=== PATIENT | female | born 2000 | race Caucasian/White ===

== ENCOUNTER 2020-04-03 15:10 | Emergency (ER) | payer OTHER, SELFPAY ==
--- NOTE | 2020-04-03 15:11 | ECG_ITS ---
Measurements Intervals [place] Rate: 99 P: 53 NM: 152 QRS: 27 QRSD: 108 T: 8 QT: 361 QTc: 464 Interpretive Statements SINUS RHYTHM INCOMPLETE RIGHT BUNDLE BRANCH BLOCK BORDERLINE ST-T WAVE ABNORMALITY- INFERIOR LEADS BORDERLINE ECG Electronically Signed On 04-03-2020 16:03:32 CDT by Yan Dent D.O.
[2020-04-03 15:16] VITALS: BP 143/94; PULSE 105; RESP 30; TEMP 36.4; O2SAT 99
[2020-04-03 15:22] LABS: Basophils Absolute Auto 0.1 K/mm3 (0.0-0.1); Basophils Percent Auto 0.6 % (0.2-1.2); Eosinophils Absolute Auto 0.2 K/mm3 (0-0.3); Eosinophils Percent Auto 1.3 % (0-4.4); Hematocrit 40.9 % (37.0-47.0); Hemoglobin 14.2 g/dL (12.0-15.0); Immature Granulocyte Absolute 0.06 K/mm3 (0.00-0.031); Immature Granulocyte Percent A 0.5 % (0-0.5); Lymphocytes Absolute Auto 3.32 K/mm3 (0.9-3.2); Lymphocytes Percent Auto 28.5 % (18.3-44.2); Mean Corpuscular HGB Conc 34.7 g/dl (32-36); Mean Corpuscular Hemoglobin 29.5 pg (26-34); Mean Platelet Volume 9.5 fl (7.4-10.4); Monocytes Absolute Auto 0.7 K/mm3 (0.1-0.6); Monocytes Percent Auto 6.4 % (2.6-8.5); Neutrophils Absolute Auto 7.3 K/mm3 (1.3-6.7); Neutrophils Percent Auto 62.7 % (45.5-73.1); Platelet Count Result 306 k/mm3 (150-375); Red Blood Count 4.81 M/mm3 (4.2-5.4); Red Cell Distribution Width 12.4 % (11.5-14.5); White Blood Count 11.6 K/mm3 (4.5-10.0)
[2020-04-03 15:42] LABS: Blood Urea Nitrogen 19 mg/dL (7-17); Calcium 9.7 mg/dL (8.4-10.2); Carbon Dioxide 24 mmol/L (22-30); Chloride 103 mmol/L (98-107); Estimated Glomerular Filt Rate > 60; Glucose 117 mg/dL (65-105); Potassium 3.5 mmol/L (3.4-5.0); Sodium 136 mmol/L (137-145)
--- NOTE | 2020-04-03 16:06 | ED.GENADULT ---
HPI - General Adult General Chief complaint: Syncope Stated complaint: Syncope, cp, sob Time Seen by Provider: 04/03/20 15:10 Source: patient Mode of arrival: ambulatory Limitations: no limitations History of Present Illness HPI narrative: Patient is a 19-year-old female who presents to emergency department for evaluation of anxiety and possible panic attack patient was having stress related altercation with a coworker. Patient became anxious when out to her car felt near syncopal. Patient was very anxious notes that she has had some aching pain to the left chest with tingling in the extremities. Patient notes history of anxiety and depression Related Data Home Medications Medication Instructions Recorded Confirmed norgestimate-ethinyl estradiol 1 tablet PO DAILY 10/06/19 04/03/20 [Sprintec (28)] cetirizine 10 mg tablet 10 mg PO DAILY 10/25/19 04/03/20 Allergies Allergy/AdvReac Type Severity Reaction Status Date / Time codeine Allergy Mild Hives Verified 04/03/20 15:27 prednisolone Allergy Mild Hives Verified 04/03/20 15:27 Review of Systems Review of Systems: All systems reviewed & are unremarkable except as noted in HPI and below PMFSH Past Medical History Medical History ADD (attention deficit disorder) ADHD Anxiety Depression Hx of lymphangioma with surgery Social History Social History Smoking status: Never smoker Second hand tobacco smoke exposure: Yes Alcohol intake: never Substance use: never Substance use type: does not use Gender identity (if verbalized by the patient): Female Spiritual care concerns: No Agree to blood products: No Exam Narrative: Exam Narrative: GENERAL: Well-appearing, well-nourished, and in no acute distress. HEAD: Normocephalic, atraumatic. EYES: PERRLA and EOMI. ENT: Nares clear, no rhinorrhea or epistaxis. Mucous membranes moist. Oropharynx without tonsillar hypertrophy exudate or other lesions. NECK: Supple. No adenopathy or masses. CHEST: Clear to auscultation. No respiratory distress. No wheezes rales or rhonchi HEART: Regular rate and rhythm. No murmur heard. Normal peripheral pulses. ABDOMEN: Soft, nontender, nondistended EXTREMITIES: Normal range of motion. No edema. SKIN: Warm, dry, no rash. NEURO: No focal deficits. Alert and oriented x3. Cranial nerves II through XII grossly intact patient PSYCH: Normal mood and affect. Course Course Emergency Course: Patient in the room at this time in no distress aware of case findings treatment plan and diagnosis agreeing to follow-up as directed or to return if symptoms worsen or concerns Vital Signs Vital signs: Vital Signs Temperature 97.5 F L 04/03/20 15:16 Pulse Rate 105 H 04/03/20 15:16 Respiratory Rate 30 H 04/03/20 15:16 Blood Pressure 143/94 H 04/03/20 15:16 Pulse Oximetry 99 04/03/20 15:16 Temperature 97.5 F L 04/03/20 15:16 Pulse Rate 105 H 04/03/20 15:16 Respiratory Rate 30 H 04/03/20 15:16 Blood Pressure 143/94 H 04/03/20 15:16 Pulse Oximetry 99 04/03/20 15:16 Medical Decision Making MDM Narrative Medical decision making narrative: Patients EKGs and labs are without significant high risk changes. Cardiac risk factors were reviewed. Patient is felt likely to be low risk for ACS and reasonable for further risk stratification testing as an outpatient. Patient with history of anxiety given the interaction with her coworker that led to anxiety as the likely etiology. A low-risk Wells criteria is noted. PE is felt to be unlikely. No pneumonia or URI symptoms were seen on evaluation today. Patient is felt to be resonable for continued evaluation as an outpatient. Vital Signs Vital Signs: Vital Signs Temperature 97.5 F L 04/03/20 15:16 Pulse Rate 105 H 04/03/20 15:16 Respiratory Rate 30 H 04/03/20 15:16 Blood Pressure 143/94 H 04/03/20
[2020-04-03 16:07] LABS: D Dimer 0.39 ug/mL (<0.48)
[2020-04-03 16:42] LABS: Troponin I < 0.012 ng/mL (0.000-0.034)
--- NOTE | 2020-04-03 16:49 | PC.NURSE ---
0.5 ml of ativan wasted with pyxsis documentation. Pt. refused medication. EDP aware.
[2020-04-03 17:20] VITALS: BP 135/65; PULSE 82; RESP 12; O2SAT 99
[2020-04-04 16:06] VITALS: PULSE 110; RESP 26; TEMP 36.6
== END 2020-04-03 17:26 | disposition home or self-care (01) ==
PROVIDERS: Emergency Medicine Emergency Medical Services; Emergency Provider Emergency Medicine; PCP Internal Medicine
DX: F41.9 Anxiety disorder, unspecified (principal); I45.10 Unspecified right bundle-branch block; R94.31 Abnormal electrocardiogram [ECG] [EKG]
CPT/HCPCS: 36415; 80048; 81025; 84484; 85025; 85380; 93005; 99284

== ENCOUNTER 2020-08-15 11:09 | Outpatient (CLI) | payer OTHER, SELFPAY ==
[2020-08-15 11:27] LABS: Hematocrit 39.3 % (37.0-47.0); Hemoglobin 13.6 g/dL (12.0-15.0); Mean Corpuscular HGB Conc 34.6 g/dl (32-36); Mean Corpuscular Hemoglobin 29.8 pg (26-34); Mean Platelet Volume 9.4 fl (7.4-10.4); Platelet Count Result 271 k/mm3 (150-375); Red Blood Count 4.57 M/mm3 (4.2-5.4); Red Cell Distribution Width 12.2 % (11.5-14.5); White Blood Count 8.6 K/mm3 (4.5-10.0)
[2020-08-15 11:40] LABS: Alanine Aminotransferase 19 U/L (4-35); Alkaline Phosphatase 40 U/L (38-126); Anion Gap 4 mmol/L (8-16); Aspartate Amino Transferase 22 U/L (14-36); Bilirubin,Total 0.6 mg/dL (0.2-1.3); Blood Urea Nitrogen 15 mg/dL (7-17); Calcium 9.4 mg/dL (8.4-10.2); Carbon Dioxide 28 mmol/L (22-30); Chloride 104 mmol/L (98-107); Cholesterol 149 mg/dL (0-200); Estimated Glomerular Filt Rate > 60; Glucose 101 mg/dL (65-105); HDL Direct 38 mg/dL; Potassium 4.3 mmol/L (3.4-5.0); Sodium 136 mmol/L (137-145); Triglycerides 116 mg/dL (<150)
[2020-08-15 11:41] LABS: Hemoglobin A1C 5.4 % (<5.7)
[2020-08-15 11:51] LABS: LDL Cholesterol Direct 94 mg/dL
[2020-08-15 12:48] LABS: Folic Acid > 20.0 ng/mL (2.76->20)
== END 2020-08-15 11:10 | disposition home or self-care (01) ==
LOC: ANHLAB 11:13
PROVIDERS: PCP Internal Medicine; Visit Provider Physician Assistant
DX: R73.9 Hyperglycemia, unspecified (principal); R53.83 Other fatigue
CPT/HCPCS: 36415; 80053; 80061; 82607; 82746; 83036; 84443; 85027

== ENCOUNTER 2020-10-06 11:25 | Emergency (ER) | payer OTHER, SELFPAY ==
--- NOTE | ~2020-10-06 | XR_ITS ---
EXAMINATION: XR chest 2V DATE: 10/06/2020 12:10 INDICATION: Cough and chest pain TECHNIQUE: PA and lateral views of the chest are obtained. COMPARISON: 06/01/2018 FINDINGS: The lungs are free of acute opacities. There is no pleural effusion or pneumothorax. The ca rdiomediastinal silhouette is normal. The visualized bones and soft tissues are unremarkable. IMPRESSION: 1. No acute cardiopulmonary abnormality. Reviewed, dictated and finalized at location A. OR PUBLICATIONS
[2020-10-06 11:37] VITALS: BP 135/78; PULSE 86; RESP 22; TEMP 37.3; O2SAT 97
--- NOTE | 2020-10-06 12:05 | ED.URI ---
HPI - URI/Sore Throat General Chief Complaint: Upper Respiratory Infection Stated Complaint: aches chills and chest pain Time Seen by Provider: 10/06/20 11:55 Source: patient and RN notes reviewed Mode of arrival: ambulatory Limitations: no limitations History of Present Illness HPI Narrative: Patient presents today with a 2-day history of sore throat, and symptoms since last night to include headache, dry cough, body aches, chills and sweats, shortness of breath, left-sided chest discomfort. Chest discomfort worsens with deep breaths and movement. She also reports temperature up to 99.9. She has been taking Tylenol with relief. No history of asthma or COPD. She is a non-smoker. She did receive her flu vaccine in August. Patient works at [employer] and get swabbed for COVID-19 every week. Her last test that was done on Thursday and came back negative yesterday. Related Data Home Medications Medication Instructions Recorded Confirmed cetirizine 10 mg tablet 10 mg PO DAILY 10/25/19 10/06/20 escitalopram oxalate 10 mg tablet 10 mg PO DAILY 08/14/20 10/06/20 Allergies Allergy/AdvReac Type Severity Reaction Status Date / Time codeine Allergy Mild Hives Verified 10/06/20 12:51 prednisolone Allergy Mild Hives Verified 10/06/20 12:51 Review of Systems Review of Systems: Narrative: CONSTITUTIONAL: Denies fever. + Chills, sweats, body aches EYES: Denies visual changes, redness, or discharge. ENT: Denies rhinorrhea, congestion, or otalgia. + Sore throat CARDIOVASCULAR: Denies chest pain, palpitations, or edema. RESPIRATORY: + Dry cough, shortness of breath, chest wall pain GASTROINTESTINAL: Denies abdominal pain, nausea, vomiting, or diarrhea. GENITOURINARY: Denies dysuria or hematuria. SKIN: Denies rash, itching, or wounds. MUSCULOSKELETAL: Denies back pain, joint pain, or myalgia. NEUROLOGIC: Denies headache, numbness, tingling, or weakness. PSYCH: Denies depression or anxiety. [facility] Past Medical History Medical History (Updated 10/06/20 @ 12:46 by Pili Menezes, MANAGER COUNCIL, ) ADD (attention deficit disorder) ADHD Anxiety Depression Surgical History Surgical History Hx of lymphangioma with surgery Social History Social History Smoking status: Never smoker Second hand tobacco smoke exposure: Yes Alcohol intake: never Substance use: never Substance use type: does not use Gender identity (if verbalized by the patient): Female Spiritual care concerns: No Agree to blood products: No Comments At time of signature, I have reviewed and agree with nursing past medical, surgical, social and family history unless otherwise noted. Please see nursing chart for further information. There is no relevant family history pertinent to the presenting complaint Exam Narrative: Exam Narrative: GENERAL: Well-appearing, well-nourished, and in no acute distress. HEAD: Normocephalic, atraumatic. EYES: EOMI. No redness or drainage. Conjunctivae normal. ENT: Mucous membranes pink and moist. Nares clear. No rhinorrhea. TMs normal bilaterally. Throat normal. Uvula midline. NECK: Normal AROM. Supple. No lymphadenopathy. CHEST: No respiratory distress. Diminished in the bilateral bases. Tenderness to the left sternal border HEART: Regular rate and rhythm. No murmur appreciated. Normal peripheral pulses. ABDOMEN: Soft, nontender, nondistended, normal active bowel sounds. MUSCULOSKELETAL: No bony tenderness. EXTREMITIES: Normal range of motion. No edema. SKIN: Warm, dry, no rash. Capillary refill normal. Normal skin turgor. NEURO: No focal deficits. Alert and oriented x3. Gait steady. PSYCH: Normal affect. No signs of depression or anxiety. Course Course Emergency Course: Recommend that patient get another COVID test, since symptoms began. She declines order for one today, as she states
== END 2020-10-06 13:05 | disposition home or self-care (01) ==
PROVIDERS: Emergency Provider Nurse Practitioner; PCP Internal Medicine
DX: B34.9 Viral infection, unspecified (principal); M94.0 Chondrocostal junction syndrome [Tietze]; F41.9 Anxiety disorder, unspecified; F32.9 Major depressive disorder, single episode, unspecified
CPT/HCPCS: 71046; 87081; 87804; 87880; 99213; G0463

== ENCOUNTER 2022-04-16 09:58 | Emergency (ER) | payer OTHER, SELFPAY ==
--- NOTE | 2022-04-16 10:06 | ECG_ITS ---
Measurements Intervals [place] Rate: 74 P: 19 MO: 172 QRS: 40 QRSD: 109 T: 16 QT: 404 QTc: 450 Interpretive Statements SINUS RHYTHM INCOMPLETE RIGHT BUNDLE BRANCH BLOCK BORDERLINE ECG Electronically Signed On 04-16-2022 12:07:05 CDT by Yan Dent D.O.
--- NOTE | 2022-04-16 10:08 | ED.PSYCH ---
HPI - Psych General Chief Complaint: Psychiatric Symptoms <Cristo Miranda APPRENTICESHIP REPRESENTATIVE - Last Filed: 04/17/22 16:21> Stated Complaint: SI <Cristo Miranda APPRENTICESHIP REPRESENTATIVE - Last Filed: 04/17/22 16:21> Time Seen by Provider: 04/16/22 10:02 <Cristo Miranda APPRENTICESHIP REPRESENTATIVE - Last Filed: 04/17/22 16:21> History of Present Illness HPI Narrative: 21-year-old female presents to the emergency room via EMS for evaluation of a suicidal ideation. Patient states that she was seen at her psychiatrist office this morning, and verbalized a plan to commit suicide which included sitting in her car while he was in the garage. Patient also verbalized the desire to overdose on pills. Patient states that she has overdosed on pills 1 time before. <Cristo Miranda APPRENTICESHIP REPRESENTATIVE - Last Filed: 04/17/22 16:21> Related Data Home Medications: Home Medications Medication Instructions Recorded Confirmed cetirizine 10 mg tablet 10 mg PO DAILY 10/25/19 10/06/20 escitalopram oxalate 10 mg tablet 10 mg PO DAILY 08/14/20 10/06/20 levothyroxine 25 mcg PO DAILY 04/16/22 montelukast mg 04/16/22 norgestimate-ethinyl estradiol tablet 04/16/22 [Sprintec (28)] <Cristo Miranda, APPRENTICESHIP REPRESENTATIVE - Last Filed: 04/17/22 16:21> Allergies/Adverse Reactions: Allergies Allergy/AdvReac Type Severity Reaction Status Date / Time codeine Allergy Mild Hives Verified 04/16/22 10:17 prednisolone Allergy Mild Hives Verified 04/16/22 10:17 <Cristo Miranda APPRENTICESHIP REPRESENTATIVE - Last Filed: 04/17/22 16:21> Review of Systems Review of Systems: CONSTITUTIONAL: Denies fever, chills, or sweats. EYES: Denies visual changes, redness, or discharge. ENT: Denies rhinorrhea, congestion, sore throat, or otalgia. CARDIOVASCULAR: Denies chest pain, palpitations, or edema. RESPIRATORY: Denies cough or dyspnea. GASTROINTESTINAL: Denies abdominal pain, nausea, vomiting, or diarrhea. GENITOURINARY: Denies dysuria or hematuria. SKIN: Denies rash or itching. MUSCULOSKELETAL: Denies back pain, joint pain, or myalgia. NEUROLOGIC: Denies headache, numbness, dizziness, or weakness. PSYCHIATRIC: Reports anxiety or depression. <Cristo Miranda APRN - Last Filed: 04/17/22 16:21> PMFSH Past Medical History Medical History: Medical History (Updated 04/17/22 @ 16:21 by Cristo Miranda APRN) ADD (attention deficit disorder) ADHD Anxiety Depression <Cristo Miranda APRN - Last Filed: 04/17/22 16:21> Surgical History Surgical History: Surgical History Hx of lymphangioma with surgery <Cristo Miranda APRN - Last Filed: 04/17/22 16:21> Social History Social History: Social History Smoking status: Never smoker Second hand tobacco smoke exposure: Yes Alcohol intake: never Substance use: never Substance use type: other Gender identity (if verbalized by the patient): Female Spiritual care concerns: No Agree to blood products: No <Cristo Miranda APRN - Last Filed: 04/17/22 16:21> Exam Narrative: GENERAL: Well-appearing, well-nourished, and in mild psychiatric distress. HEAD: Normocephalic, atraumatic. EYES: PERRLA and EOMI. ENT: Nares clear, no rhinorrhea or epistaxis. Mucous membranes moist. Oropharynx without tonsillar hypertrophy exudate or other lesions. Bilateral TMs pearly jacobs nonbulging NECK: Supple. No adenopathy or masses. No carotid bruits or JVD CHEST: Clear to auscultation. No respiratory distress. No wheezes rales or rhonchi HEART: Regular rate and rhythm. No murmur heard. Normal peripheral pulses. ABDOMEN: Soft, nontender, obese, normal active bowel sounds. EXTREMITIES: Normal range of motion. No edema. SKIN: Warm, dry, no rash. NEURO: No focal deficits. Alert and oriented x3. PSYCH: Anxious. <Cristo Miranda APRN - Last Filed: 04/17/22 16:21> Course Course Emergency Course: 1100: Patient is medically cleared. Crisis has
[2022-04-16 10:10] VITALS: BP 149/64; PULSE 72; RESP 18; TEMP 36.8; O2SAT 98
[2022-04-16 10:36] LABS: Basophils Absolute Auto 0.1 K/mm3 (0.0-0.1); Basophils Percent Auto 0.6 % (0.2-1.2); Eosinophils Absolute Auto 0.2 K/mm3 (0-0.3); Hematocrit 42.6 % (37.0-47.0); Immature Granulocyte Absolute 0.06 K/mm3 (0.00-0.031); Immature Granulocyte Percent A 0.7 % (0-0.5); Lymphocytes Absolute Auto 1.72 K/mm3 (0.9-3.2); Lymphocytes Percent Auto 20.7 % (18.3-44.2); Mean Corpuscular HGB Conc 32.9 g/dl (32-36); Mean Corpuscular Hemoglobin 29.2 pg (26-34); Mean Corpuscular Volume 88.8 fl (80-100); Mean Platelet Volume 9.2 fl (7.4-10.4); Monocytes Absolute Auto 0.6 K/mm3 (0.1-0.6); Monocytes Percent Auto 6.6 % (2.6-8.5); Neutrophils Absolute Auto 5.8 K/mm3 (1.3-6.7); Neutrophils Percent Auto 69.4 % (45.5-73.1); Platelet Count Result 269 k/mm3 (150-375); Red Cell Distribution Width 12.5 % (11.5-14.5); White Blood Count 8.3 K/mm3 (4.5-10.0)
[2022-04-16 10:49] LABS: Alanine Aminotransferase 18 U/L (6-35); Albumin Level 4.2 g/dL (3.5-5.1); Alkaline Phosphatase 47 U/L (38-126); Anion Gap 10 mmol/L (8-16); Aspartate Amino Transferase 23 U/L (14-36); Bilirubin,Total 0.4 mg/dL (0.2-1.3); Blood Urea Nitrogen 14 mg/dL (7-17); Calcium 8.9 mg/dL (8.4-10.2); Carbon Dioxide 26 mmol/L (22-30); Chloride 105 mmol/L (98-107); Estimated Glomerular Filt Rate > 60; Glucose 97 mg/dL (65-110); Potassium 3.7 mmol/L (3.4-5.0); Sodium 141 mmol/L (137-145)
[2022-04-16 10:50] LABS: Acetaminophen < 10 ug/mL (10-30); Ethanol < 10 mg/dL (<10); Salicylate < 1.0 mg/dL (2-20)
[2022-04-16 10:51] LABS: Amphetamine Screen Urine Negative (Negative); Barbiturate Screen Urine Negative (Negative); Benzodiazepines Screen Urine Negative (Negative); Cannabinoid Screen Urine Negative (Negative); Cocaine Screen Urine Negative (Negative); Methadone Screen Urine Negative (Negative); Opiate Screen Urine Negative (Negative); Phencyclidine Screen Urine Negative (Negative)
[2022-04-16 11:00] LABS: Appearance Urine Clear (Clear); Bilirubin Urine Negative (Negative); Blood Urine 1+ (Negative); Color Urine Yellow (Yellow); Glucose Urine UA Negative (Negative); Ketones Urine Negative (Negative); Leukocyte Esterase Ur Negative LEU/UL (Negative); Nitrate Urine Negative (Negative); Protein Urine Negative (Negative); Urobilinogen Urine 0.2 mg/dL (<2.0)
[2022-04-16 11:03] LABS: Add Urine Microscopic? YES; Mucus Urine Rare /lpf; Squamous Epithelial Cell Urine Occasional /hpf (Few); WBC Urine 0-3 /hpf
--- NOTE | 2022-04-16 11:10 | PC.NURSE ---
Care assumed of pt at this time. Pt is lying on stretcher with family at bedside. pt has been medically cleared per provider and call will be placed to CRISIS. Pt denies any needs at this time.
--- NOTE | 2022-04-16 11:47 | PC.NURSE ---
meal tray ordered.
--- NOTE | 2022-04-16 11:50 | PC.NURSE ---
Crisis here to evaluate pt.
--- NOTE | 2022-04-16 13:24 | PC.NURSE ---
pt to be placed per crisis. States they sent information to Declan and supa. Pt is agreeable to admission and understands that this is a lengthy process. Mother and s/o at bedside. pt has eaten a meal and has no requests at this time.
--- NOTE | 2022-04-16 14:41 | PC.NURSE ---
Faxed [facility] in [place], [place] - . Entire packet
--- NOTE | 2022-04-16 14:58 | PC.NURSE ---
Refaxed to [facility] [phone] - no response on the first time faxed
[2022-04-16 15:38] LABS: SARS-CoV-2 RNA PCR Negative
--- NOTE | 2022-04-16 20:11 | PC.NURSE ---
Paperwork refaxed to [facility].
--- NOTE | 2022-04-16 20:23 | PC.NURSE ---
Chart faxed to [facility] at [phone].
--- NOTE | 2022-04-16 20:26 | PC.NURSE ---
Pt is doing an over the phone assessment with intake at [facility] at this time.
[2022-04-16] MEDS: MONTELUKAST SODIUM 10 MG TABLET PO (20:55)
--- NOTE | 2022-04-16 21:32 | PC.NURSE ---
Pt accepted to [facility] in [place] by Dr. Carson.
[2022-04-16 21:35] VITALS: BP 140/85; PULSE 52; RESP 18; O2SAT 96
--- NOTE | 2022-04-16 21:37 | PC.NURSE ---
Report given to Adela at [facility] in [place].
--- NOTE | 2022-04-16 21:58 | PC.NURSE ---
[facility] will be here to tile picker pt for transport at 0030. Pt and mother updated.
--- NOTE | 2022-04-17 00:05 | PC.NURSE ---
belongings given to mother at this time.
== END 2022-04-17 00:11 ==
PROVIDERS: Emergency Provider Nurse Practitioner Family; PCP Nurse Practitioner Family
DX: F32.9 Major depressive disorder, single episode, unspecified (principal); Z20.822 Contact with and (suspected) exposure to COVID-19; Z79.899 Other long term (current) drug therapy
CPT/HCPCS: 36415; 80053; 80307; 81001; 81025; 84443; 85025; 93005; 99284; A9270; C9803; U0003; U0005

== ENCOUNTER 2023-06-14 14:07 | Inpatient (IN) | payer OTHER, SELFPAY ==
[2023-06-14] VITALS (22 sets, daily range): BP systolic 124–173; BP diastolic 58–102; PULSE 102–139; RESP 26–56; TEMP 37.3–39.7; O2SAT 51–97; BMI 44.6
--- NOTE | ~2023-06-14 | XR_ITS ---
EXAMINATION: XR lumbar puncture diagnostic DATE: 06/15/2023 13:28 INDICATION: Meningitis. TECHNIQUE: The skin overlying the L2-L3 level was prepped and draped in usual sterile fashion. Subcu taneous 1% lidocaine was used for local anesthesia. A 20 gauge spinal needle was advanced under fluo roscopic guidance. The needle was removed and the entry site was cleaned and dressed. There were no immediate complications. Fluoroscopy exposure time was 0.1 minutes. The total number of images was 1. FINDINGS: Real-time fluoroscopy demonstrates the needle at the L2-L3 level. The opening pressure was 31 cm water (Normal range is variably defined as 6-20 cm water and up to 25 cm water in obese patient s. Pressure >25 cm water is one of the modified Dandy criteria for idiopathic intracranial hypertensi on). 14 mL of clear, colorless fluid was collected in 4 tubes. IMPRESSION: 1. Successful fluoro-guided lumbar puncture. 2. Elevated opening pressure. Reviewed, dictated and finalized at location A.
--- NOTE | ~2023-06-14 | XR_ITS ---
Portable chest x-ray Comparison: 06/16/2023 Clinical History: Respiratory failure Findings: Endotracheal tube and NG tube are in satisfactory positions. There is hazy bibasilar airsp john disease, most confluent at the left lower lobe. Cardiomediastinal silhouette is stable. Bones an d soft tissues are unremarkable. Impression: Bilateral lower lobe airspace disease, left worse than right. Correlate for pulmonary edema/atelectas es versus infection. Support tubes, as above. Reviewed, dictated and finalized at location . Impression: Bilateral lower lobe airspace disease, left worse than right. Correlate for pul monary edema/atelectases versus infection. Support tubes, as above.
--- NOTE | ~2023-06-14 | CT_ITS ---
EXAMINATION: CT brain wo con DATE: 06/14/2023 16:04 INDICATION: Fever. Altered mental status. TECHNIQUE: Computed tomography (CT) of the head was performed without intravenous contrast. The mA wa s adjusted according to patient size. Iterative reconstruction technique was employed. The dose-lengt h product was 529.67 mGy-cm. COMPARISON: None FINDINGS: There is no intracranial hemorrhage, acute infarction, or abnormal intracranial mass lesion . The ventricles are normal in size. There is mild mucosal thickening in the paranasal sinuses. The m astoid air cells are normal. The orbits are normal. IMPRESSION: 1. Normal brain. Reviewed, dictated and finalized at location E. IMPRESSION: 1. Normal brain.
--- NOTE | ~2023-06-14 | XR_ITS ---
EXAMINATION: XR chest 1V portable DATE: 06/14/2023 15:18 INDICATION: Shortness of breath. Fever. TECHNIQUE: A single frontal view of the chest was obtained. COMPARISON: Chest 2 views 10/06/2020, CT abdomen and pelvis 08/14/2019 FINDINGS: There are airspace opacities in the mid and lower lung zones with a lower lung predominance . No pleural effusion or pneumothorax. The heart size is normal. IMPRESSION: 1. Airspace opacities in the mid and lower lung zones, consistent with pulmonary edema versus pneumon ia. Reviewed, dictated and finalized at location E. IMPRESSION: 1. Airspace opacities in the mid and lower lung zones, consistent with pulmonar y edema versus pneumonia.
--- NOTE | ~2023-06-14 | XR_ITS ---
Supine portable view of the abdomen Clinical history: NG tube placement Findings: NG tube is in satisfactory position. Bowel gas pattern is nonspecific. No evidence for obst ruction or free air. No abnormal mass lesion or calcification is seen. Osseous structures are intact. Impression: NG tube in satisfactory position. Reviewed, dictated and finalized at location . Impression: NG tube in satisfactory position.
--- NOTE | ~2023-06-14 | US_ITS ---
EXAMINATION: US venous doppler UE RT DATE: 06/19/2023 09:01 INDICATION: Right upper limb swelling. TECHNIQUE: Grayscale ultrasound images without and with compression and Doppler ultrasound images of the right upper extremity veins were obtained. COMPARISON: None. FINDINGS: The visualized portions of the right internal jugular vein, subclavian vein, axillary vein, brachial veins, basilic vein, cephalic vein, radial vein, and ulnar vein are patent. IMPRESSION: 1. No deep venous thrombosis. Reviewed, dictated and finalized at location A.
--- NOTE | ~2023-06-14 | CT_ITS ---
EXAMINATION: CTA chest PE abdomen pel DATE: 06/14/2023 16:04 INDICATION: Shortness of breath. Fever. TECHNIQUE: Computed tomography angiography (CTA) of the chest was performed with 100 mL Omnipaque-350 intravenous contrast timed to evaluate the pulmonary arteries. Coronal maximum intensity projection 3D-reconstructions were created by the technologist. Computed tomography (CT) of the abdomen and pelv is was performed with intravenous contrast. Automated exposure control and iterative reconstruction t echnique were employed. The dose-length product was 529.67 mGy-cm. COMPARISON: CT abdomen and pelvis 08/14/2019 FINDINGS: CTA chest: There are patchy airspace and groundglass opacities involving all lobes. There is smooth s eptal thickening in the lungs. There are trace pleural effusions. The heart size is normal. No perica rdial effusion. There is no pulmonary embolus. CT abdomen and pelvis: The liver, spleen, gallbladder, pancreas, adrenal glands, and kidneys are norm al. The bladder is decompressed by a Watkins catheter. There are no dilated loops of bowel. The appendi x is not visualized. There are no pathologically enlarged lymph nodes. There is physiologic fluid in the pelvis. The bones are unremarkable. IMPRESSION: 1. Diffuse lung disease, consistent with pulmonary edema versus pneumonia. 2. No pulmonary embolus. Sensitivity is mildly decreased by motion artifact. Reviewed, dictated and finalized at location E.
--- NOTE | ~2023-06-14 | XR_ITS ---
Portable chest x-ray Comparison: 06/17/2023 Clinical History: Respiratory failure Findings: Endotracheal tube and NG tube are in satisfactory positions. Patchy bilateral airspace dis ease, with lower lobe predominance, is unchanged. Cardiomediastinal silhouette is stable. Bones and soft tissues are unremarkable. Impression: Stable bilateral airspace disease. Correlate for pulmonary edema/atelectasis versus pneumonia. Support tubes, as above. Reviewed, dictated and finalized at location . Impression: Stable bilateral airspace disease. Correlate for pulmonary edema/atelectasis ve rsus pneumonia. Support tubes, as above.
--- NOTE | ~2023-06-14 | MR_ITS ---
EXAMINATION: MR brain/brain stem wo/w con DATE: 06/20/2023 15:01 INDICATION: headache, inc ICP TECHNIQUE: Magnetic resonance imaging (MRI) of the brain and brainstem was performed without intraven ous contrast. Sequences included sagittal and axial T1-weighted SE, axial diffusion-weighted FS EPI A SSET, axial T2*-weighted GRE, axial T2-weighted FLAIR Propeller, and axial T2-weighted Propeller. Pos tcontrast axial and coronal T1-weighted SE was obtained. Apparent diffusion coefficient (ADC) maps we re created. COMPARISON: CT brain 06/14/2023. FINDINGS: No abnormal restricted diffusion to suggest acute ischemic infarct. No MRI evidence of hemorrhage or extra-axial collection. No suspicious foci of susceptibility to suggest prior intraparenchymal hemorr ramon. Normal white matter signal. No evidence of advanced or lobar predominant parenchymal volume los s. The basilar cisterns are patent. Flow voids are preserved. Mucosal thickening in the bilateral max illary and posterior ethmoid and sphenoid sinuses. Globes and orbital contents are within normal limi ts. IMPRESSION: Normal MR brain findings. Reviewed, dictated and finalized at location K. IMPRESSION: Normal MR brain findings.
--- NOTE | ~2023-06-14 | XR_ITS ---
Portable chest x-ray Comparison: 06/14/2023 at 3:10 PM Clinical History: Tube placement Findings: Endotracheal tube is present, tip probably just in the right mainstem bronchus. NG tube in satisfactory position. There is extensive pulmonary consolidation, left lung worse than right. Card iomediastinal silhouette is stable. Bones and soft tissues are unremarkable. Impression: Endotracheal tube tip in the right mainstem bronchus. Retraction by 3-4 cm advised. Extensive bilateral pulmonary consolidation, left worse than right. This probably represents a combin ation of pulmonary edema and left lung atelectatic changes given ET tube position. Reviewed, dictated and finalized at location . Impression: Endotracheal tube tip in the right mainstem bronchus. Retraction by 3-4 cm advi sed. Extensive bilateral pulmonary consolidation, left worse than right. This probab ly represents a combination of pulmonary edema and left lung atelectatic change s given ET tube position.
--- NOTE | ~2023-06-14 | XR_ITS ---
Portable chest x-ray Comparison: 06/18/2023 Clinical History: Respiratory failure Findings: There is minimal residual bibasilar hazy airspace disease. Cardiomediastinal silhouette i s stable. Bones and soft tissues are unremarkable. Impression: Minimal residual bibasilar hazy airspace disease. Reviewed, dictated and finalized at [facility]. Impression: Minimal residual bibasilar hazy airspace disease.
--- NOTE | ~2023-06-14 | XR_ITS ---
XR chest 1V portable 06/20/2023 06:13 Indication: Respiratory failure Procedure: AP portable chest Comparison: Comparison to multiple prior studies sequentially, with oldest reviewed study dated 06/16. Findings: Borderline heart size. Bilateral perihilar infiltrates may represent resolving edema or pne umonia. No significant effusion or pneumothorax. No acute osseous abnormality. Impression: 1: Improving bilateral perihilar infiltrates may represent resolving edema or pneumonia. Reviewed, dictated and finalized at location A. Impression: 1: Improving bilateral perihilar infiltrates may represent resolving edema or p neumonia.
--- NOTE | ~2023-06-14 | XR_ITS ---
Portable chest x-ray Comparison: 06/15/2023 Clinical History: Respiratory failure Findings: Endotracheal tube and NG tube are in satisfactory position. There is hazy left basilar air space consolidation. Questionable minimal right perihilar haziness.. Cardiomediastinal silhouette is stable. Bones and soft tissues are unremarkable. Impression: Significant improvement in bilateral airspace disease, with residual airspace disease in the left low er lobe and mild haziness the right perihilar region. Correlate for improving pulmonary edema/infecti on. Support tubes, as above. Reviewed, dictated and finalized at location M. Impression: Significant improvement in bilateral airspace disease, with residual airspace d isease in the left lower lobe and mild haziness the right perihilar region. Cor relate for improving pulmonary edema/infection. Support tubes, as above.
--- NOTE | ~2023-06-14 | XR_ITS ---
Portable chest x-ray Comparison: 06/14/2023 Clinical History: ET tube placement Findings: Endotracheal tube and NG tube are in satisfactory positions. There is moderate patchy bila teral airspace disease. No pleural effusion or pneumothorax. Cardiomediastinal silhouette is stable. Bones and soft tissues are unremarkable. Impression: Support tubes in satisfactory positions, as above. Patchy moderate bilateral airspace disease. Correlate for moderate pulmonary edema versus infection. Reviewed, dictated and finalized at location . Impression: Support tubes in satisfactory positions, as above. Patchy moderate bilateral airspace disease. Correlate for moderate pulmonary ed veena versus infection.
[2023-06-14] MEDS: SODIUM CHLORIDE 0.9% IV 1,000 ML 999 ML IV CONT ×2 (14:32→14:43)
[2023-06-14] MEDS: ACETAMINOPHEN 650 MG SUPPOSITORY RECTAL (14:32)
[2023-06-14 14:37] LABS: Alveolar/Arterial O2 Gradient 203.4 mmHg; Base Excess ABG 0.3 mEq/l (+/-2.0); Fractional Inspired Oxygen 40 %; HCO3 ABG 21.9 mEq/l (22.0-26.0); Oxygen Content ABG 17.3 %vol (16.0-22.0); Oxygen Saturation ABG 89.5 % (90.0-100.0); PCO2 ABG 27.8 mmHg (33.0-35.0); PO2 FiO2 Ratio Arterial Blood 1.25 %
[2023-06-14 14:37] LABS: Glucose Point of Care 179 mg/dl (65-105)
[2023-06-14 14:38] LABS: PO2 ABG 49.8 mmHg (72.0-75.0); pH ABG 7.515 (7.350-7.400)
[2023-06-14 14:39] LABS: Device NASAL CANNULA; Modified Allen's Test Pass; Site Drawn LEFT RADIAL
--- NOTE | 2023-06-14 14:43 | ED.FEVER ---
HPI - Fever General Chief Complaint: Fever Stated Complaint: Unresponsive Time Seen by Provider: 06/14/23 14:16 History of Present Illness HPI Narrative: 18-year-old female presented to the emergency department for evaluation of altered mental status. Mother states that the child has been running a fever over the last few days. Patient did have follow-up at an outside hospital and and was discharged home. Patient states she has had worsening headache neck pain chest pain and shortness of breath. Upon arrival to the emergency department patient was 57% on on room air. Patient did improve with oxygenation. Related Data Home Medications Medication Instructions Recorded Confirmed fluoxetine 40 mg capsule 40 mg PO DAILY 06/14/23 06/14/23 levothyroxine 25 mcg tablet 25 mcg PO DAILY 06/14/23 06/14/23 norgestimate 0.25 mg-ethinyl 1 tablet PO DAILY 06/14/23 06/14/23 estradiol 35 mcg tablet (Sprintec (28)) quetiapine 25 mg tablet 25 mg PO HS 06/14/23 06/14/23 Allergies Allergy/AdvReac Type Severity Reaction Status Date / Time amoxicillin Allergy Diarrhea Verified 06/14/23 14:30 codeine Allergy Hives Verified 06/14/23 14:30 prednisolone [From Orapred] Allergy Swelling Verified 06/14/23 14:30 vancomycin Allergy Hives Verified 06/14/23 16:26 Review of Systems Review of Systems: All systems reviewed & are unremarkable except as noted in HPI and below PMFSH Social History Social History Smoking status: Never smoker Alcohol intake: never Substance use: never Lack of Transportation: No Lack of Food: Never True Current Housing: I Have Housing Concerned About Future Housing: No Difficulty Paying Gas/Electric Bills: No Difficulty Paying for Meds: No Currently Unemployed: No Education: Trade/Vocational Certificate Difficulty w/ Childcare or Family Care: No Spiritual care concerns: No Exam Narrative: APPEARANCE: Cyanotic and ill-appearing upon arrival HEAD: normocephalic, atraumatic. EYES: PERRLA/EOMI, conjunctivae clear. NOSE: Normal no drainage EARS:TMS clear with good light reflex. THROAT: Pharynx clear, no exudate. NECK: Supple. No adenopathy, no masses. RESPIRATORY: Airway patent, respirations nonlabored. Clear to auscultation bilaterally, no rales, rhonchi, wheezing. CARDIOVASCULAR: Regular rate and rhythm without murmurs rubs or gallops. ABDOMINAL: Soft, nontender, nondistended, normal bowel sounds MUSCULOSKELETAL: Moves all extremities. Strength/ROM intact, No edema, No calf tenderness. NEURO: Alert and responsive. Grossly intact SKIN: Warm, dry. Normal Color Course COLOR LABORATORY TECHNICIAN/PA Physician Supervision Female presented the emergency department for evaluation of fever and altered mental status. Patient was hypoxic upon arrival to the ED was placed on 10 L by simple mask and this helped with her oxygenation. Patient ABG showed a pH of 7.5, PCO2 of 27.8 and PO2 of 49.8 with a oxygen sat of 89.5. Patient was treated with rectal Tylenol, IV fluids, Xopenex, blood cultures were ordered and patient was started on 2 g of IV Rocephin and vancomycin. CTA PE abdomen pelvis was ordered to evaluate for pulmonary etiology. Patient had been complaining of headache with this so CT brain was also ordered. Patient was placed on BiPAP due to increased respiratory distress. Patient was transferred to the IMU. Vital Signs Vital signs: Vital Signs Temperature 102.4 F H 06/14/23 14:16 Pulse Rate 139 06/14/23 14:16 Respiratory Rate 56 06/14/23 14:16 Blood Pressure 173/69 H 06/14/23 14:16 Pulse Oximetry 51 L 06/14/23 14:16 Oxygen Delivery Room Air 06/14/23 14:16 Temperature 100.9 F H 06/14/23 20:00 Pulse Rate 104 H 06/14/23 20:50 Respiratory Rate 51 H 06/14/23 20:50 Blood Pressure 138/66 06/14/23 20:00 Pulse Oximetry 95 06/14/23 20:50 Oxygen Delivery BiPAP 06/14/23 20:50 Oxygen Flow Rate 10 06/14/23 14:37 Fraction of Inspired Oxygen 45 06/14/23 19:35
[2023-06-14] MEDS: cefTRIAXone 2 GM/NS 100 ML 2 GM/100 ML BAG IVPB (14:44)
[2023-06-14] MEDS: LEVALBUTEROL NEB 1.25 MG/3 ML 2.5 MG INHALATION (14:49)
[2023-06-14 14:53] LABS: Basophils Absolute Auto 0.1 K/mm3 (0.0-0.1); Basophils Percent Auto 0.3 % (0.2-1.2); Hematocrit 40.9 % (37.0-47.0); Hemoglobin 13.5 g/dL (12.0-15.0); Immature Granulocyte Percent A 0.9 % (0-0.5); Lymphocytes Absolute Auto 1.45 K/mm3 (0.9-3.2); Lymphocytes Percent Auto 6.2 % (18.3-44.2); Mean Corpuscular Hemoglobin 29.3 pg (26-34); Mean Corpuscular Volume 88.9 fl (80-100); Mean Platelet Volume 9.7 fl (7.4-10.4); Monocytes Absolute Auto 1.2 K/mm3 (0.1-0.6); Monocytes Percent Auto 5.3 % (2.6-8.5); Neutrophils Absolute Auto 20.3 K/mm3 (1.3-6.7); Neutrophils Percent Auto 87.3 % (45.5-73.1); Platelet Count Result 242 k/mm3 (150-375); Red Cell Distribution Width 13.2 % (11.5-14.5); White Blood Count 23.3 K/mm3 (4.5-10.0)
[2023-06-14 14:59] LABS: Appearance Urine Clear (Clear); Bacteria Urine Rare /hpf; Bilirubin Urine Negative (Negative); Blood Urine 2+ (Negative); Color Urine Dark Yellow (Yellow); Glucose Urine UA 2+ mg/dL (Negative); Ketones Urine Negative (Negative); Leukocyte Esterase Ur Negative LEU/UL (Negative); Nitrate Urine Negative (Negative); Non Pathogenic Casts 0-2; Protein Urine 3+ mg/dL (Negative); RBC Urine 21-50 /hpf (0-2); Specific Grav Ur 1.022 (1.001-1.035); Squamous Epithelial Cell Urine Few /hpf (Few); WBC Urine 0-5 /hpf; pH Urine 7.5 (5.0-9.0)
[2023-06-14 15:01] LABS: Add Urine Microscopic? YES
[2023-06-14 15:04] LABS: Alanine Aminotransferase 21 U/L (6-35); Albumin Level 4.2 g/dL (3.5-5.1); Alkaline Phosphatase 58 U/L (38-126); Anion Gap 9 mmol/L (8-16); Aspartate Amino Transferase 21 U/L (14-36); Bilirubin,Total 0.5 mg/dL (0.2-1.3); Blood Urea Nitrogen 6 mg/dL (7-17); Calcium 8.8 mg/dL (8.4-10.2); Carbon Dioxide 25 mmol/L (22-30); Chloride 102 mmol/L (98-107); Estimated Glomerular Filt Rate > 60; Glucose 179 mg/dL (65-110); Potassium 3.6 mmol/L (3.4-5.0); Sodium 136 mmol/L (137-145)
[2023-06-14 15:10] LABS: INR 1.2; Prothrombin Time 15.7 Seconds (11.1-14.7)
[2023-06-14] MEDS: VANCOMYCIN 1,250 MG/NS 250 ML 1,250 MG/250 ML BAG 166.67 MG IVPB (15:30)
--- NOTE | 2023-06-14 15:50 | PC.NURSE ---
Pt to CT scan via stretcher, resp in assist w/ BIPAP.
--- NOTE | 2023-06-14 16:25 | PC.NURSE ---
Pt has a rash/hives to left arm (vancomycin infusing, 141 MLS infused w/ 109 stopped/wasted left in bag.) Pt denies feeling itchy, SOB, or symptomatic. EDP Dr Castellon made aware.
--- NOTE | 2023-06-14 16:28 | PC.NURSE ---
Pt has fan in room and ice packs under arms per EDP Dr Ravinder MIN.
[2023-06-14 17:11] LABS: NT Pro B Type Natriuretic Pept 1430 pg/mL (19.9-100)
--- NOTE | 2023-06-14 17:22 | PM.IMHP ---
H&P: HPI History of Present Illness Date/Time: 06/14/23 17:45 Chief Complaint: Fever. Narrative: This is a 22-year-old female with bipolar disorder, borderline personality disorder, anxiety, depression, history of suicide attempt, polycystic ovarian syndrome, and Louie who presented to the ED via private vehicle from home accompanied by her mother for evaluation of fever and weakness. The patient provides the following history; her mother provides additional information with the patients permission. 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 She phoned her mother to pick her up and when mom arrived the patient did not answer her phone. She was found on the floor in a bathroom at work where she had apparently lost consciousness. The patient reports that she had multiple episodes of emesis and she apparently blacked out. She was evaluated in the emergency department at her place of employment and she was found to be febrile with an elevated white blood cell count however her labs and CT of the chest, abdomen, and pelvis were reportedly unremarkable. She was discharged home and seemed to be doing okay the following day however last night mother reports that she seemed to be ?panting? while asleep and this morning she had no appetite and ate only a few bites. Thereafter she has started to complain of a headache and shortness of breath and mother reports that she ?lost all energy? and she was not very interactive. She denied close sick contacts. She has not cared for any individuals with COVID recently and she has not had a recent COVID infection. She does not believe that she aspirated when vomiting on Thursday. She is a nonsmoker but she tried vaping for 2 weeks recently however she has not done that for approximately 5 days. According to mom, the patient is lives appeared white in route to the hospital and on arrival to triage her SpO2 was 57% on room air. She was placed on 10 L by simple mask with improvement in oxygenation and she was later started on BiPAP due to work of breathing with improvement.. She received rectal Tylenol for a temperature of 102.4? F and she was also given a dose of ceftriaxone and vancomycin. CTA of the chest, abdomen, and pelvis showed diffuse lung disease consistent with pulmonary edema versus pneumonia. Head CT ordered due to fever, altered mental status, and headache showed a normal brain. She was admitted to the IMU however within several hours she seemed to be increasingly short of breath and she was transferred to the ICU where she was ultimately intubated due to impending respiratory failure (increased work of breathing, tachypneic, reports of feeling not being able to take in a deep breath, and increasing oxygen requirements). Of note she had a reaction to vancomycin in the ED (immediate pruritus and erythema at the infusion site) and a pretty significant reaction to accommodate (marked erythema, edema, and warmth at the injection site extending all the way up the arm). Blood pressures were stable during that time however. Review of Systems Review of Systems: Twelve systems were reviewed and are negative except for as per HPI. [facility] Past Medical History Medical History (Updated 06/15/23 @ 15:30 by Melissa Culver PA-C) Anxiety Bipolar disorder Borderline personality disorder Louie's thyroiditis Lymphangioma, any site Multiple surgeries for resection of lymph angiomas from the neck. Polycystic ovarian syndrome Suicide attempt Surgical History Surgical History (Updated 06/15/23 @ 15:30 by Melissa Culver PA-C) History of colonoscopy History of excision of mass Multiple surgeries for resection of lymphangiomas from the neck. Family History Family History (Updated 06/15/23 @ 15:30 by Melissa Culver PA-C) Other Family history non-contributory Social History Social History (Updated 06/15/23 @ 15:
[2023-06-14 17:41] LABS: Influenza A QL RT-PCR Negative (Negative); Influenza B QL RT-PCR Negative (Negative); RSV RNA, RT-PCR Negative (Negative); SARS-CoV-2 RNA PCR Negative (Negative)
[2023-06-14] MEDS: KETOROLAC 15 MG/ML VIAL (*BKC) IV PUSH (17:41)
[2023-06-14 17:50] LABS: Reflex Lactic Acid Yes or No Add Lactic
--- NOTE | 2023-06-14 18:05 | ADMGEN ---
This patient, Ramya Ambrose, was admitted to IMU Room 203-01 at 1803. Patient/family oriented to hospital policies and general routines including ID bracelet, bed and alarms, visiting hours, pain management, procedures, bathroom and other care routines, personal items, smoking policy, room service/diet, and visiting hours. Information on how to activate the Rapid Response Team has been discussed. Patient/Family are encouraged to report perceived risks to care and to ask questions if they do not understand what they are told or what they should do.
[2023-06-14 18:39] LABS: Lactic Acid 1.2 mmol/L (0.7-2.0)
[2023-06-14 20:59] LABS: Hemoglobin A1C 5.7 % (<5.7)
--- NOTE | 2023-06-14 21:06 | PC.NURSE ---
Patient transferred to ICU 8. Report given to Gissell CASTRO. All belongings transferred.
[2023-06-14] MEDS: PROPOFOL IV EMULSION 100 ML 20 MG (21:31)
[2023-06-14] MEDS: MIDAZOLAM HCL (*CRX) 2 MG/2 ML VIAL IV PUSH (22:05)
[2023-06-14] MEDS: ROCURONIUM BROMIDE 50 MG/5 ML VIAL IV PUSH (22:18)
[2023-06-14 22:24] LABS: Basophils Absolute Auto 0.1 K/mm3 (0.0-0.1); Basophils Percent Auto 0.4 % (0.2-1.2); Eosinophils Percent Auto 0.1 % (0-4.4); Hematocrit 37.1 % (37.0-47.0); Hemoglobin 12.4 g/dL (12.0-15.0); Immature Granulocyte Absolute 0.18 K/mm3 (0.00-0.031); Immature Granulocyte Percent A 0.8 % (0-0.5); Lymphocytes Percent Auto 8.6 % (18.3-44.2); Mean Corpuscular HGB Conc 33.4 g/dl (32-36); Mean Corpuscular Hemoglobin 29.5 pg (26-34); Mean Corpuscular Volume 88.1 fl (80-100); Mean Platelet Volume 9.3 fl (7.4-10.4); Monocytes Percent Auto 4.4 % (2.6-8.5); Neutrophils Percent Auto 85.7 % (45.5-73.1); Platelet Count Result 221 k/mm3 (150-375); Red Blood Count 4.21 M/mm3 (4.2-5.4); Red Cell Distribution Width 13.3 % (11.5-14.5); White Blood Count 23.3 K/mm3 (4.5-10.0)
[2023-06-14 22:29] LABS: Procalcitonin 1.8 ng/mL
[2023-06-14] MEDS: methylPREDNISolone SOD SUCC 125 MG VIAL IV PUSH (22:32)
[2023-06-14] MEDS: FAMOTIDINE 20 MG/2 ML VIAL IV PUSH (22:34)
[2023-06-14 22:37] LABS: Alanine Aminotransferase 17 U/L (6-35); Albumin Level 3.7 g/dL (3.5-5.1); Alkaline Phosphatase 59 U/L (38-126); Anion Gap 6 mmol/L (8-16); Aspartate Amino Transferase 28 U/L (14-36); Bilirubin,Total 0.8 mg/dL (0.2-1.3); Blood Urea Nitrogen 7 mg/dL (7-17); Calcium 7.4 mg/dL (8.4-10.2); Carbon Dioxide 26 mmol/L (22-30); Chloride 106 mmol/L (98-107); Creatine Kinase 98 U/L (30-135); Estimated Glomerular Filt Rate > 60; Glucose 159 mg/dL (65-110); Lactic Acid Reflex 0.9 mmol/L (0.7-2.0); Magnesium 1.7 mg/dL (1.6-2.3); Potassium 3.7 mmol/L (3.4-5.0); Sodium 138 mmol/L (137-145)
[2023-06-14] MEDS: ACETAMINOPHEN ELIXIR 325 MG/10.15 ML UDC 1504 MG PO (22:47)
[2023-06-14 22:48] LABS: Alveolar/Arterial O2 Gradient 521.9 mmHg; Base Excess ABG -6.1 mEq/l (+/-2.0); Carboxyhemoglobin 0.2 % THb (0-2.0); Fractional Inspired Oxygen 100 %; HCO3 ABG 22.8 mEq/l (22.0-26.0); Methemoglobin ABG 0.6 %THb (0-1.5); Oxygen Content ABG 19.9 %vol (16.0-22.0); Oxygen Saturation ABG 97.9 % (95.0-100.0); Oxyhemoglobin 96.8 % THb (90.0-100.0); PCO2 ABG 59.7 mmHg (35.0-45.0); PO2 ABG 131.4 mmHg (80.0-100.0); PO2 FiO2 Ratio Arterial Blood 1.31 %; Reduced Hemoglobin 2.4 %THb (0-5.0); Total Hemoglobin 14.5 g/dL (12.0-18.0)
[2023-06-14 22:50] LABS: Modified Allen's Test Pass; Site Drawn LEFT RADIAL
[2023-06-14 22:51] LABS: Device VENTILATOR
[2023-06-14 22:52] LABS: Arterial Blood Gas PEEP 10 cmH2O; Arterial Blood Gas Tidal Volume 300 ml; Arterial Blood Gas Vent Mode CMV; Arterial Blood Gas Ventilator rate 22 /MIN
[2023-06-14] MEDS: metroNIDAZOLE 500 MG/ISO 100ML 500 MG/100 ML BAG 100 MG IVPB (23:57)
[2023-06-14] MEDS: CEFEPIME 2 GM/NS 50 ML 2 GM/50 ML BAG IVPB (23:57)
[2023-06-15] VITALS (59 sets, daily range): BP systolic 87–127; BP diastolic 36–74; PULSE 70–123; RESP 20–32; TEMP 36.1–39.7; O2SAT 89–100; BMI 43.9
--- NOTE | 2023-06-15 | ECHO_ITS ---
Patient Info Name: Ramya Ambrose Age: 22 years : 2000 Gender: Female Ht: 59 in Wt: 220 lbs BSA: 2.10 m2 HR: 73 bpm BP: 112 / 74 mmHg Technical Quality: Fair Exam Date: 06/15/2023 10:16 AM Exam Location: [facility] Room: ICU8 Patient Status: Inpatient Admit Date: 06/14/2023 Staff Ordering Physician: Melissa Culver PA-C Film Reproducer: Debra Cordova RDCS Attending Provider: Kiersten Jeter DO Referring Physician: Palomo HERRERA; Exam Type: CA echo dop bubble study w con Study Info Indications - HYPOXIA ELEVATED PROBNP Complete two-dimentional, color flow and Doppler transthoracic echocardiogram is performed with agitated saline and with contrast to opacify the left ventricle and to improve the delineation of the left ventricle endocardial borders. Contrast/Agitated Saline Contrast/Ag. Saline: Definity Amount: 1.00 ml Administered By: Debra Cordova [facility] Existing IV Access: Yes IV Access Condition: patent with no signs of infiltration Summary 1. Normal LV size and wall thickness, normal LV systolic and diastolic function, ejection fraction about 70%. Prominent RV trabeculations. No significant valvular abnormality. Left Ventricle Left ventricular chamber dimension is normal. Left ventricular systolic function is normal, estimated at >70%. There is no increased left ventricular wall thickness. Left ventricular septal wall motion is normal. The left ventricular diastolic function is normal. Right Ventricle Right ventricular chamber dimension is normal. Right ventricular systolic function is normal. Left Atria Left atrial chamber dimension is normal. Right Atria Right atrial chamber dimension is normal. Atrial Septum Intact interatrial septum visualized by agitated saline imaging. Aortic Valve The aortic valve is trileaflet. There is no aortic valve sclerosis. There is no aortic valve stenosis. There is no aortic valve regurgitation. Pulmonic Valve The pulmonic valve is normal. There is trace pulmonic regurgitation. Mitral Valve The mitral valve has normal leaflets. There is no mitral valve stenosis. There is no mitral valve regurgitation. Tricuspid Valve The tricuspid valve leaflets are normal. There is trace tricuspid valve regurgitation. No pulmonary hypertension, estimated pulmonary arterial systolic pressure is 32 mmHg. Pericardium/Pleural The pericardium appears normal. There is no pericardial effusion. Inferior Vena Cava Normal inferior vena cava with >50% collapse upon inspiration consistent with normal right atrial pressure, 10 mmHg. Aorta The aortic root size at the sinus of Valsalva is normal. The prox ascending aorta size is normal. Left Ventricular Outflow Tract Name Value Normal LVOT 2D LVOT Diameter 2.0 cm LVOT Doppler LVOT Peak Gradient 5 mmHg LVOT Mean Gradient 3 mmHg LVOT VTI 25 cm LVOT VTI/AV VTI Ratio 0.9 LVOT Stroke Volume 77 ml LVOT CO 15.3 l/min LVOT CI
[2023-06-15] MEDS: FENTANYL 2,500MCG/NS250ML(*CRX 2,500 MCG/250 ML BAG IV CONT (00:07)
[2023-06-15] MEDS: AZITHROMYCIN 500 MG/NS 250 ML 500 MG/250 ML BAG 250 MG IVPB (00:23)
[2023-06-15] MEDS: PROPOFOL IV EMULSION 100 ML 24.05 MG IV CONT ×2 (00:40→04:33)
[2023-06-15 00:59] LABS: Triglycerides 129 mg/dL (<150)
[2023-06-15] MEDS: LACTATED RINGERS 1,000 ML 75 ML IV CONT (01:00)
--- NOTE | 2023-06-15 01:45 | WPDPROCEDUR ---
Procedures Intubation Intubation Date: 06/14/23 Intubation Time: 21:30 Consent: Patient and mother gave consent. Sedative: etomidate Mg given: 20 Paralytic: rocuronium Mg given: 50 Laryngoscope: fiber optic video scope Assist device used: fiber optic device ET tube size: 7.5 Tube secured depth (cm): 21 Tube secured location: lips Tube placement confirmation: visualized tube passing through cords, equal breath sounds bilaterally, no breath sounds over epigastrium and confirmation by capnometry Patient tolerated procedure: well Intubation complications: none Additional comments: Patient was preoxygenated on BiPAP at 100% FiO2. Etomidate 20 mg and rocuronium 50 mg were given for RSI. As soon as the etomidate was pushed the patient yelled out in pain and jerked her arm and shortly thereafter she developed significant erythema, edema, and warmth at the injection site and up the arm which improved with Solu-Medrol. Following RSI she was intubated easily, quickly, and atraumatically on 1st attempt using the glide scope. A 7.5 ET tube was seen passing through the vocal cords. Misting of the tube was noted, lung sounds were auscultated bilaterally, and there was positive capnography change. She was not hypoxic during the intubation. Post intubation her SpO2 dropped to 87% and PEEP was increased to 10 with improvement.
--- NOTE | 2023-06-15 01:46 | WPDPROCEDUR ---
Procedures Central Line Placement Right Femoral: Central Line Date: 06/14/23 Central Line Time: 23:30 The patient/family/POA understand(s) and acknowledge(s) the need to proceed with central venous catheter insertion as an important element of the patient's clinical management.: Yes Consent: I have discussed with the patient and/or surrogate, the non-emergent placement of a central venous catheter, including its clinical necessity/indication and associated potential risks and complications. The patient and/or surrogate understand(s) and acknowledge(s) the need to proceed with central venous catheter insertion as an important element of the patient's clinical management. Time Out Performed: Yes Patient Position: supine Patient placed on monitor/pulse ox: Yes Provider Prep: mask, sterile gown, sterile gloves, Max. sterile barrier precautions, cap and hand hygiene with conventional soap/water or alcohol based hand rub Central line prep: 2% Chlorhexidine scrub Local anesthesia used: lidocaine 1% Amount of anesthesia used (ml): 3 Sterile US Technique with sterile gel/sterile probe covers: Yes Central line lumen inserted: triple Panamanian: 7 Length (cm): 20 Post Procedure: sutured in place, good blood return, all ports aspirated, flushed, capped, transparent dressing, antimicrobial product and aseptic technique maintained throughout procedure Post procedure x-ray: other ( n/a with femoral placement) Complications: none
[2023-06-15] MEDS: metroNIDAZOLE 500 MG/ISO 100ML 500 MG/100 ML BAG 100 MG IVPB ×3 (05:20→21:40)
[2023-06-15] MEDS: CEFEPIME 2 GM/NS 50 ML 2 GM/50 ML BAG IVPB ×3 (05:20→21:40)
[2023-06-15] MEDS: CENTRAL LINE FLUSH 10 ML IV PUSH ×4 (05:21→21:40)
[2023-06-15 05:37] LABS: Basophils Absolute Auto 0.1 K/mm3 (0.0-0.1); Basophils Percent Auto 0.2 % (0.2-1.2); Eosinophils Absolute Auto 0.1 K/mm3 (0-0.3); Eosinophils Percent Auto 0.5 % (0-4.4); Hematocrit 33.1 % (37.0-47.0); Immature Granulocyte Absolute 0.29 K/mm3 (0.00-0.031); Immature Granulocyte Percent A 1.4 % (0-0.5); Lymphocytes Absolute Auto 0.55 K/mm3 (0.9-3.2); Lymphocytes Percent Auto 2.6 % (18.3-44.2); Mean Corpuscular HGB Conc 33.2 g/dl (32-36); Mean Corpuscular Hemoglobin 29.7 pg (26-34); Mean Corpuscular Volume 89.5 fl (80-100); Mean Platelet Volume 9.6 fl (7.4-10.4); Monocytes Absolute Auto 0.6 K/mm3 (0.1-0.6); Monocytes Percent Auto 3.1 % (2.6-8.5); Neutrophils Absolute Auto 19.3 K/mm3 (1.3-6.7); Neutrophils Percent Auto 92.2 % (45.5-73.1); Platelet Count Result 219 k/mm3 (150-375); Red Cell Distribution Width 13.3 % (11.5-14.5); White Blood Count 20.9 K/mm3 (4.5-10.0)
[2023-06-15 06:06] LABS: Anion Gap 7 mmol/L (8-16); Blood Urea Nitrogen 11 mg/dL (7-17); Calcium 7.4 mg/dL (8.4-10.2); Carbon Dioxide 24 mmol/L (22-30); Chloride 106 mmol/L (98-107); Estimated Glomerular Filt Rate > 60; Glucose 237 mg/dL (65-110); Magnesium 1.9 mg/dL (1.6-2.3); Potassium 4.1 mmol/L (3.4-5.0); Sodium 137 mmol/L (137-145)
[2023-06-15 06:09] LABS: Lactic Acid Reflex 1.4 mmol/L (0.7-2.0)
[2023-06-15 06:10] LABS: Alveolar/Arterial O2 Gradient 577.6 mmHg; Base Excess ABG -3.4 mEq/l (+/-2.0); Fractional Inspired Oxygen 100 %; HCO3 ABG 22.8 mEq/l (22.0-26.0); Oxygen Saturation ABG 96.2 % (95.0-100.0); Oxyhemoglobin 95.3 % THb (90.0-100.0); PCO2 ABG 45.5 mmHg (35.0-45.0); PO2 ABG 89.9 mmHg (80.0-100.0); Total Hemoglobin 12.6 g/dL (12.0-18.0); pH ABG 7.318 (7.350-7.450)
[2023-06-15 06:12] LABS: Arterial Blood Gas Ventilator rate 26 /MIN; Device VENTILATOR; Modified Allen's Test Pass; Site Drawn RIGHT RADIAL
[2023-06-15 06:13] LABS: Arterial Blood Gas PEEP 10 cmH2O; Arterial Blood Gas Tidal Volume 320 ml; Arterial Blood Gas Vent Mode CMV
[2023-06-15] MEDS: ENOXAPARIN 40 MG/0.4 ML SYRINGE SUB-Q (08:19)
[2023-06-15] MEDS: FAMOTIDINE 20 MG/2 ML VIAL IV PUSH ×2 (08:19→21:28)
[2023-06-15] MEDS: PROPOFOL IV EMULSION 100 ML 27.05 MG IV CONT ×5 (08:19→22:28)
[2023-06-15] MEDS: MINERAL OIL/WHITE PETROLATUM OINTMENT 1 APPLIC EACH EYE ×2 (08:21→21:28)
[2023-06-15 08:52] LABS: Hemoglobin A1C 5.6 % (<5.7)
[2023-06-15] MEDS: PERFLUTREN LIPID MICROSPHERES 1.5 ML VIAL DILUTED TO 10 ML TOTAL VOLUME IV PUSH (10:00)
[2023-06-15 10:08] LABS: HIV 1/2 Ab P24 Ag Result Negative (Negative)
--- NOTE | 2023-06-15 10:09 | PM.IMPN ---
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 Urine Legionella, urine pneumococcal and mycoplasma IgM pending Blood culture sputum culture and MRSA screen has been sent and are pending Patient at this time will be empirically covered for meningitis encephalitis and pneumonia She has been empirically started on linezolid, cefepime and acyclovir. Flagyl was added for anaerobic coverage for possible aspiration pneumonia IV fluids, Consult IR for LP, HIV screen (3) Pneumonia: Code(s): J18.9 - Pneumonia, unspecified organism Status: Acute Assessment and Plan: See above (4) Headache: Code(s): R51.9 - Headache, unspecified Status: Acute Assessment and Plan: Head CT was negative See above Plan DVT prophylaxis -Lovenox Stress ulcer prophylaxis -Pepcid Nutrition -start Tube Feeds Code Status - Full Code Subjective Date/time seen: 06/15/23 10:09 Interval history: 22-year-old female with bipolar disorder, borderline personality disorder, anxiety, depression, history of suicide attempt, polycystic ovarian syndrome, and Louie who with fever and weakness as currently being treated for sepsis likely from multifocal pneumonia. Intubated and sedated. No overnight events. T-max 103.5? last night. Review of Systems Review of Systems: 12 point review of systems was assessed and was negative except as noted in the HPI Exam Narrative: General: Intubated/sedated Lungs/Chest: Trachea central Coarse BS B/L, No crackles or wheezing. Cardiac: RRR. Normal S1 S2. No murmurs Circulation: Pedal pulses are intact and symmetrical. Abdomen: Decreased bowel sounds. Obese. Soft. NT. ND. Extremities: No clubbing, cyanosis or edema. Warm : Watkins in place Neurologic: Unable to assess due to sedation Objective Data Vital Signs Vital Signs: Vital Signs - 24 hr 06/14/23 14:16 06/14/23 14:37 06/14/23 14:39 Temperature 102.4 F H 103.5 F H Pulse Rate 139 129 Respiratory Rate 56 51 Blood Pressure 173/69 H Pulse Oximetry 51 L 92 94 Oxygen Delivery Room Air Simple Face Mask Oxygen Flow Rate 10 Fraction of Inspired Oxygen 06/14/23 14:45 06/14/23 15:14 06/14/23 15:14 Temperature 103.1 F H Pulse Rate 134 H 134 H 137 H Respiratory Rate 48 H 32 H 42 H Blood Pressure 124/83 Pulse Oximetry 94 95 Oxygen Delivery BiPAP Oxygen Flow Rate Fraction of Inspired Oxygen 06/14/23 15:15 06/14/23 15:33 06/14/23 16:27 Temperature 103 F H 103 F H 102.3 F H Pulse Rate 135 H 121 H Respiratory Rate 31 H 37 H Blood Pressure 127/83 158/86 H Pulse Oximetry 95 94 Oxygen Delivery Oxygen Flow Rate Fraction of Inspired Oxygen 06/14/23 16:28 06/14/23 17:43 06/14/23 18:20 Temperature 102.2 F H Pulse Rate 115 H 109 H Respiratory Rate 36 H 48 H 41 H Blood Pressure 134/69 Pulse Oximetry 94 97 95 Oxygen Delivery BiPAP BiPAP Oxygen Flow Rate Fraction of Inspired Oxygen 06/14/23 18:21 06/14/23 18:05 06/14/23 19:21 Temperature 99.1 F Pulse Rate 109 H 102 H Respiratory Rate 38 H 40 H Blood Pressure 127/58 L Pulse Oximetry 95 95 Oxygen Delivery BiPAP BiPAP Oxygen Flow Rate Fraction of Inspired Oxygen 45
--- NOTE | 2023-06-15 10:20 | PM.CNPUL ---
Assessment and Plan Assessment and plan (1) Acute respiratory failure with hypoxia: Code(s): J96.01 - Acute respiratory failure with hypoxia Status: Acute Assessment and Plan: At baseline patient has no respiratory limitations in her activities of daily living with no history of asthma no tobacco use. Patient began vaping tobacco substances 3 weeks ago and quit 1 week ago. She was in her usual state of health with no respiratory limitations in her activity of daily living on 06/11/2023. The patient developed cough with phlegm production on 06/12, she was weak and collapsed in the bathroom with a questionable episode of vomiting and aspiration. Evaluation at an outside hospital per the family stated that her CT scan was normal but she did have persistent shortness of breath. On 06/13 she had continued cough and clear phlegm production but no shortness of breath with activity. On 06/14 the patient had altered mental status with headaches, panting and hypoxemic respiratory failure. In the emergency room she had hypoxia, fever, leukocytosis, procalcitonin 1.8, BNP 1430, COVID, influenza and RSV negative, CT angiogram demonstrated no pulmonary embolism, diffuse multifocal patchy interstitial and ground-glass infiltrates with no pleural effusions, masses or structural lung disease. She developed worsening hypoxemic respiratory failure requiring intubation. HIV negative, urine test negative. Started on cefepime, Flagyl and azithromycin and had a skin rash to vancomycin Etiology of hypoxemic respiratory failure includes pneumonia (bacterial and viral), aspiration pneumonitis, ARDS from and other infectious source such as meningitis and vaping induced lung injury. As spoken with the field sales specialist and the Infectious Disease pharmacist and at this time will continue linezolid, cefepime, Levaquin, Flagyl and acyclovir. Urine Legionella, urine pneumococcal and mycoplasma IgM pending. I will repeat a COVID, influenza and RSV RT PCR study on 06/16. I will send an nasal swab for an extended respiratory viral pathogen to [facility] today. Patient is now intubated and if she asks aspiration pneumonitis will provide supportive measures. Patient will have an LP to assess for meningitis. Patient may have vaping induced lung injury although the CT scan is not a classical presentation and at this time I will not add systemic steroids until the above-mentioned infectious workup has been completed. Vent management per field sales specialist. I discussed with the mother at the bedside. Discussed with the field sales specialist Dr. Hernández and Infectious Disease pharmacist. We will follow with you History of Present Illness History of Present Illness Consult date: 06/15/23 Chief complaint: Hypoxia, altered mental status, pneumonia Narrative: 06/15/2023: This is a new pulmonary consult for hypoxemic respiratory failure. 22-year-old with a history of bipolar disorder, anxiety, depression, polycystic ovarian syndrome and Louie's presented to the emergency department on 06/14/2023 with hypoxemic respiratory failure. History is obtained through the patient's mother who lives across the street and sees her multiple times a day. 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 Three weeks ago the patient started vaping tobacco and stopped 1 week ago. On 06/11/2023 the patient was in her usual state of health with no complaints. On 06/12 2023 the patient had a coughing paroxysm in the morning and coughed up phlegm and then went to work for 12 hours. She called her mother at the end of the shift and was concerned she could not drive home and her mother proceeded to go pick her up. When the mother arrived the patient apparently had collapsed in the bathroom and there is report of vomiting. Patient was taken to the emergency room and had a CT scan of the lungs which reporte
[2023-06-15] MEDS: LEVOTHYROXINE SODIUM 25 MCG TABLET FEED TUBE (10:21)
[2023-06-15] MEDS: LACTATED RINGERS 1,000 ML 999 ML IV CONT (10:26)
[2023-06-15] MEDS: MIDAZOLAM 100MG/NS 100ML(*CRX) 100 MG/100 ML BAG IV CONT (10:27)
[2023-06-15] MEDS: LINEZOLID 600 MG/300 ML 600 MG/300 ML SOLN 300 MG IVPB ×2 (10:33→21:29)
--- NOTE | 2023-06-15 11:18 | WPDCNINT ---
Assessment and Plan Assessment and plan (1) Acute respiratory failure with hypoxia: Code(s): J96.01 - Acute respiratory failure with hypoxia Status: Acute Assessment and Plan: Acute Respiratory failure secondary to community-acquired pneumonia versus ARDS ABG CT scan chest x-ray ventilator settings reviewed Continue full mechanical ventilation support to prevent hypoxemia/hypercarbia and end organ damage. Low tidal volume ventilation strategy to prevent volutrauma Increase PEEP to 12 Conservative IV fluids Antibiotics as below Bronchodilators Her BNP was elevated but clinical picture does not suggest congestive heart failure. Will check echocardiogram (2) Sepsis: Code(s): A41.9 - Sepsis, unspecified organism Status: Acute Assessment and Plan: Patient appears to have presentation consistent with pneumonia which is most likely community-acquired but patient did had some nausea vomiting and may have aspirated. She also had symptoms headache and neck pain as per her mother which raises the possibility of meningitis or encephalitis which may have been the initial etiology. Patient was started on vancomycin but had a adverse reaction which I suspect was a red man syndrome type reaction but could have been an allergic. 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 I will repeat COVID PCR in 48 hours Urine Legionella, urine pneumococcal and mycoplasma IgM pending Blood culture sputum culture and MRSA screen has been sent and are pending Patient at this time will be empirically covered for meningitis encephalitis and pneumonia She has been empirically started on linezolid, cefepime and acyclovir. Flagyl was added for anaerobic coverage for possible aspiration pneumonia IV fluids. Patient has not required any vasopressors at this time Consult IR for LP Spoke to patient's mother and she is agreeable to check HIV screen (3) Pneumonia: Code(s): J18.9 - Pneumonia, unspecified organism Status: Acute Assessment and Plan: See above (4) Headache: Code(s): R51.9 - Headache, unspecified Status: Acute Assessment and Plan: Head CT was negative See above Plan DVT prophylaxis -Lovenox Stress ulcer prophylaxis -Pepcid Nutrition -start Tube Feeds Code Status - Full Code Case discussed with Dr. Polk from Pulmonary and Infectious Disease pharmacist I spoke to in detail with patient's mother at bedside and updated her with patient's current status of severe acute respiratory failure and guarded prognosis. I explained her the plan of checking echocardiogram, LP and current antibiotic therapy. I answered all her questions Total Critical Care Time - 50 minutes Due to a high probability of clinically significant, life threatening deterioration, the patient required my highest level of preparedness to intervene emergently and I personally spent this critical care time directly and personally managing the patient. This critical care time included obtaining a history; examining the patient; pulse oximetry; ordering and review of studies; arranging urgent treatment with development of a management plan; evaluation of patient's response to treatment; frequent reassessment; and discussions with other providers. It was exclusive of separately billable procedures and treating other patients and teaching time. Please see Assessment and Plan section and the rest of the note for further information on patient assessment and treatment Supplier Quality Engineer Consult Note Consult date: 06/15/23 Reason for consult: Acute respiratory HPI: Ramya mAbrose is a 22 year old female with past medical history of P
[2023-06-15 11:50] LABS: Glucose Point of Care 283 mg/dl (65-105)
[2023-06-15] MEDS: INSULIN ASPART (*BKC) 100 UNITS/ML SUB-Q (11:50)
[2023-06-15] MEDS: LACTATED RINGERS 1,000 ML 125 ML IV CONT ×2 (11:52→20:20)
[2023-06-15] MEDS: levoFLOXacin 750 MG/D5W 150 ML 750 MG/150 ML BAG 100 MG IVPB (11:55)
[2023-06-15] MEDS: ALBUTEROL SULFATE NEB 2.5 MG/3 ML INH INHALATION ×2 (13:33→19:17)
[2023-06-15 13:56] LABS: Glucose CSF 136 mg/dL (40-70); Total Protein CSF 43 mg/dL (12-60)
[2023-06-15 14:40] LABS: Appearance CSF Clear (Clear); CSF source CSF; Color CSF Colorless (Colorless); Nucleated Cell CSF 4 /uL (0-5)
[2023-06-15 14:41] LABS: Lymphocytes CSF 70 % (40-80); Monocytes CSF 30 % (15-45); Neutrophils CSF 0 % (0-6)
[2023-06-15 14:42] LABS: Red Blood Cell CSF 2 (0-2)
[2023-06-15 17:59] LABS: Glucose Point of Care 188 mg/dl (65-105)
[2023-06-16] VITALS (36 sets, daily range): BP systolic 92–106; BP diastolic 29–60; PULSE 63–109; RESP 20–26; TEMP 36.6–37.9; O2SAT 96–100
[2023-06-16 00:18] LABS: Glucose Point of Care 180 mg/dl (65-105)
[2023-06-16] MEDS: PROPOFOL IV EMULSION 100 ML 27.05 MG IV CONT (01:31)
[2023-06-16] MEDS: ALBUTEROL SULFATE NEB 2.5 MG/3 ML INH INHALATION ×4 (02:18→20:15)
[2023-06-16] MEDS: LACTATED RINGERS 1,000 ML 125 ML IV CONT (04:18)
[2023-06-16 04:59] LABS: Alveolar/Arterial O2 Gradient 213.6 mmHg; Base Excess ABG 1.3 mEq/l (+/-2.0); Carboxyhemoglobin 0.1 % THb (0-2.0); Fractional Inspired Oxygen 50 %; HCO3 ABG 24.5 mEq/l (22.0-26.0); Methemoglobin ABG 0.4 %THb (0-1.5); Oxygen Content ABG 14.7 %vol (16.0-22.0); Oxygen Saturation ABG 98.2 % (95.0-100.0); Oxyhemoglobin 96.5 % THb (90.0-100.0); PCO2 ABG 33.7 mmHg (35.0-45.0); Total Hemoglobin 10.7 g/dL (12.0-18.0)
[2023-06-16 05:02] LABS: Device VENTILATOR; Modified Allen's Test Pass; Site Drawn LEFT RADIAL
[2023-06-16 05:03] LABS: Arterial Blood Gas PEEP 12 cmH2O; Arterial Blood Gas Tidal Volume 320 ml; Arterial Blood Gas Vent Mode CMV; Arterial Blood Gas Ventilator rate 26 /MIN
[2023-06-16] MEDS: PROPOFOL IV EMULSION 100 ML 24.05 MG IV CONT ×5 (05:26→21:16)
[2023-06-16] MEDS: CEFEPIME 2 GM/NS 50 ML 2 GM/50 ML BAG IVPB ×3 (05:27→21:17)
[2023-06-16] MEDS: metroNIDAZOLE 500 MG/ISO 100ML 500 MG/100 ML BAG 100 MG IVPB (05:27)
[2023-06-16] MEDS: CENTRAL LINE FLUSH 10 ML IV PUSH ×4 (05:28→21:18)
[2023-06-16 05:30] LABS: Hematocrit 27.6 % (37.0-47.0); Hemoglobin 9.4 g/dL (12.0-15.0); Mean Corpuscular HGB Conc 34.1 g/dl (32-36); Mean Corpuscular Hemoglobin 29.9 pg (26-34); Mean Corpuscular Volume 87.9 fl (80-100); Mean Platelet Volume 9.1 fl (7.4-10.4); Platelet Count Result 241 k/mm3 (150-375); Red Blood Count 3.14 M/mm3 (4.2-5.4); Red Cell Distribution Width 13.4 % (11.5-14.5); White Blood Count 15.6 K/mm3 (4.5-10.0)
[2023-06-16 05:44] LABS: Alanine Aminotransferase 17 U/L (6-35); Albumin Level 2.7 g/dL (3.5-5.1); Alkaline Phosphatase 45 U/L (38-126); Anion Gap 4 mmol/L (8-16); Aspartate Amino Transferase 20 U/L (14-36); Bilirubin,Total 0.2 mg/dL (0.2-1.3); Blood Urea Nitrogen 10 mg/dL (7-17); Calcium 7.8 mg/dL (8.4-10.2); Carbon Dioxide 26 mmol/L (22-30); Chloride 106 mmol/L (98-107); Estimated Glomerular Filt Rate > 60; Glucose 149 mg/dL (65-110); Magnesium 1.9 mg/dL (1.6-2.3); Potassium 3.7 mmol/L (3.4-5.0); Sodium 136 mmol/L (137-145)
[2023-06-16] MEDS: LEVOTHYROXINE SODIUM 25 MCG TABLET FEED TUBE (06:17)
--- NOTE | 2023-06-16 08:11 | WPDINTPN ---
Progress Note: A&P Assessment and Plan (1) Acute respiratory failure with hypoxia: Code(s): J96.01 - Acute respiratory failure with hypoxia Status: Acute Assessment and Plan: Acute Respiratory failure secondary to community-acquired pneumonia Sputum is growing group a Streptococcus which would confirm the diagnosis of pneumococcal pneumonia ABG and chest x-ray ventilator settings reviewed Continue full mechanical ventilation support to prevent hypoxemia/hypercarbia and end organ damage. Low tidal volume ventilation strategy to prevent volutrauma Change rate to 22 and decrease PEEP to 10. FiO2 is down to 40% Hold further IV fluids Antibiotics as below Bronchodilators Her BNP was elevated but clinical picture does not suggest congestive heart failure. Pending echocardiogram (2) Sepsis: Code(s): A41.9 - Sepsis, unspecified organism Status: Acute Assessment and Plan: 06/15 Patient appears to have presentation consistent with pneumonia which is most likely community-acquired but patient did had some nausea vomiting and may have aspirated. She also had symptoms headache and neck pain as per her mother which raises the possibility of meningitis or encephalitis which may have been the initial etiology. Patient was started on vancomycin but had a adverse reaction which I suspect was a red man syndrome type reaction but could have been an allergic. 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 repeat COVID PCR is ordered s Urine Legionella, urine pneumococcal and mycoplasma IgM pending Blood culture and MRSA screen has been sent and are pending Sputum cultures growing group a strep confirm the diagnosis of pneumococcal pneumonia She had lumbar puncture done on06/15 and her CSF is clear except elevated glucose but patient also had this elevated blood glucose which would be consistent. Continue empiric cefepime and Levaquin but I will discontinue linezolid Flagyl and acyclovir at this time Will discontinue IV fluids. Patient has not required any vasopressors at this time Discussed with Dr. Polk from Pulmonary HIV screen was negative (3) Pneumonia: Code(s): J18.9 - Pneumonia, unspecified organism Status: Acute Assessment and Plan: See above (4) Headache: Code(s): R51.9 - Headache, unspecified Status: Acute Assessment and Plan: Head CT was negative Patient had elevated opening intracranial pressure of 31 cm water. Normal pressure is up to 25 cm in obese patients but patient is also on mechanical ventilation and sedation can artificially increased intracranial pressure. Once patient is extubated, repeat LP with measurement can be performed along with an MRI Will consult neurology for further guidance (5) Intracranial hypertension: Code(s): G93.2 - Benign intracranial hypertension Status: Acute Assessment and Plan: See above Plan DVT prophylaxis -Lovenox Stress ulcer prophylaxis -Pepcid Nutrition -continue Tube Feeds Code Status - Full Code Case discussed with Dr. Polk from Pulmonary and Infectious Disease pharmacist I spoke to in detail with patient's mother at bedside and updated her with patient's current status of severe acute respiratory failure and guarded prognosis. I explained her the LP results and current antibiotic therapy. I answered all her questions Total Critical Care Time - 35 minutes Due to a high probability of clinically significant, life threatening deterioration, the patient required my highest level of preparedness to intervene emergently and I personally spent this critical care time directly and personally managing the pa
[2023-06-16 08:30] LABS: SARS-CoV-2 RNA PCR Negative (Negative)
--- NOTE | 2023-06-16 08:46 | PM.PNPUL ---
Progress Note: A&P Assessment and Plan (1) Acute respiratory failure with hypoxia: Code(s): J96.01 - Acute respiratory failure with hypoxia Status: Acute Assessment and Plan: At baseline patient has no respiratory limitations in her activities of daily living with no history of asthma no tobacco use. Patient began vaping tobacco substances 3 weeks ago and quit 1 week ago. She was in her usual state of health with no respiratory limitations in her activity of daily living on 06/11/2023. The patient developed cough with phlegm production on 06/12, she was weak and collapsed in the bathroom with a questionable episode of vomiting and aspiration. Evaluation at an outside hospital per the family stated that her CT scan was normal but she did have persistent shortness of breath. On 06/13 she had continued cough and clear phlegm production but no shortness of breath with activity. On 06/14 the patient had altered mental status with headaches, panting and hypoxemic respiratory failure. In the emergency room she had hypoxia, fever, leukocytosis, procalcitonin 1.8, BNP 1430, COVID, influenza and RSV negative, CT angiogram demonstrated no pulmonary embolism, diffuse multifocal patchy interstitial and ground-glass infiltrates with no pleural effusions, masses or structural lung disease. She developed worsening hypoxemic respiratory failure requiring intubation. HIV negative, urine test negative. Started on cefepime, Flagyl and azithromycin and had a skin rash to vancomycin Etiology of hypoxemic respiratory failure includes pneumonia (bacterial and viral), aspiration pneumonitis, ARDS from and other infectious source such as meningitis and vaping induced lung injury. As spoken with the associate director of development and the Infectious Disease pharmacist and at this time will continue linezolid, cefepime, Levaquin, Flagyl and acyclovir. Urine Legionella, urine pneumococcal and mycoplasma IgM pending. I will repeat a COVID, influenza and RSV RT PCR study on 06/16. I will send an nasal swab for an extended respiratory viral pathogen to [facility] today. Patient is now intubated and if she asks aspiration pneumonitis will provide supportive measures. Patient will have an LP to assess for meningitis. Patient may have vaping induced lung injury although the CT scan is not a classical presentation and at this time I will not add systemic steroids until the above-mentioned infectious workup has been completed. Vent management per associate director of development. 06/16/23 patient is intubated sedated with propofol and Versed. She is afebrile. White blood cell count is 15.6. She is on the ventilator with a rate of 22, tidal volume 320, 40% FiO2, peep of 10 with a peak pressure of 24. Chest x-ray shows improved diffuse interstitial alveolar infiltrates. Sputum has grown out group A strep. Blood cultures and LP demonstrates 4 white blood cells, lymphocytes 70%, monocytes 30%, glucose 136, protein 43 in g stain with no organisms seen and rare white blood cells. Plan: Clinical Course consistent with group A streptococcal pneumonia and patient's fever curve has improved, leukocytosis has improved, gas exchange has improved and chest x-ray have improved. Agree with repeat COVID test today. Agree with discontinuation of meningitis medications. Continue cefepime, day 3 and Levaquin, day 2. If continues to improve can deescalate on 06/17/2023. I discussed with the mother at the bedside. Discussed with the associate director of development Dr. Hernández, will sign off, call with questions. Subjective Date/time seen: 06/16/23 08:46 Interval history: 06/15/2023:? This is a new pulmonary consult for hypoxemic respiratory failure.? 22-year-old with a history of bipolar disorder, anxiety, depression, polycystic ovarian syndrome and Louie's presented to the emergency department on 06/14/2023 with hypoxemic respiratory failure.? History is obtained through the patient's mother who lives across the street
--- NOTE | 2023-06-16 08:54 | PM.IMPN ---
Progress Note: A&P Assessment and Plan (1) Acute respiratory failure with hypoxia: Code(s): J96.01 - Acute respiratory failure with hypoxia Status: Acute Assessment and Plan: Acute Respiratory failure secondary to community-acquired pneumonia versus ARDS, most likely group a strep pneumonia due to sputum culture ABG, CT scan, chest x-ray, ventilator settings reviewed Appreciate ornamental metal worker apprentice management of ventilator and care Echo ordered and pending (2) Sepsis: Code(s): A41.9 - Sepsis, unspecified organism Status: Acute Assessment and Plan: She also has a brief history of vaping clinical presentation does not suggest vaping induced lung injury 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 Urine Legionella, urine pneumococcal and mycoplasma IgM pending Blood culture sputum culture and MRSA screen has been sent and are pending Patient at this time will be empirically covered for meningitis encephalitis and pneumonia She has been empirically started on linezolid, cefepime and acyclovir. Flagyl was added for anaerobic coverage for possible aspiration pneumonia, IV fluids, HIV screen, due to [place], LP performed 06/15, noted elevated opening pressure with 14 ml colorless fluid obtained, showed 4 white blood cells, lymphocytes 70%, monocytes 30%, glucose 136, protein 43 in g stain with no organisms seen and rare white blood cells 06/16: group A strep isolated from sputum, suspect GAS pna most likely etiology for patient's symptoms, continue treatment per ornamental metal worker apprentice, leuk improving on abx (3) Pneumonia: Code(s): J18.9 - Pneumonia, unspecified organism Status: Acute Assessment and Plan: See above CXR 06/16 improved (4) Headache: Code(s): R51.9 - Headache, unspecified Status: Acute Assessment and Plan: Head CT was negative, LP performed as above See above Plan DVT prophylaxis -Lovenox Stress ulcer prophylaxis -Pepcid Nutrition -start Tube Feeds Code Status - Full Code Subjective Date/time seen: 06/16/23 08:54 Interval history: 22-year-old female with bipolar disorder, borderline personality disorder, anxiety, depression, history of suicide attempt, polycystic ovarian syndrome, and Louie's who is presenting with fever and weakness as currently being treated for sepsis likely from group a strep pneumonia. Intubated and sedated. No overnight events. No fevers. Review of Systems Review of Systems: ROS unobtainable: Yes unobtainable due to endotracheal tube Exam Narrative: General: Intubated/sedated HEENT: Atraumatic, normocephalic, mucous membranes moist CV: Regular rate and rhythm, S1, S2 Lungs: Coarse breath sounds throughout, no wheeze Abdomen: Soft, nontender, nondistended, decreased bowel sounds Extremities: Normal to inspection, no edema Skin: No rashes noted, no lesions or wounds seen Psych: Unable to assess Objective Data Vital Signs Vital Signs: Vital Signs - 24 hr 06/15/23 10:27 06/15/23 10:45 06/15/23 11:51 Temperature Pulse Rate 74 72 71 Respiratory Rate 20 26 H 26 H Blood Pressure Pulse Oximetry Oxygen Delivery Fraction of Inspired Oxygen 06/15/23 12:02 06/15/23 13:25 06/15/23 13:27 Temperature Pulse Rate 72 72 78 Respiratory Rate 24 H 22 H Blood Pressure 110/46 L 110/56 L Pulse Oximetry 97 89 L 100 Oxygen Delivery Mechanical Ventilation Fraction of Inspired Oxygen 70 06/15/23 13:34 06/15/23 13:35 06/15/23 13:43 Temperature Pulse Rate 71 73 80 Respiratory Rate 26 H 26 H Blood Pressure Pulse Oximetry 99 Oxygen Delivery Mechanical Ventilation Fraction of Inspired Oxygen 70 06/15/23 14:00 06/15/23 10:00 06/15/23 12:00 Temperature 97.6 F 97.8 F 97.2 F L Pulse Rate 79 71 73 Respiratory Rate 26 H 26 H 26 H Blood Pressure 93/38 L 100/52 L
[2023-06-16] MEDS: ENOXAPARIN 40 MG/0.4 ML SYRINGE SUB-Q (09:04)
[2023-06-16] MEDS: POTASSIUM CHLORIDE 20 MEQ PACKET (FOR LIQUID) 40 MEQ FEED TUBE (09:04)
[2023-06-16] MEDS: MINERAL OIL/WHITE PETROLATUM OINTMENT 1 APPLIC EACH EYE ×2 (09:04→20:10)
[2023-06-16] MEDS: FAMOTIDINE 20 MG/2 ML VIAL IV PUSH ×2 (09:04→20:14)
--- NOTE | 2023-06-16 11:03 | PCNFU ---
Nutrition Follow-Up Complete: Increased protein needs related to mechanical ventilation, as evidenced by need for full tube feeding Goal: Meet estimated protein energy needs Patient is progressing towards goal. We will continue current goal. Pt current nutrition is Glucerna 1.2 at 30 ml/hr. Nutrition recommendation: 40 ml/hr at this time Last recorded weight is 102.5 kg. Bowel Motility: last BM reported 06/12 Labs Reviewed:Glu 149,Cr 0.6,Na 136, Hct 27.6,Hgb 9.4 Meds Noted:Propofol 40 enog=861 kcals, Flagyl, Lovenox, Versed, Synthroid Skin: WNL Additional Notes: Patient remains on mechanical vent. Tube feedings currently at 30 ml/hr of Glucerna 1.2 and tolerating. Spoke with Steam Cleaner today regarding protein requirements. Recommending Prosource BID at this time to meet protein needs. Would not recommending increasing tube feedings past 40 ml/hr at this time due to Propofol infusion at 40 mcgs providing 635 kcals. Total Nutrition: 1851 kcals/93 gms protein/708 ml water. Meeting 83% caloric needs and 79% protein needs. Agree with diet orders at this time. Monitor daily in ICU rounds Reassess Thursday and Thursday
[2023-06-16] MEDS: levoFLOXacin 750 MG/D5W 150 ML 750 MG/150 ML BAG 100 MG IVPB (11:47)
[2023-06-16 11:57] LABS: Glucose Point of Care 128 mg/dl (65-105)
[2023-06-16] MEDS: ACETAMINOPHEN ELIXIR 325 MG/10.15 ML UDC 650 MG PO ×2 (17:22→22:34)
[2023-06-16 17:34] LABS: Glucose Point of Care 130 mg/dl (65-105)
[2023-06-16 23:52] LABS: Glucose Point of Care 121 mg/dl (65-105)
[2023-06-17] VITALS (40 sets, daily range): BP systolic 95–116; BP diastolic 42–68; PULSE 74–95; RESP 22–31; TEMP 37.3–37.8; O2SAT 94–100
[2023-06-17] MEDS: ALBUTEROL SULFATE NEB 2.5 MG/3 ML INH INHALATION ×4 (02:02→20:07)
[2023-06-17] MEDS: PROPOFOL IV EMULSION 100 ML 21.04 MG IV CONT (02:06)
[2023-06-17 03:46] LABS: Hematocrit 29.1 % (37.0-47.0); Hemoglobin 9.6 g/dL (12.0-15.0); Mean Corpuscular Hemoglobin 29.6 pg (26-34); Mean Corpuscular Volume 89.8 fl (80-100); Platelet Count Result 285 k/mm3 (150-375); Red Blood Count 3.24 M/mm3 (4.2-5.4); White Blood Count 13.2 K/mm3 (4.5-10.0)
[2023-06-17 04:01] LABS: Alanine Aminotransferase 22 U/L (6-35); Alkaline Phosphatase 56 U/L (38-126); Anion Gap 4 mmol/L (8-16); Aspartate Amino Transferase 26 U/L (14-36); Bilirubin,Total 0.3 mg/dL (0.2-1.3); Blood Urea Nitrogen 19 mg/dL (7-17); Calcium 7.9 mg/dL (8.4-10.2); Carbon Dioxide 26 mmol/L (22-30); Chloride 108 mmol/L (98-107); Estimated Glomerular Filt Rate > 60; Glucose 106 mg/dL (65-110); Magnesium 1.9 mg/dL (1.6-2.3); Potassium 3.6 mmol/L (3.4-5.0); Sodium 138 mmol/L (137-145)
[2023-06-17 04:11] LABS: Triglycerides 132 mg/dL (<150)
[2023-06-17] MEDS: PROPOFOL IV EMULSION 100 ML 24.05 MG IV CONT (05:20)
[2023-06-17] MEDS: CEFEPIME 2 GM/NS 50 ML 2 GM/50 ML BAG IVPB ×3 (05:21→21:43)
[2023-06-17] MEDS: LEVOTHYROXINE SODIUM 25 MCG TABLET FEED TUBE (05:22)
[2023-06-17 05:23] LABS: Base Excess ABG 1.4 mEq/l (+/-2.0); Carboxyhemoglobin 0.2 % THb (0-2.0); Fractional Inspired Oxygen 40 %; HCO3 ABG 25.3 mEq/l (22.0-26.0); Methemoglobin ABG 0.4 %THb (0-1.5); Oxygen Content ABG 14.6 %vol (16.0-22.0); Oxygen Saturation ABG 96.5 % (95.0-100.0); Oxyhemoglobin 94.6 % THb (90.0-100.0); PCO2 ABG 37.3 mmHg (35.0-45.0); PO2 ABG 81.3 mmHg (80.0-100.0); PO2 FiO2 Ratio Arterial Blood 2.03 %; Reduced Hemoglobin 4.8 %THb (0-5.0); Total Hemoglobin 10.9 g/dL (12.0-18.0); pH ABG 7.449 (7.350-7.450)
[2023-06-17] MEDS: CENTRAL LINE FLUSH 10 ML IV PUSH ×4 (05:23→21:45)
[2023-06-17 05:24] LABS: Device VENTILATOR; Modified Allen's Test Pass; Site Drawn RIGHT RADIAL
[2023-06-17 05:25] LABS: Arterial Blood Gas PEEP 8 cmH2O; Arterial Blood Gas Tidal Volume 320 ml; Arterial Blood Gas Vent Mode CMV; Arterial Blood Gas Ventilator rate 22 /MIN
--- NOTE | 2023-06-17 08:05 | WPDINTPN ---
Progress Note: A&P Assessment and Plan (1) Acute respiratory failure with hypoxia: Code(s): J96.01 - Acute respiratory failure with hypoxia Status: Acute Assessment and Plan: Acute Respiratory failure secondary to community-acquired pneumonia Sputum is growing group a Streptococcus which would suggest the diagnosis of streptococcal pneumonia ABG and chest x-ray ventilator settings reviewed Continue full mechanical ventilation support to prevent hypoxemia/hypercarbia and end organ damage. Low tidal volume ventilation strategy to prevent volutrauma Decrease PEEP to 5. FiO2 is down to 40% Hold further IV fluids Antibiotics as below Bronchodilators Her BNP was elevated but clinical picture does not suggest congestive heart failure. Echocardiogram was normal Sedation holiday (2) Sepsis: Code(s): A41.9 - Sepsis, unspecified organism Status: Acute Assessment and Plan: 06/15 Patient appears to have presentation consistent with pneumonia which is most likely community-acquired but patient did had some nausea vomiting and may have aspirated. She also had symptoms headache and neck pain as per her mother which raises the possibility of meningitis or encephalitis which may have been the initial etiology. Patient was started on vancomycin but had a adverse reaction which I suspect was a red man syndrome type reaction but could have been an allergic. 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 repeat COVID PCR is ordered s Urine Legionella, urine pneumococcal and mycoplasma IgM pending Blood culture and MRSA screen has been sent and are pending Sputum cultures growing group a strep confirm the diagnosis of streptococcal pneumonia She had lumbar puncture done on06/15 and her CSF is clear except elevated glucose but patient also had this elevated blood glucose which would be consistent. Continue empiric cefepime and Levaquin. Discontinued linezolid Flagyl and acyclovir 06/16 Off IV fluids Patient has not required any vasopressors at this time HIV screen was negative (3) Pneumonia: Code(s): J18.9 - Pneumonia, unspecified organism Status: Acute Assessment and Plan: See above (4) Headache: Code(s): R51.9 - Headache, unspecified Status: Acute Assessment and Plan: Head CT was negative Patient had elevated opening intracranial pressure of 31 cm water. Normal pressure is up to 25 cm in obese patients but patient is also on mechanical ventilation and sedation can artificially increased intracranial pressure. Once patient is extubated, repeat LP with measurement can be performed along with an MRI Neurology consulted for further guidance (5) Intracranial hypertension: Code(s): G93.2 - Benign intracranial hypertension Status: Acute Assessment and Plan: See above (6) Electrolyte abnormality: Code(s): E87.8 - Other disorders of electrolyte and fluid balance, not elsewhere classified Status: Acute Assessment and Plan: Replace low potassium Plan DVT prophylaxis -Lovenox Stress ulcer prophylaxis -Pepcid Nutrition -continue Tube Feeds Code Status - Full Code I spoke to in detail with patient's mother at bedside and updated her with patient's current status of severe acute respiratory failure and pneumonia. I also discussed results of LP Total Critical Care Time - 35 minutes Due to a high probability of clinically significant, life threatening deterioration, the patient required my highest level of preparedness to intervene emergently and I personally spent this critical care time directly and personally managing the patient. This critical ca
[2023-06-17] MEDS: MINERAL OIL/WHITE PETROLATUM OINTMENT 1 APPLIC EACH EYE ×2 (08:13→20:25)
[2023-06-17] MEDS: FAMOTIDINE 20 MG/2 ML VIAL IV PUSH ×2 (08:13→20:25)
[2023-06-17] MEDS: ENOXAPARIN 40 MG/0.4 ML SYRINGE SUB-Q (08:15)
[2023-06-17] MEDS: POTASSIUM CHLORIDE 20 MEQ PACKET (FOR LIQUID) 40 MEQ FEED TUBE (08:15)
--- NOTE | 2023-06-17 10:47 | PCFNICU ---
ICU Rounding Note: Pt current nutrition is Glucerna 1.2 at 40 ml/hr Nutrition recommendation:No new recommendations at this time. Last recorded weight is 103.5 kg. Bowel Motility:+BM reported 06/17 Labs Reviewed:Cr 0.6,BUN 19, Hct 29.1,Hgb 9.6 Meds Noted:Propofol 30 dybo=665 kcals, Flagyl, Lovenox Skin: WNL Additional Notes: Patient remains on mechanical vent. Tube feedings are being tolerated per nursing. Current tube feeding rate at 40 ml/hr providing 1056 kcals/53 gms protein. Protein Modular of Prosource BID providing an additional 160 kcals/40 gms protein and Propofol at 476 kcals. Total Nutrition: 1692 kcals/93 gms protein/708 ml water. Meeting 100% of kcal needs at 16 kcal/kg of ABW and 79% protein needs at 1.2 gm/kg. Flush 30 ml q 4 hours. Agree with diet orders at this time. Following daily in ICU rounds. Monitor daily in ICU rounds Reassess Thursday and Thursday.
[2023-06-17] MEDS: PROPOFOL IV EMULSION 100 ML 18.04 MG IV CONT ×3 (10:58→21:48)
--- NOTE | 2023-06-17 11:46 | WPDNEURCNPN ---
Assessment and Plan Assessment and plan (1) Pseudotumor cerebri: Code(s): G93.2 - Benign intracranial hypertension Status: Acute Plan Considering that her spinal fluid pressure has been documented to be elevated though without any evidence of infection and she is being treated in the intensive and also with the history of chronic recurrent headache she will benefit from the repeat the spinal tap subsequently in about 4 to 6 weeks. For the documentation of the possible pseudotumor cerebri and further treatment accordingly I explained to her family they understood and once she gets discharged from the intensive care after being taken care of acute problem she will return to the office for the follow-up. Consult date: 06/17/23 HPI: Ramya Ambrose is a 22 year old female Admitted to the hospital for the complaints of change in the mental status and with the information that she complained of worsening headaches and neck pain along with the difficulties in breathing. Time of visit to the ER patient was on room air but only 57% though she improved on oxygen. Patient has been taking fluoxetine 40 mg daily with levothyroxine 25 micro g daily and Seroquel 25 mg at night. She is a never smoker by history, never alcohol intake her, and never substance user, initial examination in the emergency room was documented as fairly normal and initial CT scan of the head was negative her vital signs were with blood pressure 173/69 and a temp of 102.4? he was admitted to the hospital for the possibility of likely community acquired pneumonia. CBC revealed leukocytosis with WBC 23.3 and basic metabolic panel documented blood sugar of 179. She was negative for influenza A, B, and RSV. Patient does have a history of anxiety with bipolar disorder in addition to Louie thyroiditis and polycystic ovarian syndrome. Her echocardiogram has been documented to be normal. She also underwent lumbar puncture under fluoro to rule out the possibility of meningitis and at that time her pressure was documented at 31cm of water. His spinal fluid studies were negative for meningitis. And neuro consultation was obtained because of the increased pressure. [facility] Past Medical History Medical History (Updated 06/17/23 @ 11:57 by Cong Vernon MD) Anxiety Bipolar disorder Borderline personality disorder Luoie's thyroiditis Lymphangioma, any site Multiple surgeries for resection of lymph angiomas from the neck. Polycystic ovarian syndrome Suicide attempt Surgical History Surgical History (Updated 06/15/23 @ 15:30 by Melissa Culver PA-C) History of colonoscopy History of excision of mass Multiple surgeries for resection of lymphangiomas from the neck. Family History Family History (Updated 06/15/23 @ 15:30 by Melissa Culver PA-C) Other Family history non-contributory Social History Social History (Updated 06/15/23 @ 15:31 by Melissa Culver PA-C) Social History: Patient's mother states the patient started vaping 3 weeks ago (April 2023) and did for 2 weeks before quitting 4-5 days prior to getting sick. She denies drug abuse, marijuana and alcohol use, and smoking. Smoking status: Never smoker Alcohol intake: never Substance use: never Lack of Transportation: No Lack of Food: Never True Current Housing: I Have Housing Concerned About Future Housing: No Difficulty Paying Gas/Electric Bills: No Difficulty Paying for Meds: No Currently Unemployed: No Education: Trade/Vocational Certificate Difficulty w/ Childcare or Family Care: No Additional living arrangements comments: Lives in own home on the same property as her family. 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 Spiritual care concerns: No Meds Home Medications and Allergies Home Medications Medication Instructions Recorded Confirmed Type fluoxetine 40 mg capsule 40 mg PO DAILY 06/14/23 06/14/23 H
[2023-06-17 11:50] LABS: Glucose Point of Care 100 mg/dl (65-105)
[2023-06-17] MEDS: ACETAMINOPHEN ELIXIR 325 MG/10.15 ML UDC 650 MG PO ×2 (11:50→20:25)
[2023-06-17] MEDS: levoFLOXacin 750 MG/D5W 150 ML 750 MG/150 ML BAG 100 MG IVPB (11:53)
--- NOTE | 2023-06-17 12:43 | PM.IMPN ---
Progress Note: A&P Assessment and Plan (1) Acute respiratory failure with hypoxia: Code(s): J96.01 - Acute respiratory failure with hypoxia Status: Acute Assessment and Plan: Acute Respiratory failure secondary to community-acquired streptococcal pneumonia Sputum is growing group A Streptococcus Continue full mechanical ventilation support to prevent hypoxemia/hypercarbia and end organ damage. Low tidal volume ventilation strategy to prevent volutrauma PEEP down to 5. FiO2 is down to 40% Continue IV abx. Continue Bronchodilators Her BNP was elevated but clinical picture does not suggest congestive heart failure. Echocardiogram was normal Sedation holiday (2) Sepsis: Code(s): A41.9 - Sepsis, unspecified organism Status: Acute Assessment and Plan: Patient's presentation consistent with pneumonia. Most likely community-acquired but she did had some nausea vomiting and may have aspirated. She also had symptoms headache and neck pain as per her mother which raises the possibility of meningitis or encephalitis which may have been the initial etiology. Patient was started on vancomycin but had a adverse reaction which I suspect was a red man syndrome type reaction but could have been an allergic. 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 Repeat COVID PCR is negative Urine Legionella, urine pneumococcal, mycoplasma IgM pending BCx NGTD. MRSA nasal swab negative. SpCx growing Group A Strept HIV negative. UPT negative. LP: 2R/4W with 70% lymphocytes, glucose 136 (elevated) and protein 43. -- VDRL, Lyme, Crypto, EBV, HSV and WNV pending Off IV fluids and not required any vasopressors at this time Still having fevers. WBC continues to trend down Continue empiric cefepime and Levaquin. Linezolid, Flagyl and acyclovir stopped 06/16 (3) Pneumonia: Code(s): J18.9 - Pneumonia, unspecified organism Status: Acute Assessment and Plan: See above (4) Headache: Code(s): R51.9 - Headache, unspecified Status: Acute Assessment and Plan: Head CT was negative Patient had elevated opening intracranial pressure of 31 cm water. Nml is up to 25 cm in obese patients but patient is also on mechanical ventilation and sedation which can artificially increased intracranial pressure. Once patient is extubated, repeat LP with measurement can be performed along with an MRI Neurology consulted for further guidance and appreciate tenzin input (5) Intracranial hypertension: Code(s): G93.2 - Benign intracranial hypertension Status: Acute Assessment and Plan: See above (6) Electrolyte abnormality: Code(s): E87.8 - Other disorders of electrolyte and fluid balance, not elsewhere classified Status: Acute Assessment and Plan: Potassium 3.6. Na normal. Mag 1.9. Follow Plan DVT prophylaxis -Lovenox Stress ulcer prophylaxis -Pepcid Nutrition -continue Tube Feeds Code Status - Full Code Subjective Date/time seen: 06/17/23 12:43 Interval history: 22yo female with bipolar disorder, borderline personality disorder, anxiety, depression, history of suicide attempt, polycystic ovarian syndrome, and Louie here with fever and weakness and is currently being treated for sepsis likely from multifocal pneumonia. Assuming care. Chart reviewed. Patient is intubated and sedated. She arouses and does follow commands. Weaning trial today but unsuccessful. PEEP down to 5. Discussed with father at bedside. Review of Systems Review of Systems: ROS unobtainable: Yes unobtainable due to endotracheal tube Exam Narrative: Tm 100.2 100.0 101
[2023-06-17 15:25] LABS: Epstein Barr Virus DNA PCR Not Detected (Not Detected); Source Epstein Barr Virus CSF
[2023-06-17 17:26] LABS: Cryptococcus Antigen Not Detected (Not Detected); Cryptococcus Specimen Source CSF
[2023-06-17 18:20] LABS: Glucose Point of Care 112 mg/dl (65-105)
[2023-06-17] MEDS: MIDAZOLAM 100MG/NS 100ML(*CRX) 100 MG/100 ML BAG IV CONT (21:43)
[2023-06-18] VITALS (30 sets, daily range): BP systolic 97–122; BP diastolic 44–99; PULSE 71–94; RESP 18–32; TEMP 37.2–37.5; O2SAT 92–98
[2023-06-18 00:15] LABS: Glucose Point of Care 111 mg/dl (65-105)
[2023-06-18] MEDS: ALBUTEROL SULFATE NEB 2.5 MG/3 ML INH INHALATION ×4 (02:02→20:09)
[2023-06-18 02:56] LABS: Herpes Simplex Type 1 DNA PCR Not Detected (Not Detected); Herpes Simplex Type 2 DNA PCR Not Detected (Not Detected)
[2023-06-18] MEDS: PROPOFOL IV EMULSION 100 ML 21.04 MG IV CONT ×2 (03:40→07:11)
[2023-06-18] MEDS: CEFEPIME 2 GM/NS 50 ML 2 GM/50 ML BAG IVPB (05:10)
[2023-06-18] MEDS: CENTRAL LINE FLUSH 10 ML IV PUSH ×4 (05:11→22:12)
[2023-06-18 05:15] LABS: Hematocrit 29.4 % (37.0-47.0); Hemoglobin 9.7 g/dL (12.0-15.0); Mean Corpuscular Hemoglobin 29.5 pg (26-34); Mean Corpuscular Volume 89.4 fl (80-100); Mean Platelet Volume 8.6 fl (7.4-10.4); Platelet Count Result 300 k/mm3 (150-375); Red Blood Count 3.29 M/mm3 (4.2-5.4); Red Cell Distribution Width 13.9 % (11.5-14.5); White Blood Count 10.7 K/mm3 (4.5-10.0)
[2023-06-18 05:33] LABS: Alanine Aminotransferase 23 U/L (6-35); Albumin Level 3.1 g/dL (3.5-5.1); Alkaline Phosphatase 57 U/L (38-126); Anion Gap 3 mmol/L (8-16); Aspartate Amino Transferase 26 U/L (14-36); Bilirubin,Total 0.3 mg/dL (0.2-1.3); Blood Urea Nitrogen 16 mg/dL (7-17); Calcium 8.3 mg/dL (8.4-10.2); Carbon Dioxide 30 mmol/L (22-30); Chloride 102 mmol/L (98-107); Estimated Glomerular Filt Rate > 60; Glucose 108 mg/dL (65-110); Magnesium 1.8 mg/dL (1.6-2.3); Potassium 3.8 mmol/L (3.4-5.0); Sodium 135 mmol/L (137-145)
[2023-06-18 05:43] LABS: Alveolar/Arterial O2 Gradient 139.9 mmHg; Arterial Blood Gas PEEP 5 cmH2O; Arterial Blood Gas Vent Mode CMV; Arterial Blood Gas Ventilator rate 22 /MIN; Base Excess ABG 4.1 mEq/l (+/-2.0); Carboxyhemoglobin 0.3 % THb (0-2.0); Device VENTILATOR; Fractional Inspired Oxygen 35 %; HCO3 ABG 27.9 mEq/l (22.0-26.0); Methemoglobin ABG 0.3 %THb (0-1.5); Modified Allen's Test Pass; Oxygen Content ABG 14.1 %vol (16.0-22.0); Oxygen Saturation ABG 93.8 % (95.0-100.0); Oxyhemoglobin 91.5 % THb (90.0-100.0); PO2 ABG 64.3 mmHg (80.0-100.0); PO2 FiO2 Ratio Arterial Blood 1.84 %; Reduced Hemoglobin 7.9 %THb (0-5.0); Site Drawn RIGHT RADIAL; Total Hemoglobin 10.9 g/dL (12.0-18.0); pH ABG 7.473 (7.350-7.450)
[2023-06-18 05:44] LABS: Arterial Blood Gas Tidal Volume 320 ml
[2023-06-18] MEDS: LEVOTHYROXINE SODIUM 25 MCG TABLET FEED TUBE (06:40)
[2023-06-18] MEDS: FUROSEMIDE INJ 40 MG/4 ML VIAL 20 MG IV PUSH (07:55)
[2023-06-18] MEDS: POTASSIUM CHLORIDE 20 MEQ PACKET (FOR LIQUID) FEED TUBE (08:48)
[2023-06-18] MEDS: ENOXAPARIN 40 MG/0.4 ML SYRINGE SUB-Q (08:49)
[2023-06-18] MEDS: FAMOTIDINE 20 MG/2 ML VIAL IV PUSH ×2 (08:49→19:52)
[2023-06-18] MEDS: cefTRIAXone 2 GM/NS 100 ML 2 GM/100 ML BAG IVPB (08:49)
--- NOTE | 2023-06-18 09:05 | WPDINTPN ---
Progress Note: A&P Assessment and Plan (1) Acute respiratory failure with hypoxia: Code(s): J96.01 - Acute respiratory failure with hypoxia Status: Acute Assessment and Plan: Acute Respiratory failure secondary to community-acquired pneumonia Sputum is growing group A Streptococcus which would suggest the diagnosis of streptococcal pneumonia ABG and chest x-ray ventilator settings reviewed Continue full mechanical ventilation support to prevent hypoxemia/hypercarbia and end organ damage. Low tidal volume ventilation strategy to prevent volutrauma Continue pEEP to 5. FiO2 is down to 40% Will perform sedation holiday and weaning trial today Hold further IV fluids. Lasix 20 mg IV today Antibiotics as below Bronchodilators Her BNP was elevated but clinical picture does not suggest congestive heart failure. Echocardiogram was normal (2) Sepsis: Code(s): A41.9 - Sepsis, unspecified organism Status: Acute Assessment and Plan: 06/15 Patient appears to have presentation consistent with pneumonia which is most likely community-acquired but patient did had some nausea vomiting and may have aspirated. She also had symptoms headache and neck pain as per her mother which raises the possibility of meningitis or encephalitis which may have been the initial etiology. Patient was started on vancomycin but had a adverse reaction which I suspect was a red man syndrome type reaction but could have been an allergic. 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 repeat COVID PCR is ordered s Urine Legionella, urine pneumococcal and mycoplasma IgM pending Blood culture and MRSA screen has been sent and are pending Sputum cultures growing group A strep suggest the diagnosis of streptococcal pneumonia She had lumbar puncture done on 06/15 and her CSF is clear except elevated glucose but patient also had this elevated blood glucose which would be consistent. Continue empiric Levaquin. 06/18 switch cefepime to daily Rocephin. Discontinued linezolid Flagyl and acyclovir 06/16 Off IV fluids Patient has not required any vasopressors at this time HIV screen was negative (3) Pneumonia: Code(s): J18.9 - Pneumonia, unspecified organism Status: Acute Assessment and Plan: See above (4) Headache: Code(s): R51.9 - Headache, unspecified Status: Acute Assessment and Plan: Head CT was negative Patient had elevated opening intracranial pressure of 31 cm water. Normal pressure is up to 25 cm in obese patients but patient is also on mechanical ventilation and sedation can artificially increased intracranial pressure. Neurology consulted and recommend repeat spinal tap in 4-6 weeks and outpatient follow-up for evaluation of pseudotumor cerebri (5) Intracranial hypertension: Code(s): G93.2 - Benign intracranial hypertension Status: Acute Assessment and Plan: See above (6) Electrolyte abnormality: Code(s): E87.8 - Other disorders of electrolyte and fluid balance, not elsewhere classified Status: Acute Assessment and Plan: Replace low potassium Plan DVT prophylaxis -Lovenox Stress ulcer prophylaxis -Pepcid Nutrition -continue Tube Feeds Code Status - Full Code I spoke to in detail with patient's mother at bedside and updated her with patient's current status of severe acute respiratory failure and pneumonia and plan for SBT. I also discussed results of LP Total Critical Care Time - 35 minutes Due to a high probability of clinically significant, life threatening deterioration, the patient required my highest level of preparedness to intervene emergently and I p
[2023-06-18 09:48] LABS: Alveolar/Arterial O2 Gradient 176.1 mmHg; Base Excess ABG 4.6 mEq/l (+/-2.0); Carboxyhemoglobin 0.3 % THb (0-2.0); Fractional Inspired Oxygen 40 %; HCO3 ABG 27.6 mEq/l (22.0-26.0); Methemoglobin ABG 0.3 %THb (0-1.5); Oxygen Saturation ABG 95.3 % (95.0-100.0); Oxyhemoglobin 93.1 % THb (90.0-100.0); PCO2 ABG 35.4 mmHg (35.0-45.0); PO2 ABG 68.4 mmHg (80.0-100.0); PO2 FiO2 Ratio Arterial Blood 1.71 %; Reduced Hemoglobin 6.3 %THb (0-5.0); Total Hemoglobin 12.2 g/dL (12.0-18.0)
[2023-06-18 09:49] LABS: Arterial Blood Gas PEEP 5 cmH2O; Arterial Blood Gas Pressure Support 5 cmH2O; Arterial Blood Gas Vent Mode SPONTANEOUS; Device VENTILATOR; Modified Allen's Test Pass; Site Drawn LEFT RADIAL
--- NOTE | 2023-06-18 10:44 | PCFNICU ---
ICU Rounding Note: Pt current nutrition is Clear liquids. Nutrition recommendation: advance as tolerated per MD orders. Last recorded weight is 102.4 kg. Bowel Motility:+Bm reported 06/18 Labs Reviewed:Cr 0.6,Na 135, Hct 29.4,Hgb 9.7 Meds Noted:Levaquin, Lovenox, Synthroid Skin: WNL Additional Notes: Patient has been extubated. diet has advanced to clear liquids with Ensure Clear on trays. Recommend advancing as tolerated per MD orders. Agree with diet orders. Following daily in ICU rounds and reassess every 3 days.
[2023-06-18] MEDS: ACETAMINOPHEN ELIXIR 325 MG/10.15 ML UDC 650 MG PO (11:00)
[2023-06-18 12:19] LABS: VDRL Quantitative CSF Nonreactive (Nonreactive)
[2023-06-18] MEDS: levoFLOXacin 750 MG/D5W 150 ML 750 MG/150 ML BAG 100 MG IVPB (13:45)
[2023-06-18 15:22] LABS: Mycoplasma IgM Antibody Titer 13 U/mL (<770)
[2023-06-18 15:33] LABS: Anion Gap 5 mmol/L (8-16); Blood Urea Nitrogen 15 mg/dL (7-17); Calcium 8.9 mg/dL (8.4-10.2); Carbon Dioxide 33 mmol/L (22-30); Chloride 99 mmol/L (98-107); Estimated Glomerular Filt Rate > 60; Glucose 131 mg/dL (65-110); Magnesium 1.9 mg/dL (1.6-2.3); Potassium 3.7 mmol/L (3.4-5.0); Sodium 137 mmol/L (137-145)
[2023-06-18] MEDS: POTASSIUM CHLORIDE 20 MEQ ER TABLET 40 MEQ PO (16:55)
[2023-06-18 18:32] LABS: Glucose Point of Care 136 mg/dl (65-105)
--- NOTE | 2023-06-18 19:00 | PM.IMPN ---
Progress Note: A&P Assessment and Plan (1) Acute respiratory failure with hypoxia: Code(s): J96.01 - Acute respiratory failure with hypoxia Status: Acute Assessment and Plan: Acute Respiratory failure secondary to community-acquired streptococcal pneumonia requiring intubation 06/14 after failing BiPAP. Sputum is growing group A Streptococcus. Her BNP was elevated but clinical picture does not suggest congestive heart failure. Echo was normal Extubated today Continue IV abx and Bronchodilators (2) Sepsis: Code(s): A41.9 - Sepsis, unspecified organism Status: Acute Assessment and Plan: Patient's presentation consistent with pneumonia. Most likely community-acquired but she did had some nausea vomiting and may have aspirated. She also had symptoms headache and neck pain as per her mother which raises the possibility of meningitis or encephalitis which may have been the initial etiology. Patient was started on vancomycin but had a adverse reaction which suspected as a red man syndrome type reaction but could have been an allergic. 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 Repeat COVID PCR is negative Urine Legionella and urine pneumococcal pending. Mycoplasma IgM negative BCx NGTD. MRSA nasal swab negative. SpCx growing Group A Strept HIV negative. UPT negative. LP: 2R/4W with 70% lymphocytes, glucose 136 (elevated) and protein 43. -- Lyme and WNV pending -- HSV, EBV, Cryptococcus negative. VDRL nonreactive. -- cerbral spinal fluid culture pending Off IV fluids and not required any vasopressors at this time Fevers have waned. . WBC continues to trend down Continue abx with Rocephin and Levaquin. Linezolid, Flagyl and acyclovir stopped 06/16 (3) Pneumonia: Code(s): J18.9 - Pneumonia, unspecified organism Status: Acute Assessment and Plan: See above (4) Headache: Code(s): R51.9 - Headache, unspecified Status: Acute Assessment and Plan: Head CT was negative Patient had elevated opening intracranial pressure of 31 cm water. Nml is up to 25 cm in obese patients but patient is also on mechanical ventilation and sedation which can artificially increased intracranial pressure. Once patient is extubated, repeat LP with measurement can be performed along with an MRI Neurology consulted for further guidance and appreciate tenzin input (5) Intracranial hypertension: Code(s): G93.2 - Benign intracranial hypertension Status: Acute Assessment and Plan: See above (6) Electrolyte abnormality: Code(s): E87.8 - Other disorders of electrolyte and fluid balance, not elsewhere classified Status: Acute Assessment and Plan: Potassium 3.7. Na normal. Mag 1.9. Follow Plan DVT prophylaxis -Lovenox Stress ulcer prophylaxis -Pepcid Code Status - Full Code Subjective Date/time seen: 06/18/23 19:00 Interval history: 22yo female with bipolar disorder, borderline personality disorder, anxiety, depression, history of suicide attempt, polycystic ovarian syndrome, and Louie here with fever and weakness and is currently being treated for sepsis likely from multifocal pneumonia. Patient extubated today. She feels better. Has productive cough and feels slightly SOB. No CP. Tolerating oral intake. Exam Narrative: AF 99.1 105/64 78 24 96% 2L Gen - NARD Chest - bibasilar inspiratory crackles. nml RR CV - RRR S1/S2. Tele showing no significant dysrhythmias Abd - Soft, NT/ND, Positive BS - Watkins secured draining clear yellow urine Ext - No pedal edema Psych - nml mood Skin - Warm and dry. no rash Obje
[2023-06-19] VITALS (97 sets, daily range): BP systolic 76–137; BP diastolic 30–82; PULSE 64–124; RESP 13–28; TEMP 36.8–37.6; O2SAT 83–100
[2023-06-19] MEDS: ACETAMINOPHEN ELIXIR 325 MG/10.15 ML UDC 650 MG PO (00:16)
[2023-06-19 00:22] LABS: Glucose Point of Care 89 mg/dl (65-105)
[2023-06-19 07:29] LABS: Alanine Aminotransferase 48 U/L (6-35); Albumin Level 3.6 g/dL (3.5-5.1); Alkaline Phosphatase 58 U/L (38-126); Anion Gap 5 mmol/L (8-16); Aspartate Amino Transferase 59 U/L (14-36); Bilirubin,Total 0.5 mg/dL (0.2-1.3); Blood Urea Nitrogen 14 mg/dL (7-17); Carbon Dioxide 31 mmol/L (22-30); Chloride 101 mmol/L (98-107); Estimated Glomerular Filt Rate > 60; Glucose 103 mg/dL (65-110); Magnesium 1.8 mg/dL (1.6-2.3); Potassium 3.5 mmol/L (3.4-5.0); Sodium 137 mmol/L (137-145)
[2023-06-19] MEDS: ENOXAPARIN 40 MG/0.4 ML SYRINGE SUB-Q (08:19)
[2023-06-19] MEDS: cefTRIAXone 2 GM/NS 100 ML 2 GM/100 ML BAG IVPB (08:19)
[2023-06-19] MEDS: POTASSIUM CHLORIDE 20 MEQ ER TABLET 40 MEQ PO (08:19)
--- NOTE | 2023-06-19 08:19 | WPDINTPN ---
Progress Note: A&P Assessment and Plan (1) Acute respiratory failure with hypoxia: Code(s): J96.01 - Acute respiratory failure with hypoxia Status: Acute Assessment and Plan: Acute Respiratory failure secondary to community-acquired pneumonia Sputum is growing group A Streptococcus which would suggest the diagnosis of streptococcal pneumonia Extubated 06/18 Incentive spirometer Currently on nasal cannula Antibiotics as below Bronchodilators Her BNP was elevated but clinical picture does not suggest congestive heart failure. Echocardiogram was normal (2) Sepsis: Code(s): A41.9 - Sepsis, unspecified organism Status: Acute Assessment and Plan: 06/15 Patient appears to have presentation consistent with pneumonia which is most likely community-acquired but patient did had some nausea vomiting and may have aspirated. She also had symptoms headache and neck pain as per her mother which raises the possibility of meningitis or encephalitis which may have been the initial etiology. Patient was started on vancomycin but had a adverse reaction which I suspect was a red man syndrome type reaction but could have been an allergic. Vancomycin was discontinued and patient was given 1 dose of Solu-Medrol last night and started on Pepcid She also has a brief history of vaping clinical presentation does not suggest vaping induced lung injury COVID PCR RSV and influenza were negative. repeat COVID PCR was negative Urine Legionella, urine pneumococcal pending. mycoplasma IgM was low Blood culture and MRSA screen has been sent and are pending Sputum cultures growing group A strep suggest the diagnosis of streptococcal pneumonia She had lumbar puncture done on 06/15 and her CSF is clear except elevated glucose but patient also had this elevated blood glucose which would be consistent. Continue empiric Rocephin 06/16 Discontinued linezolid Flagyl and acyclovir 06/18 switched cefepime to daily Rocephin. 06/19 will discontinue Levaquin Off IV fluids Patient has not required any vasopressors at this time HIV screen was negative (3) Pneumonia: Code(s): J18.9 - Pneumonia, unspecified organism Status: Acute Assessment and Plan: See above (4) Headache: Code(s): R51.9 - Headache, unspecified Status: Acute Assessment and Plan: Head CT was negative Patient had elevated opening intracranial pressure of 31 cm water. Normal pressure is up to 25 cm in obese patients but patient is also on mechanical ventilation and sedation can artificially increased intracranial pressure. Neurology consulted and recommend repeat spinal tap in 4-6 weeks and outpatient follow-up for evaluation of pseudotumor cerebri (5) Intracranial hypertension: Code(s): G93.2 - Benign intracranial hypertension Status: Acute Assessment and Plan: See above (6) Electrolyte abnormality: Code(s): E87.8 - Other disorders of electrolyte and fluid balance, not elsewhere classified Status: Acute Assessment and Plan: Replace low potassium (7) Swelling of right upper extremity: Code(s): M79.89 - Other specified soft tissue disorders Status: Acute Assessment and Plan: Likely secondary to infiltration of peripheral IV Check venous ultrasound to rule out DVT Pain control Plan DVT prophylaxis -Lovenox Stress ulcer prophylaxis -Pepcid Nutrition -regular diet Code Status - Full Code Incentive spirometry and up in chair Remove Watkins and central venous catheter Transfer out of ICU Subjective Date/time seen: 06/19/23 Overnight events reviewed. Patient was extubated yesterday after a successful weaning trial she has done well and remain on 1 L nasal cannula. Afebrile Good urine output Tolerating p.o. diet Patient states that she has cough but it is associated with clear sputum. No chest pain or shortness of breath. She complains of pain in right arm where she had a reaction w
[2023-06-19] MEDS: FAMOTIDINE 20 MG/2 ML VIAL IV PUSH ×2 (08:22→20:55)
[2023-06-19] MEDS: CENTRAL LINE FLUSH 10 ML IV PUSH (08:24)
[2023-06-19] MEDS: ALBUTEROL SULFATE NEB 2.5 MG/3 ML INH INHALATION ×3 (08:52→19:37)
[2023-06-19 09:32] LABS: Hematocrit 33.3 % (37.0-47.0); Hemoglobin 10.6 g/dL (12.0-15.0); Mean Corpuscular HGB Conc 31.8 g/dl (32-36); Mean Corpuscular Hemoglobin 28.4 pg (26-34); Mean Corpuscular Volume 89.3 fl (80-100); Mean Platelet Volume 8.9 fl (7.4-10.4); Platelet Count Result 373 k/mm3 (150-375); Red Blood Count 3.73 M/mm3 (4.2-5.4); Red Cell Distribution Width 13.2 % (11.5-14.5); White Blood Count 11.6 K/mm3 (4.5-10.0)
--- NOTE | 2023-06-19 11:26 | PCFNICU ---
ICU Rounding Note: Pt current nutrition is Regular Last recorded weight is 102.4 kg. Bowel Motility:+Bm reported 06/19 Labs Reviewed:Cr 0.6 Meds Noted:Lovenox Skin: WNL Additional Notes: Patient tolerating clear liquids. Diet order has been advanced to a regular diet. No further nutritional interventions needs. Will monitor for LOS every 7 days.
[2023-06-19 14:19] LABS: West Nile Virus, IgM <0.90 index (<0.90)
[2023-06-19] MEDS: ACETAMINOPHEN 325 MG TABLET 650 MG PO (15:24)
[2023-06-19] MEDS: ONDANSETRON INJ 4 MG/2 ML VIAL IV PUSH (17:58)
--- NOTE | 2023-06-19 18:08 | PM.IMPN ---
Progress Note: A&P Assessment and Plan (1) Acute respiratory failure with hypoxia: Code(s): J96.01 - Acute respiratory failure with hypoxia Status: Acute Assessment and Plan: Acute Respiratory failure secondary to community-acquired streptococcal pneumonia requiring intubation 06/14 after failing BiPAP. Sputum is growing group A Streptococcus. Her BNP was elevated but clinical picture does not suggest congestive heart failure. Echo was normal Extubated yesterday Continue IV abx and Bronchodilators (2) Sepsis: Code(s): A41.9 - Sepsis, unspecified organism Status: Acute Assessment and Plan: Patient's presentation consistent with pneumonia. Most likely community-acquired but she did had some nausea vomiting and may have aspirated. She also had symptoms headache and neck pain as per her mother which raises the possibility of meningitis or encephalitis which may have been the initial etiology. Patient was started on vancomycin but had a adverse reaction which suspected as a red man syndrome type reaction but could have been an allergic. 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 Repeat COVID PCR is negative Urine Legionella and urine pneumococcal pending. Mycoplasma IgM negative BCx NGTD. MRSA nasal swab negative. SpCx growing Group A Strept HIV negative. UPT negative. LP: 2R/4W with 70% lymphocytes, glucose 136 (elevated) and protein 43. -- Lyme pending -- WNV, HSV, EBV, Cryptococcus negative. VDRL nonreactive. -- cerebral spinal fluid culture pending Off IV fluids and not required any vasopressors at this time Fevers have waned. WBC up slightly Continue abx with Rocephin. Levaquin, Linezolid, Flagyl and acyclovir stopped (3) Pneumonia: Code(s): J18.9 - Pneumonia, unspecified organism Status: Acute Assessment and Plan: See above (4) Headache: Code(s): R51.9 - Headache, unspecified Status: Acute Assessment and Plan: Head CT was negative Patient had elevated opening intracranial pressure of 31 cm water. Nml is up to 25 cm in obese patients but patient is also on mechanical ventilation and sedation which can artificially increased intracranial pressure. Once patient is extubated, repeat LP with measurement can be performed along with an MRI Neurology consulted for further guidance and appreciate mituler input. Also has hx of migraines. Home meds resumed which may be contributing to her headaches (5) Intracranial hypertension: Code(s): G93.2 - Benign intracranial hypertension Status: Acute Assessment and Plan: See above (6) Electrolyte abnormality: Code(s): E87.8 - Other disorders of electrolyte and fluid balance, not elsewhere classified Status: Acute Assessment and Plan: Potassium 3.5. Na normal. Mag 1.8. Follow Plan DVT prophylaxis -Lovenox Stress ulcer prophylaxis -Pepcid Code Status - Full Code Subjective Date/time seen: 06/19/23 18:08 Interval history: 22yo female with bipolar disorder, borderline personality disorder, anxiety, depression, history of suicide attempt, polycystic ovarian syndrome, and Louie here with fever and weakness and is currently being treated for sepsis likely from multifocal pneumonia. Patient with headache today. She has a hx of migraines. She is also off of her home medications. She was noted to be hypoxic when sleeping. Family denies patient snores or has apneic spells Exam Narrative: AF 98.8 106/71 81 27 91% ra Gen - NARD sitting up in chair Chest - L>R bibasilar inspiratory crackles. nml RR CV - RRR S1/S2. Tele showing no significant dysrhythmias
[2023-06-19] MEDS: PROMETHAZINE HCL 25 MG/ML AMPUL IM (18:14)
[2023-06-19] MEDS: QUEtiapine FUMARATE 25 MG TABLET PO (20:55)
[2023-06-19] MEDS: hydrOXYzine HCL 10 MG TABLET PO (20:55)
[2023-06-20] VITALS (13 sets, daily range): BP systolic 101–108; BP diastolic 44–58; PULSE 69–103; RESP 15–23; TEMP 36.5–36.8; O2SAT 90–97
[2023-06-20] MEDS: LEVOTHYROXINE SODIUM 25 MCG TABLET FEED TUBE (05:09)
[2023-06-20] MEDS: ACETAMINOPHEN 325 MG TABLET 650 MG PO ×3 (05:09→18:54)
[2023-06-20] MEDS: ONDANSETRON INJ 4 MG/2 ML VIAL IV PUSH ×3 (05:09→18:56)
[2023-06-20 07:38] LABS: Hematocrit 36.6 % (37.0-47.0); Hemoglobin 12.2 g/dL (12.0-15.0); Mean Corpuscular HGB Conc 33.3 g/dl (32-36); Mean Corpuscular Hemoglobin 29.8 pg (26-34); Mean Corpuscular Volume 89.5 fl (80-100); Mean Platelet Volume 8.2 fl (7.4-10.4); Platelet Count Result 382 k/mm3 (150-375); Red Blood Count 4.09 M/mm3 (4.2-5.4); Red Cell Distribution Width 13.3 % (11.5-14.5); White Blood Count 11.6 K/mm3 (4.5-10.0)
[2023-06-20] MEDS: ALBUTEROL SULFATE NEB 2.5 MG/3 ML INH INHALATION ×3 (07:44→19:52)
[2023-06-20 07:48] LABS: Alanine Aminotransferase 52 U/L (6-35); Albumin Level 3.8 g/dL (3.5-5.1); Alkaline Phosphatase 52 U/L (38-126); Anion Gap 6 mmol/L (8-16); Aspartate Amino Transferase 43 U/L (14-36); Bilirubin,Total 0.5 mg/dL (0.2-1.3); Blood Urea Nitrogen 19 mg/dL (7-17); Calcium 9.4 mg/dL (8.4-10.2); Carbon Dioxide 29 mmol/L (22-30); Chloride 102 mmol/L (98-107); Estimated Glomerular Filt Rate > 60; Glucose 97 mg/dL (65-110); Potassium 4.3 mmol/L (3.4-5.0); Sodium 137 mmol/L (137-145)
[2023-06-20] MEDS: cefTRIAXone 2 GM/NS 100 ML 2 GM/100 ML BAG IVPB (08:24)
[2023-06-20] MEDS: ENOXAPARIN 40 MG/0.4 ML SYRINGE SUB-Q (08:24)
[2023-06-20] MEDS: FLUoxetine HCL 10 MG CAPSULE 40 MG PO (08:25)
[2023-06-20] MEDS: FAMOTIDINE 20 MG/2 ML VIAL IV PUSH ×2 (08:25→20:12)
--- NOTE | 2023-06-20 12:57 | PM.IMPN ---
Progress Note: A&P Assessment and Plan (1) Acute respiratory failure with hypoxia: Code(s): J96.01 - Acute respiratory failure with hypoxia Status: Acute Assessment and Plan: Acute Respiratory failure secondary to community-acquired streptococcal pneumonia requiring intubation 06/14 after failing BiPAP. Sputum is growing group A Streptococcus. Her BNP was elevated but clinical picture does not suggest congestive heart failure. Echo was normal Extubated 06/18 Apnea link showing AHI 4.5 and RI 7. She did have prolonged time period (390min) with SpO2<88% with O2 desaturation index at 10.6. Add 2L and repeat ApneaLink Continue IV abx and Bronchodilators (2) Sepsis: Code(s): A41.9 - Sepsis, unspecified organism Status: Acute Assessment and Plan: Patient's presentation consistent with pneumonia. Most likely community-acquired but she did had some nausea vomiting and may have aspirated. She also had symptoms headache and neck pain as per her mother which raises the possibility of meningitis or encephalitis which may have been the initial etiology. Patient was started on vancomycin but had a adverse reaction which suspected as a red man syndrome type reaction but could have been an allergic. 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 Repeat COVID PCR is negative Urine Legionella and urine pneumococcal pending. Mycoplasma IgM negative BCx NGTD. MRSA nasal swab negative. SpCx growing Group A Strept HIV negative. UPT negative. LP: 2R/4W with 70% lymphocytes, glucose 136 (elevated) and protein 43. -- Lyme pending -- WNV, HSV, EBV, Cryptococcus negative. VDRL nonreactive. -- cerebral spinal fluid culture pending Off IV fluids and not required any vasopressors at this time Fevers have waned. WBC stable Continue abx with Rocephin. Levaquin, Linezolid, Flagyl and acyclovir stopped (3) Pneumonia: Code(s): J18.9 - Pneumonia, unspecified organism Status: Acute Assessment and Plan: See above (4) Headache: Code(s): R51.9 - Headache, unspecified Status: Acute Assessment and Plan: Head CT was negative Patient had elevated opening intracranial pressure of 31 cm water. Nml is up to 25 cm in obese patients but patient is also on mechanical ventilation and sedation which can artificially increased intracranial pressure. Repeat LP with measurement can be performed along with an MRI Neurology consulted for further guidance and appreciate tenzin input. Also has hx of migraines. Home meds resumed which may be contributing to her headaches Check MRI brain today. LP possibly on Thursday (5) Intracranial hypertension: Code(s): G93.2 - Benign intracranial hypertension Status: Acute Assessment and Plan: See above (6) Electrolyte abnormality: Code(s): E87.8 - Other disorders of electrolyte and fluid balance, not elsewhere classified Status: Acute Assessment and Plan: Potassium 4.3. Na normal. Mag 2.0. Follow Plan DVT prophylaxis -Lovenox Stress ulcer prophylaxis -Pepcid Code Status - Full Code Subjective Date/time seen: 06/20/23 12:57 Interval history: 22yo female with bipolar disorder, borderline personality disorder, anxiety, depression, history of suicide attempt, polycystic ovarian syndrome, and Louie here with fever and weakness and is currently being treated for sepsis likely from multifocal pneumonia. Headache better today. Slept okay. No SOb or CP. Cough productive of whitish sputum. She was noted to be hypoxic at night. Walked in halls. Exam Narrative: AF 97.7 108/58 103 16 91% ra Gen - NARD sitting up
--- NOTE | 2023-06-20 14:46 | PC.NURSE ---
This patient, Ramya Ambrose, was transferred to [facility] on 06/20/23 at 1430. Personal belongings sent with patient. Report given to Sasha. Appropriate documentation sent with patient.
[2023-06-20] MEDS: QUEtiapine FUMARATE 25 MG TABLET PO (20:12)
[2023-06-20] MEDS: hydrOXYzine HCL 10 MG TABLET PO (20:12)
[2023-06-21] MEDS: LEVOTHYROXINE SODIUM 25 MCG TABLET FEED TUBE (05:32)
[2023-06-21 05:58] LABS: Hematocrit 37.4 % (37.0-47.0); Hemoglobin 12.1 g/dL (12.0-15.0); Mean Corpuscular HGB Conc 32.4 g/dl (32-36); Mean Corpuscular Hemoglobin 29.2 pg (26-34); Mean Corpuscular Volume 90.1 fl (80-100); Mean Platelet Volume 8.5 fl (7.4-10.4); Platelet Count Result 395 k/mm3 (150-375); Red Blood Count 4.15 M/mm3 (4.2-5.4); Red Cell Distribution Width 13.2 % (11.5-14.5); White Blood Count 10.1 K/mm3 (4.5-10.0)
[2023-06-21 06:00] VITALS: BP 97/57; PULSE 68; RESP 20; TEMP 36.5; O2SAT 93
[2023-06-21 06:12] LABS: Alanine Aminotransferase 47 U/L (6-35); Albumin Level 3.7 g/dL (3.5-5.1); Alkaline Phosphatase 51 U/L (38-126); Anion Gap 9 mmol/L (8-16); Aspartate Amino Transferase 34 U/L (14-36); Bilirubin,Total 0.4 mg/dL (0.2-1.3); Blood Urea Nitrogen 24 mg/dL (7-17); Calcium 9.2 mg/dL (8.4-10.2); Carbon Dioxide 28 mmol/L (22-30); Chloride 103 mmol/L (98-107); Estimated Glomerular Filt Rate > 60; Glucose 90 mg/dL (65-110); Potassium 4.2 mmol/L (3.4-5.0); Sodium 140 mmol/L (137-145)
[2023-06-21 06:13] LABS: Legionella pneumophila Ag Ur Not Detected (Not Detected)
[2023-06-21] MEDS: ALBUTEROL SULFATE NEB 2.5 MG/3 ML INH INHALATION ×2 (07:31→13:50)
[2023-06-21 07:32] VITALS: PULSE 102; RESP 18; O2SAT 98
[2023-06-21 07:39] VITALS: PULSE 97; RESP 18
[2023-06-21] MEDS: FLUoxetine HCL 10 MG CAPSULE 40 MG PO (08:58)
[2023-06-21] MEDS: FAMOTIDINE 20 MG/2 ML VIAL IV PUSH (08:59)
[2023-06-21] MEDS: cefTRIAXone 2 GM/NS 100 ML 2 GM/100 ML BAG IVPB (09:00)
[2023-06-21] MEDS: ENOXAPARIN 40 MG/0.4 ML SYRINGE SUB-Q (09:00)
--- NOTE | 2023-06-21 11:18 | PM.DS ---
DS: Admitting Diagnosis Discharge Date 06/21/23 Admitting Diagnosis Fever and weakness. DS: Discharge Diagnosis Discharge Diagnosis (1) Acute respiratory failure with hypoxia: Code(s): J96.01 - Acute respiratory failure with hypoxia Status: Acute (2) Sepsis: Code(s): A41.9 - Sepsis, unspecified organism Status: Acute (3) Pneumonia: Code(s): J18.9 - Pneumonia, unspecified organism Status: Acute (4) Headache: Code(s): R51.9 - Headache, unspecified Status: Acute (5) Intracranial hypertension: Code(s): G93.2 - Benign intracranial hypertension Status: Acute (6) Electrolyte abnormality: Code(s): E87.8 - Other disorders of electrolyte and fluid balance, not elsewhere classified Status: Acute DS: Summary Hospital Course Reason for hospitalization: 22yo female with bipolar disorder, borderline personality disorder, anxiety, depression, history of suicide attempt, polycystic ovarian syndrome, and Louie here with fever and weakness and is currently being treated for sepsis likely from multifocal pneumonia. Please see H&P for details. Hospital Course: Patient presented with fever and weakness and found to have pneumonia. CXR showing mid and lower lung zone infiltrates. Most likely community-acquired but she did had some nausea vomiting and she may have aspirated.? She was started on broad spectrum abx. She had acute respiratory failure secondary to pneumonia requiring intubation 06/14 after failing BiPAP. Patient was on vancomycin but had a adverse reaction which suspected as a red man syndrome type reaction but could have been an allergic.? Vancomycin was discontinued and patient was given 1 dose of Solu-Medrol and started on Pepcid. COVID, RSV and influenza were negative.? Repeat COVID PCR was negative. Urine Legionella negative. Urine pneumococcal pending. Mycoplasma IgM negative. BCx negative. MRSA nasal swab negative. Sputum Cx growing Group A Strept felt to be the etiology of her PNA. HIV negative.? UPT negative. CT Ch/A/P showing diffuse lung disease but no PE and no other acute findings. Her BNP was elevated but clinical picture does not suggest congestive heart failure.? Echo was normal. She had clinical improvement. She tolerated vent weaning and was able to be extubated 06/18. She also had symptoms headache and neck pain as per her mother which raises the possibility of meningitis or encephalitis which may have been the initial etiology. Head CT was negative. Lumbar puncture:? 2RBC/4WBC with 70% lymphocytes, glucose 136 (elevated) and protein 43. Lyme pending. WNV, HSV, EBV, Cryptococcus negative. VDRL nonreactive. Cerebral spinal fluid culture negative to date. Fevers resolved. Patient had elevated opening intracranial pressure of 31 cm water. Nml is up to 25 cm in obese patients but patient was also on mechanical ventilation and sedation which can artificially increased intracranial pressure. MRI brain was normal. Neurology consulted. They would like to see the patient in the clinic in 4-6weeks to plan to repeat the LP. Patient has a hx of migraines which could be related to the increased intracranial pressure. She was noted to be hypoxic when sleeping. Apnea link showing AHI 4.5 and RI 7. She did have prolonged time period (390min) with SpO2<88% with O2 desaturation index at 10.6. We added 2L at night and repeat ApneaLink showing resolution of the hypoxia. If this is chronic, this could explain her headaches as well. She did not qualify for O2 with a home O2 evaluation. Discussed with Pulmonary. She had clinical improvement and was able to be discharged home on 06/21/23. Status at Discharge Cognitive/behavioral status at discharge: Stable Time Spent with Patient Time attestation: Total time spent providing and/or coordinating discharge services: 38 minutes Time spent: Greater than 30 minutes Exam Narrative: AF 97.7 97/57 97 18 98% ra Jamison
[2023-06-21 12:28] VITALS: PULSE 86; O2SAT 94
[2023-06-21 12:38] VITALS: PULSE 98; O2SAT 91
[2023-06-21 13:50] VITALS: PULSE 75; RESP 20
[2023-06-22 13:01] LABS: Pneumococcal Antigen Urine Not Detected (Not Detected)
--- NOTE | 2023-06-23 10:06 | PC.NURSE ---
Urine pneumococcal is negative. Dr. Maldonado barone.
--- NOTE | 2023-06-26 11:43 | PC.NURSE ---
Lyme CSF- no bands detected. Dr. Maldonado barone.
--- NOTE | 2023-07-29 10:02 | PC.NURSE ---
Fungal cx is negative. Dr. Maldonado barone.
--- NOTE | 2023-08-21 06:45 | PC.NURSE ---
Sputum AFB and CSF cultures are both negative. Dr. Maldonado barone.
== END 2023-06-21 15:40 | disposition home or self-care (01) | DRG 871 ==
LOC: ANHED 14:46 → ANHIMU 17:21 → ANHICU 20:42 → ANH2MED 06-20 14:52
PROVIDERS: Internal Medicine; Physician Assistant; Admitting Provider Student in an Organized Health Care Education/Training Program; Emergency Provider Emergency Medicine; Visit Provider Internal Medicine
DX: A41.9 Sepsis, unspecified organism (principal); J15.4 Pneumonia due to other streptococci; J18.8 Other pneumonia, unspecified organism; J96.01 Acute respiratory failure with hypoxia; Z68.41 Body mass index [BMI] 40.0-44.9, adult; T36.8X5A Adverse effect of other systemic antibiotics, initial encounter; E66.9 Obesity, unspecified; E28.2 Polycystic ovarian syndrome; E87.8 Other disorders of electrolyte and fluid balance, not elsewhere classified; E06.3 Autoimmune thyroiditis; F31.9 Bipolar disorder, unspecified; F41.9 Anxiety disorder, unspecified; F60.3 Borderline personality disorder; G93.2 Benign intracranial hypertension; L29.9 Pruritus, unspecified; L27.0 Generalized skin eruption due to drugs and medicaments taken internally; M79.89 Other specified soft tissue disorders; R51.9 Headache, unspecified; Z87.891 Personal history of nicotine dependence; Z91.51 Personal history of suicidal behavior; Z20.822 Contact with and (suspected) exposure to COVID-19
CPT/HCPCS: 31500; 36415; 36600; 62328; 70450; 70553; 71045; 71275; 74177; 80048; 80053; 81001; 81025; 82375; 82550; 82805; 82945; 82948; 83036; 83050; 83605; 83735; 83880; 84145; 84157; 84443; 84478; 85025; 85027; 85610; 85730; 86403; 86592; 86617; 86703; 86738; 86788; 87015; 87040; 87070; 87081; 87102; 87116; 87147; 87205; 87206; 87449; 87529; 87635; 87637; 87798; 87899; 89051; 93971; 94002; 94003; 94618; 94640; 94762; 96365; 96367; 96375; 97161; 97165; 99291; A9270; A9577; C1751; C8929; G0432; J0133; J0456; J0692; J0696; J1650; J1815; J1836; J1885; J1940; J1956; J2020; J2060; J2250; J2405; J2550; J2704; J2930; J3010; J3370; J7030; J7120; Q9957; Q9967

== ENCOUNTER 2025-02-15 06:31 | Outpatient (CLI) | payer BC, SELFPAY ==
--- NOTE | ~2025-02-15 | MR_ITS ---
MRI of the brain Clinical History: Altered mental status Technique: Axial and sagittal T1-weighted images were acquired. These were followed by axial T2-weigh estela, diffusion weighted, gradient, and FLAIR images. Following intravenous administration of 20 cc Pr oHance gadolinium, T1-weighted fat-sat imaging was performed in the axial and coronal planes. COMPARISON: 06/20/2023 Findings: No abnormal signal seen in the brain parenchyma. No acute infarct, intracranial hemorrhage or mass lesion. Ventricles and subarachnoid spaces are unremarkable. Orbits are unremarkable. Paranasal sinuses and m astoid air cells are clear. Major intracranial flow voids are intact. Sagittal midline structures are intact. No abnormal postcontrast enhancement identified. IMPRESSION: No significant abnormality seen. Reviewed, dictated and finalized at location .
--- OUTSIDE RECORDS SUMMARY | 2025-02-15 06:34 | XMS_ITS | Encounter Summary ---
Author Organization [facility] Address [facility] [place] [address] Care Team Providers Care Strategic Buyer Name Role Phone Madie Miner NP Primary Care Provider [phone] Encounter Details Date Type Department Care Team (Late st Contact Info) Description 11/18/2022 [place] Message Enc [facility] Family & Internal Medicine [address] [phone] Madie Miner [place] [id number] [place] [address] [place] [address] IBS Social History Tobacco Use Types Packs/Day Years Used Date Smoking Tobacco: Never Smokeless Tobacco: Never Alcohol Use Standard Drinks/Week Comments Not Currently 0 (1 standard drink = 0.6 oz pur e alcohol) socially PHQ-2 Answer Date Recorded PHQ-2 Score - If the patient scores above 3, please move on to questions 3-9 0 08/08/2022 Comments No Sex and Gender Information Value Date Recorded Sex Assigned at Female 12/13/2024 9:13 AM INTERMEDIATE PROJECT MANAGER Legal Sex Female 3:49 PM INTERMEDIATE PROJECT MANAGER Gender Identity Not on file Sexual Orientation Not on file COVID-19 Exposure Response Date Recorded In the last 10 days, have yo u been in contact with someone who was confirmed or suspected to have Coronavirus/COVID-19? Yes 11/19/2022 1:47 PM INTERMEDIATE PROJECT MANAGER documented as of this encounter Progress Notes * Romeo Jackson RN - 11/18/2022 2:49 PM CST Attempted to call patient. No answer. LVM to return call to clinic. RMEDIATE PROJECT MANAGER * Madie Miner NP - 11/18/2022 2:17 PM CST Please help patient make appointment to be addressed, TY. RMEDIATE PROJECT MANAGER * Romeo Jackson RN - 11/18/2022 1:44 PM CST Please advise. Do you want pt to make appt? RMEDIATE PROJECT MANAGER documented in this encounter Plan of Treatment Not on file documented as of this encounter Visit Diagnoses Not on filedocumented in this encounter Additional Health Concerns Infection Onset Date Last Indicated Resolved Time COVID-19 Rule Out 06/12/2023 06/12/2023 06/12/2023 6:44 PM CDT COVID-19 Rule Out 09/29/2023 09/29/2023 09/29/2023 12:11 PM CDT Assessment Noted Time PHQ-9 Depression Total Score: 2 08/08/20 22 8:20 AM CDT documented as of this encounter Care Teams Strategic Buyer Relationship Specialty [place] [phone] [address] PCP - General Nurse Practitioner Family 03/10/22 documented as of this encounter
--- OUTSIDE RECORDS SUMMARY | 2025-02-15 06:34 | XMS_ITS | Clinical Summary ---
Author Organization [facility] Address [address] [place] [address] Care Team Providers Care [employer] Former Name Role Phone Isidra, Madie Reeves VICE PRESIDENT OF BRAND MANAGEMENT Primary Care Provider [phone] Allergies Active Allergy Reactions Criticality Noted Date Comments Amoxicillin Diarrhea Medium 06/23/2023 Amoxicillin-Pot Clavulanate Diarrhea 06/12/20 23 Codeine Hives High 11/03/2016 Orapred Cyclobenzaprine Lab Results 06/30/2022 Intolerance d/t liver and kidney dysfunction from overdose Etomidate Rash High 06/23/2023 Etomidate Rash High 06/23/2023 Prednisolone Sodium Phosphate Swelling High 04/08/2021 Vancomycin Hives Medium 06/23/2023 Medications loratadine (CLARITIN) 10 MG tabletIndication s:Environmental allergies Take 1 tablet (10 mg total) by mouth daily. 90 tablet 2 07/11/2022 Active probiotic (FLORAJEN3) Cap capsule Take 1 capsule by mouth 3 (three) times daily with meals. Active QUEtiapine (SEROQUEL) 25 MG tablet 06/03/2023 Active FLUoxetine (PROZAC) 40 MG capsule Take 1 capsule (40 mg total) by mouth daily. 05/10/2023 Active acetaZOLAMIDE (DIAMOX) 250 MG tablet Take 1 tablet (250 mg total) by mouth 2 (two) times daily. 09/06/2023 Active Multiple Vitamins-Mineral s (MULTIVITAMIN WOMEN OR) Active cyanocobalamin (B-12) 1000 MCG/ML injectionIndicat ions:B12 deficiency Inject 1 mL (1,000 mcg total) into the muscle every 30 (thirty) days. 3 mL 2 11/25/2023 Active TUBERCULIN SYR 1CC/27GX1/2 (B-D TB SYRINGE 1CC/27GX1/2 ) 27G X 1/2 1 ML MiscIndications: B12 deficiency 1 Device by Does not apply route every 30 (thirty) days. 100 each 11/25/2023 Active lurasidone (LATUDA) 60 MG tablet Take 1 tablet (60 mg total) by mouth daily with breakfast. 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 90 tablet 1 12/14/2024 Active Active Problems Problem Noted Date Diagnosed Date History of prolonged Q-T interval on ECG 022 Numbness and tingling of both upper extremities 08/08/2022 Suicide attempt by drug ingestion, subsequent en counter 07/09/2022 MDD (major depressive disord er), recurrent severe, without psychosis ([facility]) 06/30/2022 Chest pain 06/27/2022 Asthma ([facility]) 06/25/2022 Intentional drug overdose, i nitial encounter ([facility]) 06/25/2022 PCOS (polycystic ovarian syndrome) 06/25/2022 Seizures ([facility]) 06/25/2022 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 05/02/2022 Morbid obesity with BMI of 40.0-44.9, adult 06/0 01/2022 Sciatica 04/29/2022 Borderline personality disorder ([facility] ) 04/17/2022 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 Left upper quadrant abdominal pain 06/17/2021 Overview (06/17/2021): Added automatically from request for surgery [id number] Nausea 06/17/2021 Overview (06/17/2021): Added automatically from request for surgery [id number] Blood in stool 06/17/2021 Overview (06/17/2021): Added automatically from request for surgery [id number] Anxiety 10/18/2019 MDD (major depressive disorder) 10/18/2019 Encounters Date Type Department Care Team Description 12/26/[address] [address] Madie Miner NP Lab Results 12/14/2024 5:12 PM BILLET DRILLER - 12/14/2024 11:59 PM BILLET DRILLER Hospital Encounter [facility] [address] [place] [id number] Madie Miner NP Discharge Disposition: Home or Self Care (Routine Discharge) 12/14/2024 2:00 PM BILLET DRILLER - 12/14/2024 5:11 PM BILLET DRILLER Hospital Encounter [facility] Cardiop[facility] [address] [place] [address] Madie Miner NP Discharge Disposition: Home or Self Care (Routine Discharge) 12/14/2024 1:40 PM BILLET DRILLER Laboratory Only [address] [address] Madie Miner NP 12/14/2024 1:00 PM BILLET DRILLER Office Visit [address] [address] Madie Miner NP Follow Up (Annual follow up) 12/14/2024 Travel 12/08/2024 Orders Only [address] [phone] Madie Miner NP from Last 3 Months Immunizations Name Administration Dates Next Due Fluzone (IIV3, Trivalent, 0. 5 ML Prefilled Syringe) 12/14/2024 Influenza Adult (Generic) 09/07/2023,,09/18/2021, 020,10/10/2016 PFIZER COVID-19 (ORIGINAL FORMULATION, PURPLE CAP) mRNA, LNP-S, PF, 30 MCG/0.3 ML DOSE 11/15/2021,01/24/2021,01/03/2021 Family History * Patient is adopted Relation Status Comments Mother Other Social History Tobacco Use Types Packs/Day Years Used Date Smoking Tobacco: Never Smokeless Tobacco: Never Tobacco Cessation:Counseling Given: Not Answered Alcohol Use Standard Drinks/Week Comments Not Currently 0 (1 standard drink = 0.6 oz pur e alcohol) socially PHQ-2 Answer Date Recorded Patient Health Questionnaire-2 Score 2 12/14/2024 Comments No Sex and Gender Information Value Date Recorded Sex Assigned at Female 12/13/2024 9:13 AM BILLET DRILLER Legal Sex Female 3:49 PM BILLET DRILLER Gender Identity Not on file Sexual Orientation Not on file Last Filed Vital Signs Vital Sign Reading Time Taken Comments Blood Pressure 115/83 12/14/2024 1:08 PM BILLET DRILLER Pulse 71 12/14/2024 1:08 PM BILLET DRILLER Temperature 36.8 C (98.3 F) 12/14/2024 1:08 PM BILLET DRILLER Respiratory Rate 20 12/14/2024 1:08 PM BILLET DRILLER Oxygen Saturation 95% 12/14/2024 1:08 PM BILLET DRILLER Inhaled Oxygen Concentration - - Weight 103.5 kg (228 lb 3.2 oz) 12/14/2024 1:08 PM BILLET DRILLER Height 147.3 cm (4' 10 ) 12/14/2024 1:08 PM BILLET DRILLER Body Mass Index 47.69 12/14/2024 1:08 PM BILLET DRILLER Plan of Treatment Health Maintenance Due Date Last Done Comments Annual Physical 2001 Pneumococcal Vaccine: Pediatrics (0 to 5 Years) and At-Risk Patients (6 to 64 Years) (1 of 2 - PCV) 2004 HPV Vaccines (1 - 3-dose series) 2013 DTaP, Tdap and Td Vaccines (1 - Tdap) 2017 Cervical Cancer Screening Pap Smear (Age 21 to 29) Every 3 Years 04/01/2024 04/01/2021, 04/01/2021 Cervical Cancer Screening 04/01/2024 COVID-19 Vaccine ( season) 2025 11/15/2021, 01/24/2021, 01/03/2021 Postponed from 07/31/2024 (Patient Refused) Hepatitis B Vaccines (1 of 3 - 19+ 3-dose series) 12/14/2025 Postponed from 2017 (Patient/Guardian Refusal) Hepatitis C 11/25/2053 Postponed from 2016 (Patient Refused) Influenza Adult Completed 12/14/2024, 07/2023, 09/22/2022, Additional history exists PHQ-2 (Physician [place]) Completed 12/14/2024 Meningococcal B Vaccine Aged Out No l onger eligible based on patient's age to complete this topic Meningococcal Vaccine Aged Out No erma aftab eligible based on patient's age to complete this topic RSV Immunizations Under 20 Months Aged Out No longer eligible based on patient's age to complete this topic Procedures Procedure Name Priority Date/Time Associated Diagnosis Comments ECG 12-LEAD Routine 12/14/2024 2:08 PM BILLET DRILLER History of prolonged Q-T interval on ECG COLLECTION VENOUS BLOOD VENIPUNCTURE Routine 12/14/2024 1:49 PM BILLET DRILLER 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 Prediabetes Numbness and tingling of both upper extremities Hypomagnesemia Sensation of feeling cold COMPREHENSIVE METABOLIC PANEL Routine 12/14/2024 1:43 PM BILLET DRILLER 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 TSH W/REFLEX Routine 12/14/2024 1:43 PM BILLET DRILLER 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 HEMOGLOBIN, GLYCOSYLATED Routine 12/14/2024 1:43 PM BILLET DRILLER Prediabetes CBC W/DIFF AUTOMATED Routine 12/14/2024 1:43 PM BILLET DRILLER 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 VITAMIN B12 / FOLATE Routine 12/14/2024 1:43 PM BILLET DRILLER Numbness and tingling of both upper extremities MAGNESIUM Routine 12/14/2024 1:43 PM BILLET DRILLER Hypomagnesemia IRON SAT PANEL (IRON,IBC,%SAT) Routine 12/14/2024 1:43 PM BILLET DRILLER Sensation of feeling cold CHLAM/GC/TRICHOMONAS PROFILE Routine 04/01/2021 7:30 AM CDT from Last 3 Months or Most Recently Relevant to Health Maintenance Results * ECG 12 lead (Hosp Performed) (12/14/2024 2:08 PM BILLET DRILLER) 12/14/2024 2:08 PM BILLET DRILLER Narrative [facility] ([facility]) RAD - 12/15/2024 6:58 AM BILLET DRILLER [facility] Test Date: 2024-12-14 Pat Name: RAMYA AMBROSE Department: 85 Room: Gender: Female Type Disk Quality Control Supervisor: : 2000 Requested By: MADIE MINER Order Number: [id number] Reading MD: Bong Mehta Measurements Intervals [place] Rate: 65 P: 21 AL: 187 QRS: 26 QRSD: 107 T: 16 QT: 428 QTc: 448 Interpretive Statements SINUS RHYTHM WITH SINUS ARRHYTHMIA INCOMPLETE RIGHT BUNDLE BRANCH BLOCK [90+ ms QRS DURATION, TERMINAL R IN V1/V2, 40+ ms S IN I/aVL/V4/V5/V6] Compared to ECG 06/12/2023 18:05:26 Incomplete right bundle-branch block now present Intraventricular conduction delay no longer present T-wave abnormality no longer present ET DRILLER Procedure Note Bong Mehta MD - 12/15/2024 [facility] Test Date: 2024-12-14 Pat Name: RAMYA [facility] Department: 85 Room: Gender: Female Type Disk Quality Control Supervisor: : 2000 Requested By: MADIE MINER Order Number: [id number] Reading : Bong Mehta Measurements Intervals [place] Rate: 65 P: 21 AL: 187 QRS: 26 QRSD: 107 T: 16 QT: 428 QTc: 448 Interpretive Statements SINUS RHYTHM WITH SINUS ARRHYTHMIA INCOMPLETE RIGHT BUNDLE BRANCH BLOCK [90+ ms QRS DURATION, TERMINAL RIN V1/V2, 40+ ms S IN I/aVL/V4/V5/V6] Compared to ECG 06/12/2023 18:05:26 Incomplete right bundle-branch block now present Intraventricular conduction delay no longer present T-wave abnormality no longer present ET DRILLER us Madie Miner NP ECG ORDERABLES Final Result Performing Organization Address [facility] Co de Phone Number [facility] ([facility]) RAD * VITAMIN B12 / FOLATE (12/14/2024 1:43 PM BILLET DRILLER) VITAMIN B12 S/P/B 428 193 - 986 PG/ML 12/14/2024 6:38 PM BILLET DRILLER [facility] FOLATE >20.0 8.6 - 58.9 NG/ML 12/14/2024 6:38 PM BILLET DRILLER [facility] 12/14/2024 1:43 PM BILLET DRILLER us Madie iMner NP LABORATORY Final Result Performing Organization Address [facility] de Phone Number [facility] [address] [place] [address], [place] [phone] * TSH W/REFLEX (12/14/2024 1:43 PM BILLET DRILLER) TSH 1.235 0.358 - 3.74 uIU/ML 12/14/2024 6:03 PM BILLET DRILLER [facility] Comment: HIGH DOSES OF BIOTIN MAY INTERFERE WITH THIS TEST RESULT. CORRELATION TO CLINICAL HISTORY AND PRESENTATION RECOMMENDED. FREE T4 NOT INDICATED 12/14/2024 1:43 PM BILLET DRILLER us Madie Miner NP LABORATORY Final Result Performing Organization Address [facility]/ZIP Co de Phone Number [facility] [address] [place] [address], [place] [phone] * (ABNORMAL) HEMOGLOBIN, GLYCOSYLATED (12/14/2024 1:43 PM BILLET DRILLER) [facility] HGB A1C 5.9(H) <5.7 % 12/14/2024 6:17 PM BILLET DRILLER [facility] Comment: INCREASED RISK OF DIABETES <5.7% NON-DIABETES 5.7-6.4% INCREASED RISK FOR FUTURE DIABETES > OR = 6.5 CONSISTENT WITH DIABETES STANDARDS OF MEDICAL CARE IN DIABETES-2010 DIABETES CARE, 33(SUPP 1): S1-S61,2010 ESTIMATED AVG GLUCOSE 123 mg/dL 12/14/2024 6:17 PM BILLET DRILLER [facility] 12/14/2024 1:43 PM BILLET DRILLER us Madie Miner NP LABORATORY Final Result Performing Organization Address City/[facility] Hospital/ZIP Co de Phone Number [facility] [address] [place] [address], [place] [phone] * IRON SAT PANEL (IRON,IBC,%SAT) (12/14/2024 1:43 PM BILLET DRILLER) [facility] IRON 95 50 - 170 MCG/DL 12/14/2024 6:39 PM BILLET DRILLER [facility] IRON BINDING CAPACITY 311 250 - 450 MCG/DL 12/14/2024 6:39 PM BILLET DRILLER [facility] IRON SATURATION 31 20 - 55 % 6:39 PM BILLET DRILLER [facility] 12/14/2024 1:43 PM BILLET DRILLER us Madie Miner NP LABORATORY Final Result Performing Organization Address City/[facility] Hospital/ZIP Co de Phone Number [facility] [address] [place] [address], [place] [phone] * (ABNORMAL) COMPREHENSIVE METABOLIC PANEL (12/14/2024 1:43 PM [facility] GLUCOSE 94 70 - 99 MG/DL 12/14/2024 6:03 PM [facility] BUN 9 7 - 18 MG/DL 12/14/2024 6:03 PM [facility] CREATININE S/P/B 0.76 0.55 - 1.02 MG/DL 12/14/2024 6:03 PM [facility] SODIUM S/P/B 143 136 - 145 MMOL/L 12/14/2024 6:03 PM [facility] POTASSIUM S/P/B 4.0 3.5 - 5.1 MMOL/L 12/14/2024 6:03 PM [facility] CHLORIDE S/P/B 104 100 - 108 MMOL/L 12/14/2024 6:03 PM [facility] CO2 31.0 21 - 32 MMOL/L 12/14/2024 6:03 PM [facility] CALCIUM S/P/B 9.2 8.5 - 10.1 MG/DL 12/14/2024 6:03 PM [facility] BILIRUBIN TOTAL S/P/B 0.5 0.2 - 1.2 MG/DL 12/14/2024 6:03 PM [facility] TOTAL PROTEIN S/P/B 6.7 6.4 - 8.2 G/DL 12/14/2024 6:03 PM [facility] ALBUMIN S/P/B 3.7 3.4 - 5.0 G/DL 12/14/2024 6:03 PM [facility] AST 18 15 - 37 U/L 12/14/2024 6:03 PM [facility] ALT 30 14 - 55 U/L 12/14/2024 6:03 PM [facility] ALKALINE PHOSPHATASE S/P/B 32(L) 50 - 136 U/L 12/14/2024 6:03 PM [facility] ANION GAP 8.0 5 - 15 MMOL/L 12/14/2024 6:03 PM [facility] BUN CREATININE RATIO 11.8 6 - 26 12/14/2024 6:03 PM [facility] A/G RATIO 1.2 1.0 - 2.0 RATIO 12/14/2024 6:03 PM [facility] GFR ESTIMATE >90 >90 ML/MIN/1.7 3 M2 12/14/2024 6:03 PM [facility] Comment: NOTE: eGFR is not calculated for patients <18 years of age. This is an estimated GFR calculation using the new CKD EPI creatinine equation without race and so does not require a correction factor for race. This estimated GFR should not be used for calculating drug doses. 12/14/2024 1:43 PM BILLET DRILLER us Madie Miner NP LABORATORY Final Result [facility] [address] [place] [id number], [place] [phone] * (ABNORMAL) CBC W/DIFF AUTOMATED (12/14/2024 1:43 PM BILLET DRILLER) WBC 7.30 4.4 - 11.0 x10'3/uL 12/14/2024 5:37 PM [facility] RBC 4.41(L) 4.50 - 5.10 x10'6/uL 12/14/2024 5:37 PM [facility] HGB 13.3 12.3 - 15.3 G/DL 12/14/2024 5:37 PM [facility] HCT 38.7 35.9 - 44.6 % 12/14/2024 5:37 PM [facility] MCV 87.8 80.0 - 96.0 FL 12/14/2024 5:37 PM [facility] MCH 30.2 25.3 - 30.9 PG 12/14/2024 5:37 PM [facility] MCHC 34.4(H) 31.0 - 34.1 G/DL 12/14/2024 5:37 PM [facility] RDW 13.1 12.4 - 15.1 % 12/14/2024 5:37 PM [facility] PLT 276 151 - 353 x10'3/uL 12/14/2024 5:37 PM [facility] MPV 10.0 9.6 - 12.0 FL 12/14/2024 5:37 PM [facility] RBC MORPHOLOGY NORMAL 12/14/2024 5:37 PM [facility] PLT MORPH. NORMAL 12/14/2024 5:37 PM [facility] WBC MORPHOLOGY NORMAL 12/14/2024 5:37 PM [facility] LYMPHOCYTES % 27.7 15.8 - 45.0 % 12/14/2024 5:37 PM [facility] NEUTROPHILS % 60.7 42.1 - 71.9 % 12/14/2024 5:37 PM [facility] MONOCYTES % 9.2 5.7 - 12.5 % 12/14/2024 5:37 PM [facility] EOSINOPHILS 1.8 0.0 - 5.6 % 12/14/2024 5:37 PM [facility] BASOPHILS 0.5 0.0 - 1.3 % 12/14/2024 5:37 PM BILLET DRILLER [facility] ABS. NEUTROPHILS 4.43 1.40 - 6.00 x10'3/uL 12/14/2024 5:37 PM BILLET DRILLER [facility] IMMATURE GRANS % 0.1 0.0 - 0.5 % 12/14/2024 5:37 PM BILLET DRILLER [facility] ABS. LYMPHOCYTES 2.02 0.80 - 4.70 x10'3/uL 12/14/2024 5:37 PM BILLET DRILLER [facility] 12/14/2024 1:43 PM BILLET DRILLER us Madie Miner NP LABORATORY Final Result Performing Organization Address [facility]/ZIP Co de Phone Number [facility] [address] [place] [address], [place] [phone] * (ABNORMAL) MAGNESIUM (12/14/2024 1:43 PM BILLET DRILLER) [facility] MAGNESIUM 1.7(L) 1.8 - 2.4 MG/DL 12/14/2024 6:03 PM BILLET DRILLER [facility] 12/14/2024 1:43 PM BILLET DRILLER Madie Miner NP LABORATORY Final Result Performing Organization Address City/[facility] Hospital/ZIP Co de Phone Number [facility] [address] [place] [address], [place] [phone] * CHLAM/GC/TRICHOMONAS PROFILE (04/01/2021 7:30 AM CDT) Pathologist [facility] CHLAMYDIA TRACHOMATIS RNA TMA Not Detected Not Detected 04/05/2021 8:48 AM CDT [facility] [place] [facility] N.GONORRHOEAE RNA TMA (QST) Not Detected Not Detected 04/05/2021 8:48 AM CDT [facility] [place] Comment: Methodology: Cripple Chaser Mediated Amplification(TMA) to detect RNA. The analytical performance characteristics of this assay, when used to test [facility] specimens have been determined by [facility]. The modifications have not been cleared or approved by the FDA. This assay has been validated pursuant to the CLIA regulations and is used for clinical purposes. For additional information, please refer to https://[employer].Memeoirs/faq/KJN449 (This link is being provided for information/educational purposes only). TRICHOMONAS Not Detected Not Detected 04/05/2021 8:48 AM CDT [facility] [place] [facility] Comment: Methodology: Cripple Chaser Mediated Amplification(TMA) The analytical performance characteristics of this assay have been determined by [place]. The modifications have not been cleared or approved by the FDA. This assay has been validated pursuant to the CLIA regulations and is used for clinical purposes. For additional information, please refer to http://[employer].Memeoirs/faq/ Trichomonastma (This link is being provided for information/educational purposes only). Test Performed by [facility], [facility], [address] [place] [address] Donavan Prince M.D., Ph.D., Director of Laboratories , CLIA [id number] 04/01/2021 7:30 AM CDT us [facility] - GENERAL ORDER SHRUTI Final Result [facility] [address] [place], [place] , [place] [phone] from Last 3 Months or Most Recently Relevant to Health Maintenance Insurance [facility] Care Teams Ar[employer] Mainspring Former Relationship Specialty [place] [address] [place] [address] PCP - General Nurse Practitioner Family 03/10/22
--- OUTSIDE RECORDS SUMMARY | 2025-02-15 06:34 | XMS_ITS | Encounter Summary ---
Author Organization [facility] Address [facility] [place] [address] Care Team Providers Care Machine Operator Replanter Name Role Phone Madie Miner NP Primary Care Provider [phone] Encounter Details Date Type Department Care Team (Late st Contact Info) Description 06/10/2022 Familink Message Enc [facility] Medical Group Family & Internal Medicine [address] [address] Mad[place] Min[place] [id number] [place] [address] [place] [address] Albuterol nebulizer Social History Tobacco Use Types Packs/Day Years Used Date Smoking Tobacco: Never Smokeless Tobacco: Never Alcohol Use Standard Drinks/Week Comments Not Currently 0 (1 standard drink = 0.6 oz pur e alcohol) socially PHQ-2 Answer Date Recorded PHQ-2 Score - If the patient scores above 3, please move on to questions 3-9 1 05/02/2022 Comments No Sex and Gender Information Value Date Recorded Sex Assigned at Female 12/13/2024 9:13 AM REVENUE OFFICER Legal Sex Female 3:49 PM REVENUE OFFICER Gender Identity Not on file Sexual Orientation Not on file COVID-19 Exposure Response Date Recorded In the last 10 days, have yo u been in contact with someone who was confirmed or suspected to have Coronavirus/COVID-19? No / Unsure 06/11/2022 10:45 AM CDT documented as of this encounter Progress Notes * Jessika Coats MA - 06/10/2022 2:43 PM CDT LMOM- Will need an appointment. documented in this encounter Plan of Treatment Not on file documented as of this encounter Visit Diagnoses Not on filedocumented in this encounter Additional Health Concerns Infection Onset Date Last Indicated Resolved Time COVID-19 Confirmed Comment:Per CDC can be resolved 06/04/2022 06/04/2022 06/25/20 12:40 PM CDT COVID-19 Confirmed 06/25/2022 06/25/2022 12:32 AM CDT COVID-19 Rule Out 06/12/2023 06/12/2023 06/12/2023 6:44 PM CDT COVID-19 Rule Out 09/29/2023 09/29/2023 09/29/2023 12:11 PM CDT Assessment Noted Time PHQ-9 Depression Total Score: 6 05/02/20 10:57 AM CDT documented as of this encounter Care Teams Machine Operator Replanter Relationship Specialty [place] [id number] [address] PCP - General Nurse Practitioner Family 03/10/22 documented as of this encounter
--- OUTSIDE RECORDS SUMMARY | 2025-02-15 06:34 | XMS_ITS | Encounter Summary ---
Author Organization [facility] Address [address] [place] [address] Care Team Providers Care Pre School Manager Name Role Phone IsidraMadie cantu Lala TAYLOR Primary Care Provider + [phone] Encounter Details Date Type Department Care Team (Late st Contact Info) Description 05/27/2023 MyChart Message Enc [facility] Medical [facility] - [facility] [address] [place], [place] [address] [place], [facility] Provider Air Quality Message Social History Tobacco Use Types Packs/Day Years Used Date Smoking Tobacco: Never Smokeless Tobacco: Never Alcohol Use Standard Drinks/Week Comments Not Currently 0 (1 standard drink = 0.6 oz pur e alcohol) socially PHQ-2 Answer Date Recorded Patient Health Questionnaire-2 Score 0 12/05/2022 Comments No Sex and Gender Information Value Date Recorded Sex Assigned at Female 12/13/2024 9:13 AM FREIGHT TEAM ASSOCIATE Legal Sex Female 3:49 PM FREIGHT TEAM ASSOCIATE Gender Identity Not on file Sexual Orientation Not on file documented as of this encounter Plan of Treatment Not on [...] documented as of this encounter Care Teams Pre School Manager Relationship Specialty Start Date End Date Madie Miner, WATER [employer] SUPERINTENDENT [address] [facility] [address] [place] [address] PCP - General Nurse Practitioner Family 03/10/22 documented as of this encounter
--- OUTSIDE RECORDS SUMMARY | 2025-02-15 06:34 | XMS_ITS | Encounter Summary ---
Author Organization [facility] Address [facility] [place] [address] Care Team Providers Care Surgical Clinical Reviewer Name Role Phone Madie Miner NP Primary Care Provider [phone] Encounter Details Date Type Department Care Team (Late st Contact Info) Description 06/23/2022 [employer] Message Enc [facility] Family & Internal Medicine [address] [address] Madie Miner NP [id number] [place] [address] [place] [address] X-ray Social History Tobacco Use Types Packs/Day Years [...] Sex Assigned at Female 12/13/2024 9:13 AM SUPERVISOR PRODUCT INSPECTION Legal Sex Female 3:49 PM SUPERVISOR PRODUCT INSPECTION Gender Identity Not on file Sexual Orientation Not on file COVID-19 Exposure Response Date Recorded In the last 10 days, have yo u been in contact with someone who was confirmed or suspected to have Coronavirus/COVID-19? No / Unsure 06/25/2022 11:24 AM CDT documented as of this encounter Plan of [...] documented as of this encounter Care Teams Surgical Clinical Reviewer Relationship Specialty [place] [address] [address] PCP - General Nurse Practitioner Family 03/10/22 documented as of this encounter
--- OUTSIDE RECORDS SUMMARY | 2025-02-15 06:34 | XMS_ITS | Data Portability ---
Author Organization [facility], [facility] Address [address] [address] Assessment Encounter Date Assessment Date Assessment LastModified by Organization Details LastModified Time 01/24/2025 01/24/2025 Ramya is here today for follow-up for intracranial hypertension and migraines. Those are both relatively stable. Today her biggest concern is of ongoing word finding and zoning out episodes. 1. We will schedule the patient for a 72-hour EEG. 2. We will get an MRI scan of the brain. 3. Continue acetazolamide 500 mg twice a day. 4. We will try rizatriptan as an abortive medication. 5. All patient's question concerns were addressed. The patient and her mother agree with the plan. 6. Further recommendations following testing. A total of 40 minutes with soend with the patient today in person and in chart review. [email or web address] Not available 01/24/2025 15:41:05 Plan of Treatment Reminders Order Date Submit Date Provider Last Modified By Organization Details Last Modified Time Details Appointments EEG 80.PRO 2024 12:00P M Neurology Not available Not available Not available EEG 80.PRO 2024 12:00P M Neurology Not available Not available Not available Lab None recorded . Referral None recorded . Procedures None recorded . Surgeries None recorded . Imaging MRI, brain, w/wo contrast 2024 025 [facility], [facility] [address], [place], [address], 01/25/2025 08:15:25 Medication Orders rizatrip rubalcava 10 mg tablet 2024 025 [id number], [address], [place], [id number], 01/24/2025 14:59:57 acetazol amide ER 500 mg capsule, extended release 2024 025 [facility] #[id number], [address], [place], [id number], 01/24/2025 15:02:36 Patient TargetsNo targets recorded. Patient InstructionsNo instructions recorded. Reason for Referral None Reported. Problems Name Problem SNOMED Code Status Onset Date Resolution Date Notes Provider Name and Address Organization Details Recorded Time Refractory migraine with aura 410016339 Active 2024 Pili Traylor PA-C [address] [place] [address], [phone], [facility] 5 14:59:03 Staring 401832730 Active 2024 Pili Traylor PA-C [address] [place] [address], [phone], [facility] 5 15:39:18 Benign intracranial hypertension 53775859 Active 2023 Kevin Novak [facility] 4 11:18:38 Problem Notes None recorded. Medical Equipment None Reported. Allergies Allergen ID Allergen Name Allergen Category Reaction Reaction Severity Criticality Documentation Date Start Date Code Code System Note Provider Name and Address Organization Details Recorded Time 4356512 codeine medicatio n Not available Not available Not available 12/30/20232022 2670 RxNorm Not Available Not Available Not Available 0029353 vancomyci n medicatio n Not available Not available Not available 12/30/20232022 23895 RxNorm Not Available Not Available Not Available 7070248 etomidate Not available Not available Not available Not available 12/30/20232022 4177 RxNorm Not Available Not Available Not Available 7589891 prednison e medicatio n Not available Not available Not available 12/30/20232022 8640 RxNorm Not Available Not Available Not Available 6159119 cyclobenz aprine hydrochlo ride medicatio n Not available Not available Not available 12/30/20232022 04848 RxNorm Not Available Not Available Not Available Medications Name Sig Start Date Stop Date Status Note LastModified by Organization Details LastModified Time quetiapine 25 mg tablet Take 1 tablet every day by oral route in the evening. active Not Available Not Available No t Available fluoxetine 40 mg capsule Take 1 capsule every day by oral route. active Not Available Not Available No t Available acetazolamid e ER 500 mg capsule,exte nded release TAKE 1 CAPSULE BY MOUTH TWICE DAILY active Not Available Not Available No t Available rizatriptan 10 mg tablet TAKE 1 TABLET BY MOUTH AT ONSET OF MIGRAINE. MAY REPEAT DOSE IN 2 HOURS NEEDED. MAX DOSE 2 IN 24 HOURS active Not Available Not Available No t Available acetazolamid e 250 mg tablet TAKE 1 TABLET BY MOUTH TWICE DAILY active Not Available Not Available No t Available levothyroxin e 50 mcg tablet Take 1 tablet every day by oral route. active Not Available Not Available No t Available cyanocobalam in (vit B-12) 1,000 mcg/mL injection solution ADMINISTER 1 ML IN THE MUSCLE EVERY 30 DAYS active Not Available Not Available No t Available hydroxyzine HCl 10 mg tablet TAKE 1 TABLET BY MOUTH DAILY NEEDED active Not Available Not Available No t Available One A Day tablet Take 1 tablet every day by oral route in the evening. active Not Available Not Available No t Available Vitamin B-12 1,000 mcg/mL injection solution Inject 1 mL every month by subcutaneou s route. active Not Available Not Available No t Available Sprintec (28) 0.25 mg-0.035 mg tablet Take 1 tablet every day by oral route. active Not Available Not Available No t Available BD SafetyGlide Tuberculin Regular Bevel 1 mL 27 x 1/2 syringe USE TO INJECT CYANOCOBALA MIN INJECTION ONCE MONTHLY active Not Available Not Available No t Available Super B Complex Take 1 every am active Not Available Not Available No t Available quetiapine ER 50 mg tablet,exten ded release 24 hr TAKE 1 TABLET BY MOUTH DAILY IN THE EVENING active Not Available Not Available No t Available Probiotic with Prebiotic Take 1 daily active Not Available Not Available No t Available lurasidone 40 mg tablet TAKE 1 TABLET BY MOUTH IN THE EVENING WITH FOOD active Not Available Not Available No t Available Gely Allergy Take 1 every pm active Not Available Not Available No t Available lurasidone 20 mg tablet TAKE 1 TABLET BY MOUTH IN THE EVENING WITH FOOD active Not Available Not Available No t Available magnesium 400 mg (as magnesium oxide) capsule Take 1 capsule twice a day by oral route. active Not Available Not Available No t Available lurasidone 60 mg tablet TAKE 1 TABLET BY MOUTH DAILY IN THE EVENING WITH FOOD active Not Available Not Available No t Available FreeStyle Yvette 3 Sensor device CHANGE SENSOR EVERY 14 DAYS active Not Available Not Available No t Available FiberWell Take 2 daily active Not Available Not Available No t Available Vitals Date Recorded Body height Body mass index (BMI) Body weight Heart rate Oxygen saturation Oxygen saturation in Arterial blood by Pulse oximetry Systolic blood pressure Diastolic blood pressure Provider Name and Address Organization Details Last Updated DateTime 5 147.32 cm 44.5 kg/m2 42879.1 7 g 70 /min 97 % 97 % 102 mm[Hg] 70 mm[Hg] Kevin [facility] 5 14:44:42 Social History None recorded. Functional Status None recorded. Mental Status None recorded. Family History Nothing Reported. Medical History No medical history recorded. Gynecological HistoryNo gynecological history recorded. Obstetrics History GPAL:G 0 P 0 0 0 0 Past Encounters Encounter ID Performer Location Encounter Start Date Encounter Closed Date Diagnosis/Indication Diagnosis SNOMED-CT Code Diagnosis ICD10 Code Diagnosis Note [id number] Pili Tralyor PA-C [address] [facility] ([place]) [address] [place] [address],[address] [place] [phone] 01/24/2025 13:47:19 01/24/2025 15:14:04 Refractory migraine with aura 442854901 G43.111 Benign int racranial hypertension 81780408 G93.2 Staring 740836230 R40.4 Health Concerns Section Related Observation LastModified by Organization Detai ls LastModified Time None Recorded Concern Status LastModified by Organization Details LastModified Time None Recorded Advance Directives Directive None Recorded Payers Encounter Date Sequence Insurance Name Policy Number Policy Friedman Covered Member ID Friedman Member ID Guarantor Name 01/24/2025 1 [place] [id number] Ramya [id number] Ramya Ambrose Notes Date Note Type Note Provider Name and Address Organization Details Recorded Time 01/24/2025 text/html Ramya is here to day for follow-up intracranial hypertension and migraines. She previously was seeing Dr. Moreland. She last saw him in July 2023. She currently is on acetazolamide 500 mg twice a day. Prior to her seeing Dr. Moreland she was hospitalized and intubated due to sepsis. She was apparently very sick during this time. She had a lumbar puncture done during that hospitalization which had an elevated opening pressure. Dr. Moreland then repeated the lumbar puncture once she was feeling better and her pressure was still high which prompted her to start acetazolamide. Her mother reports ever since she was in the hospital in 2022 she has had cognitive changes. She has periods where she will zone out and then she will have word finding difficulty. She did speech therapy after her hospitalization but that did not help with the word finding. Apparently during the hospitalization she had a seizure and prior to that she had had several seizures before. She is not on any seizure medication currently. She does have a history of migraines as well. She will get about 1 migraine a month. She does not currently have any migraine abortive medication. She does get nausea. She will sometimes take Excedrin but she is not supposed to take that with her other medications. She did have an eye exam a couple weeks ago which is reported to be normal. She is working but she is still not driving since all of this happened. Her mother reports she tried to drive 2 miles recently and could not do it because she was zoning out. They deny any other changes to her medical history, surgeries or hospitalizations. There are no other new complaints today. Pili Traylor PA-C [address] [facility], [place], [phone], [facility] 01/24/2025 15:41:14 OBGyn Episode No OBEpisode recorded.
--- OUTSIDE RECORDS SUMMARY | 2025-02-15 06:35 | XMS_ITS | Encounter Summary ---
Author Organization [facility] Address [address] [place] [address] Care Team Providers Care School Cafeteria Cook Name Role Phone Madie Miner NP Primary Care Provider + [phone] Encounter Details Date Type Department Care Team (Late st Contact Info) Description 10/27/2023 [employer] Message Enc [facility] Family & Internal Medicine [facility] [address] [place] [phone] [facility] refill Social History Tobacco Use Types Packs/Day Years Used Date Smoking Tobacco: Never Smokeless Tobacco: Never Alcohol Use Standard Drinks/Week Comments Not Currently 0 (1 standard drink = 0.6 oz pur e alcohol) socially PHQ-2 Answer Date Recorded Patient Health Questionnaire-2 Score 0 06/23/2023 Comments No Sex and Gender Information Value Date Recorded Sex Assigned at Female 12/13/2024 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
--- OUTSIDE RECORDS SUMMARY | 2025-02-15 06:35 | XMS_ITS | Encounter Summary ---
Author Organization [facility] Address [facility] [place] [address] Care Team Providers Care Road Packer Operator Name Role Phone Madie Miner NP Primary Care Provider [phone] Encounter Details Date Type Department Care Team (Late st Contact Info) Description 05/14/2022 [facility] Message Enc [facility] Family & Internal Medicine [address] [address] Madie Miner [place] [phone] [place] [address] [place] [address] Question regarding URINALYSIS Social History Tobacco Use Types Packs/Day Years [...] Sex Assigned at Female 12/13/2024 9:13 AM 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 No / Unsure 05/14/2022 2:41 PM CDT documented as of this encounter Plan of Treatment Not on file documented as of this encounter Visit Diagnoses Not on filedocumented in this encounter Additional Health Concerns Infection Onset Date Last Indicated Resolved Time COVID-19 Rule Out 06/04/2022 06/04/2022 06/04/2022 8:59 PM CDT COVID-19 Confirmed Comment:Per CDC can be resolved 06/04/2022 06/04/2022 06/25/20 12:40 PM CDT COVID-19 Confirmed 06/25/2022 06/25/2022 12:32 AM CDT COVID-19 Rule Out 06/12/2023 06/12/2023 06/12/2023 6:44 PM CDT COVID-19 Rule Out 09/29/2023 09/29/2023 09/29/2023 12:11 PM CDT Assessment Noted Time PHQ-9 Depression Total Score: 6 05/02/20 22 10:57 AM CDT documented as of this encounter Care Teams Road Packer Operator Relationship Specialty [place] [address] [facility] [address] [place] [address] PCP - General Nurse Practitioner Family 03/10/22 documented as of this encounter
--- OUTSIDE RECORDS SUMMARY | 2025-02-15 06:35 | XMS_ITS ---
Author Organization [facility] [place] Address [address] [place] [address] Care Team Providers Care Health Technical Writer Name Role Phone Madie Padilla Primary Care Provider George Gacria Unavailable [phone] Allergies Allergen (clinical drug ingredient) Drug/Non Drug Allergy documented on EMR Reaction Allergy Type Onset Date Status Orapred Unknown Drug Allergy 05/28/2023 Active predniSONE Unknown Drug Allergy 05/28/2023 Activ e bupropion Bupropion Unknown Drug Allergy 05/28/2023 Active codeine Codeine Unknown Drug Allergy 05/28/2023 Active etomidate Etomidate Unknown Drug Allergy Active REASON FOR VISIT follow up visit, medication evaluation Medications Medication SIG (Take, Route, Frequency, Duration) Notes Start Date End Date Status Estarylla 0.25-35 MG-MCG Oral 11/12/2023 Active Tuberculin Syringe 1 mL 27 x 1/2 MISCELLANEOUS 11/12/2023 Active FREESTYLE VIDHYA 3 SENSOR DEVICE *Reorder from [employer] for eRx and Interaction Alerts* 11/12/2023 Active Multivitamin Adults Oral 11/12/2023 Active Lurasidone HCl 60 MG 0.5 tablet with food Orally Once a day for 30 days Active QUEtiapine Fumarate ER 50 MG 1 tablet in the evening Oral Once a day for 30 days 09/14/2024 Not-Taking Lurasidone HCl 60 MG 1 tablet in the evening with food Orally Once a day for 30 days 11/04/2024 Active FLUoxetine HCl 40 MG 1 capsule Oral Once a day for 30 days Active hydrOXYzine HCl 10 MG 1 tablet Oral Once a day for 30 days As needed Active QUEtiapine Fumarate 25 MG 1 tablet at bedtime Oral Once a day for 30 days Active Levothyroxine Sodium 25 MCG Oral 11/12/2023 Active acetaZOLAMIDE ER 500 MG TAKE 1 CAPSULE BY MOUTH TWICE DAILY Oral for 15 Days Active Social History Tobacco Use: Social History Observation Description Date Details (start date - stop date) Never Smoker NA - NA Sex Assigned At : Social History Observation Description Sex Assigned At Female Tobacco Control (Standard) Question Answer Notes Tobacco use: Nonsmoker AUDIT-C (Standard) Question Answer Notes Did you have a drink contain ing alcohol in the past year? Yes How often did you have six o r more drinks on one occasion in the past year? Never (0 point) How many drinks did you have on a typical day when you were drinking in the past year? 3 or 4 drinks (1 point) How often did you have a dri nk containing alcohol in the past year? 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 Bipolar Depression: - Patient reports improvement on 30 mg of Latuda, with increased emotional instability at 40 mg and 60 mg doses. Plan: - Continue Latuda 30 mg (by halving the 60 mg tablet) taken with food at night. - Reassess in one month. 2. Anxiety: - Patient is currently on fluoxetine 40 mg daily and hydroxyzine as needed. Plan: - Continue fluoxetine 40 mg daily. - Use hydroxyzine as needed for anxiety. - Encourage regular counseling sessions. 3. Insomnia: - Patient is taking quetiapine 25 mg at bedtime. Plan: - Continue quetiapine 25 mg at bedtime. - Reevaluate the need for hydroxyzine, as quetiapine may provide sufficient sedative effects. 4. Cannabis use: - Patient reports stopping the use of cannabis edibles. Plan: - Advise the patient to avoid cannabis products, as they can interact with medications and affect mood, depression, and anxiety symptoms. - Encourage working with a therapist to manage mood symptoms and feelings of being overwhelmed. Follow-up: - Schedule a follow-up appointment in one month to assess the effectiveness of the 30 mg Latuda dose and overall mental health status. 12/06/2024 Post-traumatic stress disorder, chronic (ICD-10 - F43.12) cont counseling 1. Bipolar Depression: - Patient reports improvement on 30 mg of Latuda, with increased emotional instability at 40 mg and 60 mg doses. Plan: - Continue Latuda 30 mg (by halving the 60 mg tablet) taken with food at night. - Reassess in one month. 2. Anxiety: - Patient is currently on fluoxetine 40 mg daily and hydroxyzine as needed. Plan: - Continue fluoxetine 40 mg daily. - Use hydroxyzine as needed for anxiety. - Encourage regular counseling sessions. 3. Insomnia: - Patient is taking quetiapine 25 mg at bedtime. Plan: - Continue quetiapine 25 mg at bedtime. - Reevaluate the need for hydroxyzine, as quetiapine may provide sufficient sedative effects. 4. Cannabis use: - Patient reports stopping the use of cannabis edibles. Plan: - Advise the patient to avoid cannabis products, as they can interact with medications and affect mood, depression, and anxiety symptoms. - Encourage working with a therapist to manage mood symptoms and feelings of being overwhelmed. Follow-up: - Schedule a follow-up appointment in one month to assess the effectiveness of the 30 mg Latuda dose and overall mental health status. 12/06/2024 Generalized anxiety disorder (ICD-10 - F41.1) 1. Bipolar Depression: - Patient reports improvement on 30 mg of Latuda, with increased emotional instability at 40 mg and 60 mg doses. Plan: - Continue Latuda 30 mg (by halving the 60 mg tablet) taken with food at night. - Reassess in one month. 2. Anxiety: - Patient is currently on fluoxetine 40 mg daily and hydroxyzine as needed. Plan: - Continue fluoxetine 40 mg daily. - Use hydroxyzine as needed for anxiety. - Encourage regular counseling sessions. 3. Insomnia: - Patient is taking quetiapine 25 mg at bedtime. Plan: - Continue quetiapine 25 mg at bedtime. - Reevaluate the need for hydroxyzine, as quetiapine may provide sufficient sedative effects. 4. Cannabis use: - Patient reports stopping the use of cannabis edibles. Plan: - Advise the patient to avoid cannabis products, as they can interact with medications and affect mood, depression, and anxiety symptoms. - Encourage working with a therapist to manage mood symptoms and feelings of being overwhelmed. Follow-up: - Schedule a follow-up appointment in one month to assess the effectiveness of the 30 mg Latuda dose and overall mental health status. 12/06/2024 Borderline personality disorder (ICD-10 - F60.3) cont counseling 1. Bipolar Depression: - Patient reports improvement on 30 mg of Latuda, with increased emotional instability at 40 mg and 60 mg doses. Plan: - Continue Latuda 30 mg (by halving the 60 mg tablet) taken with food at night. - Reassess in one month. 2. Anxiety: - Patient is currently on fluoxetine 40 mg daily and hydroxyzine as needed. Plan: - Continue fluoxetine 40 mg daily. - Use hydroxyzine as needed for anxiety. - Encourage regular counseling sessions. 3. Insomnia: - Patient is taking quetiapine 25 mg at bedtime. Plan: - Continue quetiapine 25 mg at bedtime. - Reevaluate the need for hydroxyzine, as quetiapine may provide sufficient sedative effects. 4. Cannabis use: - Patient reports stopping the use of cannabis edibles. Plan: - Advise the patient to avoid cannabis products, as they can interact with medications and affect mood, depression, and anxiety symptoms. - Encourage working with a therapist to manage mood symptoms and feelings of being overwhelmed. Follow-up: - Schedule a follow-up appointment in one month to assess the effectiveness of the 30 mg Latuda dose and overall mental health status. 12/06/2024 Bipolar depression (ICD-10 - F31.9) THC/CBD may make Lurasidone stronger weaker 1. Bipolar Depression: - Patient reports improvement on 30 mg of Latuda, with increased emotional instability at 40 mg and 60 mg doses. Plan: - Continue Latuda 30 mg (by halving the 60 mg tablet) taken with food at night. - Reassess in one month. 2. Anxiety: - Patient is currently on fluoxetine 40 mg daily and hydroxyzine as needed. Plan: - Continue fluoxetine 40 mg daily. - Use hydroxyzine as needed for anxiety. - Encourage regular counseling sessions. 3. Insomnia: - Patient is taking quetiapine 25 mg at bedtime. Plan: - Continue quetiapine 25 mg at bedtime. - Reevaluate the need for hydroxyzine, as quetiapine may provide sufficient sedative effects. 4. Cannabis use: - Patient reports stopping the use of cannabis edibles. Plan: - Advise the patient to avoid cannabis products, as they can interact with medications and affect mood, depression, and anxiety symptoms. - Encourage working with a therapist to manage mood symptoms and feelings of being overwhelmed. Follow-up: - Schedule a follow-up appointment in one month to assess the effectiveness of the 30 mg Latuda dose and overall mental health status. 12/06/2024 Marijuana use (ICD-10 - F12.90) Marijuana Use: Care Instructions material was published 1. Bipolar Depression: - Patient reports improvement on 30 mg of Latuda, with increased emotional instability at 40 mg and 60 mg doses. Plan: - Continue Latuda 30 mg (by halving the 60 mg tablet) taken with food at night. - Reassess in one month. 2. Anxiety: - Patient is currently on fluoxetine 40 mg daily and hydroxyzine as needed. Plan: - Continue fluoxetine 40 mg daily. - Use hydroxyzine as needed for anxiety. - Encourage regular counseling sessions. 3. Insomnia: - Patient is taking quetiapine 25 mg at bedtime. Plan: - Continue quetiapine 25 mg at bedtime. - Reevaluate the need for hydroxyzine, as quetiapine may provide sufficient sedative effects. 4. Cannabis use: - Patient reports stopping the use of cannabis edibles. Plan: - Advise the patient to avoid cannabis products, as they can interact with medications and affect mood, depression, and anxiety symptoms. - Encourage working with a therapist to manage mood symptoms and feelings of being overwhelmed. Follow-up: - Schedule a follow-up appointment in one month to assess the effectiveness of the 30 mg Latuda dose and overall mental health status. Plan Of Treatment Medication Medication Name Sig Start Date Stop Date Notes Lurasidone HCl 60 MG 0.5 tablet with colton d Orally Once a day for 30 days FLUoxetine HCl 40 MG 1 capsule Oral Once a day for 30 days hydrOXYzine HCl 10 MG 1 tablet Oral Once a day for 30 days QUEtiapine Fumarate 25 MG 1 tablet at be dtime Oral Once a day for 30 days Treatment Notes Assessment Notes Insomnia due to other mental disorder co nt quetiapine 25mg hs Post-traumatic stress disorder, chronic cont counseling Borderline personality disorder cont cou nseling Bipolar depression THC/CBD may make Lurasidone stronger weaker Marijuana use Marijuana Use: Care Instructions material was published Next Appt Details Follow Up: 4 Weeks, Reason: f/u bipolar d/o Progress Notes * CHRISSIEANKITAREECEDOB:[birth year] (24 yo F)Acc No.[id number]:12/06/2024 Patient: SHELLY GUTIERRESOE Provider: ANTHONY VOGEL :2000 A ge:24 Y S ex:Female Date:12/06/2024 Address:[address] [facility] Pcp:Madie Miner [facility] Subjective: * Chief Complaints: * F ollow up visit, medication evaluation * HPI: D epression Screening: the note is transcribed using speech recognition software. It is a reflection of a visit with the patient. It might have some inaccuracy, including medication names and transcribing errors, though efforts have been made to correct them. Chief complaint- Medication adjustment, emotional symptoms. The patient reports that the 60 mg dose of Latuda caused significant emotional disturbances, including frequent crying episodes. After consulting with a pharmacist, she has been taking 30 mg by cutting the 60 mg tablets in half. She mentions experiencing similar emotional symptoms, particularly irritability at work, when on 40 mg of Latuda. To cope with these feelings, she previously used cannabis edibles but has since discontinued their use. After taking 30 mg of Latuda for six days, the patient reports feeling better and less emotional. She denies experiencing significant depression symptoms, sadness, or hopelessness. The patient notes some irritability at work due to ongoing workplace issues. She has only had one session with her counselor since the last visit due to the counselor's vacation but has an appointment scheduled for later today. The patient confirms she is still taking quetiapine (Seroquel) at 25 mg and hydroxyzine as needed. She admits to not taking Latuda with food as prescribed and experiences hunger after taking it in the morning. RENAN-7 (2018 Edition) F eeling nervous, anxious, or on edge?Not at all, N ot being able to stop or control worrying N ot at all, W orrying too much about different things N ot at all, T rouble relaxing N early every day, B eing so restless that it is hard to sit still N ot at all, B ecoming easily annoyed or irritable?Several days, F eeling afraid as if something awful might happen N ot at all, I f you checked any problems, how difficult have they made it for you to do your work, take care of things at home, or get along with other people? S omewhat difficult, I nterpretation of Total?(5 to 9) Mild. C [place]-Suicide Severity Rating Scale: Suicide Risk (CSRS-screener) i n the past one month Have you wished you were or wished you could go to sleep and not wake up? Y es, i n the past one month Have you actually had any thoughts of killing yourself? N o. D epression screening: PHQ-9 L ittle interest or pleasure in doing things N ot at all, F eeling down, depressed, or hopeless N ot at all, T rouble falling or staying asleep, or sleeping too much S everal days, F eeling tired or having little energy S everal days, P oor appetite or overeating N ot at all, F eeling bad about yourself or that you are a failure, or have let yourself or your family down S everal days, T rouble concentrating on things, such as reading the newspaper or watching television S everal days, M oving or speaking so slowly that other people could have noticed; or the opposite, being so fidgety or restless that you have been moving around a lot more than usual N ot at all, T houghts that you would be better off or of hurting yourself in some way N ot at all. I ntervention Depression Screening Findings P Ld sharma ollow-Up for Depression M ental health treatment assessment, Patient follow-up to return when and if necessary, S uicide Risk Assessment Performed 0 12/06/2024 , A dditional Evaluation for Depression P sychiatric interview and evaluation, N bradley of the standardized tool used for adult depression screening: P [facility] Health Questionnaire (PHQ-9). P ast Psychiatric Hospitalizations: Previous psychiatric hospitalizations P revious Psychiatric Hospitalization Y es, H ow Many Psychiatry Hospitalizations Have You Had in the past? 2 -3, W hen were you last hospitalized? month and year , W hat was the cause of your psychiatric hospitalizations? D epression,,Suicidal thoughts,Suicidal attempt. P ast History of Suicidal attempt H ave you ever attempted suicide in the past Y es, M ethod of suicide attempt O verdose on medication. M anic episode: Manic N o past history of Janee. S chizophrenia/Schizophreniform/Schizoaffective disorder/Brief reactive psychosis: Psychotic symptoms N o past history of psychosis. H istory of Presenting Problem: Anxiety O nset: years ago. D epression O nset: years ago, Associated Symptoms: hallucinations. M ood lability h as had periods of 36 hours of not sleeping, not tired, cleaning, working multiple 12 hour shifts hx self harm. P sychotherapy s ees counselor weekly. Pt was seen today and Urine drug screen was done. P ast Medication history: bupropion- irritability, agitation, m elatonin, prazosin. * Medical History: * Surgical History: * Hospitalization/Major Diagno stic Procedure: * Social History: T obacco Use: T obacco Control (Standard) T obacco use: N onsmoker. M igrated Social History: M igrated Social History: Alcohol Intake: None 10/02/2020,Tobacco Years: Current some days smoker 11/12/2023,Smoking Status: 0 11/12/2023. D rug/Alcohol: D rugs H ave you used drugs other than those for medical reasons in the past 12 months??Yes, M ethamphetamine? N o, C rack? N o, L SD? N o, E cstacy? N o, P rescription opiates? Y es, M arijuana? N o, K etamine? N o, P CP? No, I s there a minor (18 years or younger) at risk at home? N o, A re you still using? N o. D o you smoke marijuana?: Denies. Do you drink alcohol?: Socially. AUDIT-C (Standard) D id you have a drink containing alcohol in the past year? Y es, H ow often did you have six or more drinks on one occasion in the past year? N ever (0 point), H ow many drinks did you have on a typical day when you were drinking in the past year? 3 or 4 drinks (1 point),?How often did you have a drink containing alcohol in the past year? M onthly or less (1 point). M iscellaneous: O ccupation: Jobless right now. Safety issues A re there any firearms in the house? Y es. A dvance Care Planning A re you your own decision-maker Y es, D o you have Power of Pipeline Integrity Engineer for Health or Medical? Y es, D o you have a power of associate attorney for health? N o, D o you have power of associate attorney for Medical ? N o, I f yes, then please bring the POA paperwork so that we can upload it. N o. S ocial History: H ousehold M arital Status: S mia, N umber of Adults in household: 4 , N umber of Children in Household: 0 , L evel of Education: [employer]. * Medications: T akingTuberculin Syringe 1 mL 27 x 1/2 SYRINGE, EMPTY DISPOSABLE MISCELLANEOUS Estarylla 0.25-35 MG-MCG Tablet Oral Multivitamin Adults Tablet Oral FREESTYLE VIDHYA 3 SENSOR DEVICE , Notes to Pharmacist: *[facility] for [facility] and Interaction Alerts*Levothyroxine Sodium 25 MCG Tablet Oral acetaZOLAMIDE ER 500 MG Capsule Extended Release 12 Hour TAKE 1 CAPSULE BY MOUTH TWICE DAILY Oral hydrOXYzine HCl 10 MG Tablet 1 tablet Oral Once a day As neededFLUoxetine HCl 40 MG Capsule 1 capsule Oral Once a day QUEtiapine Fumarate 25 MG Tablet 1 tablet at bedtime Oral Once a day Lurasidone HCl 60 MG Tablet 1 tablet in the evening with food Orally Once a day Taking Tuberculin Syringe 1 mL 27 x 1/2 SYRINGE, EMPTY DISPOSABLE MISCELLANEOUS Taking Estarylla 0.25-35 MG-MCG Tablet Oral Taking Multivitamin Adults Tablet Oral Taking FREESTYLE VIDHYA 3 SENSOR DEVICE , Notes to Pharmacist: *Reorder from [employer] for eRx and Interaction Alerts*Taking Levothyroxine Sodium 25 MCG Tablet Oral Taking acetaZOLAMIDE ER 500 MG Capsule Extended Release 12 Hour TAKE 1 CAPSULE BY MOUTH TWICE DAILY Oral Taking hydrOXYzine HCl 10 MG Tablet 1 tablet Oral Once a day As neededTaking FLUoxetine HCl 40 MG Capsule 1 capsule Oral Once a day Taking QUEtiapine Fumarate 25 MG Tablet 1 tablet at bedtime Oral Once a day Taking Lurasidone HCl 60 MG Tablet 1 tablet in the evening with food Orally Once a day Not-TakingQUEtiapine Fumarate ER 50 MG Tablet Extended Release 24 Hour 1 tablet in the evening Oral Once a day Not-Taking QUEtiapine Fumarate ER 50 MG Tablet Extended Release 24 Hour 1 tablet in the evening Oral Once a day DiscontinuedLurasidone HCl 20 MG Tablet 1 tablet in the evening with food Orally Once a day Lurasidone HCl 40 MG Tablet 1 tablet in the evening with food Orally Once a day Medication List reviewed and reconciled with the patientDiscontinued Lurasidone HCl 20 MG Tablet 1 tablet in the evening with food Orally Once a day Discontinued Lurasidone HCl 40 MG Tablet 1 tablet in the evening with food Orally Once a day Medication List reviewed and reconciled with the patient * Allergies: O rapred: Allergy - Onset Date 05/28/2023redniSONE: Allergy - Onset Date 05/28/2023upropion: Allergy - Onset Date 05/28/2023odeine: Allergy - Onset Date 05/28/2023Etomidateno[Allergies Verified] Objective: * Vitals: B P:108/73mm Hg, HR:64/min, Wt:228.4lbs, Wt-k.6 kg, Ht: 70.00 in, Ht-cm: 177.80 cm, BMI:32.77Index, Body Surface Area: 2.26. * Examination: P sychiatry: Separation from caregiver during interview process: m other is present. Appearance: w ell-groomed, obese. Abnormal body movements: n one. Affect / mood: a ppropriate, full range. Attention: g ood. Attitude: c ooperative. Homicidal ideation: n one. Suicidal ideation: n one. Memory status: d id not assess. Degree of awareness of surroundings: w ithin normal limits.? Delusions: n o. Hallucinations: n o. Impulse control: n ot assessed. Insight: g ood. Intellectual functioning: a verage. Calculation - Intellectual function: n ot tested. Literacy - Intellectual function: n ot tested. Comprehension - Intellectual function: a verage. Abstract / proverb - Intellectual function: n ot tested.? Similarities / opposites - Intellectual function: n ot tested. Judgement: n ot assessed. Orientation: a wake, alert and oriented x 3. Perceptual disorders: n o perceptual disorder noted. Psychomotor activity: w ithin normal range. Speech / language: a ppropriate pitch/modulation. Thought content: a ppropriate. Thought process: i ntact. G eneral Examination: - Mental Status Examination: - Patient reported emotional instability and crying when on 60 mg of Latuda, improved emotional control on 30 mg. - Described feeling extremely happy but zoned out at a social event. - Expressed irritability, particularly in stressful work environments. - Denied experiencing significant depression symptoms, sadness, or hopelessness at the current dosage of 30 mg Latuda. Assessment: * Assessment: 1. I nsomnia due to other mental disorder - F51.05 2 . P ost-traumatic stress disorder, chronic - F43.12 3 . G eneralized anxiety disorder - F41.1 ? 4 . B orderline personality disorder - F60.3 5 . B ipolar depression - F31.9 6 . M arijuana use - F12.90 1. Bipolar Depression: - Patient reports improvement on 30 mg of Latuda, with increased emotional instability at 40 mg and 60 mg doses. Plan: - Continue Latuda 30 mg (by halving the 60 mg tablet) taken with food at night. - Reassess in one month. 2. Anxiety: - Patient is currently on fluoxetine 40 mg daily and hydroxyzine as needed. Plan: - Continue fluoxetine 40 mg daily. - Use hydroxyzine as needed for anxiety. - Encourage regular counseling sessions. 3. Insomnia: - Patient is taking quetiapine 25 mg at bedtime. Plan: - Continue quetiapine 25 mg at bedtime. - Reevaluate the need for hydroxyzine, as quetiapine may provide sufficient sedative effects. 4. Cannabis use: - Patient reports stopping the use of cannabis edibles. Plan: - Advise the patient to avoid cannabis products, as they can interact with medications and affect mood, depression, and anxiety symptoms. - Encourage working with a therapist to manage mood symptoms and feelings of being overwhelmed. Follow-up: - Schedule a follow-up appointment in one month to assess the effectiveness of the 30 mg Latuda dose and overall mental health status. Plan: * Treatment: 2. P ost-traumatic stress disorder, chronic Notes: cont counseling 3. G eneralized anxiety disorder Refill hydrOXYzine HCl Tablet, 10 MG, 1 tablet, Oral, Once a day As needed, 30 days, 30 Tablet, Refills 1; R efill FLUoxetine HCl Capsule, 40 MG, 1 capsule, Oral, Once a day, 30 days, 30 Capsule, Refills 1. 4. B orderline personality disorder Notes: cont counseling 5. B ipolar depression Refill QUEtiapine Fumarate Tablet, 25 MG, 1 tablet at bedtime, Oral, Once a day, 30 days, 30 Tablet, Refills 1; S tart Lurasidone HCl Tablet, 60 MG, 0.5 tablet with food, Orally, Once a day, 30 days, 15 Tablet, Refills 1. Notes: THC/CBD may make Lurasidone stronger weaker 6. M arijuana use Notes: Marijuana Use: Care Instructions material was published * Procedure Codes: 9 6127 BEHAV ASSMT W/SCORE & DOCD/STAND INSTRUMENT * Follow Up: 4 Weeks (Reason: f/u bipolar d/o) * Billing Information: * Visit Code: 72649 OFFICE OUTPATIENT VISIT 25 MINUTES DETAILED HISTORY AND EXAM/MODERATE MEDICAL DECISION MAKING. * Procedure Codes: 96072 BEHAV ASSMT W/SCORE & DOCD/STAND INSTRUMENT. * [place] GROCER Sign off status: Completed true * Provider: ANTHONY VOGEL Date: 12/06/2024 Generated for Paul moore/Faxing/eTransmitting on: 0 02/15/2025 06:35 AM CDT History and Physical Notes * HPI (History of Present Illness) Category Sub-Category Detail Notes Category Not es Manic episode Manic No past history of Janee Schizophrenia/Schiz ophreniform/Schizoa ffective disorder/Brief reactive psychosis Psychotic symptoms No past history of psychosis History of Presenting Problem Anxiety Onset: years ago Pt was seen today and Urine drug screen was done Depression Onset: years ago, As sociated Symptoms: hallucinations Mood lability has had periods of 3 6 hours of not sleeping, not tired, cleaning, working multiple 12 hour shifts hx self harm Psychotherapy sees counselor weekl y Past Psychiatric Hospitalizations Previous psychiatric hospitalizations Previous Psychiatric Hospitalization: Yes How Many Psychiatry Hospitalizations Have You Had in the past?: 2-3 When were you last hospitalized? month a nd year: 05/2022 What was the cause of your p sychiatric hospitalizations?: Depression,,Suicidal thoughts,Suicidal attempt Past History of Suicidal attempt Have yo u ever attempted suicide in the past: Yes Method of suicide attempt: Overdose on medication Depression screening PHQ-9 Little inte rest or pleasure in doing things: Not at all Feeling down, depressed, or hopeless: No t at all Trouble falling or staying asleep, or sl eeping too much: Several days Feeling tired or having little energy: S everal days Poor appetite or overeating: Not at all Feeling bad about yourself o r that you are a failure, or have let yourself or your family down: Several days Trouble concentrating on thi ngs, such as reading the newspaper or watching television: Several days Moving or speaking so slowly that other people could have noticed; or the opposite, being so fidgety or restless that you have been moving around a lot more than usual: Not at all Thoughts that you would be b sheryl off or of hurting yourself in some way: Not at all Intervention Depression Screening Findings: P ositve Follow-Up for Depression: [facility] treatment assessment, Patient follow-up to return when and if necessary Suicide Risk Assessment Performed: 12/06 Additional Evaluation for De pression: Psychiatric interview and evaluation Name of the standardized too l used for adult depression screening:: Patient Health Questionnaire (PHQ-9) Depression Screening RENAN-7 (2018 Edition) Feelin g nervous, anxious, or on edge: Not at all Not being able to stop or control worryi ng: Not at all Worrying too much about different things : Not at all Trouble relaxing: Nearly every day Being so restless that it is hard to sit still: Not at all Becoming easily annoyed or irritable: days Feeling afraid as if something awful john ht happen: Not at all If you checked any problems, how difficult have they made it for you to do your work, take care of things at home, or get along with other people?: Somewhat difficult Interpretation of Total: (5 to 9) Mild Dorado-Suicide Severity Rating Scale Suicide Risk (CSRS-screener) in the past one month Have you wished you were or wished you could go to sleep and not wake up?: Yes in the past one month Have y ou actually had any thoughts of killing yourself?: No Examination Category Sub-Category Detail Notes Category Not es Psychiatry Appearance: well-groomed, obese Attitude: cooperative Psychomotor activity: within normal rang e Abnormal body movements: none Attention: good Degree of awareness of surroundings: wit hin normal limits Orientation: awake, alert and julio césar ented x 3 Affect / mood: appropriate, full ra nge Speech / language: appropriate pitch/mo dulation Insight: good Judgement: not assessed Thought process: intact Thought content: appropriate Perceptual disorders: no perceptual diso rder noted Suicidal ideation: none Homicidal ideation: none Intellectual functioning: average Impulse control: not assessed Separation from caregiver during intervi ew process: mother is present Memory status: did not assess Delusions: no Hallucinations: no Calculation - Intellectual function: not tested Literacy - Intellectual function: not te sted Comprehension - Intellectual function: a verage Abstract / proverb - Intellectual functi on: not tested Similarities / opposites - Intellectual function: not tested General Examination - Mental Status Examination: - Patient reported emotional instability and crying when on 60 mg of Latuda, improved emotional control on 30 mg. - Described feeling extremely happy but zoned out at a social event. - Expressed irritability, particularly in stressful work environments. - Denied experiencing significant depression symptoms, sadness, or hopelessness at the current dosage of 30 mg Latuda.
--- OUTSIDE RECORDS SUMMARY | 2025-02-15 06:35 | XMS_ITS ---
Author Organization [facility] As [facility] Address [facility] [address] Care Team Providers Care Nurse Ortho Name Role Phone Madie Padilla Primary Care Provider George Garcia Unavailable [phone] REASON FOR VISIT Medication and appointment Social History Sex Assigned At : Social History Observation Description Sex Assigned At Female Encounters [facility] [address] [address] 12/01/2024 George Dorsey Plan Of Treatment No Information Progress Notes * REECE CARRDOB:[birth year] (24 yo F)Acc No.[id number]:12/01/2024 Patient: REECE GUTIERRES :2000 A ge:24 Y S ex:Female Address:[address] , [facility] [address] * true * Date: Generated for Printi ng/Faxing/eTransmitting on: 0 02/15/2025 06:35 AM CDT
--- OUTSIDE RECORDS SUMMARY | 2025-02-15 06:35 | XMS_ITS | Encounter Summary ---
Author Organization [facility] Address [address] [place] [address] Care Team Providers Care Radio Officer Name Role Phone IsidraMadie cantu Lala LUNCH COUNTER MANAGER Primary Care Provider + [phone] Encounter Details Date Type Department Care Team (Late st Contact Info) Description 12/08/2022 LatinCoint Message Enc [facility] Medical Group Multispecialty Care - [facility] [address] [facility] [place] [address] Sindy Gustafson NP [address] [facility] [place] [address] Baby wipes Social History Tobacco Use Types Packs/Day Years Used Date Smoking Tobacco: Never Smokeless Tobacco: Never Alcohol Use Standard Drinks/Week Comments Not Currently 0 (1 standard drink = 0.6 oz pur e alcohol) socially PHQ-2 Answer Date Recorded Patient Health Questionnaire-2 Score 0 12/05/2022 Comments No Sex and Gender Information Value Date Recorded Sex Assigned at Female 12/13/2024 9:13 AM AERIAL GUNNER Legal Sex Female 3:49 PM AERIAL GUNNER Gender Identity Not on file Sexual Orientation Not on file COVID-19 Exposure Response Date Recorded In the last 10 days, have yo u been in contact with someone who was confirmed or suspected to have Coronavirus/COVID-19? Yes 12/05/2022 10:20 AM AERIAL GUNNER documented as of this encounter Plan of [...] documented as of this encounter Care Teams Radio Officer Relationship Specialty Start Date End Date Madie Miner, [place] [address] [place] [address] PCP - General Nurse Practitioner Family 03/10/22 documented as of this encounter
--- OUTSIDE RECORDS SUMMARY | 2025-02-15 06:35 | XMS_ITS | Referral Summary ---
Author Organization [facility] Address [address] [place] [address] Care Team Providers Care Accounts Receivable Specialist Name Role Phone Madie Miner NP Primary Care Provide r Allergies Active Allergy Reactions Criticality Noted Date Comments Codeine Hives Medium 11/03/2016 Orapred Cyclobenzaprine Other (See comments) Low 06/30/2022 Intolerance d/t liver and kidney dysfunction from overdose Prednisolone Sodium Phosphate Swelling Medium 06/07/2012 Medications vitamin b complex tablet Take 1 tablet by mouth daily Active norgestimate-et hinyl estradioL (ORTHO-CYCLEN) 0.25-35 mg-mcg per tablet Take 1 tablet by mouth daily Active cetirizine (ZyrTEC) 10 mg tablet Take 10 mg by mouth daily Active melatonin tablet Take by mouth Active prazosin (MINIPRESS) 1 mg capsule Take 1 mg by mouth nightly Active hydrOXYzine (ATARAX) 10 mg tablet Take 10 mg by mouth 3 (three) times a day as needed for itching Active FLUoxetine (PROzac) 20 mg capsule Take 20 mg by mouth daily Active magnesium oxide 400 mg magnesium capsule Take by mouth Active Active Problems No known active problems Social History Tobacco Use Types Packs/Day Years Used Date Smoking Tobacco: Never Smokeless Tobacco: Never Tobacco Cessation:Counseling Given: Not Answered Alcohol Use Standard Drinks/Week Comments Never 0 (1 standard drink = 0.6 oz pur e alcohol) AUDIT-C Answer Date Recorded Q1: How often do you have a drink containing alc ohol? Never 08/01/2020 Average Number of Drinks Not on file 020 Frequency of Binge Drinking Not on file 12/2019 Comments No Sex and Gender Information Value Date Recorded Sex Assigned at Not on file Legal Sex Female 12:13 AM TELEPHONE SALES REPRESENTATIVE Gender Identity Not on file Sexual Orientation Not on file Last Filed Vital Signs Vital Sign Reading Time Taken Comments Blood Pressure 108/72 12/18/2022 7:50 AM TELEPHONE SALES REPRESENTATIVE Pulse 83 12/18/2022 7:50 AM TELEPHONE SALES REPRESENTATIVE Temperature 36.7 C (98.1 F) 12/18/2022 7:50 AM TELEPHONE SALES REPRESENTATIVE Respiratory Rate 18 12/18/2022 7:50 AM TELEPHONE SALES REPRESENTATIVE Oxygen Saturation 98% 12/18/2022 7:50 AM TELEPHONE SALES REPRESENTATIVE Inhaled Oxygen Concentration - - Weight 100.2 kg (221 lb) 12/18/2022 7:50 AM TELEPHONE SALES REPRESENTATIVE Height 148.6 cm (4' 10.5 ) 12/18/2022 7:50 AM CS T Body Mass Index 45.4 12/18/2022 7:50 AM TELEPHONE SALES REPRESENTATIVE Plan of Treatment Not on file Insurance [facility] OPEN ACCESS LIVE [facility] Advance Directives For more information, please contact: [phone] * Full Code (Latest Code Status on File) Date Activated Date Inactivated Comments 08/02/2020 12:02 PM 08/02/2020 7:04 PM * Full Code Date Activated Date Inactivated Comments 08/02/2020 12:02 PM 08/02/2020 12:02 PM Care Teams Accounts Receivable Specialist Relationship Specialty [place] [address] [place] [address] PCP - General Nurse Practitioner 12/12/22
--- OUTSIDE RECORDS SUMMARY | 2025-02-15 06:35 | XMS_ITS | Encounter Summary ---
Author Organization [facility] Address [facility] [place] [address] Care Team Providers Care Tugboat Pilot Name Role Phone Drew Padilla MD Primary Care Provider [phone] Madie Miner NP Primary Care Provider [phone] Encounter Details Date Type Department Care Team (Late st Contact Info) Description 03/04/2022 Oraya Therapeuticst Message Enc [facility] Medical Group Family & Internal Medicine [facility] [id number] [place] [address] Drew Padilla MD [address] [place] [address] Question regarding XR CHEST PA+LAT Social History Tobacco Use Types Packs/Day Years Used Date Smoking Tobacco: Never Smokeless Tobacco: Never Alcohol Use Standard Drinks/Week Comments Not Currently 0 (1 standard drink = 0.6 oz pur e alcohol) socially PHQ-2 Answer Date Recorded PHQ-2 Score - If the patient scores above 3, please move on to questions 3-9 0 01/08/2022 Comments No Sex and Gender Information Value Date Recorded Sex Assigned at Female 12/13/2024 9:13 AM DISC INSPECTOR Legal Sex Female 3:49 PM DISC INSPECTOR Gender Identity Not on file Sexual Orientation Not on file COVID-19 Exposure Response Date Recorded In the last 10 days, have yo u been in contact with someone who was confirmed or suspected to have Coronavirus/COVID-19? No / Unsure 03/04/2022 4:31 PM CDT documented as of this encounter Progress Notes * Aruna Neville - 03/04/2022 12:44 PM CDT Ramya, I have you scheduled to see Madie Miner NP today, 03/04/22 at 4:20. documented in this encounter Plan of Treatment [...] Assessment Noted Time PHQ-9 Depression Total Score: 0 01/08/20 9:41 AM DISC INSPECTOR documented as of this encounter Care Teams Tugboat Pilot Relationship Specialty [place] [address] [place] [address] PCP - General FAMILY PRACTICE 05/07/21 03/09/22 [place] [address] [address] [facility] [address] [place] [address] PCP - General Nurse Practitioner Family 03/10/22 documented as of this encounter
--- OUTSIDE RECORDS SUMMARY | 2025-02-15 06:35 | XMS_ITS ---
Author Organization [facility] As [facility] Address [facility] [address] Care Team Providers Care Rail Operator Name Role Phone Madie Padilla Primary Care Provider Bridgett vailaGeorge Chester Unavailable [phone] REASON FOR VISIT RE:Question Social History Sex Assigned At : Social History Observation Description Sex Assigned At Female Encounters [facility]counter [facility] Date [facility] [address] [address] 11/15/2024 George Dorsey Plan Of Treatment No Information Progress Notes * STEFANYRAYAANKITASHELLYTESHADOB:[birth year] (24 yo F)Acc No.[id number]:11/15/2024 Patient: REECE GUTIERRES :2000 A ge:24 Y S ex:Female Address:[address] , [facility] [address] * true * Date: Generated for Printi ng/Faxing/eTransmitting on: 0 02/15/2025 06:34 AM CDT
--- OUTSIDE RECORDS SUMMARY | 2025-02-15 06:35 | XMS_ITS | Encounter Summary ---
Author Organization [facility] Address [facility] [place] [address] Care Team Providers Care Photographic Engineer Name Role Phone Drew Padilla MD Primary Care Provider [phone] Madie Miner NP Primary Care Provider [phone] Encounter Details Date Type Department Care Team (Late st Contact Info) Description 03/03/2022 MyChart Message Enc [facility] Medical Group Family & Internal Medicine [address] [address] Drew Padilla MD [address] [place] [address] Nebulizer Social History Tobacco Use Types Packs/Day Years [...] Sex Assigned at Female 12/13/2024 9:13 AM CREW PERSON Legal Sex Female 3:49 PM CREW PERSON Gender Identity Not on file Sexual Orientation Not on file COVID-19 Exposure Response Date Recorded In the last 10 days, have yo u been in contact with someone who was confirmed or suspected to have Coronavirus/COVID-19? No / Unsure 03/04/2022 4:31 PM CDT documented as of this encounter Progress Notes * Madie Miner NP - 03/07/2022 7:53 AM CDT Request was addressed in last visit. documented in this encounter Plan of Treatment [...] Depression Total Score: 0 01/08/20 9:41 AM CREW PERSON documented as of this encounter Care Teams Photographic Engineer Relationship Specialty [place] [address] [place] [address] PCP - General FAMILY PRACTICE 05/07/21 03/09/22 [place] [address] [address] [place] [address] [place] [address] PCP - General Nurse Practitioner Family 03/10/22 documented as of this encounter
--- OUTSIDE RECORDS SUMMARY | 2025-02-15 06:35 | XMS_ITS | Clinical Summary ---
Author Organization [facility] Address [address] [facility] [place] [address] Care Team Providers Care Sephora Operations Consultant Name Role Phone Rodrigo Silva MD Unavailable [phone] Kristine Nichols COIL TIER-LAUNDRY CLERK Unavailable [phone] Lyly Barth COIL TIER-LAUNDRY CLERK Unavailable [phone] Madie Miner COIL TIER-LAUNDRY CLERK Primary Care Provider Source Comments [facility],non-owned Affiliates and Associated Physician Practices is amultiple site organization consisting of ambulatory clinics and hospital sitesin [place], [place], [place] and [place]. This disclosure is being madepursuant to the Care Everywhere program and may not contain all information available regarding this patient. Last updated 18.[facility] Allergies Active Allergy Reactions Criticality Noted Date Comments Amoxicillin Diarrhea Medium 06/23/2023 Amoxicillin-Pot Clavulanate Diarrhea 06/12/20 23 Codeine 11/03/2016 Orapred Cyclobenzaprine Other Low 06/30/2022 Intolerance d/t liver and kidney dysfunction from overdose Etomidate Rash High 06/23/2023 Prednisolone Unknown 04/17/2022 Prednisolone Sodium Phosphate Swelling High 06/07/2012 Prednisone 11/03/2016 Vancomycin Urticaria Medium 06/23/2023 Medications * Be aware that medications may not be up to date on this document. Alwaysverify current medications with the patient. Medication Sig Dispensed Refills Start Date End Date Status levothyroxine (Synthroid) 25 MCG tabletIndications: Hypothyroidism Take 1 (one) tablet by mouth once daily Reasons: Underactive Thyroid 30 tablet 1 07/04/2022 Active FLUoxetine (PROzac) 20 MG capsuleIndications :Major Depressive Disorder Take 1 (one) capsule by mouth once daily Reasons: Major Depressive Disorder 30 capsule 1 07/04/2022 Active hydrOXYzine HCl (Atarax) 10 MG tabletIndications: Anxiety Take 1 (one) tablet by mouth 4 times daily Reasons: Feeling Anxious 120 tablet 1 07/03/2022 Active acetaZOLAMIDE (Diamox) 250 MG tablet Take 1 (one) tablet by mouth 2 times daily 02/09/2024 Active norgestimate-ethin yl estradiol (Ortho-Cyclen; Mononessa; Previfem; Sprintec) 0.25-35 MG-MCG tablet Take 1 (one) tablet by mouth once daily Active QUEtiapine (SEROquel) 25 MG tablet Take 1 (one) tablet by mouth 2 times daily Active B Hmmfqsa-C-Hvvwe Acid (vitamin B complex with C) Take by mouth once daily Active Multiple Vitamin (ONE-A-DAY ESSENTIAL PO) Active fexofenadine (Gely) 60 MG tablet Take 3 (three) tablets by mouth 2 times daily Active magnesium oxide (Mag-Ox) 400 MG tablet Take 1 (one) tablet by mouth once daily Active fish oil/omega-3 fatty acids (Promega;Cardi-Ome ga 3) 1000 MG capsule Take 2 (two) capsules by mouth 3 times daily with meals Active thyroid ([place] Thyroid) 15 MG tablet Take 1 (one) tablet by mouth once daily Active Active Problems Problem Noted Date Diagnosed Date MDD (major depressive disord er), recurrent severe, without psychosis 06/30/2022 Chest pain 06/27/2022 Intentional drug overdose, initial encounter 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 PCOS (polycystic ovarian syndrome) 06/25/2022 Asthma 06/25/2022 Seizures 06/25/2022 Adjustment disorder with depressed mood 04/17/20 Anxiety disorder 04/17/2022 Borderline personality disorder 04/17/2022 Resolved Problems Problem Noted Date Diagnosed Date Resolved Date Hypokalemia 06/25/2022 06/26/2022 Severe episode of recurrent major depressive disorder, without psychotic features 04/17/2022 Social History Tobacco Use Types Packs/Day Years Used Date Smoking Tobacco: Never Smokeless Tobacco: Never Tobacco Cessation:Counseling Given: Not Answered Alcohol Use Standard Drinks/Week Comments Never 0 (1 standard drink = 0.6 oz pur e alcohol) AUDIT-C Answer Date Recorded Q1: How often do you have a drink containing alc ohol? Never 06/30/2022 Average Number of Drinks Not on file 022 Frequency of Binge Drinking Not on file 11/2021 PHQ-2 Answer Date Recorded Patient Health Questionnaire-2 Score 0 06/23/2024 Sex and Gender Information Value Date Recorded Sex Assigned at Not on file Gender Identity Not on file Sexual Orientation Not on file Last Filed Vital Signs Vital Sign Reading Time Taken Comments Blood Pressure 110/74 06/23/2024 10:42 AM CDT Pulse 70 06/23/2024 10:42 AM CDT Temperature 36.7 C (98.1 F) 06/23/2024 10:42 AM CDT Respiratory Rate 18 07/04/2022 8:41 AM CDT Oxygen Saturation 95% 06/23/2024 10:42 AM CDT Inhaled Oxygen Concentration - - Weight 97.5 kg (215 lb) 06/23/2024 10:42 AM CDT Height 147.3 cm (4' 10 ) 06/23/2024 10:42 AM CDT Body Mass Index 44.94 06/23/2024 10:42 AM CDT Plan of Treatment Health Maintenance Due Date Last Done Comments PAP SMEAR 2000 HIV SCREENING 2013 HPV VACCINE (1 - 3-dose series) 2013 HEPATITIS C SCREENING 08/29/2016 DTAP/TDAP/TD VACCINES (1 - Tdap) 2017 HEPATITIS B VACCINE (1 of 3 - 19+ 3-dose series) 2017 PNEUMOCOCCAL VACCINE (1 of 2 - PCV) 2017 COVID-19 VACCINE (4 - 2023- season) 2024 11/15/2021, 01/24/2021, 01/03/2021 INFLUENZA VACCINE (#1) 2024 , 09/22/2022, 08/13/2020, Additional history exists DEPRESSION SCREENING 11/30/2024 06/23/2024 ZOSTER VACCINE (1 of 2) 2048 HIB VACCINE Aged Out No longer eligi ble based on patient's age to complete this topic MENINGOCOCCAL (Group B) VACCINE SHARED DECISION-MAKING Aged Out No longer eligible based on patient's age to complete this topic MENINGOCOCCAL GROUPS A/C/Y/W VACCINE Aged Out No longer eligible based on patient's age to complete this topic Advance Directives Documents on File Type Date Recorded Patient Medical Office Asst Expl anation Adv Directive/Living Will/POA 07/01/2022 5:10 PM * Full Code (Latest Code Status on File) Date Activated Date Inactivated Comments 06/30/2022 6:20 PM 07/04/2022 5:47 PM * Full Code Date Activated Date Inactivated Comments 06/25/2022 5:26 PM 06/30/2022 6:05 PM * Full Code Date Activated Date Inactivated Comments 04/17/2022 1:16 AM 04/22/2022 3:33 PM Care Teams Sephora Operations Consultant Relationship Specialty Start Date End Date Madie Miner, COIL TIER-LAUNDRY CLERK [address] [facility] [address] [place], [place] [id number] PCP - General Nurse Practitioner Family 04/17/22 Rodrigo Silva MD [address] [place], [place] [address] Hospitalist Internal Medicine 04/16/22 Kristine Nichols COIL TIER-LAUNDRY CLERK [address] [place] [address] Nurse Practitioner 04/16/22 Lyly Barth, COIL TIER-LAUNDRY CLERK [address] [place] [address] Nurse Practitioner 04/16/22
--- OUTSIDE RECORDS SUMMARY | 2025-02-15 06:35 | XMS_ITS | Encounter Summary ---
Author Organization [facility] Address [facility] [place] [address] Care Team Providers Care Certified Breastfeeding Educator Name Role Phone Madie Miner NP Primary Care Provider [phone] Encounter Details Date Type Department Care Team (Latest Contact Info) Description 06/27/2024 Go World! Message Enc [facility] Medical Group Family & Internal Medicine [address] [address] Madie Miner [place] [id number] [place] [address] Diploma Pharmacy Technician referral Social History Tobacco Use Types Packs/Day Years Used Date Smoking Tobacco: Never Smokeless Tobacco: Never Alcohol Use Standard Drinks/Week Comments Not Currently 0 (1 standard drink = 0.6 oz pur e alcohol) socially PHQ-2 Answer Date Recorded Patient Health Questionnaire-2 Score 0 06/23/2023 Comments No Sex and Gender Information Value Date Recorded Sex Assigned at Female 12/13/2024 9:13 AM WELCOME WAGON HOSTESS Legal Sex Female 3:49 PM WELCOME WAGON HOSTESS Gender Identity Not on file Sexual Orientation Not on file documented as of this encounter Progress Notes * Charlotte Keller RN - 06/27/2024 1:50 PM CDT Please advise. Previous message sent 06/24/2024 documented in this encounter Plan of Treatment Not on file documented as of this encounter Visit Diagnoses Not on filedocumented in this encounter Additional Health Concerns Assessment Noted Time PHQ-9 Depression Total Score: 6 06/23/20 23 9:41 AM CDT documented as of this encounter Care Teams Certified Breastfeeding Educator Relationship Specialty [place] [address] [place] [address] PCP - General Nurse Practitioner Family 03/10/22 documented as of this encounter
--- OUTSIDE RECORDS SUMMARY | 2025-02-15 06:35 | XMS_ITS | Clinical Summary ---
Author Organization [facility] Address [address] [place] [address] Care Team Providers Care Outsole Rounder Name Role Phone Madie Miner NP Primary [...] Active Active Problems No known active problems Surgical History Surgery Date Site/Laterality Comments WISDOM TOOTH EXTRACTION EMBOLIZATION VENOUS 08/02/2020 N/A Medical History Medical History Date Comments Adjustment disorder with mix ed anxiety and depressed mood Adjustment disorder with mix ed anxiety and depressed mood - (Added by JESSICA Conv) Closed fracture of lower end of radius Closed fracture of distal end of radius - (Added by TW Conv) Contusion of finger without damage to nail Contusion of finger - (Added by TW Conv) Pain in joint, hand Joint Pain F ingers - (Added by TW Conv) Personal history of other di seases of the nervous system and sense organs History of earache - (Added by TW Conv) Abnormal results of other en docrine function studies Nonspecific abnormal results of endocrine function study - (Added by TW Conv) Depression Social History Tobacco Use Types Packs/Day Years [...] on file Legal Sex Female 12:13 AM FIELD EDUCATION COORDINATOR Gender Identity Not on file Sexual Orientation Not on file Obstetrics History Last Filed Vital Signs Vital Sign Reading Time Taken Comments Blood Pressure 108/72 12/18/2022 7:50 AM FIELD EDUCATION COORDINATOR Pulse 83 12/18/2022 7:50 AM FIELD EDUCATION COORDINATOR Temperature 36.7 C (98.1 F) 12/18/2022 7:50 AM FIELD EDUCATION COORDINATOR Respiratory Rate 18 12/18/2022 7:50 AM FIELD EDUCATION COORDINATOR Oxygen Saturation 98% 12/18/2022 7:50 AM FIELD EDUCATION COORDINATOR Inhaled Oxygen Concentration - - Weight 100.2 kg (221 lb) 12/18/2022 7:50 AM FIELD EDUCATION COORDINATOR Height 148.6 cm (4' 10.5 ) 12/18/2022 7:50 AM CS T Body Mass Index 45.4 12/18/2022 7:50 AM FIELD EDUCATION COORDINATOR Plan of Treatment Health Maintenance Due Date Last Done Comments Cervical Cancer Screening 1998 Depression Screening 1998 Hepatitis C Screening 1998 Pneumococcal vaccine <65 (2 of 2 - PPSV23) 2004 02/03/2001, 11/24/2000 Regular Well Visit/Exam 18-64 2016 DTaP/Tdap/Td Vaccine (6 - Td or Tdap) 07/02/2020 07/02/2010, 09/08/2002, 01/05/2001, Additional history exists Covid-19 Vaccine (3 - 2023-2 5 season) 2024 01/24/2021, 01/03/2021 Influenza Vaccine (#1) 2024 , 10/10/2016, 10/10/2016, Additional history exists Hepatitis B Screening Completed 02/03/2001 , 11/24/2000, 09/21/2000 Varicella Vaccines Completed 09/15/2008, 11/24/2000 HPV Vaccines Completed 07/26/2011, 08/30, 07/02/2010 Insurance [facility] [address] [facility] Advance Directives For more information, please contact: [phone] * Full Code (Latest Code Status on File) Date Activated Date Inactivated Comments 08/02/2020 12:02 PM 08/02/2020 7:04 PM * Full Code Date Activated Date Inactivated Comments 08/02/2020 12:02 PM 08/02/2020 12:02 PM Care Teams Outsole Rounder Relationship Specialty [place] [address] [place] [address] PCP - General Nurse Practitioner 12/12/22
== END 2025-02-15 06:32 | disposition home or self-care (01) ==
PROVIDERS: PCP Nurse Practitioner Family
DX: R40.4 Transient alteration of awareness (principal)
CPT/HCPCS: 70553; A9579

== ENCOUNTER 2025-02-20 13:15 | Emergency (ER) | payer BC, SELFPAY ==
--- NOTE | ~2025-02-20 | US_ITS ---
LEFT LOWER EXTREMITY VENOUS ULTRASOUND Ordering provider: Krystyna Curiel APRN History: . L calf pain and swelling . Comparison: None. FINDINGS: --COMMON FEMORAL: Patent and free of thrombus. Normal compressibility, phasic flow and augmentation. --PROXIMAL SUPERFICIAL FEMORAL: Patent and free of thrombus. Normal compressibility, phasic flow and augmentation. --DISTAL SUPERFICIAL FEMORAL: Patent and free of thrombus. Normal compressibility, phasic flow and au gmentation. --POPLITEAL: Patent and free of thrombus. Normal compressibility, phasic flow and augmentation. --POSTERIOR TIBIAL: Patent and free of thrombus. Normal compressibility, phasic flow and augmentation . IMPRESSION: Negative left lower extremity venous US. No deep vein thrombosis. Reviewed, dictated and finalized at location A.
[2025-02-20 13:17] VITALS: BP 135/76; PULSE 81; RESP 20; TEMP 36.6; O2SAT 98
--- NOTE | 2025-02-20 13:25 | ED.EXTPRO ---
HPI - Extremity Problem General Chief complaint: Extremity Problem,Nontraumatic <Krystyna Curiel APRN - Last Filed: 02/20/25 13:30> Stated complaint: DVT r/o in L leg <Krystyna Curiel APRN - Last Filed: 02/20/25 13:30> Time Seen by Provider: 02/20/25 13:20 <Krystyna Curiel APRN - Last Filed: 02/20/25 13:30> Focused HPI: Patient is a 24-year-old female who presents to the ER with left lower extremity calf pain. She reports the pain started this morning. Patient reports the left lower extremity has become more swollen throughout the day. She has a history of borderline personality disorder, bipolar, and increased intracranial pressure. Patient denies chest pain, shortness of breath, recent fevers, injury to the area. GENERAL: Well-appearing, well-nourished, and in no acute distress. HEAD: Normocephalic, atraumatic. CHEST: Clear to auscultation. ?No respiratory distress. HEART: Regular rate and rhythm.? NEURO: ?Alert and oriented x3. Patient screened in triage and initial orders placed.? ?Additional care and disposition to be based upon?diagnostic testing and treatment. <Krystyna Curiel APRN - Last Filed: 02/20/25 13:30> History of Present Illness HPI Narrative: I agree with the above HPI <Momo Castellon MD - Last Filed: 02/20/25 21:43> Related Data Home medications: Home Medications ?Medication ?Instructions ?Recorded ?Confirmed ?Last Taken ?Type fluoxetine 40 mg capsule 40 mg PO DAILY 06/14/23 07/30/23 Unknown History norgestimate 0.25 mg-ethinyl 1 tablet PO DAILY 06/14/23 07/30/23 Unknown History estradiol 35 mcg tablet (Sprintec (28)) quetiapine 25 mg tablet 25 mg PO HS 06/14/23 07/30/23 Unknown History inulin-chromium picolinate 2 tablet PO DAILY 07/30/23 07/30/23 Unknown History gram-100 mcg chewable tablet (Fiber Select Gummies) loratadine 10 mg tablet (Claritin) 10 mg PO DAILY 07/30/23 07/30/23 Unknown History vitamin B complex 1 tablet PO DAILY 07/30/23 07/30/23 Unknown History acetazolamide 500 mg 500 mg PO BID 02/07/25 Unknown History capsule,extended release levothyroxine 25 mcg tablet 50 mcg PO DAILY 02/07/25 Unknown History lurasidone 60 mg tablet 60 mg PO DAILY 02/07/25 Unknown History magnesium oxide 400 mg (241.3 mg 400 mg PO DAILY 02/07/25 Unknown History magnesium) tablet (MgO) mecobalamin (vitamin B12) 10,000 mcg subcut MONTHLY 02/07/25 Unknown History mcg solution for injection <Krystyna Curiel APRN - Last Filed: 02/20/25 13:30> Allergies/Adverse reactions: Allergies Allergy/AdvReac Type Severity Reaction Status Date / Time codeine Allergy Mild Hives Verified 02/20/25 13:16 prednisolone Allergy Mild Hives Verified 02/20/25 13:16 amoxicillin Allergy Diarrhea Verified 02/20/25 13:16 etomidate Allergy Rash Verified 02/20/25 13:16 vancomycin Allergy Hives Verified 02/20/25 13:16 <Krystyna Curiel APRN - Last Filed: 02/20/25 13:30> Review of Systems Review of Systems: All systems reviewed & are unremarkable except as noted in HPI and below <Momo Castellon MD - Last Filed: 02/20/25 21:43> [facility] Past Medical History Medical History: Medical History (Updated 02/20/25 @ 15:56 by Momo Castellon MD) Lymphangioma, any site Multiple surgeries for resection of lymph angiomas from the neck. Polycystic ovarian syndrome Suicide attempt Anxiety Borderline personality disorder Bipolar disorder Louie's thyroiditis Anxiety Depression ADHD ADD (attention deficit disorder) <Krystyna Curiel APRN - Last Filed: 02/20/25 13:30> Surgical History Surgical History: Surgical History History of excision of mass Multiple surgeries for resection of lymphangiomas from the neck. History of colonoscopy Hx of lymphangioma with surgery <Krystyna Curiel APRN - Last Filed: 02/20/25 13:30> Family History Family History: Family History Other Family history non-contributory <Krystyna Curiel, ESCROW MANAGER - Last Filed: 02/20/25 13:30> Social History Social History: Social History Social History: Patient's mother states the patient started vaping 3 weeks ago (April 2023) and did for 2 weeks before quitting 4-5 days prior to getting sick. She denies drug abuse, marijuana and alcohol use, and smoking. Smoking status: Never smoker Second hand tobacco smoke exposure: Yes Alcohol intake: never Substance use: never Substance use type: other Lack of Transportation: No Lack of Food: Never True Current Housing: I Have Housing Concerned About Future Housing: No Difficulty Paying Gas/Electric Bills: No Difficulty Paying for Meds: No Currently Unemployed: No Education: Trade/Vocational Certificate Difficulty w/ Childcare or Family Care: No Additional living arrangements comments: Lives in own home on the same property as her family. 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 Gender identity (if verbalized by the patient): Female Spiritual care concerns: No Agree to blood products: No <Krystyna Curiel, ESCROW MANAGER - Last Filed: 02/20/25 13:30> Exam Narrative: APPEARANCE: Well appearing, no pain, no distress, well-nourished. HEAD: normocephalic, atraumatic. EYES: PERRLA/EOMI, conjunctivae clear. NOSE: Normal no drainage EARS:TMS clear with good light reflex. THROAT: Pharynx clear, no exudate. NECK: Supple. No adenopathy, no masses. RESPIRATORY: Airway patent, respirations nonlabored. Clear to auscultation bilaterally, no rales, rhonchi, wheezing. CARDIOVASCULAR: Regular rate and rhythm without murmurs rubs or gallops. ABDOMINAL: Soft, nontender, nondistended, normal bowel sounds MUSCULOSKELETAL: Tenderness to left calf with no significant edema, ecchymosis no rash NEURO: Alert. Cranial nerves II through XII intact. Grossly intact SKIN: Warm, dry. Normal Color <Momo Castellon MD - Last Filed: 02/20/25 21:43> Course Vital Signs Vital signs: Vital Signs Temperature 97.9 F 03/24/25 13:17 Pulse Rate 81 02/20/25 13:17 Respiratory Rate 20 02/20/25 13:17 Blood Pressure 135/76 02/20/25 13:17 Pulse Oximetry 98 02/20/25 13:17 Oxygen Delivery Room Air 02/20/25 13:17 Temperature 98.3 F 02/20/25 15:15 Pulse Rate 80 02/20/25 15:15 Respiratory Rate 20 02/20/25 15:15 Blood Pressure 120/69 02/20/25 15:15 Pulse Oximetry 96 02/20/25 15:15 Oxygen Delivery Room Air 02/20/25 13:17 <Krystyna Curiel APRN - Last Filed: 02/20/25 13:30> Vital Signs Temperature 97.9 F 02/20/25 13:17 Pulse Rate 81 02/20/25 13:17 Respiratory Rate 20 02/20/25 13:17 Blood Pressure 135/76 02/20/25 13:17 Pulse Oximetry 98 02/20/25 13:17 Oxygen Delivery Room Air 02/20/25 13:17 Temperature 98.3 F 02/20/25 15:15 Pulse Rate 80 02/20/25 15:15 Respiratory Rate 20 02/20/25 15:15 Blood Pressure 120/69 02/20/25 15:15 Pulse Oximetry 96 02/20/25 15:15 Oxygen Delivery Room Air 02/20/25 13:17 <Momo Castellon MD - Last Filed: 02/20/25 21:43> MDM - Extremity (Nontraumatic) MDM Narrative Medical decision making narrative: 24-year-old female presents to the emergency department for evaluation for left calf pain. Patient states she does walk many while so per shift. Patient began having cramping on her left calf on Thursday. Patient denies any prior history of PE or DVT. Patient denies any specific incident of injury. Ultrasound was negative for DVT. <Momo Castellon MD - Last Filed: 02/20/25 21:43> Differential Diagnosis Differential diagnosis: Likely herpes zoster, cellulitis, superficial thrombophlebitis, lower extremity edema and deep vein thrombosis of lower extremity <Momo Castellon MD - Last Filed: 02/20/25 21:43> Discharge Plan Discharge Clinical Impression: Pain of left calf <Krystyna Curiel APRN - Last Filed: 02/20/25 13:30> Patient Disposition: Home, Self-Care <Krystyna Curiel APRN - Last Filed: 02/20/25 13:30> Condition: Stable <Krystyna Curiel APRN - Last Filed: 02/20/25 13:30> Instructions: Antibiotic Form, Muscle Strain (DC) <Krystyna Curiel APRN - Last Filed: 02/20/25 13:30> Additional Instructions: Tylenol and ibuprofen for pain control. Flexeril for muscle spasm. Have close follow-up with your primary care physician. If you have any worsening symptoms please call or return to the emergency department. <Krystyna Curiel APRN - Last Filed: 02/20/25 13:30> Patient Language: Indonesian <Krystyna Curiel APRN - Last Filed: 02/20/25 13:30> Prescriptions: New cyclobenzaprine 10 mg tablet 10 mg PO BID PRN (Reason: muscle spasm) Qty: 14 0RF No Action (DME) Aerochamber MV Spacer See Rx Instructions .ROUTE .MEDSUPPLY Qty: 1 0RF Rx Instructions: As directed loratadine [Claritin] 10 mg tablet 10 mg PO DAILY vitamin B complex Tablet 1 tablet PO DAILY Fiber Select Gummies 2-100 gram-mcg tablet,chewable PO DAILY lurasidone 60 mg tablet 60 mg PO DAILY Rx Instructions: must administer with food (at least 350 calories) take 30 mg daily magnesium oxide [MgO] 400 mg (241.3 mg magnesium) tablet 400 mg PO DAILY acetazolamide 500 mg capsule, extended release 500 mg PO BID mecobalamin (vitamin B12) 10,000 mcg recon soln subcut MONTHLY quetiapine 25 mg tablet 25 mg PO HS fluoxetine 40 mg capsule 40 mg PO DAILY norgestimate-ethinyl estradiol [Sprintec (28)] 0.25-35 mg-mcg tablet 1 tablet PO DAILY levothyroxine 25 mcg tablet 50 mcg PO DAILY dexamethasone 1 mg tablet 1 mg PO ONCE Qty: 1 0RF Rx Instructions: Please take it around 11 pm and go for blood test next day morning <Krystyna Curiel APRN - Last Filed: 02/20/25 13:30> Follow-up/Referrals: Isidra,Madie Gonzalez APRN [Primary Care Provider] - <Krystyna Curiel APRN - Last Filed: 02/20/25 13:30> Stand Alone Forms: Work/School Release IP <Krystyna Curiel APRN - Last Filed: 02/20/25 13:30>
--- OUTSIDE RECORDS SUMMARY | 2025-02-20 15:05 | XMS_ITS | Data Portability ---
Author Organization [facility], [facility] Address [address] [address] Assessment Encounter Date Assessment Date Assessment LastModified [...] today in person and in chart review. [email or web address] Not available 01/24/2025 15:41:05 Plan of Treatment [...] Imaging MRI, brain, w/wo contrast 2024 025 [facility], [facility] [address], [place], [address], 01/25/2025 08:15:25 Medication Orders rizatrip rubalcava 10 mg tablet 2024 025 [id number], [address], [place], [id number], 01/24/2025 14:59:57 acetazol amide ER 500 mg capsule, extended release 2024 025 [facility][id number], [address], [place], [id number], 01/24/2025 15:02:36 Patient TargetsNo targets recorded. Patient InstructionsNo instructions recorded. Reason for Referral None Reported. Problems Name Problem SNOMED Code Status Onset Date Resolution Date Notes Provider Name and Address Organization Details Recorded Time Refractory migraine with aura 002381381 Active 2024 Pili Traylor PA-C [address] [place] [address], [phone], [facility] 5 14:59:03 Staring 254538615 Active 2024 Pili Traylor PA-C [address] [place] [address], [phone], [facility] 5 15:39:18 Benign intracranial hypertension 04938883 Active 2023 Kevin [facility] 4 11:18:38 Problem Notes None recorded. Medical Equipment None Reported. Allergies Allergen ID Allergen Name Allergen Category Reaction Reaction Severity Criticality Documentation Date Start Date Code Code System Note Provider Name and Address Organization Details Recorded Time 8231779 codeine medicatio n Not available Not available Not available 12/30/20232022 2670 RxNorm Not Available Not Available Not Available 7554908 vancomyci n medicatio n Not available Not available Not available 12/30/20232022 98202 RxNorm Not Available Not Available Not Available 5371974 etomidate Not available Not available Not available Not available 12/30/20232022 4177 RxNorm Not Available Not Available Not Available 6347152 prednison e medicatio n Not available Not available Not available 12/30/20232022 8640 RxNorm Not Available Not Available Not Available 7005372 cyclobenz aprine hydrochlo ride medicatio n Not available Not available Not available 12/30/20232022 17179 RxNorm Not Available Not Available Not Available [...] Updated DateTime 5 147.32 cm 44.5 kg/m2 55944.1 7 g 70 /min 97 % 97 % 102 mm[Hg] 70 mm[Hg] Kevin [facility] 5 14:44:42 Social History None recorded. Functional Status None recorded. Mental Status None recorded. Family History Nothing Reported. Medical History No medical history recorded. Gynecological HistoryNo gynecological history recorded. Obstetrics History GPAL:G 0 P 0 0 0 0 Past Encounters Encounter ID Performer Location Encounter Start Date Encounter Closed Date Diagnosis/Indication Diagnosis SNOMED-CT Code Diagnosis ICD10 Code Diagnosis Note [id number] Pili Traylor PA-C [address] [facility] [address] [place] [address],[address] [place] [phone] 01/24/2025 13:47:19 01/24/2025 15:14:04 Refractory migraine with aura 463718771 G43.111 Benign int racranial hypertension 64739317 G93.2 Staring 436770357 R40.4 Health Concerns Section Related Observation LastModified by Organization Detai ls LastModified Time None Recorded Concern Status LastModified by Organization Details LastModified Time None Recorded Advance Directives Directive None Recorded Payers Encounter Date Sequence Insurance Name Policy Number Policy Friedman Covered Member ID Friedman Member ID Guarantor Name 01/24/2025 1 [place] [id number] [id number] Ramya Ambrose Notes Date [...] complaints today. Pili Traylor PA-C [address] [facility], [place], [address], [facility] 01/24/2025 15:41:14 OBGyn Episode No OBEpisode recorded.
--- OUTSIDE RECORDS SUMMARY | 2025-02-20 15:05 | XMS_ITS | Encounter Summary ---
Author Organization [facility] Address Formerly [facility], [facility] [place] [address] Care Team Providers Care Materials Director Name Role Phone Madie Miner NP Primary Care Provider Encounter Details Date Type Department Care Team (Late st Contact Info) Description 06/23/2022 [employer] Message Enc [facility] Family & Internal Medicine [facility] [address] [place] [phone] Madie Miner [place] [id number] [place] [address] [address], [place] [address] X-ray Social History Tobacco Use Types Packs/Day [...] Sex Assigned at Female 12/13/2024 9:13 AM DATABASE ENGINEER Legal Sex Female 3:49 PM DATABASE ENGINEER Gender Identity Not on file Sexual Orientation [...] documented as of this encounter Care Teams Materials Director Relationship Specialty Start Date End Date Madie Miner, [place] [address] [address] PCP - General Nurse Practitioner Family 03/10/22 documented as of this encounter
--- OUTSIDE RECORDS SUMMARY | 2025-02-20 15:05 | XMS_ITS | Encounter Summary ---
Author Organization [facility] Address Formerly [facility] [place] [address] Care Team Providers Care Siebel Crm Developer Name Role Phone Madie Miner NP Primary Care Provider Encounter Details Date Type Department Care Team (Late st Contact Info) Description 06/10/2022 Think [employer] Message Enc [facility] Medical Group Family & Internal Medicine [facility] [address] [place] [phone] Madie Miner [place] [id number] [place] [address] [address], [place] [address] Albuterol nebulizer Social History Tobacco Use Types [...] Sex Assigned at Female 12/13/2024 9:13 AM DOOR AND ARRIVAL ATTENDANT Legal Sex Female 3:49 PM DOOR AND ARRIVAL ATTENDANT Gender Identity Not on file Sexual Orientation [...] documented as of this encounter Care Teams Siebel Crm Developer Relationship Specialty [place] [address] [facility] [address] [address] PCP - General Nurse Practitioner Family 03/10/22 documented as of this encounter
--- OUTSIDE RECORDS SUMMARY | 2025-02-20 15:05 | XMS_ITS | Encounter Summary ---
Author Organization [facility] Address [facility] [place] [address] Care Team Providers Care Sewer And Inspector Name Role Phone Madie Miner NP Primary Care Provider [phone] Encounter Details Date Type Department Care Team (Late st Contact Info) Description 11/18/2022 Cardio[employer] Message Enc [facility] Medical Group Family & Internal Medicine [facility] [address] [place] [phone] Madie Miner [place] [phone] [place] [address] [address] [address] IBS Social History Tobacco Use Types Packs/Day [...] Sex Assigned at Female 12/13/2024 9:13 AM VP CARE MANAGEMENT Legal Sex Female 3:49 PM VP CARE MANAGEMENT Gender Identity Not on file Sexual Orientation Not on file COVID-19 Exposure Response Date Recorded In the last 10 days, have yo u been in contact with someone who was confirmed or suspected to have Coronavirus/COVID-19? Yes 11/19/2022 1:47 PM VP CARE MANAGEMENT documented as of this encounter Progress Notes * Romeo Jackson RN - 11/18/2022 2:49 PM CST Attempted to call patient. No answer. LVM to return call to clinic. CARE MANAGEMENT * Madie Miner NP - 11/18/2022 2:17 PM CST Please help patient make appointment to be addressed, TY. CARE MANAGEMENT * Romeo Jackson RN - 11/18/2022 1:44 PM CST Please advise. Do you want pt to make appt? CARE MANAGEMENT documented in this encounter Plan of Treatment [...] documented as of this encounter Care Teams Sewer And Inspector Relationship Specialty [place] [address] [address] PCP - General Nurse Practitioner Family 03/10/22 documented as of this encounter
--- OUTSIDE RECORDS SUMMARY | 2025-02-20 15:06 | XMS_ITS | Encounter Summary ---
Author Organization [facility] Address [facility] [place] [address] Care Team Providers Care Managed Care Provider Name Role Phone Madie Miner NP Primary Care Provider Encounter Details Date Type Department Care Team (Late st Contact Info) Description 05/14/2022 Unidymt Message Enc [facility] Family & Internal Medicine [facility] [id number] [place] [phone] [place] [address] [facility] [address] [place] [address] Question regarding URINALYSIS Social History Tobacco Use [...] Sex Assigned at Female 12/13/2024 9:13 AM GENERAL CLEANER Legal Sex Female 3:49 PM GENERAL CLEANER Gender Identity Not on file Sexual Orientation [...] documented as of this encounter Care Teams Managed Care Provider Relationship Specialty [place] [address] [address] PCP - General Nurse Practitioner Family 03/10/22 documented as of this encounter
--- OUTSIDE RECORDS SUMMARY | 2025-02-20 15:06 | XMS_ITS | Encounter Summary ---
Author Organization [facility] Address [facility] [place] [address] Care Team Providers Care Sexual Assault Social Worker Name Role Phone Drew Padilla MD Primary Care Provider [phone] Madie Miner NP Primary Care Provider [phone] Encounter Details Date Type Department Care Team (Late st Contact Info) Description 03/03/2022 [employer] Message [facility] Family [facility] Internal Medicine [address] [address] Drew Padilla MD [address] [place] [address] Nebulizer Social History Tobacco Use Types Packs/Day [...] Sex Assigned at Female 12/13/2024 9:13 AM HAND MEAT SALTER Legal Sex Female 3:49 PM HAND MEAT SALTER Gender Identity Not on file Sexual Orientation [...] Depression Total Score: 0 01/08/20 9:41 AM HAND MEAT SALTER documented as of this encounter Care Teams Sexual Assault Social Worker Relationship Specialty [place] [address] [place] [address] PCP - General FAMILY PRACTICE 05/07/21 03/09/22 [place] [address] [facility] [address] [place] [address] PCP - General Nurse Practitioner Family 03/10/22 documented as of this encounter
--- OUTSIDE RECORDS SUMMARY | 2025-02-20 15:06 | XMS_ITS | Clinical Summary ---
Author Organization [facility] Address [address] [facility] [place] [address] Care Team Providers Care Television Engineer Name Role Phone Rodrigo Silva MD Unavailable [phone] Kristine Nichols CONTINUOUS IMPROVEMENT COACH-IMAGING ADMINISTRATOR Unavailable [phone] Lyly Barth CONTINUOUS IMPROVEMENT COACH-IMAGING ADMINISTRATOR Unavailable [phone] Madie Miner CONTINUOUS IMPROVEMENT COACH-IMAGING ADMINISTRATOR Primary Care Provider Source Comments [facility],non-owned Affiliates and Associated Physician Practices is amultiple site organization consisting of ambulatory clinics and hospital sitesin [place], [place], [place] and [place]. This disclosure is being madepursuant to the Care Everywhere program and may not contain all information available regarding this patient. Last updated 18.[facility] Allergies Active Allergy Reactions Criticality Noted [...] by mouth 2 times daily Active B Euljjul-C-Orlas Acid (vitamin B complex with C) Take [...] 3 times daily with meals Active thyroid ([place] Thyroid) 15 MG tablet Take 1 (one) [...] Documents on File Type Date Recorded Patient Appetizer Packer Expl anation Adv Directive/Living Will/POA 07/01/2022 5:10 PM * Full Code (Latest Code Status on File) Date Activated Date Inactivated Comments 06/30/2022 6:20 PM 07/04/2022 5:47 PM * Full Code Date Activated Date Inactivated Comments 06/25/2022 5:26 PM 06/30/2022 6:05 PM * Full Code Date Activated Date Inactivated Comments 04/17/2022 1:16 AM 04/22/2022 3:33 PM Care Teams Television Engineer Relationship Specialty Start Date End Date Madie Miner, CONTINUOUS IMPROVEMENT COACH-IMAGING ADMINISTRATOR [address] [facility] [address] [place], [place] [id number] PCP - General Nurse Practitioner Family 04/17/22 Rodrigo Silva MD [address] [place], [place] [id number] Hospitalist Internal Medicine 04/16/22 Kristine Nichols CONTINUOUS IMPROVEMENT COACH-IMAGING ADMINISTRATOR [address] [place] [address] Nurse Practitioner 04/16/22 Lyly Barth, CONTINUOUS IMPROVEMENT COACH-IMAGING ADMINISTRATOR [address] [place] [address] Nurse Practitioner 04/16/22
--- OUTSIDE RECORDS SUMMARY | 2025-02-20 15:06 | XMS_ITS | Encounter Summary ---
Author Organization [facility] Address [facility] [place] [address] Care Team Providers Care Clerical Proofreader Name Role Phone Madie Miner NP Primary Care Provider Encounter Details Date Type Department Care Team (Latest Contact Info) Description 06/27/2024 [employer] Message Enc [facility] Family & Internal Medicine [facility] [address] [place] [address] [place] [address] [facility] [address] [place], [place] [id number] Sample Taker Operator referral Social History Tobacco Use Types Packs/Day Years Used Date Smoking Tobacco: Never Smokeless Tobacco: Never Alcohol Use Standard Drinks/Week Comments Not Currently 0 (1 standard drink = 0.6 oz pur e alcohol) socially PHQ-2 Answer Date Recorded Patient Health Questionnaire-2 Score 0 06/23/2023 Comments No Sex and Gender Information Value Date Recorded Sex Assigned at Female 12/13/2024 9:13 AM SUBGRADE TESTER Legal Sex Female 3:49 PM SUBGRADE TESTER Gender Identity Not on file Sexual Orientation [...] documented as of this encounter Care Teams Clerical Proofreader Relationship Specialty [place] [address] [place] [address] PCP - General Nurse Practitioner Family 03/10/22 documented as of this encounter
--- OUTSIDE RECORDS SUMMARY | 2025-02-20 15:06 | XMS_ITS ---
Author Organization [facility] As [employer] [facility] Address [facility] [address] Care Team Providers Care Blanket Inspector Name Role Phone Madie Padilla Primary Care Provider George Garcia Unavailable [phone] REASON FOR VISIT Medication and appointment Social History Sex Assigned At : Social History Observation Description Sex Assigned At Female Encounters En[facility] [address] [address] 12/01/2024 George Dorsey Plan Of Treatment No Information Progress Notes * REECE CARRDOB:[birth year] (24 yo F)Acc No.[id number]:12/01/2024 Patient: REECE GUTIERRES :2000 A ge:24 Y S ex:Female Address:[address] , [facility] [address] * true * Date: Generated for Printi ng/Faxing/eTransmitting on: 0 02/20/2025 03:06 PM CDT
--- OUTSIDE RECORDS SUMMARY | 2025-02-20 15:06 | XMS_ITS | Encounter Summary ---
Author Organization [facility] Address [address] [place] [address] Care Team Providers Care Civil Clerk Name Role Phone Madie Miner NP Primary Care Provider Encounter Details Date Type Department Care Team (Late st Contact Info) Description 10/27/2023 [employer] Message [facility] Family & Internal Medicine [facility] [address] [place] [address] [facility], [facility] Provider refill Social History Tobacco Use Types Packs/Day Years Used Date Smoking Tobacco: Never Smokeless Tobacco: Never Alcohol Use Standard Drinks/Week Comments Not Currently 0 (1 standard drink = 0.6 oz pur e alcohol) socially PHQ-2 Answer Date Recorded Patient Health Questionnaire-2 Score 0 06/23/2023 Comments No Sex and Gender Information Value Date Recorded Sex Assigned at Female 12/13/2024 9:13 AM CALCULATING MACHINE MECHANIC Legal Sex Female 3:49 PM CALCULATING MACHINE MECHANIC Gender Identity Not on file Sexual Orientation Not on file documented as of this encounter Plan of Treatment Not on file documented as of this encounter Visit Diagnoses Not on filedocumented in this encounter Additional Health Concerns Assessment Noted Time PHQ-9 Depression Total Score: 6 06/23/20 23 9:41 AM CDT documented as of this encounter Care Teams Civil Clerk Relationship Specialty Start Date End Date Madie Miner NP [address] [place] [address] PCP - General Nurse Practitioner Family 03/10/22 documented as of this encounter
--- OUTSIDE RECORDS SUMMARY | 2025-02-20 15:06 | XMS_ITS ---
Author Organization [facility] As [employer] [facility] Address [facility] [address] Care Team Providers Care Neurophysiologist Name Role Phone Madie Padilla Primary Care Provider Bridgett vailaGeorge [place] [phone] REASON FOR VISIT RE:Question Social History Sex Assigned At : Social History Observation Description Sex Assigned At Female Encounters En[facility] [address] [address] 11/15/2024 George Dorsey Plan Of Treatment No Information Progress Notes * SHELLY CRARTESHADOB:[birth year] (24 yo F)Acc No.[id number]:11/15/2024 Patient: REECE GUTIERRES :2000 A ge:24 Y S ex:Female Address:[address] , [facility] [address] * true * Date: Generated for Printi ng/Faxing/eTransmitting on: 0 02/20/2025 03:05 PM CDT
--- OUTSIDE RECORDS SUMMARY | 2025-02-20 15:06 | XMS_ITS | Encounter Summary ---
Author Organization [facility] Address [address] [place] [address] Care Team Providers Care Assistant Loan Processor Name Role Phone Madie Miner NP Primary Care Provider Reason for Visit * Reason Comments MRI (SCAN) Encounter Details Date Type Department Care Team (Latest Contact Info) Description 02/15/2025 Scan [facility] Scanned, [facility] MRI (SCAN) Social History Tobacco Use Types Packs/Day Years Used Date Smoking Tobacco: Never Smokeless Tobacco: Never Alcohol Use Standard Drinks/Week Comments Not Currently 0 (1 standard drink = 0.6 oz pur e alcohol) socially PHQ-2 Answer Date Recorded Patient Health Questionnaire-2 Score 2 12/14/2024 Comments No Sex and Gender Information Value Date Recorded Sex Assigned at Female 12/13/2024 9:13 AM PAPER RECLAIMING MACHINE OPERATOR Legal Sex Female 3:49 PM PAPER RECLAIMING MACHINE OPERATOR Gender Identity Not on file Sexual Orientation Not on file documented as of this encounter Plan of Treatment Not on file documented as of this encounter Procedures Procedure Name Priority Date/Time Associated Diagnosis Comments MRI GENERIC 02/15/2025 documented in this encounter Results * MRI GENERIC (02/15/2025) Anatomical Region Laterality Modality Other 02/15/2025 us Doc [facility] Scanned SCANNING Final Resu lt documented in this encounter Visit Diagnoses Not on filedocumented in this encounter Additional Health Concerns Assessment Noted Time PHQ-9 Depression Total Score: 14 025 1:45 PM PAPER RECLAIMING MACHINE OPERATOR documented as of this encounter Care Teams Assistant Loan Processor Relationship Specialty [place] [address] [address] PCP - General Nurse Practitioner Family 03/10/22 documented as of this encounter
--- OUTSIDE RECORDS SUMMARY | 2025-02-20 15:06 | XMS_ITS | Encounter Summary ---
Author Organization [facility] Address [facility] [place] [address] Care Team Providers Care Supervisor Testing Name Role Phone Drew Padilla MD Primary Care Provider [phone] Madie Miner NP Primary Care Provider + [phone] Encounter Details Date Type Department Care Team (Late st Contact Info) Description 03/04/2022 [employer] Message Enc [facility] Family & Internal Medicine [address] [address] Drew Padilla MD [address] [place] [address] Question regarding XR CHEST PA+LAT Social History [...] Sex Assigned at Female 12/13/2024 9:13 AM DRIER Legal Sex Female 3:49 PM DRIER Gender Identity Not on file Sexual Orientation [...] Depression Total Score: 0 01/08/20 9:41 AM DRIER documented as of this encounter Care Teams Supervisor Testing Relationship Specialty [place] [address] [place] [address] PCP - General FAMILY PRACTICE 05/07/21 03/09/22 [place] [address] [facility] [place] [address] PCP - General Nurse Practitioner Family 03/10/22 documented as of this encounter
--- OUTSIDE RECORDS SUMMARY | 2025-02-20 15:06 | XMS_ITS | Clinical Summary ---
Author Organization [facility] Address [address] [place] [address] Care Team Providers Care Hand Paint Mixer Name Role Phone Antonio Miner NP Primary Care Provider [phone] Allergies Active Allergy Reactions Criticality Noted Date Comments Amoxicillin Diarrhea Medium 06/23/2023 Amoxicillin-Pot Clavulanate Diarrhea 06/12/20 Codeine Hives High 11/03/2016 Orapred Cyclobenzaprine Lab [...] depressive disord er), recurrent severe, without psychosis ([facility] 06/30/2022 Chest pain 06/27/2022 Asthma ([facility]) 06/25/2022 Intentional drug overdose, i nitial encounter ([facility] 06/25/2022 PCOS (polycystic ovarian syndrome) 06/25/2022 Seizures ([facility]) 06/25/2022 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 05/02/2022 Morbid obesity with BMI of 40.0-44.9, adult 01/2022 Sciatica 04/29/2022 Borderline personality disorder ([facility] ) 04/17/2022 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 Left upper quadrant abdominal pain 06/17/2021 Overview (06/17/2021): Added automatically from request for surgery [id number] Nausea 06/17/2021 Overview (06/17/2021): Added automatically from request for surgery [id number] Blood in stool 06/17/2021 Overview (06/17/2021): Added automatically from request for surgery [id number] Anxiety 10/18/2019 MDD (major depressive disorder) 10/18/2019 Encounters Date Type Department Care Team Description 02/15/2025 Scan HEALTH INFO SRVCS Scanned, [facility] MRI (SCAN) 12/26/2024 Telephone [facility] Internal [address] [phone] Antonio Miner NP Lab Results 12/14/2024 5:12 PM SUBSTANCE ABUSE SERVICES DIRECTOR - 12/14/2024 11:59 PM SUBSTANCE ABUSE SERVICES DIRECTOR Hospital Encounter [facility] Laboratory [address] [place] [address] Antonio Miner NP Discharge Disposition: Home or Self Care (Routine Discharge) 12/14/2024 2:00 PM SUBSTANCE ABUSE SERVICES DIRECTOR - 12/14/2024 5:11 PM SUBSTANCE ABUSE SERVICES DIRECTOR Hospital Encounter [facility] Cardiopulmonary Services [address] [place] [address] Antonio Miner NP Discharge Disposition: Home or Self Care (Routine Discharge) 12/14/2024 1:40 PM SUBSTANCE ABUSE SERVICES DIRECTOR Laboratory Only [address] [phone] Antonio Miner NP 12/14/2024 1:00 PM SUBSTANCE ABUSE SERVICES DIRECTOR Office Visit [address] [phone] Antonio Miner, BRANDON Follow Up (Annual follow up) 12/14/2024 Travel 12/08/2024 Orders Only [address] [phone] Antonio Miner NP from Last 3 Months Immunizations [...] Sex Assigned at Female 12/13/2024 9:13 AM SUBSTANCE ABUSE SERVICES DIRECTOR Legal Sex Female 3:49 PM SUBSTANCE ABUSE SERVICES DIRECTOR Gender Identity Not on file Sexual Orientation Not on file Last Filed Vital Signs Vital Sign Reading Time Taken Comments Blood Pressure 115/83 12/14/2024 1:08 PM SUBSTANCE ABUSE SERVICES DIRECTOR Pulse 71 12/14/2024 1:08 PM SUBSTANCE ABUSE SERVICES DIRECTOR Temperature 36.8 C (98.3 F) 12/14/2024 1:08 PM SUBSTANCE ABUSE SERVICES DIRECTOR Respiratory Rate 20 12/14/2024 1:08 PM SUBSTANCE ABUSE SERVICES DIRECTOR Oxygen Saturation 95% 12/14/2024 1:08 PM SUBSTANCE ABUSE SERVICES DIRECTOR Inhaled Oxygen Concentration - - Weight 103.5 kg (228 lb 3.2 oz) 12/14/2024 1:08 PM SUBSTANCE ABUSE SERVICES DIRECTOR Height 147.3 cm (4' 10 ) 12/14/2024 1:08 PM SUBSTANCE ABUSE SERVICES DIRECTOR Body Mass Index 47.69 12/14/2024 1:08 PM SUBSTANCE ABUSE SERVICES DIRECTOR Plan of Treatment Health Maintenance Due Date [...] 2016 (Patient Refused) Influenza Adult Completed 12/14/2024, 1007/2023, 09/22/2022, Additional history exists PHQ-2 (Physician [place]) Completed 12/14/2024 Meningococcal B Vaccine Aged Out [...] Date/Time Associated Diagnosis Comments MRI GENERIC 02/15/2025 ECG 12-LEAD Routine 12/14/2024 2:08 PM SUBSTANCE ABUSE SERVICES DIRECTOR History of prolonged Q-T interval on ECG COLLECTION VENOUS BLOOD VENIPUNCTURE Routine 12/14/2024 1:49 PM SUBSTANCE ABUSE SERVICES DIRECTOR 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 Prediabetes Numbness and tingling of both upper extremities Hypomagnesemia Sensation of feeling cold COMPREHENSIVE METABOLIC PANEL Routine 12/14/2024 1:43 PM SUBSTANCE ABUSE SERVICES DIRECTOR 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 TSH W/REFLEX Routine 12/14/2024 1:43 PM SUBSTANCE ABUSE SERVICES DIRECTOR 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 HEMOGLOBIN, GLYCOSYLATED Routine 12/14/2024 1:43 PM SUBSTANCE ABUSE SERVICES DIRECTOR Prediabetes CBC W/DIFF AUTOMATED Routine 12/14/2024 1:43 PM SUBSTANCE ABUSE SERVICES DIRECTOR 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 VITAMIN B12 / FOLATE Routine 12/14/2024 1:43 PM SUBSTANCE ABUSE SERVICES DIRECTOR Numbness and tingling of both upper extremities MAGNESIUM Routine 12/14/2024 1:43 PM SUBSTANCE ABUSE SERVICES DIRECTOR Hypomagnesemia IRON SAT PANEL (IRON,IBC,%SAT) Routine 12/14/2024 1:43 PM SUBSTANCE ABUSE SERVICES DIRECTOR Sensation of feeling cold CHLAM/GC/TRICHOMONAS PROFILE Routine 04/01/2021 7:30 AM CDT from Last 3 Months or Most Recently Relevant to Health Maintenance Results * MRI GENERIC (02/15/2025) Anatomical Region Laterality Modality Other 02/15/2025 us [facility] Scanned SCANNING Final Resu lt * ECG 12 lead (Hosp Performed) (12/14/2024 2:08 PM SUBSTANCE ABUSE SERVICES DIRECTOR) 12/14/2024 2:08 PM SUBSTANCE ABUSE SERVICES DIRECTOR Narrative [facility] ([facility]) RAD - 12/15/2024 6:58 AM SUBSTANCE ABUSE SERVICES DIRECTOR [facility] Test Date: 2024-12-14 Pat Name: [facility] Department: 85 Room: Gender: Female Specimen Preparation Assistant: : 2000 Requested By: ANTONIO MINER Order Number: [id number] Reading MD: Bong Mehta Measurements Intervals Nora Rate: 65 P: 21 TX: 187 QRS: 26 QRSD: 107 T: 16 QT: 428 QTc: 448 Interpretive Statements SINUS RHYTHM WITH SINUS ARRHYTHMIA INCOMPLETE RIGHT BUNDLE BRANCH BLOCK [90+ ms QRS DURATION, TERMINAL R IN V1/V2, 40+ ms S IN I/aVL/V4/V5/V6] Compared to ECG 06/12/2023 18:05:26 Incomplete right bundle-branch block now present Intraventricular conduction delay no longer present T-wave abnormality no longer present TANCE ABUSE SERVICES DIRECTOR Procedure Note Bong Mehta MD - 12/15/2024 [facility] Test Date: 2024-12-14 Pat Name: [facility] Department: 85 Room: Gender: Female Specimen Preparation Assistant: : 2000 Requested By: ANTONIO MINER Order Number: [id number] Reading MD: Bong Mehta Measurements Intervals Nora Rate: 65 P: 21 TX: 187 QRS: 26 QRSD: 107 T: 16 QT: 428 QTc: 448 Interpretive Statements SINUS RHYTHM WITH SINUS ARRHYTHMIA INCOMPLETE RIGHT BUNDLE BRANCH BLOCK [90+ ms QRS DURATION, TERMINAL RIN V1/V2, 40+ ms S IN I/aVL/V4/V5/V6] Compared to ECG 06/12/2023 18:05:26 Incomplete right bundle-branch block now present Intraventricular conduction delay no longer present T-wave abnormality no longer present TANCE ABUSE SERVICES DIRECTOR us Antonio Miner SOLVENT PLANT TREATER ECG ORDERABLES Final Result Performing Organization Address [facility]/ZIP Co de Phone Number [facility]) RAD * VITAMIN B12 / FOLATE (12/14/2024 1:43 PM SUBSTANCE ABUSE SERVICES DIRECTOR) VITAMIN B12 S/P/B 428 193 - 986 PG/ML 12/14/2024 6:38 PM SUBSTANCE ABUSE SERVICES DIRECTOR [facility] FOLATE >20.0 8.6 - 58.9 NG/ML 12/14/2024 6:38 PM SUBSTANCE ABUSE SERVICES DIRECTOR [facility] 12/14/2024 1:43 PM SUBSTANCE ABUSE SERVICES DIRECTOR us Antonio Miner SOLVENT PLANT TREATER LABORATORY Final Result Performing Organization Address [facility]/ZIP Co de Phone Number [facility] [address] [place] [address], [place] [phone] * TSH W/REFLEX (12/14/2024 1:43 PM SUBSTANCE ABUSE SERVICES DIRECTOR) TSH 1.235 0.358 - 3.74 uIU/ML 12/14/2024 6:03 PM SUBSTANCE ABUSE SERVICES DIRECTOR [facility] Comment: HIGH DOSES OF BIOTIN MAY INTERFERE WITH THIS TEST RESULT. CORRELATION TO CLINICAL HISTORY AND PRESENTATION RECOMMENDED. FREE T4 NOT INDICATED 12/14/2024 1:43 PM SUBSTANCE ABUSE SERVICES DIRECTOR us Antonio Miner NP LABORATORY Final Result Performing Organization Address [facility] Co de Phone Number [facility] [address] [place] [address], [place] [phone] * (ABNORMAL) HEMOGLOBIN, GLYCOSYLATED (12/14/2024 1:43 PM SUBSTANCE ABUSE SERVICES DIRECTOR) HGB A1C 5.9(H) <5.7 % 12/14/2024 6:17 PM SUBSTANCE ABUSE SERVICES DIRECTOR [facility] Comment: INCREASED RISK OF DIABETES <5.7% NON-DIABETES 5.7-6.4% INCREASED RISK FOR FUTURE DIABETES > OR = 6.5 CONSISTENT WITH DIABETES STANDARDS OF MEDICAL CARE IN DIABETES-2010 DIABETES CARE, 33(SUPP 1): S1-S61,2010 ESTIMATED AVG GLUCOSE 123 mg/dL 12/14/2024 6:17 PM SUBSTANCE ABUSE SERVICES DIRECTOR [facility] 12/14/2024 1:43 PM SUBSTANCE ABUSE SERVICES DIRECTOR Antonio Miner NP LABORATORY Final Result Performing Organization Address [facility] de Phone Number [facility] [address] [place] [address], [place] [phone] * IRON SAT PANEL (IRON,IBC,%SAT) (12/14/2024 1:43 PM SUBSTANCE ABUSE SERVICES DIRECTOR) IRON 95 50 - 170 MCG/DL 12/14/2024 6:39 PM SUBSTANCE ABUSE SERVICES DIRECTOR [facility] IRON BINDING CAPACITY 311 250 - 450 MCG/DL 12/14/2024 6:39 PM SUBSTANCE ABUSE SERVICES DIRECTOR [facility] IRON SATURATION 31 20 - 55 % 6:39 PM SUBSTANCE ABUSE SERVICES DIRECTOR [facility] 12/14/2024 1:43 PM SUBSTANCE ABUSE SERVICES DIRECTOR us Antonio Miner NP LABORATORY Final Result [facility] [address] [place] [address], [place] [phone] * (ABNORMAL) COMPREHENSIVE METABOLIC PANEL (12/14/2024 1:43 PM SUBSTANCE ABUSE SERVICES DIRECTOR) GLUCOSE 94 70 - 99 MG/DL 12/14/2024 6:03 PM [facility] BUN 9 7 - 18 MG/DL 12/14/2024 6:03 PM [facility] CREATININE S/P/B 0.76 0.55 - 1.02 MG/DL 12/14/2024 6:03 PM [facility] SODIUM S/P/B 143 136 - 145 MMOL/L 12/14/2024 6:03 PM [facility] POTASSIUM S/P/B 4.0 3.5 - 5.1 MMOL/L 12/14/2024 6:03 PM [facility] CHLORIDE S/P/B 104 100 - 108 MMOL/L 12/14/2024 6:03 PM [facility] CO2 31.0 21 - 32 MMOL/L 12/14/2024 6:03 PM [facility] CALCIUM S/P/B 9.2 8.5 - 10.1 MG/DL 12/14/2024 6:03 PM [facility] BILIRUBIN TOTAL S/P/B 0.5 0.2 - 1.2 MG/DL 12/14/2024 6:03 PM [facility] TOTAL PROTEIN S/P/B 6.7 6.4 - 8.2 G/DL 12/14/2024 6:03 PM [facility] ALBUMIN S/P/B 3.7 3.4 - 5.0 G/DL 12/14/2024 6:03 PM [facility] AST 18 15 - 37 U/L 12/14/2024 6:03 PM [facility] ALT 30 14 - 55 U/L 12/14/2024 6:03 PM [facility] ALKALINE PHOSPHATASE S/P/B 32(L) 50 - 136 U/L 12/14/2024 6:03 PM [facility] ANION GAP 8.0 5 - 15 MMOL/L 12/14/2024 6:03 PM [facility] BUN CREATININE RATIO 11.8 6 - 26 12/14/2024 6:03 PM [facility] A/G RATIO 1.2 1.0 - 2.0 RATIO 12/14/2024 6:03 PM [facility] GFR ESTIMATE >90 >90 ML/MIN/1.7 3 M2 12/14/2024 6:03 PM [facility] Comment: NOTE: eGFR is not calculated for patients <18 years of age. This is an estimated GFR calculation using the new CKD EPI creatinine equation without race and so does not require a correction factor for race. This estimated GFR should not be used for calculating drug doses. 12/14/2024 1:43 PM SUBSTANCE ABUSE SERVICES DIRECTOR us Antonio Miner NP LABORATORY Final Result [facility] [address] [place] [address], [place] [phone] * (ABNORMAL) CBC W/DIFF AUTOMATED (12/14/2024 1:43 PM SUBSTANCE ABUSE SERVICES DIRECTOR) WBC 7.30 4.4 - 11.0 x10'3/uL 12/14/2024 5:37 PM [facility] RBC 4.41(L) 4.50 - 5.10 x10'6/uL 12/14/2024 5:37 PM [facility] HGB 13.3 12.3 - 15.3 G/DL 12/14/2024 5:37 PM [facility] HCT 38.7 35.9 - 44.6 % 12/14/2024 5:37 PM [facility] MCV 87.8 80.0 - 96.0 FL 12/14/2024 5:37 PM [facility] MCH 30.2 25.3 - 30.9 PG 12/14/2024 5:37 PM [facility] MCHC 34.4(H) 31.0 - 34.1 G/DL 12/14/2024 5:37 PM [facility] RDW 13.1 12.4 - 15.1 % 12/14/2024 5:37 PM [facility] PLT 276 151 - 353 x10'3/uL 12/14/2024 5:37 PM [facility] MPV 10.0 9.6 - 12.0 FL 12/14/2024 5:37 PM [facility] RBC MORPHOLOGY NORMAL 12/14/2024 5:37 PM [facility] PLT MORPH. NORMAL 12/14/2024 5:37 PM [facility] WBC MORPHOLOGY NORMAL 12/14/2024 5:37 PM [facility] LYMPHOCYTES % 27.7 15.8 - 45.0 % 12/14/2024 5:37 PM [facility] NEUTROPHILS % 60.7 42.1 - 71.9 % 12/14/2024 5:37 PM [facility] MONOCYTES % 9.2 5.7 - 12.5 % 12/14/2024 5:37 PM SUBSTANCE ABUSE SERVICES DIRECTOR [facility] EOSINOPHILS 1.8 0.0 - 5.6 % 12/14/2024 5:37 PM SUBSTANCE ABUSE SERVICES DIRECTOR [facility] BASOPHILS 0.5 0.0 - 1.3 % 12/14/2024 5:37 PM SUBSTANCE ABUSE SERVICES DIRECTOR [facility] ABS. NEUTROPHILS 4.43 1.40 - 6.00 x10'3/uL 12/14/2024 5:37 PM SUBSTANCE ABUSE SERVICES DIRECTOR [facility] IMMATURE GRANS % 0.1 0.0 - 0.5 % 12/14/2024 5:37 PM SUBSTANCE ABUSE SERVICES DIRECTOR [facility] ABS. LYMPHOCYTES 2.02 0.80 - 4.70 x10'3/uL 12/14/2024 5:37 PM SUBSTANCE ABUSE SERVICES DIRECTOR [facility] 12/14/2024 1:43 PM SUBSTANCE ABUSE SERVICES DIRECTOR Antonio Miner NP LABORATORY Final Result Performing Organization Address [facility]/ZIP Co de Phone Number [facility] [address] [place] [address], [place] [phone] * (ABNORMAL) MAGNESIUM (12/14/2024 1:43 PM SUBSTANCE ABUSE SERVICES DIRECTOR) [facility] MAGNESIUM 1.7(L) 1.8 - 2.4 MG/DL 12/14/2024 6:03 PM SUBSTANCE ABUSE SERVICES DIRECTOR [facility] 12/14/2024 1:43 PM SUBSTANCE ABUSE SERVICES DIRECTOR us Antonio Miner NP LABORATORY Final Result Performing Organization Address [facility]/ZIP Co de Phone Number [facility] [address] [place] [address], [place] [phone] * CHLAM/GC/TRICHOMONAS PROFILE (04/01/2021 7:30 AM CDT) [facility] CHLAMYDIA TRACHOMATIS RNA TMA Not Detected Not Detected 04/05/2021 8:48 AM CDT [facility] IONA VOSS N.GONORRHOEAE RNA TMA (QST) Not Detected Not Detected 04/05/2021 8:48 AM CDT [facility] IONA VOSS Comment: Methodology: Tile Setter Apprentice Mediated Amplification(TMA) to detect RNA. The analytical performance characteristics of this assay, when used to test [employer] specimens have been determined by [employer]. The modifications have not been cleared or approved by the FDA. This assay has been validated pursuant to the CLIA regulations and is used for clinical purposes. For additional information, please refer to https://[employer]/faq/BMX449 (This link is being provided for information/educational purposes only). TRICHOMONAS Not Detected Not Detected 04/05/2021 8:48 AM CDT [facility] IONA VOSS Comment: Methodology: Tile Setter Apprentice Mediated Amplification(TMA) The analytical performance characteristics of this assay have been determined by [employer], [place]. The modifications have not been cleared or approved by the FDA. This assay has been validated pursuant to the CLIA regulations and is used for clinical purposes. For additional information, please refer to http://[employer]/faq/ Trichomonastma (This link is being provided for information/educational purposes only). Test Performed by [facility], [employer] [place], [address] [place] [address] Donavan Prince M.D., Ph.D., Director of Laboratories , CLIA [id number] 04/01/2021 7:30 AM CDT Pili Angelo CNM MICROBIOLOGY - GENERAL ORDER SHRUTI Final Result [facility] [address] , [place] [phone] from Last 3 Months or Most Recently Relevant to Health Maintenance Insurance [employer] Care Teams Hand Paint Mixer Relationship Specialty [place] [address] [facility] [address] [place] [address] PCP - General Nurse Practitioner Family 03/10/22
--- OUTSIDE RECORDS SUMMARY | 2025-02-20 15:06 | XMS_ITS | Encounter Summary ---
Author Organization [facility] - [facility] Address [facility] [place] [address] Care Team Providers Care Insurance Licensing Supervisor Name Role Phone Madie Miner NP Primary Care Provider [phone] Encounter Details Date Type Department Care Team (Late st Contact Info) Description 05/27/2023 [employer] Message [facility] Medical [facility] - [facility] [address] [place], [place] [address] Zhongjia MRO, [facility] Provider Air Quality Message Social History [...] Assigned at Female 12/13/2024 9:13 AM SUPERVISOR TRAVEL INFORMATION CENTER Legal Sex Female 3:49 PM SUPERVISOR TRAVEL INFORMATION CENTER Gender Identity Not on file Sexual Orientation [...] documented as of this encounter Care Teams Insurance Licensing Supervisor Relationship Specialty [place] [address] [facility] [address] [place] [address] PCP - General Nurse Practitioner Family 03/10/22 documented as of this encounter
--- OUTSIDE RECORDS SUMMARY | 2025-02-20 15:06 | XMS_ITS | Encounter Summary ---
Author Organization [facility] Address [facility] [place] [address] Care Team Providers Care Glove Parts Inspector Name Role Phone Madie Miner NP Primary Care Provider Encounter Details Date Type Department Care Team (Late st Contact Info) Description 12/08/2022 MyChart Message Enc [facility] Medical Group Multispecialty Care - [facility] [address] [place] [address] Sindy Gustafson NP [address] [place], [place] [id number] Baby wipes Social History Tobacco Use Types Packs/Day Years Used Date Smoking Tobacco: Never Smokeless Tobacco: Never Alcohol Use Standard Drinks/Week Comments Not Currently 0 (1 standard drink = 0.6 oz pur e alcohol) socially PHQ-2 Answer Date Recorded Patient Health Questionnaire-2 Score 0 12/05/2022 Comments No Sex and Gender Information Value Date Recorded Sex Assigned at Female 12/13/2024 9:13 AM PARTS PROCESSOR Legal Sex Female 3:49 PM PARTS PROCESSOR Gender Identity Not on file Sexual Orientation Not on file COVID-19 Exposure Response Date Recorded In the last 10 days, have yo u been in contact with someone who was confirmed or suspected to have Coronavirus/COVID-19? Yes 12/05/2022 10:20 AM PARTS PROCESSOR documented as of this encounter Plan of [...] documented as of this encounter Care Teams Glove Parts Inspector Relationship Specialty [place] [id number] [address] PCP - General Nurse Practitioner Family 03/10/22 documented as of this encounter
--- OUTSIDE RECORDS SUMMARY | 2025-02-20 15:06 | XMS_ITS ---
Author Organization [facility] Address [address] [place] [address] Care Team Providers Care Recreation Program Specialist Name Role Phone Madie Padilla Primary Care Provider George Garcia Unavailable [phone] Allergies Allergen (clinical drug ingredient) Drug/Non Drug [...] FREESTYLE VIDHYA 3 SENSOR DEVICE *Reorder from [employer] for eRx and Interaction Alerts* 11/12/2023 Active [...] 12/06/2024 Encounters Encounter Location Date Provider Diagnosis [facility] [employer] [place] [address] [facility] [address] [place] [phone] 12/06/2024 George Dorsey Insomnia due to othe [...] Notes * CHRISSIEANKITAREECEDOB:[birth year] (24 yo F)Acc No.[id number]:12/06/2024 Patient: SHELLY GUTIERRESOE Provider: ANTHONY VOGEL :2000 A ge:24 Y S ex:Female Date:12/06/2024 Address:[address] [facility] Pcp:Madie Miner [facility] Subjective: * Chief Complaints: * F ollow [...] tool used for adult depression screening: [facility] P ast Psychiatric [...] es, D o you have Power of Cupola Patcher Helper for Health or Medical? Y es, D o you have a power of senior attorney for health? N o, D o you have power of senior attorney for Medical ? N o, I [...] DEVICE , Notes to Pharmacist: *[facility]Rx and Interaction Alerts*Levothyroxine Sodium 25 [...] DEVICE , Notes to Pharmacist: *Reorder from [employer] for eRx and Interaction Alerts*Taking Levothyroxine Sodium [...] d/o) * Billing Information: * Visit Code: 18551 OFFICE OUTPATIENT VISIT 25 MINUTES DETAILED HISTORY AND EXAM/MODERATE MEDICAL DECISION MAKING. * Procedure Codes: 14286 BEHAV ASSMT W/SCORE & DOCD/STAND INSTRUMENT. * ERWARE BUFFING MACHINE OPERATOR Sign off status: Completed true * Provider: ANTHONY VOGEL Date: 12/06/2024 Generated for Paul moore/Faxing/eTransmitting on: 0 02/20/2025 03:06 PM CDT History and Physical Notes * HPI [...] Screening Findings: P ositve Follow-Up for Depression: [facility] treatment assessment, Patient follow-up to return when [...] Interpretation of Total: (5 to 9) Mild Boundary-Suicide Severity Rating Scale Suicide Risk (CSRS-screener) in [...]
[2025-02-20 15:15] VITALS: BP 120/69; PULSE 80; RESP 20; TEMP 36.8; O2SAT 96
--- OUTSIDE RECORDS SUMMARY | 2025-02-20 16:34 | XMS_ITS | Encounter Summary ---
Author Organization [facility] - [facility] Address [facility] [place] [address] Care Team Providers Care C Software Engineer Name Role Phone Drew Padilla MD Primary Care Provider [phone] Madie Miner NP Primary Care Provider [phone] Encounter Details Date Type Department Care Team (Late st Contact Info) Description 03/04/2022 [employer] Message Enc [facility] Medical Group Family & Internal Medicine [address] [address] Drew Padilla MD [address] [place] [address] Question regarding XR CHEST PA+LAT Social History [...] Sex Assigned at Female 12/13/2024 9:13 AM HUMAN CAPITAL CONSULTANT Legal Sex Female 3:49 PM HUMAN CAPITAL CONSULTANT Gender Identity Not on file Sexual Orientation [...] Depression Total Score: 0 01/08/20 9:41 AM HUMAN CAPITAL CONSULTANT documented as of this encounter Care Teams C Software Engineer Relationship Specialty [place] [address] [place] [address] PCP - General FAMILY PRACTICE 05/07/21 03/09/22 [place] [address] [address] [facility] [place] [address] PCP - General Nurse Practitioner Family 03/10/22 documented as of this encounter
--- OUTSIDE RECORDS SUMMARY | 2025-02-20 16:34 | XMS_ITS | Clinical Summary ---
Author Organization [facility] Address [address] [place] [address] Care Team Providers Care Cafe Manager Name Role Phone Antonio Miner NP Primary Care Provider [phone] Allergies Active Allergy Reactions Criticality Noted Date [...] depressive disord er), recurrent severe, without psychosis ([facility]) 06/30/2022 Chest pain 06/27/2022 Asthma ([facility]) 06/25/2022 Intentional drug overdose, i nitial encounter ([facility]) 06/25/2022 PCOS (polycystic ovarian syndrome) 06/25/2022 Seizures ([facility]) 06/25/2022 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 05/02/2022 Morbid obesity with BMI of 40.0-44.9, adult 01/2022 Sciatica 04/29/2022 Borderline personality disorder ([facility] ) 04/17/2022 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 Left upper quadrant abdominal pain 06/17/2021 Overview (06/17/2021): Added automatically from request for surgery [id number] Nausea 06/17/2021 Overview (06/17/2021): Added automatically from request for surgery [id number] Blood in stool 06/17/2021 Overview (06/17/2021): Added automatically from request for surgery [id number] Anxiety 10/18/2019 MDD (major depressive disorder) 10/18/2019 Encounters Date Type Department Care Team Description 02/15/2025 Scan HEALTH INFO SRVCS Scanned, [facility] MRI (SCAN) 12/26/2024 Telephone [facility] Internal [address] [phone] Antonio Miner NP Lab Results 12/14/2024 5:12 PM ORAL THERAPIST - 12/14/2024 11:59 PM ORAL THERAPIST Hospital Encounter [facility] Laboratory [address] [place] [id number] Antonio Miner NP Discharge Disposition: Home or Self Care (Routine Discharge) 12/14/2024 2:00 PM ORAL THERAPIST - 12/14/2024 5:11 PM ORAL THERAPIST Hospital Encounter [facility] Cardiopulmonary Services [address] [place] [id number] Antonio Miner NP Discharge Disposition: Home or Self Care (Routine Discharge) 12/14/2024 1:40 PM ORAL THERAPIST Laboratory Only [address] [phone] Antonio Miner NP 12/14/2024 1:00 PM ORAL THERAPIST Office Visit [address] [phone] Antonio Miner, BRANDON Follow Up (Annual follow up) 12/14/2024 Travel 12/08/2024 Orders Only [address] [phone] Antonio Miner NP from Last 3 Months [...] Sex Assigned at Female 12/13/2024 9:13 AM ORAL THERAPIST Legal Sex Female 3:49 PM ORAL THERAPIST Gender Identity Not on file Sexual Orientation Not on file Last Filed Vital Signs Vital Sign Reading Time Taken Comments Blood Pressure 115/83 12/14/2024 1:08 PM ORAL THERAPIST Pulse 71 12/14/2024 1:08 PM ORAL THERAPIST Temperature 36.8 C (98.3 F) 12/14/2024 1:08 PM ORAL THERAPIST Respiratory Rate 20 12/14/2024 1:08 PM ORAL THERAPIST Oxygen Saturation 95% 12/14/2024 1:08 PM ORAL THERAPIST Inhaled Oxygen Concentration - - Weight 103.5 kg (228 lb 3.2 oz) 12/14/2024 1:08 PM ORAL THERAPIST Height 147.3 cm (4' 10 ) 12/14/2024 1:08 PM ORAL THERAPIST Body Mass Index 47.69 12/14/2024 1:08 PM ORAL THERAPIST Plan of Treatment Health Maintenance Due Date [...] 1007/2023, 09/22/2022, Additional history exists PHQ-2 (Physician [place]) Completed 12/14/2024 Meningococcal B Vaccine Aged Out [...] 02/15/2025 ECG 12-LEAD Routine 12/14/2024 2:08 PM ORAL THERAPIST History of prolonged Q-T interval on ECG COLLECTION VENOUS BLOOD VENIPUNCTURE Routine 12/14/2024 1:49 PM ORAL THERAPIST 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 Prediabetes Numbness and tingling of both upper extremities Hypomagnesemia Sensation of feeling cold COMPREHENSIVE METABOLIC PANEL Routine 12/14/2024 1:43 PM ORAL THERAPIST 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 TSH W/REFLEX Routine 12/14/2024 1:43 PM ORAL THERAPIST 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 HEMOGLOBIN, GLYCOSYLATED Routine 12/14/2024 1:43 PM ORAL THERAPIST Prediabetes CBC W/DIFF AUTOMATED Routine 12/14/2024 1:43 PM ORAL THERAPIST 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 VITAMIN B12 / FOLATE Routine 12/14/2024 1:43 PM ORAL THERAPIST Numbness and tingling of both upper extremities MAGNESIUM Routine 12/14/2024 1:43 PM ORAL THERAPIST Hypomagnesemia IRON SAT PANEL (IRON,IBC,%SAT) Routine 12/14/2024 1:43 PM ORAL THERAPIST Sensation of feeling cold CHLAM/GC/TRICHOMONAS PROFILE Routine 04/01/2021 7:30 AM CDT from Last 3 Months or Most Recently Relevant to Health Maintenance Results * MRI GENERIC (02/15/2025) Anatomical Region Laterality Modality Other 02/15/2025 us [facility] Scanned SCANNING Final Resu lt * ECG 12 lead (Hosp Performed) (12/14/2024 2:08 PM ORAL THERAPIST) 12/14/2024 2:08 PM ORAL THERAPIST Narrative 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2000 Requested By: ANTONIO MINER Order Number: [id number] Reading MD: Bong Mehta Measurements Intervals [place] Rate: 65 P: 21 ME: 187 QRS: 26 QRSD: 107 T: 16 QT: 428 QTc: 448 Interpretive Statements SINUS RHYTHM WITH SINUS ARRHYTHMIA INCOMPLETE RIGHT BUNDLE BRANCH BLOCK [90+ ms QRS DURATION, TERMINAL R IN V1/V2, 40+ ms S IN I/aVL/V4/V5/V6] Compared to ECG 06/12/2023 18:05:26 Incomplete right bundle-branch block now present Intraventricular conduction delay no longer present T-wave abnormality no longer present THERAPIST Procedure Note Bong Mehta MD - 12/15/2024 [facility] Test Date: 2024-12-14 Pat Name: [facility] Department: 85 Room: Gender: Female 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2000 Requested By: ANTONIO MINER Order Number: [id number] Reading MD: Bong Mehta Measurements Intervals [place] Rate: 65 P: 21 ME: 187 QRS: 26 QRSD: 107 T: 16 QT: 428 QTc: 448 Interpretive Statements SINUS RHYTHM WITH SINUS ARRHYTHMIA INCOMPLETE RIGHT BUNDLE BRANCH BLOCK [90+ ms QRS DURATION, TERMINAL RIN V1/V2, 40+ ms S IN I/aVL/V4/V5/V6] Compared to ECG 06/12/2023 18:05:26 Incomplete right bundle-branch block now present Intraventricular conduction delay no longer present T-wave abnormality no longer present THERAPIST us Antonio Miner FORCER MAKER ECG ORDERABLES Final Result Performing Organization Address [facility]/ZIP Co de Phone Number [facility]) RAD * VITAMIN B12 / FOLATE (12/14/2024 1:43 PM ORAL THERAPIST) VITAMIN B12 S/P/B 428 193 - 986 PG/ML 12/14/2024 6:38 PM ORAL THERAPIST [facility] FOLATE >20.0 8.6 - 58.9 NG/ML 12/14/2024 6:38 PM ORAL THERAPIST [facility] 12/14/2024 1:43 PM ORAL THERAPIST us Antonio Miner FORCER MAKER LABORATORY Final Result Performing Organization Address [facility]/ZIP Co de Phone Number [facility] [address] [place] [address], [place] [phone] * TSH W/REFLEX (12/14/2024 1:43 PM ORAL THERAPIST) TSH 1.235 0.358 - 3.74 uIU/ML 12/14/2024 6:03 PM ORAL THERAPIST [facility] Comment: HIGH DOSES OF BIOTIN MAY INTERFERE WITH THIS TEST RESULT. CORRELATION TO CLINICAL HISTORY AND PRESENTATION RECOMMENDED. FREE T4 NOT INDICATED 12/14/2024 1:43 PM ORAL THERAPIST us Antonio Miner NP LABORATORY Final Result Performing Organization Address [facility] Co de Phone Number [facility] [address] [place] [address], [place] [phone] * (ABNORMAL) HEMOGLOBIN, GLYCOSYLATED (12/14/2024 1:43 PM ORAL THERAPIST) HGB A1C 5.9(H) <5.7 % 12/14/2024 6:17 PM ORAL THERAPIST [facility] Comment: INCREASED RISK OF DIABETES <5.7% NON-DIABETES 5.7-6.4% INCREASED RISK FOR FUTURE DIABETES > OR = 6.5 CONSISTENT WITH DIABETES STANDARDS OF MEDICAL CARE IN DIABETES-2010 DIABETES CARE, 33(SUPP 1): S1-S61,2010 ESTIMATED AVG GLUCOSE 123 mg/dL 12/14/2024 6:17 PM ORAL THERAPIST [facility] 12/14/2024 1:43 PM ORAL THERAPIST Antonio Miner NP LABORATORY Final Result Performing Organization Address [facility] de Phone Number [facility] [address] [place] [address], [place] [phone] * IRON SAT PANEL (IRON,IBC,%SAT) (12/14/2024 1:43 PM ORAL THERAPIST) IRON 95 50 - 170 MCG/DL 12/14/2024 6:39 PM ORAL THERAPIST [facility] IRON BINDING CAPACITY 311 250 - 450 MCG/DL 12/14/2024 6:39 PM ORAL THERAPIST [facility] IRON SATURATION 31 20 - 55 % 6:39 PM ORAL THERAPIST [facility] 12/14/2024 1:43 PM ORAL THERAPIST us Antonio Miner NP LABORATORY Final Result [facility] [address] [place] [address], [place] [phone] * (ABNORMAL) COMPREHENSIVE METABOLIC PANEL (12/14/2024 1:43 PM ORAL THERAPIST) GLUCOSE 94 70 - 99 MG/DL 12/14/2024 6:03 PM [facility] BUN 9 7 - 18 MG/DL 12/14/2024 6:03 PM [facility] CREATININE S/P/B 0.76 0.55 - 1.02 MG/DL 12/14/2024 6:03 PM [facility] SODIUM S/P/B 143 136 - 145 MMOL/L 12/14/2024 6:03 PM [facility] POTASSIUM S/P/B 4.0 3.5 - 5.1 MMOL/L 12/14/2024 6:03 PM [facility] CHLORIDE S/P/B 104 100 - 108 MMOL/L 12/14/2024 6:03 PM [facility] CO2 31.0 21 - 32 MMOL/L 12/14/2024 6:03 PM [facility] CALCIUM S/P/B 9.2 8.5 - 10.1 MG/DL 12/14/2024 6:03 PM [facility] BILIRUBIN TOTAL S/P/B 0.5 0.2 - 1.2 MG/DL 12/14/2024 6:03 PM [facility] TOTAL PROTEIN S/P/B 6.7 6.4 - 8.2 G/DL 12/14/2024 6:03 PM [facility] ALBUMIN S/P/B 3.7 3.4 - 5.0 G/DL 12/14/2024 6:03 PM [facility] AST 18 15 - 37 U/L 12/14/2024 6:03 PM [facility] ALT 30 14 - 55 U/L 12/14/2024 6:03 PM [facility] ALKALINE PHOSPHATASE S/P/B 32(L) 50 - 136 U/L 12/14/2024 6:03 PM [facility] ANION GAP 8.0 5 - 15 MMOL/L 12/14/2024 6:03 PM [facility] BUN CREATININE RATIO 11.8 6 - 26 12/14/2024 6:03 PM [facility] A/G RATIO 1.2 1.0 - 2.0 RATIO 12/14/2024 6:03 PM [facility] GFR ESTIMATE >90 >90 ML/MIN/1.7 3 M2 12/14/2024 6:03 PM [facility] Comment: NOTE: eGFR is not calculated for patients <18 years of age. This is an estimated GFR calculation using the new CKD EPI creatinine equation without race and so does not require a correction factor for race. This estimated GFR should not be used for calculating drug doses. 12/14/2024 1:43 PM ORAL THERAPIST us Antonio Miner NP LABORATORY Final Result [facility] [address] [place] [address], [place] [phone] * (ABNORMAL) CBC W/DIFF AUTOMATED (12/14/2024 1:43 PM ORAL THERAPIST) WBC 7.30 4.4 - 11.0 x10'3/uL 12/14/2024 5:37 PM [facility] RBC 4.41(L) 4.50 - 5.10 x10'6/uL 12/14/2024 5:37 PM [facility] HGB 13.3 12.3 - 15.3 G/DL 12/14/2024 5:37 PM [facility] HCT 38.7 35.9 - 44.6 % 12/14/2024 5:37 PM [facility] MCV 87.8 80.0 - 96.0 FL 12/14/2024 5:37 PM [facility] MCH 30.2 25.3 - 30.9 PG 12/14/2024 5:37 PM [facility] MCHC 34.4(H) 31.0 - 34.1 G/DL 12/14/2024 5:37 PM [facility] RDW 13.1 12.4 - 15.1 % 12/14/2024 5:37 PM [facility] PLT 276 151 - 353 x10'3/uL 12/14/2024 5:37 PM [facility] MPV 10.0 9.6 - 12.0 FL 12/14/2024 5:37 PM [facility] RBC MORPHOLOGY NORMAL 12/14/2024 5:37 PM [facility] PLT MORPH. NORMAL 12/14/2024 5:37 PM [facility] WBC MORPHOLOGY NORMAL 12/14/2024 5:37 PM [facility] LYMPHOCYTES % 27.7 15.8 - 45.0 % 12/14/2024 5:37 PM [facility] NEUTROPHILS % 60.7 42.1 - 71.9 % 12/14/2024 5:37 PM [facility] MONOCYTES % 9.2 5.7 - 12.5 % 12/14/2024 5:37 PM ORAL THERAPIST [facility] EOSINOPHILS 1.8 0.0 - 5.6 % 12/14/2024 5:37 PM ORAL THERAPIST [facility] BASOPHILS 0.5 0.0 - 1.3 % 12/14/2024 5:37 PM ORAL THERAPIST [facility] ABS. NEUTROPHILS 4.43 1.40 - 6.00 x10'3/uL 12/14/2024 5:37 PM ORAL THERAPIST [facility] IMMATURE GRANS % 0.1 0.0 - 0.5 % 12/14/2024 5:37 PM ORAL THERAPIST [facility] ABS. LYMPHOCYTES 2.02 0.80 - 4.70 x10'3/uL 12/14/2024 5:37 PM ORAL THERAPIST [facility] 12/14/2024 1:43 PM ORAL THERAPIST Antonio Miner NP LABORATORY Final Result Performing Organization Address [facility]/ZIP Co de Phone Number [facility] [address] [place] [address], [place] [phone] * (ABNORMAL) MAGNESIUM (12/14/2024 1:43 PM ORAL THERAPIST) [facility] MAGNESIUM 1.7(L) 1.8 - 2.4 MG/DL 12/14/2024 6:03 PM ORAL THERAPIST [facility] 12/14/2024 1:43 PM ORAL THERAPIST us Antonio Miner NP LABORATORY Final Result Performing Organization Address [facility]/ZIP Co de Phone Number [facility] [address] [place] [address], [place] [phone] * CHLAM/GC/TRICHOMONAS PROFILE (04/01/2021 7:30 AM CDT) [facility] CHLAMYDIA TRACHOMATIS RNA TMA Not Detected Not Detected 04/05/2021 8:48 AM CDT [facility] IONA [facility]OSS N.GONORRHOEAE RNA TMA (QST) Not Detected Not Detected 04/05/2021 8:48 AM CDT [facility] Comment: Methodology: Locomotive Supervisor Mediated Amplification(TMA) to detect RNA. The analytical performance characteristics of this assay, when used to test [employer] specimens have been determined by [employer]. The modifications have not been cleared or approved by the FDA. This assay has been validated pursuant to the CLIA regulations and is used for clinical purposes. For additional information, please refer to https://[employer])/faq/IZR463 (This link is being provided for information/educational purposes only). TRICHOMONAS Not Detected Not Detected 04/05/2021 8:48 AM CDT [facility] IONA VOSS Comment: Methodology: Locomotive Supervisor Mediated Amplification(TMA) The analytical performance characteristics of this assay have been determined by [employer], [place]. The modifications have not been cleared or approved by the FDA. This assay has been validated pursuant to the CLIA regulations and is used for clinical purposes. For additional information, please refer to http://[employer])/faq/ Trichomonastma (This link is being provided for information/educational purposes only). Test Performed by [facility], [employer] [place], [address] [place] [address] Donavan Prince M.D., Ph.D., Director of Laboratories , CLIA [id number] 04/01/2021 7:30 AM CDT Pili Angelo CNM MICROBIOLOGY - GENERAL ORDER SHRUTI Final Result [facility] [address] , [place] [phone] from Last 3 Months or Most Recently Relevant to Health Maintenance Insurance [employer] Care Teams Cafe Manager Relationship Specialty [place] [id number] [facility] [address] [place] [phone] PCP - General Nurse Practitioner Family 03/10/22
--- OUTSIDE RECORDS SUMMARY | 2025-02-20 16:34 | XMS_ITS | Encounter Summary ---
Author Organization [facility] Address [facility] [place] [address] Care Team Providers Care Metaphysicist Name Role Phone Madie Miner NP Primary Care Provider Encounter Details Date Type Department Care Team (Late st Contact Info) Description 05/14/2022 [employer]let Message Enc [facility] Family & Internal Medicine [facility] [id number] [place] [phone] [place] [id number] [facility] [address] 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
--- OUTSIDE RECORDS SUMMARY | 2025-02-20 16:34 | XMS_ITS | Patient Health Record ---
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 Name Role Phone Madie Padilla Primary Care Provider Bridgett George Luque Unavailable [phone] Migration, Provider Unavailable Unavailable Allergies Allergen (clinical drug ingredient) Drug/Non Drug Allergy documented on EMR Reaction Allergy Type Onset Date Status Orapred Unknown Drug Allergy 05/28/2023 Active predniSONE Unknown Drug Allergy 05/28/2023 Activ e bupropion Bupropion Unknown Drug Allergy 05/28/2023 Active codeine Codeine Unknown Drug Allergy 05/28/2023 Active etomidate Etomidate Unknown Drug Allergy Active Results Component Value Reference Range Notes UDT Reviewed date:09/14/2024 10:56:03 AM Interpretation: Performing Lab: Notes/Report: THC N 0 - 50 ng/ml Cocaine N 0 - 300 ng/ml Amphetamine N 0 - 1000 ng/ml Buprenorphine (BUP) N 0 - 10 ng/ml Secobarbital (Bar) N 0 - 300 ng/ml Oxazepam (BZO) POS 0 - 300 ng/ml 0-dbdyaxtjcd-5,9-yirzsivt-7,3-diphenylpyrrolidine (NESHA P) N 0 - 300 ng/ml Methamphetamine (MET) N 0 - 1000 ng/ml Methylenedioxymethamphetamine (MDMA) N 0 - 500 ng/ml Morphine (MOP 300/[id number]) N 0 - 300 ng/ml Methadone (MTD) N 0 - 300 ng/ml Phencyclidine (PCP) N 0 - 25 ng/ml Nortriptyline (TCA) N 0 - 1000 ng/ml Oxycodone N 0 - 300 ng/ml x N 0 - 300 ng/ml Reason For Referral No Information Medications Medication SIG (Take, Route, Frequency, Duration) Notes Start Date End Date Status QUEtiapine Fumarate 25 MG TAKE 1 TABLET BY MOUTH DAILY AT BEDTIME for 30 Active Estarylla 0.25-35 MG-MCG Oral 11/12/2023 Active QUEtiapine Fumarate ER 50 MG 1 tablet in the evening Oral Once a day for 30 days 09/14/2024 Not-Taking Tuberculin Syringe 1 mL 27 x 1/2 MISCELLANEOUS 11/12/2023 Active Lurasidone HCl 60 MG 1 tablet in the evening with food Orally Once a day for 30 days 11/04/2024 Active FLUoxetine HCl 40 MG 1 capsule Oral Once a day for 30 days Active hydrOXYzine HCl 10 MG 1 tablet Oral Once a day for 30 days As needed Active FREESTYLE VIDHYA 3 SENSOR DEVICE *Reorder from [facility] for eRx and Interaction Alerts* 11/12/2023 Active Multivitamin Adults Oral 11/12/2023 Active Levothyroxine Sodium 25 MCG Oral 11/12/2023 Active Lurasidone HCl 60 MG 0.5 tablet with food Orally Once a day for 30 days Active acetaZOLAMIDE ER 500 MG TAKE 1 CAPSULE BY MOUTH TWICE DAILY Oral for 15 Days Active Immunizations Vaccine Route Administration Date Status Comme nts Pfizer Biontech Covid-19 Vac cine 2nd dose Unknown 01/03/2021 Administered Pfizer Biontech Covid-19 Vac cine 2nd dose Unknown 01/24/2021 Administered Pfizer Biontech Covid-19 Vac cine 2nd dose Unknown 11/15/2021 Administered Novel [id number], preservative free Unknown 10/10/2016 Administered Novel [id number], preservative free Unknown 08/13/2020 Administered Influenza virus vaccine, quadrivalent (IIV4), split virus, 0.25 mL dosage Unknown 08/13/2020 Administered Social History Tobacco Use: Social History Observation [...] year? Yes How often did you have a dri nk containing alcohol in the past year? Monthly or less (1 point) How many drinks did you have on a typical day when you were drinking in the past year? 3 or 4 drinks (1 point) How often did you have six o r more drinks on one occasion in the past year? 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 disorder (86423136) Insomnia due to other mental disorder (F51.05) 3 Active confirmed Problem [id number] Borderline personality disorder (F60.3) Active confirmed Problem [id number] Bipolar depression (F31.9) Active confirmed Vital Signs Heart Rate 64 /min 12/06/2024 Height-cm 177.80 cm 12/06/2024 Blood pressure diastolic 73 mm Hg 12/06/2024 Weight-kg 103.6 kg 12/06/2024 Height 70.00 in 12/06/2024 Blood pressure systolic 108 mm Hg 12/06/2024 Weight 228.4 lbs 12/06/2024 BMI 32.77 kg/m2 12/06/2024 Encounters Encounter Location Date Provider Diagnosis [facility] [place] [address] [address] [facility] [address] [address] 04/26/2024 George Jeffriesa [facility] [address] [address] 09/14/2024 George Dorsey Insomnia due to other mental disorder F51.05 ; Post-traumatic stress disorder, chronic F43.12 ; Generalized anxiety disorder F41.1 ; Bipolar II disorder F31.81 and Borderline personality disorder F60.3 [facility] [address] [facility] [address] [address] 11/04/2024 George Dorsey Insomnia due to other mental disorder F51.05 ; Post-traumatic stress disorder, chronic F43.12 ; Generalized anxiety disorder F41.1 ; Borderline personality disorder F60.3 and Bipolar depression F31.9 [facility] [address] [place] [address] 12/06/2024 George Dorsey Insomnia due to other mental disorder F51.05 ; Post-traumatic stress disorder, chronic F43.12 ; Generalized anxiety disorder F41.1 ; Borderline personality disorder F60.3 ; Bipolar depression F31.9 and Marijuana use F12.90 [facility] [address] [place] [address] 03/02/2024 Provider Migration [facility], [facility] [address] [place] [address] 03/09/2024 Provider Migration [facility], [facility] [address] [place] [address] 04/16/2024 Provider Migration [facility], [facility] [address] [place] [address] 04/17/2024 Provider [facility], [facility] [address] [place] [address] 08/02/2024 George Dorsey Major depressive disorder, recurrent, mild F33.0 [facility] [address] [place] [address] 11/02/2024 George Dorsey [facility], [facility] [address] [place] [address] 11/03/2024 George Dorsey [facility], [facility] [address] [place] [address] 11/14/2024 George Dorsey [facility], [facility] [address] [place] [address] 11/15/2024 George Dorsey [facility], [facility] [address] [place] [address] 12/01/2024 George Dorsey Assessments Encounter Date Diagnosis (ICD Code) Assessment Notes Treatment Notes Treatment Clinical Notes Section Notes 08/02/2024 Major depressive disorder, recurrent, mild (ICD-10 - F33.0) 09/14/2024 Insomnia due to other mental disorder (ICD-10 - F51.05) cont quetiapine 50mg hs 1. Major Depressive Disorder: - Patient reports having good and bad days, with recent episodes of suicidal thoughts but no plans or attempts. - Currently taking fluoxetine 40 mg daily and quetiapine 50 mg at bedtime. Plan: - Continue fluoxetine 40 mg daily. - Increase quetiapine by adding extended-release quetiapine 50 mg to be taken in the evening around 4 or 5 p.m. for mood stabilization. - Monitor for any side effects and effectiveness of the new regimen. - Encourage patient to continue attending therapy sessions. 2. Anxiety: - Patient reports anxiety and stress related to job loss and living situation. - Previously used Klonopin pills obtained from a classmate, but no longer using them. Plan: - Encourage patient to continue attending therapy sessions to address anxiety. - Monitor patient's anxiety levels and consider medication adjustments if necessary. 3. Insomnia: - Patient is currently taking quetiapine 50 mg at bedtime and hydroxyzine as needed. Plan: - Continue quetiapine 50 mg at bedtime and hydroxyzine as needed for sleep. - Monitor sleep quality and adjust medications if needed. 4. Irritability and Anger: - Patient reports irritability and anger, which has improved since living with her boyfriend. Plan: - Encourage patient to continue attending therapy sessions to address irritability and anger. - Monitor patient's emotional responses and consider medication adjustments if necessary. 5. Follow-up: - Schedule a follow-up appointment in one month to assess the effectiveness of the medication adjustments and overall mental health status. 11/04/2024 Insomnia due to other mental disorder (ICD-10 - F51.05) cont quetiapine 25mg hs 1. Major Depressive Disorder: - Patient reports intense sadness, crying for several days, avoiding social interaction, and feeling like a burden to her family. - Currently on sertraline 25 mg (reduced by mother from prescribed 50 mg) and fluoxetine 40 mg daily. Plan: - Continue fluoxetine 40 mg daily. - Educate patient on the importance of taking the prescribed dose of sertraline and encourage her to pickle cutter her own medication. - Monitor for improvement in depressive symptoms. 2. Suicidal ideation: - Patient reports feeling backed into a corner and having thoughts of suicide but is unable to act on them due to family concerns. Plan: - Encourage patient to continue seeing her counselor and discuss coping strategies. - Assess for any increase in suicidal ideation during follow-up visits. 3. Insomnia: - Patient reports difficulty sleeping, waking up at 2 AM, and sometimes doubling the dose of hydroxyzine and quetiapine to sleep. Plan: - Address underlying depression and anxiety, which may contribute to insomnia. - Monitor sleep patterns during follow-up visits. 4. Anxiety: - Patient is taking hydroxyzine as needed for anxiety but has to ask her mother for it, who often talks her out of taking it. Plan: - Educate patient on the importance of taking medication as prescribed and encourage her to pickle cutter her own medication. - Monitor for improvement in anxiety symptoms. 5. Bipolar depression (suspected): - Patient reports not having full debby but staying up late sometimes. Plan: - Initiate Latuda for bipolar depression. Start with 20 mg once a day for a week with food, then 40 mg once a day for a week with food, and then 60 mg once a day in the evening with food. - Monitor for improvement in mood symptoms and any signs of debby during follow-up visits. 6. Substance use: - Patient reports using marijuana and nicotine. Plan: - Encourage patient to discuss substance use with her counselor and explore healthier coping mechanisms. - Assess for any changes in substance use during follow-up visits. 7. Family dynamics: - Patient reports feeling manipulated and controlled by her mother, who interferes with her medication management. Plan: - Encourage patient to continue seeing her counselor to address family dynamics and develop strategies for managing her relationship with her mother. - Monitor for any changes in family dynamics during follow-up visits. 12/06/2024 Insomnia due to other mental disorder [...] Latuda dose and overall mental health status. 11/04/2024 Post-traumatic stress disorder, chronic (ICD-10 - F43.12) cont counseling 1. Major Depressive Disorder: - Patient reports intense sadness, crying for several days, avoiding social interaction, and feeling like a burden to her family. - Currently on sertraline 25 mg (reduced by mother from prescribed 50 mg) and fluoxetine 40 mg daily. Plan: - Continue fluoxetine 40 mg daily. - Educate patient on the importance of taking the prescribed dose of sertraline and encourage her to pickle cutter her own medication. - Monitor for improvement in depressive symptoms. 2. Suicidal ideation: - Patient reports feeling backed into a corner and having thoughts of suicide but is unable to act on them due to family concerns. Plan: - Encourage patient to continue seeing her counselor and discuss coping strategies. - Assess for any increase in suicidal ideation during follow-up visits. 3. Insomnia: - Patient reports difficulty sleeping, waking up at 2 AM, and sometimes doubling the dose of hydroxyzine and quetiapine to sleep. Plan: - Address underlying depression and anxiety, which may contribute to insomnia. - Monitor sleep patterns during follow-up visits. 4. Anxiety: - Patient is taking hydroxyzine as needed for anxiety but has to ask her mother for it, who often talks her out of taking it. Plan: - Educate patient on the importance of taking medication as prescribed and encourage her to pickle cutter her own medication. - Monitor for improvement in anxiety symptoms. 5. Bipolar depression (suspected): - Patient reports not having full debby but staying up late sometimes. Plan: - Initiate Latuda for bipolar depression. Start with 20 mg once a day for a week with food, then 40 mg once a day for a week with food, and then 60 mg once a day in the evening with food. - Monitor for improvement in mood symptoms and any signs of debby during follow-up visits. 6. Substance use: - Patient reports using marijuana and nicotine. Plan: - Encourage patient to discuss substance use with her counselor and explore healthier coping mechanisms. - Assess for any changes in substance use during follow-up visits. 7. Family dynamics: - Patient reports feeling manipulated and controlled by her mother, who interferes with her medication management. Plan: - Encourage patient to continue seeing her counselor to address family dynamics and develop strategies for managing her relationship with her mother. - Monitor for any changes in family dynamics during follow-up visits. 09/14/2024 Post-traumatic stress disorder, chronic (ICD-10 - F43.12) cont counseling 1. Major Depressive Disorder: - Patient reports having good and bad days, with recent episodes of suicidal thoughts but no plans or attempts. - Currently taking fluoxetine 40 mg daily and quetiapine 50 mg at bedtime. Plan: - Continue fluoxetine 40 mg daily. - Increase quetiapine by adding extended-release quetiapine 50 mg to be taken in the evening around 4 or 5 p.m. for mood stabilization. - Monitor for any side effects and effectiveness of the new regimen. - Encourage patient to continue attending therapy sessions. 2. Anxiety: - Patient reports anxiety and stress related to job loss and living situation. - Previously used Klonopin pills obtained from a classmate, but no longer using them. Plan: - Encourage patient to continue attending therapy sessions to address anxiety. - Monitor patient's anxiety levels and consider medication adjustments if necessary. 3. Insomnia: - Patient is currently taking quetiapine 50 mg at bedtime and hydroxyzine as needed. Plan: - Continue quetiapine 50 mg at bedtime and hydroxyzine as needed for sleep. - Monitor sleep quality and adjust medications if needed. 4. Irritability and Anger: - Patient reports irritability and anger, which has improved since living with her boyfriend. Plan: - Encourage patient to continue attending therapy sessions to address irritability and anger. - Monitor patient's emotional responses and consider medication adjustments if necessary. 5. Follow-up: - Schedule a follow-up appointment in one month to assess the effectiveness of the medication adjustments and overall mental health status. 09/14/2024 Generalized anxiety disorder (ICD-10 - F41.1) 1. Major Depressive Disorder: - Patient reports having good and bad days, with recent episodes of suicidal thoughts but no plans or attempts. - Currently taking fluoxetine 40 mg daily and quetiapine 50 mg at bedtime. Plan: - Continue fluoxetine 40 mg daily. - Increase quetiapine by adding extended-release quetiapine 50 mg to be taken in the evening around 4 or 5 p.m. for mood stabilization. - Monitor for any side effects and effectiveness of the new regimen. - Encourage patient to continue attending therapy sessions. 2. Anxiety: - Patient reports anxiety and stress related to job loss and living situation. - Previously used Klonopin pills obtained from a classmate, but no longer using them. Plan: - Encourage patient to continue attending therapy sessions to address anxiety. - Monitor patient's anxiety levels and consider medication adjustments if necessary. 3. Insomnia: - Patient is currently taking quetiapine 50 mg at bedtime and hydroxyzine as needed. Plan: - Continue quetiapine 50 mg at bedtime and hydroxyzine as needed for sleep. - Monitor sleep quality and adjust medications if needed. 4. Irritability and Anger: - Patient reports irritability and anger, which has improved since living with her boyfriend. Plan: - Encourage patient to continue attending therapy sessions to address irritability and anger. - Monitor patient's emotional responses and consider medication adjustments if necessary. 5. Follow-up: - Schedule a follow-up appointment in one month to assess the effectiveness of the medication adjustments and overall mental health status. 11/04/2024 Generalized anxiety disorder (ICD-10 - F41.1) 1. Major Depressive Disorder: - Patient reports intense sadness, crying for several days, avoiding social interaction, and feeling like a burden to her family. - Currently on sertraline 25 mg (reduced by mother from prescribed 50 mg) and fluoxetine 40 mg daily. Plan: - Continue fluoxetine 40 mg daily. - Educate patient on the importance of taking the prescribed dose of sertraline and encourage her to pickle cutter her own medication. - Monitor for improvement in depressive symptoms. 2. Suicidal ideation: - Patient reports feeling backed into a corner and having thoughts of suicide but is unable to act on them due to family concerns. Plan: - Encourage patient to continue seeing her counselor and discuss coping strategies. - Assess for any increase in suicidal ideation during follow-up visits. 3. Insomnia: - Patient reports difficulty sleeping, waking up at 2 AM, and sometimes doubling the dose of hydroxyzine and quetiapine to sleep. Plan: - Address underlying depression and anxiety, which may contribute to insomnia. - Monitor sleep patterns during follow-up visits. 4. Anxiety: - Patient is taking hydroxyzine as needed for anxiety but has to ask her mother for it, who often talks her out of taking it. Plan: - Educate patient on the importance of taking medication as prescribed and encourage her to pickle cutter her own medication. - Monitor for improvement in anxiety symptoms. 5. Bipolar depression (suspected): - Patient reports not having full debby but staying up late sometimes. Plan: - Initiate Latuda for bipolar depression. Start with 20 mg once a day for a week with food, then 40 mg once a day for a week with food, and then 60 mg once a day in the evening with food. - Monitor for improvement in mood symptoms and any signs of debby during follow-up visits. 6. Substance use: - Patient reports using marijuana and nicotine. Plan: - Encourage patient to discuss substance use with her counselor and explore healthier coping mechanisms. - Assess for any changes in substance use during follow-up visits. 7. Family dynamics: - Patient reports feeling manipulated and controlled by her mother, who interferes with her medication management. Plan: - Encourage patient to continue seeing her counselor to address family dynamics and develop strategies for managing her relationship with her mother. - Monitor for any changes in family dynamics during follow-up visits. 12/06/2024 Generalized anxiety disorder (ICD-10 - F41.1) [...] Latuda dose and overall mental health status. 11/04/2024 Borderline personality disorder (ICD-10 - F60.3) cont counseling 1. Major Depressive Disorder: - Patient reports intense sadness, crying for several days, avoiding social interaction, and feeling like a burden to her family. - Currently on sertraline 25 mg (reduced by mother from prescribed 50 mg) and fluoxetine 40 mg daily. Plan: - Continue fluoxetine 40 mg daily. - Educate patient on the importance of taking the prescribed dose of sertraline and encourage her to pickle cutter her own medication. - Monitor for improvement in depressive symptoms. 2. Suicidal ideation: - Patient reports feeling backed into a corner and having thoughts of suicide but is unable to act on them due to family concerns. Plan: - Encourage patient to continue seeing her counselor and discuss coping strategies. - Assess for any increase in suicidal ideation during follow-up visits. 3. Insomnia: - Patient reports difficulty sleeping, waking up at 2 AM, and sometimes doubling the dose of hydroxyzine and quetiapine to sleep. Plan: - Address underlying depression and anxiety, which may contribute to insomnia. - Monitor sleep patterns during follow-up visits. 4. Anxiety: - Patient is taking hydroxyzine as needed for anxiety but has to ask her mother for it, who often talks her out of taking it. Plan: - Educate patient on the importance of taking medication as prescribed and encourage her to pickle cutter her own medication. - Monitor for improvement in anxiety symptoms. 5. Bipolar depression (suspected): - Patient reports not having full debby but staying up late sometimes. Plan: - Initiate Latuda for bipolar depression. Start with 20 mg once a day for a week with food, then 40 mg once a day for a week with food, and then 60 mg once a day in the evening with food. - Monitor for improvement in mood symptoms and any signs of debby during follow-up visits. 6. Substance use: - Patient reports using marijuana and nicotine. Plan: - Encourage patient to discuss substance use with her counselor and explore healthier coping mechanisms. - Assess for any changes in substance use during follow-up visits. 7. Family dynamics: - Patient reports feeling manipulated and controlled by her mother, who interferes with her medication management. Plan: - Encourage patient to continue seeing her counselor to address family dynamics and develop strategies for managing her relationship with her mother. - Monitor for any changes in family dynamics during follow-up visits. 09/14/2024 Bipolar II disorder (ICD-10 - F31.81) 1. Major Depressive Disorder: - Patient reports having good and bad days, with recent episodes of suicidal thoughts but no plans or attempts. - Currently taking fluoxetine 40 mg daily and quetiapine 50 mg at bedtime. Plan: - Continue fluoxetine 40 mg daily. - Increase quetiapine by adding extended-release quetiapine 50 mg to be taken in the evening around 4 or 5 p.m. for mood stabilization. - Monitor for any side effects and effectiveness of the new regimen. - Encourage patient to continue attending therapy sessions. 2. Anxiety: - Patient reports anxiety and stress related to job loss and living situation. - Previously used Klonopin pills obtained from a classmate, but no longer using them. Plan: - Encourage patient to continue attending therapy sessions to address anxiety. - Monitor patient's anxiety levels and consider medication adjustments if necessary. 3. Insomnia: - Patient is currently taking quetiapine 50 mg at bedtime and hydroxyzine as needed. Plan: - Continue quetiapine 50 mg at bedtime and hydroxyzine as needed for sleep. - Monitor sleep quality and adjust medications if needed. 4. Irritability and Anger: - Patient reports irritability and anger, which has improved since living with her boyfriend. Plan: - Encourage patient to continue attending therapy sessions to address irritability and anger. - Monitor patient's emotional responses and consider medication adjustments if necessary. 5. Follow-up: - Schedule a follow-up appointment in one month to assess the effectiveness of the medication adjustments and overall mental health status. 11/04/2024 Bipolar depression (ICD-10 - F31.9) 1. Major Depressive Disorder: - Patient reports intense sadness, crying for several days, avoiding social interaction, and feeling like a burden to her family. - Currently on sertraline 25 mg (reduced by mother from prescribed 50 mg) and fluoxetine 40 mg daily. Plan: - Continue fluoxetine 40 mg daily. - Educate patient on the importance of taking the prescribed dose of sertraline and encourage her to pickle cutter her own medication. - Monitor for improvement in depressive symptoms. 2. Suicidal ideation: - Patient reports feeling backed into a corner and having thoughts of suicide but is unable to act on them due to family concerns. Plan: - Encourage patient to continue seeing her counselor and discuss coping strategies. - Assess for any increase in suicidal ideation during follow-up visits. 3. Insomnia: - Patient reports difficulty sleeping, waking up at 2 AM, and sometimes doubling the dose of hydroxyzine and quetiapine to sleep. Plan: - Address underlying depression and anxiety, which may contribute to insomnia. - Monitor sleep patterns during follow-up visits. 4. Anxiety: - Patient is taking hydroxyzine as needed for anxiety but has to ask her mother for it, who often talks her out of taking it. Plan: - Educate patient on the importance of taking medication as prescribed and encourage her to pickle cutter her own medication. - Monitor for improvement in anxiety symptoms. 5. Bipolar depression (suspected): - Patient reports not having full debby but staying up late sometimes. Plan: - Initiate Latuda for bipolar depression. Start with 20 mg once a day for a week with food, then 40 mg once a day for a week with food, and then 60 mg once a day in the evening with food. - Monitor for improvement in mood symptoms and any signs of debby during follow-up visits. 6. Substance use: - Patient reports using marijuana and nicotine. Plan: - Encourage patient to discuss substance use with her counselor and explore healthier coping mechanisms. - Assess for any changes in substance use during follow-up visits. 7. Family dynamics: - Patient reports feeling manipulated and controlled by her mother, who interferes with her medication management. Plan: - Encourage patient to continue seeing her counselor to address family dynamics and develop strategies for managing her relationship with her mother. - Monitor for any changes in family dynamics during follow-up visits. 09/14/2024 Borderline personality disorder (ICD-10 - F60.3) cont counseling 1. Major Depressive Disorder: - Patient reports having good and bad days, with recent episodes of suicidal thoughts but no plans or attempts. - Currently taking fluoxetine 40 mg daily and quetiapine 50 mg at bedtime. Plan: - Continue fluoxetine 40 mg daily. - Increase quetiapine by adding extended-release quetiapine 50 mg to be taken in the evening around 4 or 5 p.m. for mood stabilization. - Monitor for any side effects and effectiveness of the new regimen. - Encourage patient to continue attending therapy sessions. 2. Anxiety: - Patient reports anxiety and stress related to job loss and living situation. - Previously used Klonopin pills obtained from a classmate, but no longer using them. Plan: - Encourage patient to continue attending therapy sessions to address anxiety. - Monitor patient's anxiety levels and consider medication adjustments if necessary. 3. Insomnia: - Patient is currently taking quetiapine 50 mg at bedtime and hydroxyzine as needed. Plan: - Continue quetiapine 50 mg at bedtime and hydroxyzine as needed for sleep. - Monitor sleep quality and adjust medications if needed. 4. Irritability and Anger: - Patient reports irritability and anger, which has improved since living with her boyfriend. Plan: - Encourage patient to continue attending therapy sessions to address irritability and anger. - Monitor patient's emotional responses and consider medication adjustments if necessary. 5. Follow-up: - Schedule a follow-up appointment in one month to assess the effectiveness of the medication adjustments and overall mental health status. 12/06/2024 Bipolar [...] Latuda dose and overall mental health status. 09/14/2024 Other Learning About Depression Screening material was printed 1. Major Depressive Disorder: - Patient reports having good and bad days, with recent episodes of suicidal thoughts but no plans or attempts. - Currently taking fluoxetine 40 mg daily and quetiapine 50 mg at bedtime. Plan: - Continue fluoxetine 40 mg daily. - Increase quetiapine by adding extended-release quetiapine 50 mg to be taken in the evening around 4 or 5 p.m. for mood stabilization. - Monitor for any side effects and effectiveness of the new regimen. - Encourage patient to continue attending therapy sessions. 2. Anxiety: - Patient reports anxiety and stress related to job loss and living situation. - Previously used Klonopin pills obtained from a classmate, but no longer using them. Plan: - Encourage patient to continue attending therapy sessions to address anxiety. - Monitor patient's anxiety levels and consider medication adjustments if necessary. 3. Insomnia: - Patient is currently taking quetiapine 50 mg at bedtime and hydroxyzine as needed. Plan: - Continue quetiapine 50 mg at bedtime and hydroxyzine as needed for sleep. - Monitor sleep quality and adjust medications if needed. 4. Irritability and Anger: - Patient reports irritability and anger, which has improved since living with her boyfriend. Plan: - Encourage patient to continue attending therapy sessions to address irritability and anger. - Monitor patient's emotional responses and consider medication adjustments if necessary. 5. Follow-up: - Schedule a follow-up appointment in one month to assess the effectiveness of the medication adjustments and overall mental health status. Plan Of Treatment No Information Insurance Providers Payer Name Payer Address Payer Phone Subscriber Number Group Number Insured Name Patient Relationship to Insured Coverage Start Date Coverage End Date [facility] [address] [address] [place] [address] [id number] STEFANYPHUONG REECE Self - patient is the insured Medical (General) History Medical History History ICD Code Problems: Bipolar II disorder Fatigue Generalized anxiety disorder Louie thyroiditis Insomnia disorder related to another men mariela disorder Long-term drug therapy Mild recurrent major depression Nightmares associated with chronic post- traumatic stress disorder Severe recurrent major depression withou t psychotic features , Past Psychiatric History: An xiety Disorder,Panic Disorder,PTSD,Major Depressive Episode,Bipolar Disorder abdominal aortic aneurysm: No atrial fibrillation: No chronic fatigue syndrome: No essential tremor: No hyperlipidemia: No hypertension: No Parkinson's disease: No restless leg syndrome: No stroke: No subdural hematoma: No type 1 diabetes mellitus: No type 2 diabetes mellitus: No vitamin B12 deficiency: Yes vitamin D deficiency: No Surgical History Surgery Date(Month/Year) Extraction of wisdom tooth ([id number]) al l 4 Other Lymphangiectomy ([id number])
--- OUTSIDE RECORDS SUMMARY | 2025-02-20 16:34 | XMS_ITS | Encounter Summary ---
Author Organization [facility] Address [facility] [place] [address] Care Team Providers Care Customer Service Agent Name Role Phone Madie Miner NP Primary Care Provider [phone] Encounter Details Date Type Department Care Team (Late st Contact Info) Description 12/08/2022 MyChart Message Enc [facility] Medical Group Multispecialty Care - [facility] [address] [place] [address] Sindy Gustafson NP [address] [place], [place] [id number] Baby wipes Social History Tobacco Use Types Packs/Day Years Used Date Smoking Tobacco: Never Smokeless Tobacco: Never Alcohol Use Standard Drinks/Week Comments Not Currently 0 (1 standard drink = 0.6 oz pur e alcohol) socially PHQ-2 Answer Date Recorded Patient Health Questionnaire-2 Score 0 12/05/2022 Comments No Sex and Gender Information Value Date Recorded Sex Assigned at Female 12/13/2024 9:13 AM CHILI MAKER Legal Sex Female 3:49 PM CHILI MAKER Gender Identity Not on file Sexual Orientation Not on file COVID-19 Exposure Response Date Recorded In the last 10 days, have yo u been in contact with someone who was confirmed or suspected to have Coronavirus/COVID-19? Yes 12/05/2022 10:20 AM CHILI MAKER documented as of this encounter Plan of [...] documented as of this encounter Care Teams Customer Service Agent Relationship Specialty [place] [address] [address] PCP - General Nurse Practitioner Family 03/10/22 documented as of this encounter
--- OUTSIDE RECORDS SUMMARY | 2025-02-20 16:34 | XMS_ITS | Clinical Summary ---
Author Organization [facility] Address [address] [place] [address] Care Team Providers Care Restaurant Crew Person Name Role Phone Rodrigo Silva MD Unavailable [phone] Kristine Nichols ASSISTANT OFFSET PRESS OPERATOR-LAYBOY TENDER Unavailable [phone] Lyly Barth ASSISTANT OFFSET PRESS OPERATOR-LAYBOY TENDER Unavailable [phone] Madie Miner ASSISTANT OFFSET PRESS OPERATOR-LAYBOY TENDER Primary Care Provider Source Comments [facility],non-owned Affiliates and Associated Physician Practices is amultiple site organization consisting of ambulatory clinics and hospital sitesin [place], [place], [place] and [place]. This disclosure is being madepursuant to the Care Everywhere program and may not contain all information available regarding this patient. Last updated 18.[facility] Allergies Active Allergy Reactions Criticality Noted [...] by mouth 2 times daily Active B Eaqgqec-E-Giebw Acid (vitamin B complex with C) Take [...] 3 times daily with meals Active thyroid (Keystone Thyroid) 15 MG tablet Take 1 (one) [...] Documents on File Type Date Recorded Patient Artist Consultant Expl anation Adv Directive/Living Will/POA 07/01/2022 5:10 PM * Full Code (Latest Code Status on File) Date Activated Date Inactivated Comments 06/30/2022 6:20 PM 07/04/2022 5:47 PM * Full Code Date Activated Date Inactivated Comments 06/25/2022 5:26 PM 06/30/2022 6:05 PM * Full Code Date Activated Date Inactivated Comments 04/17/2022 1:16 AM 04/22/2022 3:33 PM Care Teams Restaurant Crew Person Relationship Specialty Start Date End Date Madie Miner, ASSISTANT OFFSET PRESS OPERATOR-LAYBOY TENDER [address] [facility] [address] [place], [place] [id number] PCP - General Nurse Practitioner Family 04/17/22 Rodrigo Silva MD [address] [place], [place] [address] Hospitalist Internal Medicine 04/16/22 Kristine Nichols ASSISTANT OFFSET PRESS OPERATOR-LAYBOY TENDER [address] [place] [address] Nurse Practitioner 04/16/22 Lyly Barth, ASSISTANT OFFSET PRESS OPERATOR-LAYBOY TENDER [address] [place] [address] Nurse Practitioner 04/16/22
--- OUTSIDE RECORDS SUMMARY | 2025-02-20 16:34 | XMS_ITS | Encounter Summary ---
Author Organization [facility] Address [address] [place] [address] Care Team Providers Care Business Performance Manager Name Role Phone Madie Miner NP Primary Care Provider Encounter Details Date Type Department Care Team (Late st Contact Info) Description 10/27/2023 Anne Fogarty Message [facility] Family & Internal Medicine [facility] [phone] [place] [address] [place], [facility] Provider refill Social History Tobacco Use Types Packs/Day Years Used Date Smoking Tobacco: Never Smokeless Tobacco: Never Alcohol Use Standard Drinks/Week Comments Not Currently 0 (1 standard drink = 0.6 oz pur e alcohol) socially PHQ-2 Answer Date Recorded Patient Health Questionnaire-2 Score 0 06/23/2023 Comments No Sex and Gender Information Value Date Recorded Sex Assigned at Female 12/13/2024 9:13 AM ELECTRONIC GAME DEVELOPER Legal Sex Female 3:49 PM ELECTRONIC GAME DEVELOPER Gender Identity Not on file Sexual Orientation Not on file documented as of this encounter Plan of Treatment Not on file documented as of this encounter Visit Diagnoses Not on filedocumented in this encounter Additional Health Concerns Assessment Noted Time PHQ-9 Depression Total Score: 6 06/23/20 23 9:41 AM CDT documented as of this encounter Care Teams Business Performance Manager Relationship Specialty Start Date End Date Madie Miner NP [address] [place] [address] PCP - General Nurse Practitioner Family 03/10/22 documented as of this encounter
--- OUTSIDE RECORDS SUMMARY | 2025-02-20 16:34 | XMS_ITS | Encounter Summary ---
Author Organization [facility] Address [address] [place] [address] Care Team Providers Care Nat Instructor Name Role Phone Madie Miner NP Primary Care Provider [phone] Reason for Visit * Reason Comments MRI [...] Sex Assigned at Female 12/13/2024 9:13 AM MACHINE STOPPAGE FREQUENCY CHECKER Legal Sex Female 3:49 PM MACHINE STOPPAGE FREQUENCY CHECKER Gender Identity Not on file Sexual Orientation [...] Depression Total Score: 14 025 1:45 PM MACHINE STOPPAGE FREQUENCY CHECKER documented as of this encounter Care Teams Nat Instructor Relationship Specialty [place] [address] [address] PCP - General Nurse Practitioner Family 03/10/22 documented as of this encounter
--- OUTSIDE RECORDS SUMMARY | 2025-02-20 16:34 | XMS_ITS | Encounter Summary ---
Author Organization [facility] Address [facility] [place] [address] Care Team Providers Care Network Pricing Consultant Name Role Phone Madie Miner NP Primary Care Provider [phone] Encounter Details Date Type Department Care Team (Late st Contact Info) Description 06/23/2022 ClydeTec Systemst Message Enc [facility] Medical Group Family & Internal Medicine [facility] [address] [place] [phone] Madie Miner [place] [phone] [place] [address] [address] [address] X-ray Social History Tobacco Use [...] Sex Assigned at Female 12/13/2024 9:13 AM PHARMACY SERVICE ASSOCIATE Legal Sex Female 3:49 PM PHARMACY SERVICE ASSOCIATE Gender Identity Not on file Sexual [...] documented as of this encounter Care Teams Network Pricing Consultant Relationship Specialty Start Date End Date Madie Miner, [place] [address] [address] PCP - General Nurse Practitioner Family 03/10/22 documented as of this encounter
--- OUTSIDE RECORDS SUMMARY | 2025-02-20 16:34 | XMS_ITS | Encounter Summary ---
Author Organization [facility] Address [facility] [place] [address] Care Team Providers Care Ice Rink Attendant Name Role Phone Madie Miner NP Primary Care Provider Encounter Details Date Type Department Care Team (Latest Contact Info) Description 06/27/2024 COMMUNICATIONS INFRASTRUCTURE INVESTMENTS Message Enc [facility] Medical Group Family & Internal Medicine [facility] [address] [place] [address] [place] [address] [facility] [address] [place], [place] [phone] Clinical Trial Coordinator referral Social History Tobacco Use Types Packs/Day Years Used Date Smoking Tobacco: Never Smokeless Tobacco: Never Alcohol Use Standard Drinks/Week Comments Not Currently 0 (1 standard drink = 0.6 oz pur e alcohol) socially PHQ-2 Answer Date Recorded Patient Health Questionnaire-2 Score 0 06/23/2023 Comments No Sex and Gender Information Value Date Recorded Sex Assigned at Female 12/13/2024 9:13 AM ASSISTANT BANQUET MANAGER Legal Sex Female 3:49 PM ASSISTANT BANQUET MANAGER Gender Identity Not on file Sexual [...] documented as of this encounter Care Teams Ice Rink Attendant Relationship Specialty [place] [address] [place] [address] PCP - General Nurse Practitioner Family 03/10/22 documented as of this encounter
--- OUTSIDE RECORDS SUMMARY | 2025-02-20 16:34 | XMS_ITS | Encounter Summary ---
Author Organization [facility] Address [facility] [place] [address] Care Team Providers Care Quality Control Director Name Role Phone Madie Miner NP Primary Care Provider [phone] Encounter Details Date Type Department Care Team (Late st Contact Info) Description 05/27/2023 Team My Mobilehart Message [facility] Medical Group - [facility] [address] [place], [place] [address] AGNIT[place], [facility] Provider Air Quality Message Social History Tobacco Use Types Packs/Day Years Used Date Smoking Tobacco: Never Smokeless Tobacco: Never Alcohol Use Standard Drinks/Week Comments Not Currently 0 (1 standard drink = 0.6 oz pur e alcohol) socially PHQ-2 Answer Date Recorded Patient Health Questionnaire-2 Score 0 12/05/2022 Comments No Sex and Gender Information Value Date Recorded Sex Assigned at Female 12/13/2024 9:13 AM EDUCATIONAL PSYCHOLOGY PROFESSOR Legal Sex Female 3:49 PM EDUCATIONAL PSYCHOLOGY PROFESSOR Gender Identity Not on file Sexual Orientation [...] documented as of this encounter Care Teams Quality Control Director Relationship Specialty [place] [address] [facility] [address] [address] PCP - General Nurse Practitioner Family 03/10/22 documented as of this encounter
--- OUTSIDE RECORDS SUMMARY | 2025-02-20 16:34 | XMS_ITS | Encounter Summary ---
Author Organization [facility] Address [facility] [place] [address] Care Team Providers Care Nursing Manager Name Role Phone Madie Miner NP Primary Care Provider [phone] Encounter Details Date Type Department Care Team (Late st Contact Info) Description 06/10/2022 FTL Global Solutionst Message Enc [facility] Medical Group Family & Internal Medicine [facility] [address] [place] [phone] Madie Miner NP [phone] [place] [address] [address] [address] Albuterol nebulizer Social History Tobacco [...] Sex Assigned at Female 12/13/2024 9:13 AM MOTORCYLES FINAL INSPECTOR Legal Sex Female 3:49 PM MOTORCYLES FINAL INSPECTOR Gender Identity Not on file Sexual [...] documented as of this encounter Care Teams Nursing Manager Relationship Specialty [place] [address] [facility] [address] [address] PCP - General Nurse Practitioner Family 03/10/22 documented as of this encounter
--- OUTSIDE RECORDS SUMMARY | 2025-02-20 16:34 | XMS_ITS | Encounter Summary ---
Author Organization [facility] Address [facility] [place] [address] Care Team Providers Care Shipyard Painting Supervisor Name Role Phone Madie Miner NP Primary Care Provider Encounter Details Date Type Department Care Team (Late st Contact Info) Description 11/18/[email or web address] [facility] Medical Group Family & Internal Medicine [facility] [address] [place] [phone] Madie Miner [place] [phone] [place] [address], [place] [address] IBS Social History Tobacco Use [...] Sex Assigned at Female 12/13/2024 9:13 AM GAS MAIN FITTER HELPER Legal Sex Female 3:49 PM GAS MAIN FITTER HELPER Gender Identity Not on file Sexual Orientation Not on file COVID-19 Exposure Response Date Recorded In the last 10 days, have yo u been in contact with someone who was confirmed or suspected to have Coronavirus/COVID-19? Yes 11/19/2022 1:47 PM GAS MAIN FITTER HELPER documented as of this encounter Progress Notes * Romeo Jackson RN - 11/18/2022 2:49 PM CST Attempted to call patient. No answer. LVM to return call to clinic. MAIN FITTER HELPER * Madie Miner NP - 11/18/2022 2:17 PM CST Please help patient make appointment to be addressed, TY. MAIN FITTER HELPER * Romeo Jackson RN - 11/18/2022 1:44 PM CST Please advise. Do you want pt to make appt? MAIN FITTER HELPER documented in this encounter Plan of Treatment [...] documented as of this encounter Care Teams Shipyard Painting Supervisor Relationship Specialty [place] [address] [address] PCP - General Nurse Practitioner Family 03/10/22 documented as of this encounter
--- OUTSIDE RECORDS SUMMARY | 2025-02-20 16:34 | XMS_ITS | Encounter Summary ---
Author Organization [facility] Address [facility] [place] [address] Care Team Providers Care Diesel Retrofit Installer Name Role Phone Drew Padilla MD Primary Care Provider [phone] Madie Miner NP Primary Care Provider [phone] Encounter Details Date Type Department Care Team (Late st Contact Info) Description 03/03/2022 SIMTEKt Message Enc [facility] Medical Group Family & Internal Medicine [address] [address] Drew Padilla MD [address] [place] [address] Nebulizer Social History Tobacco Use Types Packs/Day [...] Sex Assigned at Female 12/13/2024 9:13 AM EMBOSSED OR IMPRESSED LETTERING PAINTER Legal Sex Female 3:49 PM EMBOSSED OR IMPRESSED LETTERING PAINTER Gender Identity Not on file Sexual Orientation [...] Depression Total Score: 0 01/08/20 9:41 AM EMBOSSED OR IMPRESSED LETTERING PAINTER documented as of this encounter Care Teams Diesel Retrofit Installer Relationship Specialty [place] [address] [place] [address] PCP - General FAMILY PRACTICE 05/07/21 03/09/22 [place] [address] [facility] [address] [place] [address] PCP - General Nurse Practitioner Family 03/10/22 documented as of this encounter
--- OUTSIDE RECORDS SUMMARY | 2025-02-20 16:35 | XMS_ITS | Clinical Summary ---
Author Organization [facility] Address [address] [place] [address] Care Team Providers Care Special Education Aide Name Role Phone Madie Miner NP Primary [...] on file Legal Sex Female 12:13 AM COUNTY ENGINEER Gender Identity Not on file Sexual Orientation Not on file Obstetrics History Last Filed Vital Signs Vital Sign Reading Time Taken Comments Blood Pressure 108/72 12/18/2022 7:50 AM COUNTY ENGINEER Pulse 83 12/18/2022 7:50 AM COUNTY ENGINEER Temperature 36.7 C (98.1 F) 12/18/2022 7:50 AM COUNTY ENGINEER Respiratory Rate 18 12/18/2022 7:50 AM COUNTY ENGINEER Oxygen Saturation 98% 12/18/2022 7:50 AM COUNTY ENGINEER Inhaled Oxygen Concentration - - Weight 100.2 kg (221 lb) 12/18/2022 7:50 AM COUNTY ENGINEER Height 148.6 cm (4' 10.5 ) 12/18/2022 7:50 AM CS T Body Mass Index 45.4 12/18/2022 7:50 AM COUNTY ENGINEER Plan of Treatment Health Maintenance Due Date [...] HPV Vaccines Completed 07/26/2011, 08/30, 07/02/2010 Insurance [facility] OPEN ACCESS [address] [facility] Advance Directives For more information, please contact: [phone] * Full Code (Latest Code Status on File) Date Activated Date Inactivated Comments 08/02/2020 12:02 PM 08/02/2020 7:04 PM * Full Code Date Activated Date Inactivated Comments 08/02/2020 12:02 PM 08/02/2020 12:02 PM Care Teams Special Education Aide Relationship Specialty [place] [address] [place] [address] PCP - General Nurse Practitioner 12/12/22
--- OUTSIDE RECORDS SUMMARY | 2025-02-20 16:35 | XMS_ITS | Referral Summary ---
Author Organization [facility] Address [address] [place] [address] Care Team Providers Care Studio Receptionist Name Role Phone Madie Miner NP Primary [...] on file Legal Sex Female 12:13 AM HEAT AND VENT AIRCRAFT MECHANIC Gender Identity Not on file Sexual Orientation Not on file Last Filed Vital Signs Vital Sign Reading Time Taken Comments Blood Pressure 108/72 12/18/2022 7:50 AM HEAT AND VENT AIRCRAFT MECHANIC Pulse 83 12/18/2022 7:50 AM HEAT AND VENT AIRCRAFT MECHANIC Temperature 36.7 C (98.1 F) 12/18/2022 7:50 AM HEAT AND VENT AIRCRAFT MECHANIC Respiratory Rate 18 12/18/2022 7:50 AM HEAT AND VENT AIRCRAFT MECHANIC Oxygen Saturation 98% 12/18/2022 7:50 AM HEAT AND VENT AIRCRAFT MECHANIC Inhaled Oxygen Concentration - - Weight 100.2 kg (221 lb) 12/18/2022 7:50 AM HEAT AND VENT AIRCRAFT MECHANIC Height 148.6 cm (4' 10.5 ) 12/18/2022 7:50 AM CS T Body Mass Index 45.4 12/18/2022 7:50 AM HEAT AND VENT AIRCRAFT MECHANIC Plan of Treatment Not on file Insurance [facility] OPEN ACCESS LIVE [address] [facility] Advance Directives For more information, please contact: [phone] * Full Code (Latest Code Status on File) Date Activated Date Inactivated Comments 08/02/2020 12:02 PM 08/02/2020 7:04 PM * Full Code Date Activated Date Inactivated Comments 08/02/2020 12:02 PM 08/02/2020 12:02 PM Care Teams Studio Receptionist Relationship Specialty [place] [address] [place] [address] PCP - General Nurse Practitioner 12/12/22
== END 2025-02-20 16:08 | disposition home or self-care (01) ==
PROVIDERS: Emergency Provider Emergency Medicine; PCP Nurse Practitioner Family
DX: M79.662 Pain in left lower leg (principal); F31.9 Bipolar disorder, unspecified; F41.8 Other specified anxiety disorders; F90.9 Attention-deficit hyperactivity disorder, unspecified type; E06.3 Autoimmune thyroiditis
CPT/HCPCS: 93971; 99284

== ENCOUNTER 2025-09-27 17:48 | Emergency (ER) | payer SELFPAY ==
[2025-09-27 17:57] VITALS: BP 134/70; PULSE 73; RESP 16; TEMP 36.4; O2SAT 97
--- OUTSIDE RECORDS SUMMARY | 2025-09-27 18:12 | XMS_ITS | Encounter Summary ---
Author Organization [facility] Address [facility] [place] [address] Care Team Providers Care Aircraft Cylinder Mechanic Name Role Phone Madie Miner NP Primary Care Provider + [phone] Encounter Details Date Type Department Care Team (Late st Contact Info) Description 11/18/2022 Securly Message Enc [facility] Medical Group Family & Internal Medicine [address] [address] Madie Miner NP [address] [place] [address] IBS Social History Tobacco Use Types Packs/Day [...] Sex Assigned at Female 12/13/2024 9:13 AM COST AND SALES RECORD SUPERVISOR Legal Sex Female 3:49 PM COST AND SALES RECORD SUPERVISOR Gender Identity Not on file Sexual Orientation Not on file COVID-19 Exposure Response Date Recorded In the last 10 days, have yo u been in contact with someone who was confirmed or suspected to have Coronavirus/COVID-19? Yes 11/19/2022 1:47 PM COST AND SALES RECORD SUPERVISOR documented as of this encounter Progress Notes * Romeo Jackson RN - 11/18/2022 2:49 PM CST Attempted to call patient. No answer. LVM to return call to clinic. AND SALES RECORD SUPERVISOR * Madie Miner NP - 11/18/2022 2:17 PM CST Please help patient make appointment to be addressed, TY. AND SALES RECORD SUPERVISOR * Romeo Jackson RN - 11/18/2022 1:44 PM CST Please advise. Do you want pt to make appt? AND SALES RECORD SUPERVISOR documented in this encounter Plan of Treatment [...] documented as of this encounter Care Teams Aircraft Cylinder Mechanic Relationship Specialty [place] [address] [facility] [address]. [place] [address] PCP - General Nurse Practitioner Family 03/10/22 documented as of this encounter
--- OUTSIDE RECORDS SUMMARY | 2025-09-27 18:12 | XMS_ITS | Encounter Summary ---
Author Organization [facility] Address [facility] [place] [address] Care Team Providers Care Lithographic Press Operator Apprentice Name Role Phone Madie Miner NP Primary Care Provider [phone] Encounter Details Date Type Department Care Team (Late st Contact Info) Description 06/23/[address] [facility] Medical Group Family & Internal Medicine [address] [address] Madie Miner NP [address] [place] [address] X-ray Social History Tobacco Use Types Packs/Day [...] Sex Assigned at Female 12/13/2024 9:13 AM ROOF PAINTER Legal Sex Female 3:49 PM ROOF PAINTER Gender Identity Not on file Sexual Orientation Not on file COVID-19 Exposure Response Date Recorded In the last 10 days, have yo u been in contact with someone who was confirmed or suspected to have Coronavirus/COVID-19? No / Unsure 06/25/2022 11:24 AM CDT documented as of this encounter Functional Status * Actual/Potential Lethality (Most Lethal Attempt) Question Answer Date of Assessment Author Status Actual Lethality/Medical Damage Code (Most Lethal Attempt) 2 06/25/2022 12:47 PM CDT Christiana Castillo RN A ctive * Actual/Potential Lethality (Most Recent Attempt) Question Answer Date of Assessment Author Status Most Recent Attempt Date [id number] 06/25/2022 12:47 PM CD T Christiana Castillo RN Active Actual Lethality/Medical Damage Code (Most Recent Attempt) 2 06/25/2022 12:47 PM CDT Christiana Castillo RN A ctive Potential Lethality Code (Most Recent Attempt) 1 06/25/2022 12:47 PM CDT Christiana Castillo RN Active * Calculated C-SSRS Risk Score (Lifetime/Recent) Answer Date of Assessment Author Status High Risk 06/25/2022 12:47 PM Christiana Manning RN Active * Suicidal Ideation Question Answer Date of Assessment Author Status 1. Wish to be (Lifetime) Yes 06/25/2022 12:47 PM CDT Christiana Castillo RN A ctive 2. Non-Specific Active Suicidal Thoughts (Lifetime) Yes 06/25/2022 12:47 PM CDT Christiana Castillo RN A ctive 3. Active Suicidal Ideation with any Methods (Not Plan) Without Intent to Act (Lifetime) Yes 06/25/2022 12:47 PM CDChristiana Sarmiento RN Active 4. Active Suicidal Ideation with Some Intent to Act, Without Specific Plan (Lifetime) Yes 06/25/2022 12:47 PM CDT Christiana Castillo RN A ctive 5. Active Suicidal Ideation with Specific Plan and Intent (Lifetime) Yes 06/25/2022 12:47 PM CDT Christiana Castillo RN A ctive 1. Wish to be (Past 1 Month) Yes 06/25/2022 12:47 PM CDChristiana Sarmiento RN A ctive 2. Non-Specific Active Suicidal Thoughts (Past 1 Month) Yes 06/25/2022 12:47 PM CDT Christiana Castillo RN A ctive 3. Active Suicidal Ideation with any Methods (Not Plan) Without Intent to Act (Past 1 Month) Yes 06/25/2022 12:47 PM CDT Christiana Castillo , RN Active 4. Active Suicidal Ideation with Some Intent to Act, Without Specific Plan (Past 1 Month) Yes 06/25/2022 12:47 PM CDT Christiana Castillo, RN Active 5. Active Suicidal Ideation with Specific Plan and Intent (Past 1 Month) Yes 06/25/2022 12:47 PM CDT Christiana Castillo, RN A ctive * Intensity of Ideation Question Answer Date of Assessment Author Status Most Severe Ideation Rating (Lifetime) 4 06/25/2022 12:47 PM CDT Christiana Castillo C, RN Active Frequency (Lifetime) 4 06/25/2022 12:47 PM CDT Ofelia Castilloon C, RN Active Duration (Lifetime) 4 06/25/2022 12:47 PM C Ofelia Segundoon C, RN Active Controllability (Lifetime) 3 06/25/2022 12: 47 PM CDT Ofelia Castilloon C, RN Active Deterrents (Lifetime) 3 06/25/2022 12:47 PM CDT Karlos Castilloyson C, RN Active Reasons for Ideation (Lifetime) 4 06/25/2022 12:47 PM CDT Ofelia Castilloon C, RN Active Most Severe Ideation Rating (Past 1 Month) 4 06/25/2022 12:47 PM CDT Ofelia Castilloon C, RN Active Frequency (Past 1 Month) 4 06/25/2022 12:47 PM CDT Ofelia Castilloon C, RN Active Duration (Past 1 Month) 4 06/25/2022 12:47 PM CDT Anna Christiana C, RN Active Controllability (Past 1 Month) 5 06/25/2022 12:47 PM CDT Karlos Castilloyson C, RN Active Deterrents (Past 1 Month) 5 06/25/2022 12:4 7 PM CDT Karlos Castilloyson C, RN Active Reasons for Ideation (Past 1 Month) 4 06/25/2022 12:47 PM CDT Ofelia Castilloon C, RN Active * Suicidal Behavior Question Answer Date of Assessment Author Status Actual Attempt (Lifetime) Yes 06/25/2022 12:4 7 PM Christiana Manning RN Active Total Number of Actual Attempts (Lifetime) 2 06/25/2022 12:47 PM Christiana Manning RN Active Has subject engaged in non-suicidal self-injurious behavior? (Lifetime) No 06/25/2022 12:47 PM Christiana Manning RN Active Interrupted Attempts (Lifetime) No 06/25/2022 12:47 PM CDChristiana Sarmiento RN Active Aborted or Self-Interrupted Attempt (Lifetime) No 06/25/2022 12:47 PM Christiana Manning RN Active Preparatory Acts or Behavior (Lifetime) Yes 06/25/2022 12:47 PM Christiana Manning RN Active Actual Attempt (Past 3 Months) Yes 06/25/2022 12:47 PM Christiana Manning RN Active Total Number of Actual Attempts (Past 3 Months) 1 06/25/2022 12:47 PM Melina Manning RN Active Preparatory Acts or Behavior (Past 3 Months) Yes 06/25/2022 12:47 PM Melina Manning RN Active Total Number of Preparatory Acts (Past 3 Months) 1 06/25/2022 12:47 PM Christiana Manning RN Active * Hughes Suicide Severity Rating Scale (Screener/Recent Self-Report) Question Answer Date of Assessment Author Status 6. Suicidal Behavior (Lifetime) Yes 06/25/2022 11:27 AM Christiana Manning RN A ctive 6. Suicidal Behavior (3 Months) Yes 06/25/2022 11:27 AM Christiana Manning RN A ctive documented as of this encounter Plan of [...] documented as of this encounter Care Teams Lithographic Press Operator Apprentice Relationship Specialty [place] [address] [address] PCP - General Nurse Practitioner Family 03/10/22 documented as of this encounter
--- OUTSIDE RECORDS SUMMARY | 2025-09-27 18:12 | XMS_ITS | Encounter Summary ---
Author Organization [facility] Address [facility] [place] [address] Care Team Providers Care Stacker Attendant Name Role Phone Madie Miner NP Primary Care Provider Encounter Details Date Type Department Care Team (Late st Contact Info) Description 06/10/2022 [place] Message Enc [facility] Medical Group Family & Internal Medicine [address] [address] Madie Miner NP [address] [place] [address] Albuterol nebulizer Social History Tobacco Use Types [...] Sex Assigned at Female 12/13/2024 9:13 AM VIDEOGAME DESIGNER Legal Sex Female 3:49 PM VIDEOGAME DESIGNER Gender Identity Not on file Sexual Orientation [...] documented as of this encounter Care Teams Stacker Attendant Relationship Specialty [place] [address] [facility] [address] [place] [address] PCP - General Nurse Practitioner Family 03/10/22 documented as of this encounter
--- OUTSIDE RECORDS SUMMARY | 2025-09-27 18:12 | XMS_ITS | Clinical Summary ---
Author Organization [facility] Address [address] [place] [address] Care Team Providers Care Yard Attendant Name Role Phone Madie Miner NP Primary Care Provider Allergies Active Allergy Reactions Criticality Noted Date [...] Active TUBERCULIN SYR 1CC/27GX1/2 (B-D TB SYRINGE 1CC/27GX1/2) 27G X 1/2 1 ML MiscIndications: B12 [...] total) by mouth every morning. 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 05/02/2022 Morbid obesity with BMI of 40.0-44.9, adult 01/2022 Sciatica 04/29/2022 Borderline personality disorder 04/17/2022 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 Left upper quadrant abdominal pain 06/17/2021 Overview (06/17/2021): Added automatically from request for surgery [id number] Nausea 06/17/2021 Overview (06/17/2021): Added automatically from request for surgery [id number] Blood in stool 06/17/2021 Overview (06/17/2021): Added automatically from request for surgery [id number] Anxiety 10/18/2019 MDD (major depressive disorder) 10/18/2019 Encounters Date Type Department Care Team Description 08/31/2025 MyChart Message Enc [facility] Family & Internal [facility] [address] [place] [address] [facility] Provider my chart message / appointment 08/23/2025 MyChart Message Enc [facility] Family & Internal [facility] [address] [place] [address] [facility] Provider Appointment Request from Last 3 Months Immunizations Immunization Administration Dates Next Due Fluzone (IIV3, Trivalent, 0. 5 ML Prefilled Syringe) 12/14/2024 Influenza Adult (Generic) 09/07/2023,,09/18/2021,2019,10/10/2016 PFIZER COVID-19 (ORIGINAL FORMULATION, PURPLE CAP) mRNA, [...] Sex Assigned at Female 12/13/2024 9:13 AM HOT DOG VENDER Legal Sex Female 3:49 PM HOT DOG VENDER Gender Identity Not on file Sexual Orientation Not on file Last Filed Vital Signs Vital Sign Reading Time Taken Comments Blood Pressure 115/83 12/14/2024 1:08 PM HOT DOG VENDER Pulse 71 12/14/2024 1:08 PM HOT DOG VENDER Temperature 36.8 C (98.3 F) 12/14/2024 1:08 PM HOT DOG VENDER Respiratory Rate 20 12/14/2024 1:08 PM HOT DOG VENDER Oxygen Saturation 95% 12/14/2024 1:08 PM HOT DOG VENDER Inhaled Oxygen Concentration - - Weight 103.5 kg (228 lb 3.2 oz) 12/14/2024 1:08 PM HOT DOG VENDER Height 147.3 cm (4' 10) 12/14/2024 1:08 PM HOT DOG VENDER Body Mass Index 47.69 12/14/2024 1:08 PM HOT DOG VENDER Plan of Treatment Health Maintenance Due Date Last Done Comments Annual Physical 2001 DTaP, Tdap and Td Vaccines (1 - Tdap) 2017 Pneumococcal Vaccine: Pediatrics (0 to 5 Years) and At-Risk Patients (6 to 49 Years) (1 of 2 - PCV) 2017 Cervical Cancer Screening Pap Smear (Age 21 to 29) Every 3 Years 04/01/2024 04/01/2021, 04/01/2021 Cervical Cancer Screening 04/01/2024 COVID-19 Vaccine ( season) 2025 11/15/2021, 01/24/2021, 01/03/2021 Influenza Adult (#1) 2025 12/14/2024, 09/07/2023, 09/22/2022, Additional history exists HPV Vaccines (1 - 3-dose SCDM series) 2025 Hepatitis B Vaccines (1 of 3 - 19+ 3-dose series) 12/14/2025 Postponed from 2017 (Patient/Guardian Refusal) Hepatitis C 11/25/2053 Postponed from 2016 (Patient Refused) PHQ-2 (Physician [place]) Completed 12/14/2024 Hepatitis A Vaccines Aged Out No long er eligible based on patient's age to complete this topic Meningococcal B Vaccine Aged Out No l onger eligible based on patient's age to complete this topic Meningococcal Vaccine Aged Out No erma aftab eligible based on patient's age to complete this topic RSV Immunizations Under 20 Months Aged Out No longer eligible based on patient's age to complete this topic Procedures Procedure Name Priority Date/Time Associated Diagnosis Comments CHLAM/GC/TRICHOMONA S PROFILE Routine 04/01/2021 7:30 AM CDT from Last 3 Months or Most Recently Relevant to Health Maintenance Results * CHLAM/GC/TRICHOMONAS PROFILE (04/01/2021 7:30 AM CDT) CHLAMYDIA TRACHOMATIS RNA TMA Not Detected Not Detected 04/05/2021 8:48 AM CDT [employer] IONA MAYENY N.GONORRHOEAE RNA TMA (QST) Not Detected Not Detected 04/05/2021 8:48 AM CDT [employer] BALDERASFLOWER SHANIKA Comment: Methodology: Hyperbaric Welder Diver Mediated Amplification(TMA) to detect RNA. The analytical performance characteristics of this assay, when used to test SurePath specimens have been determined by [employer]. The modifications have not been cleared or approved by the FDA. This assay has been validated pursuant to the CLIA regulations and is used for clinical purposes. For additional information, please refer to https://Roost.TripTouch/faq/ZRT294 (This link is being provided for information/educational purposes only). TRICHOMONAS Not Detected Not Detected 04/05/2021 8:48 AM CDT [employer] BALDERASBERKLEY SHANIKA Comment: Methodology: Hyperbaric Welder Diver Mediated Amplification(TMA) The analytical performance characteristics of this assay have been determined by [employer] [place], [place]. The modifications have not been cleared or approved by the FDA. This assay has been validated pursuant to the CLIA regulations and is used for clinical purposes. For additional information, please refer to http://Roost.TripTouch/faq/ [email or web address] (This link is being provided for information/educational purposes only). Test Performed by [facility], [facility] [place], [id number] [place] [address] Donavan Prince M.D., Ph.D., Director of Laboratories , CLIA [id number] 04/01/2021 7:30 AM CDT Pili Angelo CNM MICROBIOLOGY - GENERAL ORDER SHRUTI Final Result [employer] [facility] [id number] [place], [place] , from Last 3 Months or Most Recently Relevant to Health Maintenance Insurance [employer] Care Teams Yard Attendant Relationship Specialty [place] [address] [facility] [address], [place] [address] PCP - General Nurse Practitioner Family 03/10/22
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
--- OUTSIDE RECORDS SUMMARY | 2025-09-27 18:13 | XMS_ITS | Encounter Summary ---
Author Organization [facility] Address [facility] [place] [address] Care Team Providers Care Construction Equipment Overhauler Name Role Phone Isidra, Madie Reeves NP Primary Care Provider + [phone] Encounter Details Date Type Department Care Team (Late st Contact Info) Description 05/27/2023 MyChart Message Enc [facility] - [facility] [address] [place], [place] [address] Roomlr, [facility] Provider Air Quality Message Social History [...] Sex Assigned at Female 12/13/2024 9:13 AM MASTER CONTROL ENGINEER Legal Sex Female 3:49 PM MASTER CONTROL ENGINEER Gender Identity Not on file Sexual [...] Time PHQ-9 Depression Total Score: 2 08/08/20 8:20 AM CDT documented as of this encounter Care Teams Construction Equipment Overhauler Relationship Specialty [place] [address] [address] PCP - General Nurse Practitioner Family 03/10/22 documented as of this encounter
--- OUTSIDE RECORDS SUMMARY | 2025-09-27 18:13 | XMS_ITS | Clinical Summary ---
Author Organization [facility] Address [address] [place] [address] Care Team Providers Care Blend Plant Operator Name Role Phone Madie Miner NP [...] anxiety and depressed mood - (Added by TW Conv) Closed fracture of lower end of [...] on file Legal Sex Female 12:13 AM SILICA FILTER OPERATOR Gender Identity Not on file Sexual Orientation Not on file Obstetrics History Last Filed Vital Signs Vital Sign Reading Time Taken Comments Blood Pressure 108/72 12/18/2022 7:50 AM SILICA FILTER OPERATOR Pulse 83 12/18/2022 7:50 AM SILICA FILTER OPERATOR Temperature 36.7 C (98.1 F) 12/18/2022 7:50 AM SILICA FILTER OPERATOR Respiratory Rate 18 12/18/2022 7:50 AM SILICA FILTER OPERATOR Oxygen Saturation 98% 12/18/2022 7:50 AM SILICA FILTER OPERATOR Inhaled Oxygen Concentration - - Weight 100.2 kg (221 lb) 12/18/2022 7:50 AM SILICA FILTER OPERATOR Height 148.6 cm (4' 10.5) 12/18/2022 7:50 AM CS T Body Mass Index 45.4 12/18/2022 7:50 AM SILICA FILTER OPERATOR Plan of Treatment Health Maintenance Due Date Last Done Comments Cervical Cancer Screening 1998 Depression Screening 1998 Hepatitis C Screening 1998 Pneumococcal vaccine <65 (2 of 2 - PPSV23, PCV20, or PCV21) 2004 02/03/2001, 11/24/2000 Regular Well Visit/Exam 18-64 2016 DTaP/Tdap/Td Vaccine (6 - Td or Tdap) 07/02/2020 07/02/2010, 09/08/2002, 01/05/2001, Additional history exists Covid-19 Vaccine (2024-2 6 season) 2025 01/24/2021, 01/03/2021 Influenza Vaccine (#1) 2025 , 10/10/2016, 10/10/2016, Additional history exists Hepatitis B Screening Completed 02/03/2001 , 11/24/2000, 09/21/2000 Varicella Vaccines Completed 09/15/2008, 11/24/2000 HPV Vaccines Completed 07/26/2011, 08/30, 07/02/2010 Insurance [facility] OPEN ACCESS [address] [facility] Advance Directives For more information, please contact: [phone] * Full Code (Latest Code Status on File) Date Activated Date Inactivated Comments 08/02/2020 12:02 PM 08/02/2020 7:04 PM * Full Code Date Activated Date Inactivated Comments 08/02/2020 12:02 PM 08/02/2020 12:02 PM Care Teams Blend Plant Operator Relationship Specialty [place] [address] [address] PCP - General Nurse Practitioner 12/12/22
--- OUTSIDE RECORDS SUMMARY | 2025-09-27 18:13 | XMS_ITS | Encounter Summary ---
Author Organization [facility] Address [facility] [place] [address] Care Team Providers Care Naphtha Washing System Operator Name Role Phone Madie Miner NP Primary Care Provider [phone] Encounter Details Date Type Department Care Team (Late st Contact Info) Description 08/23/2025 Exie Message [employer] Medical Group Family & Internal Medicine [facility] [address] [place] [phone] [facility] Provider Appointment Request Social History Tobacco Use Types Packs/Day Years Used Date Smoking Tobacco: Never Smokeless Tobacco: Never Alcohol Use Standard Drinks/Week Comments Not Currently 0 (1 standard drink = 0.6 oz pur e alcohol) socially PHQ-2 Answer Date Recorded Patient Health Questionnaire-2 Score 2 12/14/2024 Comments No Sex and Gender Information Value Date Recorded Sex Assigned at Female 12/13/2024 9:13 AM CODER OPERATOR Legal Sex Female 3:49 PM CODER OPERATOR Gender Identity Not on file Sexual Orientation Not on file documented as of this encounter Plan of Treatment Not on file documented as of this encounter Visit Diagnoses Not on filedocumented in this encounter Additional Health Concerns Assessment Noted Time PHQ-9 Depression Total Score: 14 025 1:45 PM CODER OPERATOR documented as of this encounter Care Teams Naphtha Washing System Operator Relationship Specialty Start Date End Date Madie Min[place] [id number] [place] [address] [address] [place] [address] PCP - General Nurse Practitioner Family 03/10/22 documented as of this encounter
--- OUTSIDE RECORDS SUMMARY | 2025-09-27 18:13 | XMS_ITS | Encounter Summary ---
Author Organization [facility] Address [facility] [place] [address] Care Team Providers Care Telecom Manager Name Role Phone Madie Miner ACCOUNTING SPECIALIST Primary Care Provider [phone] Encounter Details Date Type Department Care Team (Late st Contact Info) Description 12/08/2022 MyCAclaris Therapeuticst Message Enc [facility] Medical Group Multispecialty Care - [facility] [address] [facility] [address] [place] [address] Sindy Gustafson NP [address] [facility] [place], [place] [id number] Baby wipes Social History Tobacco Use Types Packs/Day Years Used Date Smoking Tobacco: Never Smokeless Tobacco: Never Alcohol Use Standard Drinks/Week Comments Not Currently 0 (1 standard drink = 0.6 oz pur e alcohol) socially PHQ-2 Answer Date Recorded Patient Health Questionnaire-2 Score 0 12/05/2022 Comments No Sex and Gender Information Value Date Recorded Sex Assigned at Female 12/13/2024 9:13 AM NUCLEAR UNIT OPERATOR Legal Sex Female 3:49 PM NUCLEAR UNIT OPERATOR Gender Identity Not on file Sexual Orientation Not on file COVID-19 Exposure Response Date Recorded In the last 10 days, have yo u been in contact with someone who was confirmed or suspected to have Coronavirus/COVID-19? Yes 12/05/2022 10:20 AM NUCLEAR UNIT OPERATOR documented as of this encounter Plan of [...] documented as of this encounter Care Teams Telecom Manager Relationship Specialty [place] [address] [address] PCP - General Nurse Practitioner Family 03/10/22 documented as of this encounter
--- OUTSIDE RECORDS SUMMARY | 2025-09-27 18:13 | XMS_ITS | Encounter Summary ---
Author Organization [facility] Address [facility] [place] [address] Care Team Providers Care Punchboard Filling Machine Operator Name Role Phone Drew Padilla MD Primary Care Provider [phone] Madie Miner NP Primary Care Provider [phone] Encounter Details Date Type Department Care Team (Late st Contact Info) Description 03/04/2022 Ocean's Halot Message Enc [facility] Medical Group Family & Internal Medicine [facility] [phone] [place] [phone] Drew Padilla MD [address] [place] [address] Question regarding XR CHEST PA+LAT Social History [...] Sex Assigned at Female 12/13/2024 9:13 AM SHIP ENGINES OPERATING ENGINEER Legal Sex Female 3:49 PM SHIP ENGINES OPERATING ENGINEER Gender Identity Not on file Sexual [...] Time PHQ-9 Depression Total Score: 0 01/08/20 22 9:41 AM SHIP ENGINES OPERATING ENGINEER documented as of this encounter Care Teams Punchboard Filling Machine Operator Relationship Specialty [place] [address] [place] [address] PCP - General FAMILY PRACTICE 05/07/21 03/09/22 [place] [address] [address] [address]. [place] [address] PCP - General Nurse Practitioner Family 03/10/22 documented as of this encounter
--- OUTSIDE RECORDS SUMMARY | 2025-09-27 18:13 | XMS_ITS | Encounter Summary ---
Author Organization [facility] Address [facility] [place] [address] Care Team Providers Care Industrial Technology Education Teacher Name Role Phone Madie Miner NP Primary Care Provider Encounter Details Date Type Department Care Team (Late st Contact Info) Description 05/14/2022 Crowd Vision Message Enc [facility] Medical Group Family & Internal Medicine [address] [address] Madie Miner NP [address] [place] [address] Question regarding URINALYSIS Social History Tobacco Use [...] Sex Assigned at Female 12/13/2024 9:13 AM REGISTERED VETERINARY TECHNICIAN Legal Sex Female 3:49 PM REGISTERED VETERINARY TECHNICIAN Gender Identity Not on file Sexual Orientation Not on file COVID-19 Exposure Response Date Recorded In the last 10 days, have yo u been in contact with someone who was confirmed or suspected to have Coronavirus/COVID-19? No / Unsure 05/14/2022 2:41 PM CDT documented as of this encounter Functional Status * Calculated C-SSRS Risk Score (Lifetime/Recent) Answer Date of Assessment Author Status No Risk Indicated 05/14/2022 2:42 PM CDT Blayne Rowell RN Active * Pauline Suicide Severity Rating Scale (Screener/Recent Self-Report) Question Answer Date of Assessment Author Status 1. Wish to be (Past 1 Month) No 05/14/2022 2:42 PM CDT Blayne Rowell RN Active 2. Non-Specific Active Suicidal Thoughts (Past 1 Month) No 05/14/2022 2:42 PM CDT Blayne Rowell RN Active 6. Suicidal Behavior (Lifetime) No 05/14/2022 2:42 PM CDT Blayne Rowell RN Active documented as of this encounter Plan of [...] documented as of this encounter Care Teams Industrial Technology Education Teacher Relationship Specialty [place] [address] [address] PCP - General Nurse Practitioner Family 03/10/22 documented as of this encounter
--- OUTSIDE RECORDS SUMMARY | 2025-09-27 18:13 | XMS_ITS | Clinical Summary ---
Author Organization [facility] Address [address] [facility] [place] [address] Care Team Providers Care Solar Installation Helper Name Role Phone Rodrigo Silva MD Unavailable [phone] Kristine Nichols COLD HEADER OPERATOR-FOOD HANDLER Unavailable [phone] Lyly Barth COLD HEADER OPERATOR-FOOD HANDLER Unavailable [phone] Madie Miner COLD HEADER OPERATOR-FOOD HANDLER Primary Care Provider Source Comments [facility],non-owned Affiliates and Associated Physician Practices is amultiple site organization consisting of ambulatory clinics and hospital sitesin [place], [place], [place] and [place]. This disclosure is being madepursuant to the Care Everywhere program and may not contain all information available regarding this patient. Last updated 18.[facility] Allergies Active Allergy Reactions Criticality Noted Date Comments Amoxicillin Diarrhea Medium 06/23/2023 Amoxicillin-Pot Clavulanate Diarrhea 06/12/20 23 Codeine 11/03/2016 Orapred Cyclobenzaprine Other Low 06/30/2022 Intolerance d/t liver and kidney dysfunction from overdose Etomidate Rash High 06/23/2023 Prednisolone Unknown 04/17/2022 Prednisolone Sodium Phosphate Swelling High 06/07/2012 Prednisone 11/03/2016 Vancomycin Urticaria Medium 06/23/2023 Medications * This document contains information received from the source organization and may not represent a complete record from that organization. * Be aware that medications may not be up to date on this document. Alwaysverify current medications with the patient. levothyroxine (Synthroid) 25 MCG tabletIndicatio ns:Hypothyroidi sm Take 1 (one) tablet by mouth once daily Reasons: Underactive Thyroid 30 tablet 1 2 Active FLUoxetine (PROzac) 20 MG capsuleIndicati ons:Major Depressive Disorder Take 1 (one) capsule by mouth once daily Reasons: Major Depressive Disorder 30 capsule 1 2 Active hydrOXYzine HCl (Atarax) 10 MG tabletIndicatio ns:Anxiety Take 1 (one) tablet by mouth 4 times daily Reasons: Feeling Anxious 120 tablet 1 2 Active acetaZOLAMIDE (Diamox) 250 MG tablet Take 1 (one) tablet by mouth 2 times daily 4 Active norgestimate-et hinyl estradiol (Ortho-Cyclen; Mononessa; Previfem; Sprintec) 0.25-35 MG-MCG tablet Take 1 (one) tablet by mouth once daily Active QUEtiapine (SEROquel) 25 MG tablet Take 1 (one) tablet by mouth 2 times daily Active B Lyabgdf-Q-Ejmfp Acid (vitamin B complex with C) Take by mouth once daily Active Multiple Vitamin (ONE-A-DAY ESSENTIAL PO) Active fexofenadine (Gely) 60 MG tablet Take 3 (three) tablets by mouth 2 times daily Active magnesium oxide (Mag-Ox) 400 MG tablet Take 1 (one) tablet by mouth once daily Active fish oil/omega-3 fatty acids (Promega;Cardi- [place] 3) 1000 MG capsule Take 2 (two) capsules by mouth 3 times daily with meals Active thyroid (Bessemer Thyroid) 15 MG tablet Take 1 (one) tablet by mouth once daily Active Active Problems Problem Noted Date Diagnosed Date MDD (major depressive disord er), recurrent severe, without psychosis 06/30/2022 Chest pain 06/27/2022 Intentional drug overdose, initial encounter 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 PCOS (polycystic ovarian syndrome) 06/25/2022 Asthma 06/25/2022 Seizures 06/25/2022 Adjustment disorder with depressed mood 04/17/20 22 Anxiety disorder 04/17/2022 Borderline personality disorder 04/17/2022 [...] Recorded Patient Health Questionnaire-2 Score 0 06/23/2024 Comments No Sex and Gender Information Value Date Recorded Sex Assigned at Not on file Legal Sex Female 3:28 PM COMPUTER ENGINEER Gender Identity Not on file Sexual [...] 10:42 AM CDT Height 147.3 cm (4' 10) 06/23/2024 10:42 AM CDT Body Mass Index 44.94 06/23/2024 10:42 AM CDT Plan of Treatment Health Maintenance Due Date Last Done Comments HIV SCREENING 2013 HEPATITIS C SCREENING 08/29/2016 DTAP/TDAP/TD VACCINES (1 - Tdap) 2017 HEPATITIS B VACCINE (1 of 3 - 19+ 3-dose series) 2017 PNEUMOCOCCAL VACCINE (1 of 2 - PCV) 2017 PAP SMEAR 2019 DEPRESSION SCREENING 11/30/2024 06/23/2024 COVID-19 VACCINE ( - season) 2025 11/15/2021, 01/24/2021, 01/03/2021 INFLUENZA VACCINE (#1) 2025 , 09/22/2022, 08/13/2020, Additional history exists HPV VACCINE (1 - 3-dose SCDM series) 2025 ZOSTER VACCINE (1 of 2) 2048 HIB VACCINE Aged Out No longer eligi ble based on patient's age to complete this topic MENINGOCOCCAL (Group B) VACCINE SHARED DECISION-MAKING Aged Out No longer eligible based on patient's age to complete this topic MENINGOCOCCAL GROUPS A/C/Y/W VACCINE Aged Out No longer eligible based on patient's age to complete this topic Insurance [employer] [facility] COMMERCIAL GENERIC [employer] Advance Directives Documents on File Type Date Recorded Patient Lay Out Helper Expl anation Adv Directive/Living Will/POA 07/01/2022 5:10 PM * Full Code (Latest Code Status on File) Date Activated Date Inactivated Comments 06/30/2022 6:20 PM 07/04/2022 5:47 PM * Full Code Date Activated Date Inactivated Comments 06/25/2022 5:26 PM 06/30/2022 6:05 PM * Full Code Date Activated Date Inactivated Comments 04/17/2022 1:16 AM 04/22/2022 3:33 PM Care Teams Solar Installation Helper Relationship Specialty Start Date End Date Madie Miner, COLD HEADER OPERATOR-FOOD HANDLER [address] [place], [place] [id number] PCP - General Nurse Practitioner Family 04/17/22 Rodrigo Silva MD [address] [place] [address] Hospitalist Internal Medicine 04/16/22 Kristine Nichols COLD HEADER OPERATOR-FOOD HANDLER [address] [place] [address] Nurse Practitioner 04/16/22 Lyly Barth, COLD HEADER OPERATOR-FOOD HANDLER [address] [place] [address] Nurse Practitioner 04/16/22
--- OUTSIDE RECORDS SUMMARY | 2025-09-27 18:13 | XMS_ITS | Encounter Summary ---
Author Organization [facility] Address [facility] [place] [address] Care Team Providers Care Antisubmarine Weapons Officer Name Role Phone Madie Miner NP Primary Care Provider [phone] Encounter Details Date Type Department Care Team (Late st Contact Info) Description 08/31/2025 giftee Message Enc [facility] Medical Group Family & Internal Medicine [facility] [phone] [place] [phone] [facility] Provider my chart message / appointment Social History Tobacco Use Types Packs/Day Years Used Date Smoking Tobacco: Never Smokeless Tobacco: Never Alcohol Use Standard Drinks/Week Comments Not Currently 0 (1 standard drink = 0.6 oz pur e alcohol) socially PHQ-2 Answer Date Recorded Patient Health Questionnaire-2 Score 2 12/14/2024 Comments No Sex and Gender Information Value Date Recorded Sex Assigned at Female 12/13/2024 9:13 AM STITCHING MACHINE FEEDER OR OFFBEARER Legal Sex Female 3:49 PM STITCHING MACHINE FEEDER OR OFFBEARER Gender Identity Not on file Sexual Orientation Not on file documented as of this encounter Plan of Treatment Not on file documented as of this encounter Visit Diagnoses Not on filedocumented in this encounter Additional Health Concerns Assessment Noted Time PHQ-9 Depression Total Score: 14 025 1:45 PM STITCHING MACHINE FEEDER OR OFFBEARER documented as of this encounter Care Teams Antisubmarine Weapons Officer Relationship Specialty Start Date [place] Date Madie Miner [place] [address] [place] [address] [address] [address] PCP - General Nurse Practitioner Family 03/10/22 documented as of this encounter
--- OUTSIDE RECORDS SUMMARY | 2025-09-27 18:13 | XMS_ITS | Encounter Summary ---
Author Organization [facility] Address [facility] [place] [address] Care Team Providers Care Insulation Sprayer Name Role Phone Drew Padilla MD Primary Care Provider [phone] Madie Miner NP Primary Care Provider + [phone] Encounter Details Date Type Department Care Team (Late st Contact Info) Description 03/03/2022 Me-Movert Message Enc [facility] Medical Group Family & Internal Medicine [facility] [address] [place] [phone] Drew Padilla MD [address] [place] [address] Nebulizer Social History Tobacco Use Types Packs/Day [...] Sex Assigned at Female 12/13/2024 9:13 AM CUSTOMER CONTACT REPRESENTATIVE Legal Sex Female 3:49 PM CUSTOMER CONTACT REPRESENTATIVE Gender Identity Not on file Sexual [...] Depression Total Score: 0 01/08/20 9:41 AM CUSTOMER CONTACT REPRESENTATIVE documented as of this encounter Care Teams Insulation Sprayer Relationship Specialty [place] [address] [place] [address] PCP - General FAMILY PRACTICE 05/07/21 03/09/22 [place] [address] [address] [place] [address] PCP - General Nurse Practitioner Family 03/10/22 documented as of this encounter
--- OUTSIDE RECORDS SUMMARY | 2025-09-27 18:13 | XMS_ITS | Data Portability ---
Author Organization [facility], [id number] Address [address] [place] [address] Assessment No assessment recorded. Plan of Treatment Reminders Order Date Submit Date Provider Last Modified By Organization Details Last Modified Time Details Appointments ANNUAL- EST 15 2025 01:45P Lissa LUNDBERG WHNP Not available Not available Not available Lab prolactin , serum 2024 025 [facility] ([facility]), [address], [place], [address], 06/25/2025 02:26:51 TSH, serum or plasma 2024 025 [facility] ([facility]), [facility] [address], [place], [address], 06/25/2025 02:26:52 FSH (follicle -stimulat ing hormone), serum 2024 025 [facility]), [facility] [address] [address], [place], [address], 06/22/2025 10:55:44 test, urine 2024 025 [facility] ([facility]), [facility] [address] [address], [place], [address], 06/25/2025 02:26:53 estradiol , serum 2024 025 [email or web address] ([facility]), [address] , [address], [place], [address], 06/22/2025 10:56:04 insulin, serum 2024 025 [facility] ([facility]), [address] , [place], [place], [address], 06/25/2025 02:26:51 HbA1c (hemoglob in A1c), blood 2024 025 [facility] ([facility]), [address], [place], [address], 06/25/2025 02:26:52 CBC w/ auto diff 2024 025 [place] [facility] ([facility]), [address] , [place], [place], [address], 06/25/2025 02:26:50 CMP, serum or plasma 2024 025 [facility] ([facility]), [address] , [place], [place], [address], 06/25/2025 02:26:49 testoster one, free + total, serum 2024 025 [facility] ([facility]), [address] , [address] [address], [place], [address], 06/25/2025 02:26:53 estradiol , serum 2024 025 [facility]), [address], [place], [address], 06/25/2025 02:26:51 progester one, serum 2024 025 [facility] ([facility]), [address], [place], [address], 06/25/2025 02:26:51 FSH (follicle -stimulat ing hormone), serum 2024 025 [facility] ([facility]), [address], [place], [address], 06/25/2025 02:26:50 TSH + free T4, serum [email or web address] [place] [address] Lab ([facility]), [address] [facility] [address], [place], [address], 06/22/2025 10:57:32 vitamin D, 25-hydrox y, total, serum 2024 025 [facility] ([facility]), [address], [place], [address], 06/25/2025 02:26:52 pap, LB - Reflex to HPV is pap is Abnormal 2024 025 [facility] ([facility]), [address], [place], [address], 06/16/2025 14:40:49 Referral None recorded. Procedures None recorded. Surgeries None recorded. Imaging None recorded. Medication Orders Provera 10 mg tablet 2024 025 [place] [id number], [address], [place], [id number], 06/14/2025 15:39:13 Patient TargetsNo targets recorded. Patient Instructions Encounter Date Encounter Id Patient Instructions Last Modified By Organization Details Last Modified Time 06/14/2025 [id number] - Abstain from intercourse for one week before taking a test. - If the test is negative, start Provera as directed to induce menstruation. - Consider a referral to a ammonia still operator or infertility clinic for further evaluation. [email or web address] Not available 06/19/2025 09:23:48 During the visit , I discussed with the patient the plan to abstain from intercourse for a week and then perform a test. If the test is negative, she will start Provera to induce menstruation. We also discussed the possibility of Polycystic Ovarian Syndrome (PCOS) affecting her menstrual cycle and the need for a hormonal workup. I recommended considering a referral to a ammonia still operator or an infertility clinic for further evaluation and management. The patient should follow up after completing the hormonal workup and starting Provera, or sooner if she experiences any new symptoms or concerns. [email or web address] Not available 06/14/2025 15:53:07 Reason for Referral None Reported. Results Created Date Observation Date Name Description Value Unit Range Abnormal Flag Note LastModifiedBy Organization Detail LastModifiedTime 06/14/2006/16/2025 PAP TEST THIN PREP Pap test thin prep Negati ve for Intrae pithel ial Lesion or Malign martita normal ACCES CALVIN #: 25-[id number] Sourc e: Cervi giovani/E ndoce rvica l LMP: Date Taken : 06/14 Speci men Type: ThinP rep Vial Date Repor estela: 2024 Clini giovani Data: Hormo rani: BCPs Last Pap: nl () Cytot ech: GYPSY Ross( CP) Date Repor estela: 2024 Speci men Adequ acy: Satis facto ry for evalu ation Endoc ervic al/tr ansfo rmati on zone compo nent prese nt Gener al Categ oriza tion: NEGAT ATA FOR INTRA EPITH ELIAL LESALAN N OR MIR DOMINGUEZ This speci men has been lizeth zed by the ThinP rep Imagi ng Syste m, an inter activ e compu ter syste m which phong ts the lab in the [place] of ThinP rep Pap Test slide s. Follo wing imagi ng, the slide was revie wed by a Cytot echno logis t and/o r Patho logis t. Cervi giovani cytol ogy is a [place] test prima rily for squam ous cance rs and precu rsors and has assoc iated false -nega tive and false -posi tive resul ts. New techn ologi es such as liqui d-bas ed prepa ratio ns may decre ase but will not elimi janki all false -nega tive resul ts. Regul ar sampl ing and follo w-up of unexp sydney d clini giovani signs and sympt oms are recom freddie d to minim ize false negat ata resul ts. End of t Techn ical servi destini provi ded by [facility], [facility], d/b/a [facility] ad[facility], [address] [place] [address] [place] [address] Teressa hinojosa MD, Labor atory Dire tor. Case revie wed and diagn osis rende red at [facility], [facility], d/b/a [facility], [facility] [address] [place] [address] Teressa hinojosa MD, Labor atory Dire tor. CONFI DENTI AL Not Available [facility] ([facility]) [address] [facility] [address], [place], [address], 06/16/2025 14:40:48 06/24/20 25 06/25/2025 COMPR EHENS ATA METAB OLIC PANEL glucose 103 mg/dL 65-99 high Fasti ng refer ence inter vibha For someo ne witho ut known diabe ray, a gluco se value betwe en 100 and 125 mg/dL is consi stent with predi abete s and shoul d be confi rmed with a follo w-up test. Not Available [employer] [facility] [id number] [place] [address], [address], 06/25/2025 07:24:55 06/24/20 25 06/25/2025 COMPR EHENS ATA METAB OLIC PANEL urea nitrogen (BUN) 13 mg/dL 7-25 normal Not Available [address], [address], 06/25/2025 07:24:55 06/24/20 25 06/25/2025 COMPR EHENS ATA METAB OLIC PANEL creatinine 0.57 mg/dL 0.50-0 .96 normal Not Available [address], [address], 06/25/2025 07:24:55 06/24/20 25 06/25/2025 COMPR EHENS ATA METAB OLIC PANEL eGFR 128 mL/mi n/1.7 3m2 > or = 60 normal Not Available [address], [address], 06/25/2025 07:24:55 06/24/20 25 06/25/2025 COMPR EHENS ATA METAB OLIC PANEL BUN/creatini ne ratio SEE NOTE: (calc ) 6-22 Not Repor estela: BUN and Creat inine are withi n refer ence range . Not Available [address], [address], 06/25/2025 07:24:55 06/24/2006/25/2025 COMPR EHENS ATA METAB OLIC PANEL sodium 138 mmol/ L 135-14 6 normal Not Available [address], [address], 06/25/2025 07:24:55 06/24/20 25 06/25/2025 COMPR EHENS ATA METAB OLIC PANEL potassium 3.8 mmol/ L 3.5-5. 3 normal Not Available [employer] [address], [address], 06/25/2025 07:24:55 06/24/20 25 06/25/2025 COMPR EHENS ATA METAB OLIC PANEL chloride 110 mmol/ L 98-110 normal Not Available [address], [address], 06/25/2025 07:24:55 06/24/20 25 06/25/2025 COMPR EHENS ATA METAB OLIC PANEL carbon dioxide 22 mmol/ L 20-32 normal Not Available [address], [address], 06/25/2025 07:24:55 06/24/20 25 06/25/2025 COMPR EHENS AAT METAB OLIC PANEL calcium 8.8 mg/dL 8.6-10 .2 normal Not Available [address], [address], 06/25/2025 07:24:55 06/24/20 25 06/25/2025 COMPR EHENS ATA METAB OLIC PANEL protein, total 6.3 g/dL 6.1-8. 1 normal Not Available [address], [address], 06/25/2025 07:24:55 06/24/20 25 06/25/2025 COMPR EHENS ATA METAB OLIC PANEL albumin 4.2 g/dL 3.6-5. 1 normal Not Available [address], [address], 06/25/2025 07:24:55 06/24/20 25 06/25/2025 COMPR EHENS ATA METAB OLIC PANEL globulin 2.1 g/dL_ (calc ) 1.9-3. 7 normal Not Available [address], [address], 06/25/2025 07:24:55 06/24/20 25 06/25/2025 COMPR EHENS ATA METAB OLIC PANEL albumin/glob ulin ratio 2.0 (calc ) 1.0-2. 5 normal Not Available [address], [address], 06/25/2025 07:24:55 06/24/20 25 06/25/2025 COMPR EHENS ATA METAB OLIC PANEL bilirubin, total 0.5 mg/dL 0.2-1. 2 normal Not Available [address], [address], 06/25/2025 07:24:55 06/24/20 25 06/25/2025 COMPR EHENS ATA METAB OLIC PANEL alkaline phosphatase 40 U/L 31-125 normal Not Available [address], [address], 06/25/2025 07:24:55 06/24/20 25 06/25/2025 COMPR EHENS ATA METAB OLIC PANEL AST 13 U/L 10-30 normal Not Available [address], [address], 06/25/2025 07:24:55 06/24/20 25 06/25/2025 COMPR EHENS ATA METAB OLIC PANEL ALT 18 U/L 6-29 normal Not Available [address], [address], 06/25/2025 07:24:55 06/24/20 25 06/25/2025 CBC (INCL UDES DIFF/ PLT) white blood cell count 8.4 thous and/u L 3.8-10 .8 normal Not Available [address], [address], 06/25/2025 08:45:45 06/24/20 25 06/25/2025 CBC (INCL UDES DIFF/ PLT) red blood cell count 4.95 tatyana on/uL 3.80-5 .10 normal Not Available [address], [address], 06/25/2025 08:45:45 06/24/2006/25/2025 CBC (INCL UDES DIFF/ PLT) hemoglobin 14.3 g/dL 11.7-1 5.5 normal Not Available [address], [address], 06/25/2025 08:45:45 06/24/2006/25/2025 CBC (INCL UDES DIFF/ PLT) hematocrit 44.7 % 35.0-4 5.0 normal Not Available [facility] [address], [address], 06/25/2025 08:45:45 06/24/2006/25/2025 CBC (INCL UDES DIFF/ PLT) MCV 90.3 fL 80.0-1 00.0 normal Not Available [address], [address], 06/25/2025 08:45:45 06/24/2006/25/2025 CBC (INCL UDES DIFF/ PLT) MCH 28.9 pg 27.0-3 3.0 normal Not Available [address], [address], 06/25/2025 08:45:45 06/24/2006/25/2025 CBC (INCL UDES DIFF/ PLT) MCHC 32.0 g/dL 32.0-3 6.0 normal For adult s, a sligh t decre ase in the calcu lated MCHC value (in the range of 30 to 32 g/dL) is most likel y not clini cynthia signi adia t; manish er, it shoul d be inter prete d with cauti on in corre latio n with other red cell alla eters and the patie nt's clini giovani condi tion. Not Available [address], [address], 06/25/2025 08:45:45 06/24/2006/25/2025 CBC (INCL UDES DIFF/ PLT) RDW 12.3 % 11.0-1 5.0 normal Not Available [address], [address], 06/25/2025 08:45:45 06/24/2006/25/2025 CBC (INCL UDES DIFF/ PLT) platelet count 276 thous and/u L 140-40 0 normal Not Available [address], [address], 06/25/2025 08:45:45 06/24/2006/25/2025 CBC (INCL UDES DIFF/ PLT) MPV 9.7 fL 7.5-12 .5 normal Not Available [address], [address], 06/25/2025 08:45:45 06/24/2006/25/2025 CBC (INCL UDES DIFF/ PLT) absolute neutrophils 5846 cells /uL 1500-7 800 normal Not Available [address], [address], 06/25/2025 08:45:45 06/24/2006/25/2025 CBC (INCL UDES DIFF/ PLT) absolute lymphocytes 1781 cells /uL 850-39 00 normal Not Available [address], [address], 06/25/2025 08:45:45 06/24/2006/25/2025 CBC (INCL UDES DIFF/ PLT) absolute monocytes 596 cells /uL 200-95 0 normal Not Available [address], [address], 06/25/2025 08:45:45 06/24/20 25 06/25/2025 CBC (INCL UDES DIFF/ PLT) absolute eosinophils 126 cells /uL 15-500 normal Not Available [address] [place], [address], 06/25/2025 08:45:45 06/24/2006/25/2025 CBC (INCL UDES DIFF/ PLT) absolute basophils 50 cells /uL 0-200 normal Not Available [address], [address], 06/25/2025 08:45:45 06/24/2006/25/2025 CBC (INCL UDES DIFF/ PLT) neutrophils 69.6 % normal Not Available [facility] [address], [address], 06/25/2025 08:45:45 06/24/2006/25/2025 CBC (INCL UDES DIFF/ PLT) lymphocytes 21.2 % normal Not Available [address], [address], 06/25/2025 08:45:45 06/24/2006/25/2025 CBC (INCL UDES DIFF/ PLT) monocytes 7.1 % normal Not Available [facility] [address], [address], 06/25/2025 08:45:45 06/24/2006/25/2025 CBC (INCL UDES DIFF/ PLT) eosinophils 1.5 % normal Not Available [address], [address], 06/25/2025 08:45:45 06/24/2006/25/2025 CBC (INCL UDES DIFF/ PLT) basophils 0.6 % normal Not Available [address], [address], 06/25/2025 08:45:45 06/24/2006/25/2025 FSH FSH 3.7 mIU/m L normal Refer ence Range Folli cular Phase 2.5-1 0.2 Mid-c ycle Peak 3.1-1 7.7 Lutea l Phase 1.5- 9.1 Postm enopa usal 23.0- 116.3 Not Available [facility] [address] [place], [address], 06/25/2025 06:59:42 06/24/2006/26/2025 INSUL IN insulin 22.1 uIU/m L high Refer ence Range < or = 18.4 Risk: Optim al < or = 18.4 Moder ate NA High >18.4 Adult cardi ovasc ular event risk categ ory cut point s (opti mal, moder ate, high) are based on Insul in Refer ence Inter vibha studi es perfo rmed at [facility] in 2021. Not Available [employer] [place] [id number] [place], [address], 06/26/2025 15:35:09 06/24/2006/25/2025 PROGE STERO NE progesterone <0.5 NG/mL normal Refer ence Range s Femal e Folli cular Phase < 1.0 Lutea l Phase 2.6-2 1.5 Post menop ausal < 0.5 Pregn martita 1st Trime ster 4.1-3 4.0 2nd Trime ster 24.0- 76.0 3rd Trime ster 52.0- 302.0 Not Available [employer] [place] [id number] [place], [address], 06/25/2025 06:59:43 06/24/2006/25/2025 PROLA CTIN prolactin 7.6 NG/mL normal Refer ence Range Femal es Non-p regna nt 3.0-3 0.0 Pregn ant 10.0- 209.0 Postm enopa usal 2.0-2 0.0 Not Available [employer] [facility] [address] [place], [address], 06/25/2025 06:59:44 06/24/20 25 06/25/2025 ESTRA DIOL estradiol 174 pg/mL normal Refer ence Range Folli cular Phase : 19-14 4 Mid-C ycle: 64-35 7 Lutea l Phase : 56-21 4 Postm enopa usal: < or = 31 Refer ence range estab lishe d on post- puber mariela patie nt popul ation . No pre-p ubert al refer ence range estab lishe d using this assay . For any patie nts for whom low Estra diol level s are antic ipate d (e.g. males , pre-p ubert al child becky and hypog onada l/pos t-men opaus al femal es), the [facility] Estra diol, Ultra sensi tive, LCMSM S assay is recom freddie d (orde r code 10849 ). Libertad e note: patie nts being treat ed with the drug fulve stran t (Fasl odex( R)) have demon strat ed signi fican t inter feren ce in immun oassa y metho ds for estra diol measu remen t. The cross react ivity could lead to false ly eleva estela estra diol test resul ts leadi ng to an inapp ropri ate clini giovani asses sment of estro gen statu s. [facility] order code 07072 -Estr adiol , Ultra sensi tive LC/MS /MS demon strat es negli gible cross react ivity with fulve stran t. Not Available [employer] [facility] [address] [place], [address], 06/25/2025 06:55:14 06/24/2006/25/2025 TSH W/REF GHASSAN TO FT4 TSH w/reflex to FT4 0.05 mIU/L low Refer ence Range > or = 20 Years 0.40- 4.50 Pregn martita Range s First trime ster 0.26- 2.66 Secon d trime ster 0.55- 2.73 Third trime ster 0.43- 2.91 Not Available [employer] [facility] [address] [place], [address], 06/25/2025 07:46:02 06/24/2006/25/2025 VITAM IN D,25- OH,TO MARIELA,I A vitamin D,25-oh,tota l,ia 33 NG/mL 30-100 normal Vitam in D Statu s 25-OH Vitam in D: Defic iency : <20 ng/mL Insuf ficie ncy: 20 - 29 ng/mL Optim al: > or = 30 ng/mL For 25-OH Vitam in D testi ng on patie nts on D2-villarreal pplem entat ion and patie nts for whom quant itati on of D2 and D3 fract ions is requi red, the [facility] e[facility](TM ) 25-OH VIT D, (D2,D 3), LC/MS /MS is recom freddie d: order code 45663 (brenden ents >2yrs ). See Note 1 Note 1 For addit ional infor libertad cruz refer to http: //[facility] meggan slade.Meet stDia gnost ics.c om/fa q/FAQ 199 (This link is being provi ded for infor rosemarie lafleur/ zacarias carrasco purpo ses only. ) Not Available [employer] [facility] [address] [place], [address], 06/25/2025 06:59:45 06/24/2006/25/2025 HEMOG LOBIN A1C hemoglobin A1C 5.7 %_of_ total _HGB <5.7 high For someo ne witho ut known diabe ray, a hemog lobin A1c value betwe en 5.7% and 6.4% is consi stent with predi abete s and shoul d be confi rmed with a follo w-up test. For someo ne with known diabe ray, a value <7% indic ates that their diabe ray is well contr olled . A1c targe ts shoul d be indiv idual ized based on durat ion of diabe ray, age, comor bid condi tions , and other consi derat ions. This assay resul t is consi stent with an incre ased risk of diabe ray. Curre ntly, no conse nsus exist s regar ding use of hemog lobin A1c for diagn osis of diabe ray for child becky. Not Available [facility] [place] [address] [address], [place], [address], 06/25/2025 02:26:52 06/24/2006/25/2025 HCG, QL, URINE HCG, ql, urine NEGATI VE negati ve normal Not Available [facility] [place] [address] [address], [place], [address], 06/25/2025 08:45:50 06/24/2006/28/2025 TESTO STERO NE, FREE (DIAL YSIS) AND TOTAL ,MS testosterone , total, MS 41 NG/dL 2-45 For addit ional beatar libertad cruz refer to https ://ed ucati on.[employer] ( [employer] )/f aq/FA Q165 (This link is being provi ded for infor rosemarie nal/e ducat ional purpo ses only. ) (Note ) This test was devel oped and its lizeth tical perfo rmanc e evans cteri stics have been deter mined by [employer]. It has not been clear ed or appro ayden by the FDA. This assay has been valid ated pursu ant to the CLIA regul ation s and is used for clini giovani purpo ses. Not Available [facility] [place] [address] [address], [place], [address], 06/28/2025 15:57:03 06/24/2006/28/2025 TESTO STERO NE, FREE (DIAL YSIS) AND TOTAL ,MS testosterone , free 8 pg/mL 0.1-6. 4 high (Note ) This test was devel oped and its lizeth tical perfo rmanc e evans cteri stics have been deter mined by [employer]. It has not been clear ed or appro ayden by the FDA. This assay has been valid ated pursu ant to the CLIA regul ation s and is used for clini giovani purpo ses. MDF med fusio n [address] [facility] [address] [facility] [address] [phone] [facility] Courtney MD, PhD Not Available [employer] [facility] [address] [place], [address], 06/28/2025 15:57:03 06/24/20 25 06/25/2025 T4, FREE T4, free 1.0 NG/dL 0.8-1. 8 normal Not Available [facility] [address] [place], [address], 06/25/2025 07:46:03 Result Notes None recorded. 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 Depressi on, Problem Code: 301.12; Problem Code Type: ICD-9; Not Available On license of [facility] 12:39:28 Polycystic ovaries Active PCOS, Problem Code: 256.4; Problem Code Type: ICD-9; Not Available On license of [facility] 12:39:29 Uses hormonal contracepti on Active TRUDY DEL TORO MD [address], [place], [address] , [facility] 5 09:47:38 Amenorrhea 14940876 Active 2024 RADHA DAN [address], [place], [address] , [facility] 5 15:32:03 Problem Notes None recorded. Procedures Surgical History Date Name Laterality Status Provider Name and Address Organization Details Recorded Time 04/01/20 21 Date of Last Pap Smear completed Kavitha Coats (MARIA EUGENIA) [facility] 06/12/2025 17:23:58 cystectomy NEC completed Not Available [facility] 03/30/2025 16:14:47 extraction of wisdom tooth completed Not Available On license of [facility] 03/30/2025 16:14:47 colonoscopy completed Not Available On license of [facility] 03/30/2025 16:14:47 Colonoscopy completed Kavitha Coats (TERMED) [place] - [facility] 06/14/2025 15:05:41 Imaging Results None recorded. Procedure Notes None recorded. Medical Equipment None Reported. Allergies Allergen ID Allergen Name Allergen Category Reaction Reaction Severity Criticality Documentation Date Start Date Code Code System Note Provider Name and Address Organization Details Recorded Time 183972 codeine medicatio n Not available Not available Not available 03/30/2025 2670 RxNorm Not Available On license of [facility] 5 12:28:17 [id number] Augmentin medicatio n Not available Not available Not available 03/30/2025 02071 2 RxNorm Diarr hea, Vomit ing Not Available On license of [facility] 5 12:28:17 991330 cat dander environme nt Not available Not available Not available 06/14/2025 Kavitha Coats (TERMED) null, [place] - [facility] 5 15:05:25 [id number] mold extract environme nt Not available Not available Not available 06/14/2025 72876 8 RxNorm Kavitha Coats (TERMED) [place], [place] - [facility] 5 15:05:25 Medications Name Sig Start Date Stop Date Status Note LastModified by Organization Details LastModified Time quetiapine 25 mg tablet TAKE 1 TABLET BY MOUTH DAILY AT BEDTIME active Not Available Not Available No t Available fluoxetine 40 mg capsule TAKE 1 CAPSULE BY MOUTH DAILY active Not Available Not Available No t Available medroxyprog esterone 10 mg tablet TAKE 1 TABLET BY MOUTH EVERY DAY FOR 10 DAYS active Not Available Not Available No t Available acetazolami de ER 500 mg capsule,ext ended release TAKE 1 CAPSULE BY MOUTH TWICE DAILY active Not Available Not Available No t Available prazosin 1 mg capsule Take 1 capsule 3 times a day by oral route. active Not Available Not Available No t Available rizatriptan 10 mg tablet TAKE 1 TABLET BY MOUTH AT ONSET OF MIGRAINE. MAY REPEAT DOSE IN 2 HOURS NEEDED. MAX DOSE 2 IN 24 HOURS active Not Available Not Available No t Available acetazolami de 250 mg tablet TAKE 1 TABLET BY MOUTH TWICE DAILY 06/14 completed Not Available Not Available Not Available levothyroxi ne 25 mcg tablet active Not Available Not Available Not Available dexamethaso ne 1 mg tablet TAKE 1 TABLET BY MOUTH AROUND 11 PM AND GO FOR BLOOD TEST NEXT MORNING 06/14 completed Not Available Not Available Not Available Vitamin C 100 mg tablet Take by oral route. active Not Available Not Available No t Available cyanocobala min (vit B-12) 1,000 mcg/mL injection solution active Not Available Not Available Not Available hydroxyzine HCl 10 mg tablet Take by oral route. 06/14 completed Not Available Not Available Not Available BD SafetyGlide Tuberculin Regular Bevel 1 mL 27 x 1/2 syringe USE TO INJECT CYANOCOBA DAPHNEY INJECTION ONCE MONTHLY active Not Available Not Available No t Available nitrofurant oin monohydrate /macrocryst als 100 mg capsule TAKE 1 CAPSULE BY MOUTH TWICE DAILY FOR 5 DAYS 06/14 completed Not Available Not Available Not Available magnesium active Not Available Not Юлия ilable Not Available levothyroxi ne 06/14 completed Not Available Not Available Not Available vitamin B complex active Not Available Not Available Not Available Prozac active Not Available Not Availa ble Not Available Vitamin D3 active Not Available Not Av ailable Not Available quetiapine ER 50 mg tablet,exte nded release 24 hr TAKE 1 TABLET BY MOUTH DAILY IN THE EVENING active Not Available Not Available No t Available Probiotic active Not Available Not Юлия ilable Not Available lurasidone 40 mg tablet TAKE 1 TABLET BY MOUTH IN THE EVENING WITH FOOD 06/14 completed Not Available Not Available Not Available lurasidone 20 mg tablet TAKE 1 TABLET BY MOUTH IN THE EVENING WITH FOOD 06/14 completed Not Available Not Available Not Available Bos[place]-Linyah 0.25 mg-0.035 mg tablet Take 1 tablet every day by oral route. 06/14 completed Not Available Not Available Not Available lurasidone 60 mg tablet TAKE 1 TABLET BY MOUTH DAILY IN THE EVENING WITH FOOD 06/14 completed Not Available Not Available Not Available FreeStyle Yvette 3 Sensor device CHANGE SENSOR EVERY 14 DAYS active Not Available Not Available No t Available Caplyta 21 mg capsule TAKE 1 CAPSULE BY MOUTH DAILY active Not Available Not Available No t Available Vitals Date Recorded Body height Body mass index (BMI) Body weight Systolic And Diastolic Provider Name and Address Organization Details Last Updated DateTime 06/14/2025 147.32 cm 43.9 kg/m2 50594.4 g 124/76 mm[Hg] Kavitha Coats (TERMED) [facility] 06/14/2025 15:14:23 Social History Question Answer Notes LastModified by [employer] Details LastModified Time Tobacco Smoking Status Never Smoker Not Available [employer] 03/30/2025 17:19:29 Do You Have An Advance Directive? Yes [email or web address] Information not available 06/14/2025 If You Are , What Was Your Level Of Alcohol Consumption Prior To ? None Information not available 06/14/2025 How Many Years Have You Consumed Alcohol? 7 [email or web address] Information not available 06/14/2025 What Is Your Level Of Caffeine Consumption? Occasional Information not available 06/14/2025 What Type Of Diet Are You Following? REGULAR [email or web address] Information not available 06/14/2025 What Is Your Relationship Status? Other Note: Single Information not available 03/30/2025 Sex: Female Functional Status Question Answer Note LastModified by [employer] Details LastModified Time Do you use any illicit or recreational drugs? No Information not available 03/30/2025 What is your level of alcohol consumption? Occasional Qty: social; Note: Use status used: Current some day Amount used: social Information not available 03/30/2025 Are you currently employed? 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 Family History Relationship Description Onset Age of this Age Resolved Age Notes LastModified by Organization Details LastModified Time Unspecified Relation Adopted *Pt Adopte d Not available 03/30/2025 17:10:54 Unspecified Relation Family history unknown *Famil y medica l histor y not known Not available 03/30/2025 17:10:54 Medical History Condition Response Psych- Anxiety Disorder Y Psych- Depression Y Cancer- Genetic screening Endocrinology- Thyroid Problems Y Gynecological History Statement/Question Response History of PCOS Y History of Fibroids N Date of LMP 04/26/2025 History of Infertility N History of Vulvar Dysplasia N History of Cervical Dysplasia N Current Control Method: None Duration of Flow (days) 4 Age at Menarche 9 Current Control Method None History of Recurrent Ovarian Cysts N Age at first intercourse 17 HPV Vaccine Completed History of Endometriosis N Date of Last Colonoscopy Frequency of Cycle (Q days) 26 Sexually Active? Y History of Dysmenorrhea N Menses Monthly N Date of Last Pap Smear 04/01/2021 Sexual Problems? Y History of Sexually Transmitted Infectio n N Obstetrics History GPAL:G 0 P 0 0 0 0 Type Value Multiple Births 0 Full Term 0 Induced 0 Spontaneous 0 Premature 0 Living 0 Ectopics 0 Total 0 Immunizations Vaccine Type Date Status Note Provider Nam e and Address Organization Details Recorded Time Influenza, adjuvanted, quadrivalent, PF 08/30/2022 completed Kavitha Coats (TERMED) null, [facility] 06/12/2025 17:21:07 tetanus toxoid, unspecified formulation 11/30/2019 completed Kavitha Coats (TERMED) null, [place] [facility] 06/12/2025 17:22:37 Past Encounters Encounter ID Performer Location Encounter Start Date Encounter Closed Date Diagnosis/Indication Diagnosis SNOMED-CT Code Diagnosis ICD10 Code Diagnosis IMO Codes Diagnosis Note [id number] TRUDY DEL TORO MD [id number] [facility] [address] [facility] [address] [place] [address] 06/14/2025 14:43:11 06/14/2025 15:41:58 Screening for malignant neoplasm of cervix 856387188 Z12.4 The patient is undergoing a routine cervical cancer screening as part of her annual wellness visit. Amenorrhea 11787523 N91. 2 The patient is advised to abstain from intercours e for a week and then perform a test. If the test is negative, she will start Provera to induce menstruati on. Gynecologi c examination 05931339 Z01.121 [id number] Health Concerns Section Related Observation LastModified by Organization Detai ls LastModified Time None Recorded Concern Status LastModified by Organization Details LastModified Time None Recorded Advance Directives Directive Y: Payers Insurance Date Sequence Insurance Name Policy Number Policy Friedman Covered Member ID Friedman Member ID Guarantor Name 06/14/2025 1 [employer] ([place] [id number] Ramya Ambrose [id number] Ramya Ambrose 06/14/2025 1 [employer] - LIVE 360 (EPO) Ramya Ambrose [id number] Ramya Ambrose Notes Date Note Type Note Provider Name and Address Organization Details Recorded Time 06/14/2025 text/html The patient is a 24-year-old female presenting with amenorrhea and for a cervical cancer screening. The patient reports not having a menstrual period for a month and a half, despite testing negative for . She stopped taking control three weeks ago and is experiencing irregular menstruation. The patient has a history of irregular periods since fifth grade, which led to a diagnosis of Polycystic Ovarian Syndrome (PCOS) at a young age. She has been on control to regulate her menstrual cycle, but recently stopped due to lack of menstruation. The patient experiences occasional ovarian pain but has not been diagnosed with ovarian cysts. The patient is interested in becoming and has been advised to abstain from intercourse for a week before taking a test. If the test is negative, she will start Provera to induce menstruation. The patient has a history of thyroid issues, with lab work done six months ago showing normal results. She is not diabetic but was previously monitored for blood sugar levels. RADHA DAN [address] [facility] [address], [place], [address], [facility] 06/19/2025 09:25:03 OBGyn Episode No OBEpisode recorded.
--- OUTSIDE RECORDS SUMMARY | 2025-09-27 18:13 | XMS_ITS | Encounter Summary ---
Author Organization [facility] Address [facility] [place] [address] Care Team Providers Care Funeral Home Location Manager Name Role Phone Madie Miner NP Primary Care Provider [phone] Encounter Details Date Type Department Care Team (Late st Contact Info) Description 10/27/2023 Keelvar Message Enc [facility] Family & Internal Medicine [facility] [id number] [place] [phone] [facility] Provider refill Social History Tobacco Use Types Packs/Day Years Used Date Smoking Tobacco: Never Smokeless Tobacco: Never Alcohol Use Standard Drinks/Week Comments Not Currently 0 (1 standard drink = 0.6 oz pur e alcohol) socially PHQ-2 Answer Date Recorded Patient Health Questionnaire-2 Score 0 06/23/2023 Comments No Sex and Gender Information Value Date Recorded Sex Assigned at Female 12/13/2024 9:13 AM FACILITY ENGINEER Legal Sex Female 3:49 PM FACILITY ENGINEER Gender Identity Not on file Sexual Orientation Not on file documented as of this encounter Plan of Treatment Not on file documented as of this encounter Visit Diagnoses Not on filedocumented in this encounter Additional Health Concerns Assessment Noted Time PHQ-9 Depression Total Score: 6 06/23/20 9:41 AM CDT documented as of this encounter Care Teams Funeral Home Location Manager Relationship Specialty [place] [address] [place] [address] PCP - General Nurse Practitioner Family 03/10/22 documented as of this encounter
--- OUTSIDE RECORDS SUMMARY | 2025-09-27 18:13 | XMS_ITS | Encounter Summary ---
Author Organization [facility] Address [facility] [place] [address] Care Team Providers Care Marble Mechanic Helper Name Role Phone Madie Miner NP Primary Care Provider Encounter Details Date Type Department Care Team (Latest Contact Info) Description 06/27/2024 iFit Message Enc [facility] Family & Internal Medicine [address] [phone] Madie Miner NP [address] [place] [address] Drosser referral Social History Tobacco Use Types Packs/Day Years Used Date Smoking Tobacco: Never Smokeless Tobacco: Never Alcohol Use Standard Drinks/Week Comments Not Currently 0 (1 standard drink = 0.6 oz pur e alcohol) socially PHQ-2 Answer Date Recorded Patient Health Questionnaire-2 Score 0 06/23/2023 Comments No Sex and Gender Information Value Date Recorded Sex Assigned at Female 12/13/2024 9:13 AM 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
--- OUTSIDE RECORDS SUMMARY | 2025-09-27 18:13 | XMS_ITS | Encounter Summary ---
Author Organization [facility] Address On license of [facility] [place] [address] Care Team Providers Care Broke Beater Operator Name Role Phone Madie Miner NP Primary Care Provider [phone] Encounter Details Date Type Department Care Team (Late st Contact Info) Description 02/23/2025 PokitDok Message Enc [facility] Medical Group Family & Internal Medicine [address] [phone] Madie Miner NP [address] [place] [address] Muscle relaxer Social History Tobacco Use Types Packs/Day Years Used Date Smoking Tobacco: Never Smokeless Tobacco: Never Alcohol Use Standard Drinks/Week Comments Not Currently 0 (1 standard drink = 0.6 oz pur e alcohol) socially PHQ-2 Answer Date Recorded Patient Health Questionnaire-2 Score 2 12/14/2024 Comments No Sex and Gender Information Value Date Recorded Sex Assigned at Female 12/13/2024 9:13 AM CHILD PSYCHOLOGIST Legal Sex Female 3:49 PM CHILD PSYCHOLOGIST Gender Identity Not on file Sexual Orientation Not on file documented as of this encounter Progress Notes * Krystyna Colvin MA - 02/23/2025 11:00 AM CDT Please advise, since Madie is out of the office. Thanks! documented in this encounter Plan of Treatment Not on file documented as of this encounter Visit Diagnoses Not on filedocumented in this encounter Additional Health Concerns Assessment Noted Time PHQ-9 Depression Total Score: 14 025 1:45 PM CHILD PSYCHOLOGIST documented as of this encounter Care Teams Broke Beater Operator Relationship Specialty [place] [address] [address] PCP - General Nurse Practitioner Family 03/10/22 documented as of this encounter
--- NOTE | 2025-09-27 18:46 | ED.SKABFB ---
HPI - Skin/Abscess/Foreign Bdy General Chief complaint: Skin/Abscess/Foreign Body Stated complaint: poison Maria Eugenia Time Seen by Provider: 09/27/25 18:30 Source: patient and RN notes reviewed Mode of arrival: ambulatory Limitations: no limitations History of Present Illness HPI narrative: 25-year-old female presents Express Care complaining of rash her face, lower abdomen, arms for last 3 days. Patient says she [place] with her grandmother when she developing a rash later that day. Patient said she knows poison [place]. Patient reports redness, swelling, pruritus and mild discomfort to the rash. Reason hydrocortisone cream and Aquaphor without relief. Patient denies any swelling to her face, lips, tongue,, throat, chest pain, wheezing,, nausea, vomiting, hives, or any other symptoms. Related Data Home Medications ?Medication ?Instructions ?Recorded ?Confirmed ?Last Taken ?Type fluoxetine 40 mg capsule 40 mg PO DAILY 06/14/23 07/30/23 Unknown History quetiapine 25 mg tablet 25 mg PO HS 06/14/23 07/30/23 Unknown History vitamin B complex 1 tablet PO DAILY 07/30/23 07/30/23 Unknown History lurasidone 60 mg tablet 60 mg PO DAILY 02/07/25 Unknown History magnesium oxide 400 mg (241.3 mg 400 mg PO DAILY 02/07/25 Unknown History magnesium) tablet (MgO) lumateperone 42 mg capsule mg PO 09/27/25 Unknown History (Caplyta) Allergies Allergy/AdvReac Type Severity Reaction Status Date / Time codeine Allergy Mild Hives Verified 09/27/25 18:11 prednisolone Allergy Mild Hives Verified 09/27/25 18:11 etomidate Allergy Rash Verified 09/27/25 18:11 vancomycin Allergy Hives Verified 09/27/25 18:11 amoxicillin AdvReac Diarrhea Verified 09/27/25 18:11 Review of Systems Review of Systems: CONSTITUTIONAL: Denies fever, chills, or sweats. EYES: Denies visual changes, redness, or discharge. ENT: Denies rhinorrhea, congestion, sore throat, or otalgia. CARDIOVASCULAR: Denies chest pain, palpitations, or edema. RESPIRATORY: Denies cough or dyspnea. GASTROINTESTINAL: Denies abdominal pain, nausea, vomiting, or diarrhea. GENITOURINARY: Denies dysuria or hematuria. SKIN: Positive for rash and itching. MUSCULOSKELETAL: Denies back pain, joint pain, or myalgia. NEUROLOGIC: Denies headache, numbness, or weakness. PSYCHIATRIC: Denies anxiety or depression. All other systems reviewed are negative, except as documented in HPI. [facility] Past Medical History Medical History Lymphangioma, any site Multiple surgeries for resection of lymph angiomas from the neck. Polycystic ovarian syndrome Suicide attempt Anxiety Borderline personality disorder Bipolar disorder Louie's thyroiditis Anxiety Depression ADHD ADD (attention deficit disorder) Surgical History Surgical History History of excision of mass Multiple surgeries for resection of lymphangiomas from the neck. History of colonoscopy Hx of lymphangioma with surgery Family History Family History Other Family history non-contributory Social History Social History Social History: Patient's mother states the patient started vaping 3 weeks ago (April 2023) and did for 2 weeks before quitting 4-5 days prior to getting sick. She denies drug abuse, marijuana and alcohol use, and smoking. Smoking status: Never smoker Second hand tobacco smoke exposure: Yes Alcohol intake: never Substance use: never Substance use type: other Lack of Transportation: No Lack of Food: Never True Current Housing: I Have Housing Concerned About Future Housing: No Difficulty Paying Gas/Electric Bills: No Difficulty Paying for Meds: No Currently Unemployed: No Education: Trade/Vocational Certificate Difficulty w/ Childcare or Family Care: No Additional living arrangements comments: Lives in own home on the same property as her family. 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 Gender identity (if verbalized by the patient): Female Spiritual care concerns: No Agree to blood products: No Comments At the time of my signature, I reviewed and agree with the nursing past medical, surgical, social, and family history. There is no relevant family history pertinent to the patient complaint. Exam Narrative: GENERAL: This is a well-nourished, well-developed adult, in no apparent distress. They are non ill-appearing, nontoxic appearing. HEAD: normocephalic, atraumatic. EYES: Sclera clear/white. Conjunctiva normal. Vision is grossly intact. Extraocular movements intact EARS: External ears normal, Hearing grossly intact. NOSE: External nose normal THROAT: Mucous membranes moist, NECK: Neck supple, CARDIOVASCULAR: Regular rate and rhythm RESPIRATORY: Respiratory rate normal, respiratory effort nonlabored, no respiratory distress SKIN: Macular papular vesicular rash scattered throughout the patient's face, bilateral forearms, and lower abdomen. It is pruritic, no area of fluctuance, no induration. No exudate. NEURO: awake, alert, and oriented to person, place and time. There were no obvious focal neurologic abnormalities. EXTREMITIES: No joint tenderness, effusion, or edema noted. Course Course Emergency Course: Portions of this record may have been created with voice recognition software Level of Care: Express Care Visit Vital Signs Vital signs: Vital Signs Temperature 97.6 F 09/27/25 17:57 Pulse Rate 73 09/27/25 17:57 Respiratory Rate 16 09/27/25 17:57 Blood Pressure 134/70 09/27/25 17:57 Pulse Oximetry 97 09/27/25 17:57 Oxygen Delivery Room Air 09/27/25 17:57 Temperature 97.6 F 09/27/25 17:57 Pulse Rate 73 09/27/25 17:57 Respiratory Rate 16 09/27/25 17:57 Blood Pressure 134/70 09/27/25 17:57 Pulse Oximetry 97 09/27/25 17:57 Oxygen Delivery Room Air 09/27/25 17:57 Reviewed MDM - Skin/Abscess/Foreign Bdy MDM Narrative Medical decision making narrative: Likely patient has contact dermatitis. Patient him a shot of Solu-Medrol will be sent home on prednisone. Patient reports an allergy to prednisolone reporting swelling to her abdomen. Patient denies any hives or any signs of anaphylaxis. Likely the steroids causesd fluid retention. Patient observed for at least 20 minutes without any reaction to the Solu-Medrol injection. Advised patient if any signs of anaphylaxis such hives, swelling to the face, tongue, throat, wheezing, nausea, vomiting, breathing problems occur to call 911 and go to the ER immediately. Discussed physical exam findings. Advised supportive measures and signs/symptoms to go to the ER. Pt is appropriate for outpt treatment and f/u. Differential Diagnosis Differential diagnosis: Likely urticaria, cellulitis, eczema and contact dermatitis Critical Care Time Critical Care Time Critical Care Time: No Discharge Plan Discharge Clinical Impression: Contact dermatitis Patient Disposition: Home Condition: Stable Instructions: Antibiotic Form, Contact Dermatitis (ED) Additional Instructions: Take the prednisone as directed. Take it in the morning and take it with food. You may use calamine lotion, camphor, hydrocortisone cream, Benadryl cream as needed for itchiness symptoms. You may also take Zyrtec or Claritin as needed for allergy or itchiness symptoms. Follow-up PCP in 3-5 days. If you develop any worsening redness, swelling, discharge, fevers, breathing problems, vomiting, or any other concerns please go to the ER immediately. Patient Language: Italian Prescriptions: New prednisone 20 mg tablet 40 mg PO DAILY 5 Days Qty: 10 0RF No Action Caplyta 42 mg capsule PO vitamin B complex Tablet 1 tablet PO DAILY lurasidone 60 mg tablet 60 mg PO DAILY Rx Instructions: must administer with food (at least 350 calories) take 30 mg daily magnesium oxide [MgO] 400 mg (241.3 mg magnesium) tablet 400 mg PO DAILY quetiapine 25 mg tablet 25 mg PO HS fluoxetine 40 mg capsule 40 mg PO DAILY levothyroxine 50 mcg tablet 50 mcg PO DAILY Qty: 90 2RF Follow-up/Referrals: Isidra,Madie Gonzalez APRN [Primary Care Provider, [facility]] Time of Disposition: 18:44
== END 2025-09-27 19:02 | disposition home or self-care (01) ==
PROVIDERS: PCP Nurse Practitioner Family
DX: L25.9 Unspecified contact dermatitis, unspecified cause (principal); E28.2 Polycystic ovarian syndrome; E06.3 Autoimmune thyroiditis; F41.9 Anxiety disorder, unspecified; F31.9 Bipolar disorder, unspecified
CPT/HCPCS: 96372; 99213; G0463; J2919